=== PATIENT | male | born 1950 | race Caucasian/White ===

== ENCOUNTER 2016-03-06 18:42 | Emergency (ER) | payer MEDICARE ==
[2016-03-06 19:08] VITALS: TEMP 96.7
[2016-03-06] MEDS ORDERED: LIDOCAINE/EPINEPHR/TETRACAINE 5 ML BOTTLE TOPICAL ONE (19:53)
[2016-03-06] MEDS ORDERED: DIPH,PERTUS(ACELL)TETVAC-LF 0.5 ML VIAL IM ONE (19:55)
--- NOTE | 2016-03-06 20:11 | ED ---
Fall HPI - General Chief Complaint: Fall Stated Complaint: fall hit head Time Seen by Provider: 03/06/16 19:42 Source: patient, family, RN notes reviewed Mode of arrival: wheelchair - History of Present Illness Initial Comments: Patient is a 65-year-old male presents to the emergency room for evaluation of fall injury. Patient states earlier this evening he lost his balance and fell backwards hitting the back of his head. Patient denies loss of consciousness. Patient states he is having a headache and has noticed bleeding in the back of his head. Patient's states that patient has been a little more confused than usual. Patient's states that patient is on Plavix for A. fib. Patient denies any other injuries during incident. Patient denies neck pain. Patient denies weakness. Patient denies arm pain, leg pain or back pain. Patient denies changes in vision. Patient denies nausea or vomiting. Patient' s states that patient's back of his head continues to bleed. - Related Data Home Medications Medication Instructions Recorded Confirmed Furosemide [Lasix] 20 mg PO DAILY 01/07/14 03/06/16 Isosorbide Mononitrate ER [Imdur] 30 mg PO DAILY 01/07/14 03/06/16 Simvastatin [Zocor] 20 mg PO HS 01/07/14 03/06/16 glipiZIDE [Glucotrol] 5 mg PO AC-BRKFST 01/07/14 03/06/16 Ferrous Sulfate [Feosol] 325 mg PO DAILY 04/06/14 03/06/16 Clopidogrel [Plavix] 75 mg PO DAILY 09/29/14 03/06/16 Aspirin 81 mg PO DAILY 03/28/15 03/06/16 Tamsulosin HCl [Flomax] 0.4 mg PO DAILY 03/28/15 03/06/16 Digoxin [Lanoxin] 125 mcg PO DAILY 08/18/15 03/06/16 Memantine HCl [Namenda Xr] 28 mg PO DAILY 09/29/15 03/06/16 Citalopram Hydrobromide [CeleXA] 20 mg PO DAILY 03/06/16 03/06/16 Divalproex Sodium [Depakote] 500 mg PO BID 03/06/16 03/06/16 Metoprolol Succinate [Toprol XL] 25 mg PO DAILY 03/06/16 03/06/16 Multivitamin/Iron/Folic Acid 1 tab PO DAILY 03/06/16 03/06/16 [Centrum Complete Multivit Tab] Allergies Allergy/AdvReac Type Severity Reaction Status Date / Time No Known Allergies Allergy Verified 03/06/16 19:49 Review of Systems ROS Statement: Those systems with pertinent positive or pertinent negative responses have been documented in the HPI. ROS Other: All systems not noted in ROS Statement are negative. Past Medical History Past Medical History: Atrial Fibrillation, Atrial Flutter, Coronary Artery Disease (CAD), COPD, CVA/TIA, Diabetes Mellitus, Hyperlipidemia, Hypertension, Myocardial Infarction ([place]), Osteoarthritis (OA) Additional Past Medical History / Comment(s): Numbness in fingertips, restenosis of meka carotid stents Last Myocardial Infarction Date:: 2011 History of Any Multi-Drug Resistant Organisms: None Reported Past Surgical History: Heart Catheterization With Stent Additional Past Surgical History / Comment(s): Neck surgery, bilateral carotid surgery Past Anesthesia/Blood Transfusion Reactions: No Reported Reaction Date of Last Stent Placement:: 2011 Past Psychological History: Anxiety Smoking Status: Current every day smoker Past Alcohol Use History: None Reported Past Drug Use History: None Reported - Past Family History Father Family Medical History: Coronary Artery Disease (CAD) Mother Family Medical History: Coronary Artery Disease (CAD), Diabetes Mellitus General Exam - General Exam Comments Initial Comments: Sitting in exam room in no acute distress. Limitations: physical limitation General appearance: alert, in no apparent distress Expanded Head exam: Present: laceration (1 cm actively bleeding laceration on the right posterior parietal portion of the scalp), abrasion (1 cm abrasion on the posterior parietal scalp ) Eye exam: Present: normal appearance, PERRL, EOMI Pupils: Present: normal accommodation ENT exam: Present: normal exam Neck exam: Present: normal inspection, full ROM. Absent: tenderness, lymphadenopathy Respiratory exam: Absent: respiratory distress Extremities exam: Present: normal inspection, full ROM, normal capillary refill Back exam: Present: normal inspection Neurological exam: Present: alert Expanded Patient oriented to: Present: person, place Speech: Present: fluid speech Sensory exam: Upper Extremity Light Touch: Normal, Lower Extremity Light Touch: Normal Motor strength exam: RUE: 5, LUE: 5, RLE: 5, LLE: 5 Eye Response: (4) open spontaneously Motor Response: (6) obeys commands Verbal Response: (5) oriented Psychiatric exam: Present: normal affect, normal mood Skin exam: Present: warm, dry, normal color. Absent: rash Course Vital Signs 03/06/16 19:05 Temperature 96.7 F L Pulse Rate 83 Respiratory 20 Rate Blood Pressure 94/54 O2 Sat by Pulse 94 L Oximetry Procedures - Laceration Laceration #1 Consent Obtained: verbal consent Indication: laceration Site: scalp Size (cm): 1 Description: linear Depth: simple, single layer Pre-repair: wound explored Type of Sutures: other (staple) Number of Sutures: 1 Patient Tolerated Procedure: well, no complications Medical Decision Making - Medical Decision Making Patient is a 65-year-old male presents to the emergency room for fall injury. Brain CT shows no acute findings. Laceration repaired with staple. Advised for patient to follow-up with his primary care provider in 1-2 days for reevaluation. Patient states he understands everything that was discussed with him. Return parameters discussed. Case discussed with Dr. Cardenas. - Radiology Data Radiology results: report reviewed, image reviewed Disposition Clinical Impression: Fall, Scalp laceration Disposition: HOME SELF-CARE Condition: Good Instructions: Fall Prevention for Older Adults (ED), Laceration (ED), Staple Care (ED) Additional Instructions: Take Tylenol as needed for discomfort. Keep wound area clean and dry. Please return in 10-12 days for staple removal. Please follow up with primary care provider in 24-48 hours for reevaluation. If any new symptom arises or symptoms worsen, return to ER as soon as possible. Referrals: Ronal Torres MD [Primary Care Provider] - 1-2 days Time of Disposition: 20:44
--- NOTE | 2016-03-06 20:36 | CT ---
EXAMINATION TYPE: CT brain wo con DATE OF EXAM: 03/06/2016 8:13 PM COMPARISON: 08/19/2015 HISTORY: Fall today with laceration to posterior left side of head. CT DLP: 1061.0 mGycm Automated exposure control for dose reduction was used. FINDINGS: There is a 3 x 4 cm area of hypodensity in the right occipital lobe consistent with old infarct. Ther e is cerebral cortical atrophy. There is no mass effect nor midline shift. There is no sign of intrac ranial hemorrhage. The calvarium is intact. There is mild mucosal thickening in the left maxillary si nus. IMPRESSION: Old right occipital lobe infarct. Cerebral atrophy. No acute intracranial abnormality. No change comp ared to old exam.
[2016-03-06 20:52] VITALS: BP 132/69; PULSE 88; RESP 18
== END 2016-03-06 20:53 | disposition home or self-care (01) ==
LOC: EC 18:42
DX: S01.01XA Laceration without foreign body of scalp, initial encounter (principal); R41.0 Disorientation, unspecified; G31.9 Degenerative disease of nervous system, unspecified; I48.91 Unspecified atrial fibrillation; I48.92 Unspecified atrial flutter; I25.10 Atherosclerotic heart disease of native coronary artery without angina pectoris; J44.9 Chronic obstructive pulmonary disease, unspecified; E11.9 Type 2 diabetes mellitus without complications; E78.5 Hyperlipidemia, unspecified; I10 Essential (primary) hypertension; I25.2 Old myocardial infarction; M19.90 Unspecified osteoarthritis, unspecified site; F41.9 Anxiety disorder, unspecified; F17.200 Nicotine dependence, unspecified, uncomplicated; Z86.73 Personal history of transient ischemic attack (TIA), and cerebral infarction without residual deficits; Z23 Encounter for immunization; Z79.84 Long term (current) use of oral hypoglycemic drugs; Z79.01 Long term (current) use of anticoagulants; Z79.82 Long term (current) use of aspirin; Z79.899 Other long term (current) drug therapy; W18.00XA Striking against unspecified object with subsequent fall, initial encounter; Y92.009 Unspecified place in unspecified non-institutional (private) residence as the place of occurrence of the external cause
CPT/HCPCS: 12001; 70450; 90471; 90715; 99284

== ENCOUNTER 2017-11-25 20:03 | Emergency (ER) | payer MEDICARE ==
[2017-11-25] MEDS ORDERED: SODIUM CHLORIDE 0.9% 500 ML 500 ML IV STA (20:40)
--- NOTE | 2017-11-25 20:44 | ED ---
Seizure HPI - General Chief Complaint: Seizure Stated Complaint: seizures Time Seen by Provider: 11/25/17 20:18 Source: patient Mode of arrival: EMS Limitations: no limitations - History of Present Illness Initial Comments: Vision is a 67-year-old male with a known seizure disorder that takes Depakote. says that for the last few weeks the last months, he has been having daily seizures but that today, he had 4-5 seizures in a row. Family states that shortly prior to arrival, he stood up and went to the bathroom. Whenever he returned, he started having rightward eye deviation as well as minor tonic- clonic activity that lasted several minutes in duration and happened 4-5 times. The patient did not fall or hit his head and family states that he is relatively back to his baseline although he seems a little bit more sluggish than normal. Patient denies any changes in vision as well as headache at this time. - Related Data Home Medications Medication Instructions Recorded Confirmed Furosemide [Lasix] 20 mg PO DAILY 01/07/14 03/06/16 Isosorbide Mononitrate ER [Imdur] 30 mg PO DAILY 01/07/14 03/06/16 Simvastatin [Zocor] 20 mg PO HS 01/07/14 03/06/16 glipiZIDE [Glucotrol] 5 mg PO AC-BRKFST 01/07/14 03/06/16 Ferrous Sulfate [Feosol] 325 mg PO DAILY 04/06/14 03/06/16 Clopidogrel [Plavix] 75 mg PO DAILY 09/29/14 03/06/16 Aspirin 81 mg PO DAILY 03/28/15 03/06/16 Tamsulosin HCl [Flomax] 0.4 mg PO DAILY 03/28/15 03/06/16 Digoxin [Lanoxin] 125 mcg PO DAILY 08/18/15 03/06/16 Memantine HCl [Namenda Xr] 28 mg PO DAILY 09/29/15 03/06/16 Citalopram Hydrobromide [CeleXA] 20 mg PO DAILY 03/06/16 03/06/16 Divalproex Sodium [Depakote] 500 mg PO BID 03/06/16 03/06/16 Metoprolol Succinate [Toprol XL] 25 mg PO DAILY 03/06/16 03/06/16 Multivitamin/Iron/Folic Acid 1 tab PO DAILY 03/06/16 03/06/16 [Centrum Complete Multivit Tab] Allergies Allergy/AdvReac Type Severity Reaction Status Date / Time No Known Allergies Allergy Verified 03/06/16 19:49 Review of Systems ROS Statement: Those systems with pertinent positive or pertinent negative responses have been documented in the HPI. Constitutional: Negative for chills, fatigue and fever. HENT: Negative for congestion. Respiratory: Negative for chest tightness, shortness of breath and wheezing. Negative for cough Cardiovascular: Negative for chest pain and palpitations. Gastrointestinal: Negative for abdominal pain. Negative for abdominal distention , diarrhea, nausea and vomiting. Genitourinary: Negative for dysuria. Musculoskeletal: Negative for back pain, neck pain and neck stiffness. Skin: Negative for color change. Neurological: Negative for dizziness, speech difficulty, weakness and light- headedness. Positive for confusion and seizures Psychiatric/Behavioral: Negative for agitation and confusion. Negative for anxiety ROS Other: All systems not noted in ROS Statement are negative. Past Medical History Past Medical History: Atrial Fibrillation, Atrial Flutter, Coronary Artery Disease (CAD), COPD, CVA/TIA, Diabetes Mellitus, Hyperlipidemia, Hypertension, Myocardial Infarction ([place]), Osteoarthritis (OA) Additional Past Medical History / Comment(s): Numbness in fingertips, restenosis of meka carotid stents Last Myocardial Infarction Date:: 2011 History of Any Multi-Drug Resistant Organisms: None Reported Past Surgical History: Heart Catheterization With Stent Additional Past Surgical History / Comment(s): Neck surgery, bilateral carotid surgery Past Anesthesia/Blood Transfusion Reactions: No Reported Reaction Date of Last Stent Placement:: 2011 Past Psychological History: Anxiety Smoking Status: Current every day smoker Past Alcohol Use History: None Reported Past Drug Use History: None Reported - Past Family History Father Family Medical History: Coronary Artery Disease (CAD) Mother Family Medical History: Coronary Artery Disease (CAD), Diabetes Mellitus General Exam - General Exam Comments Initial Comments: Constitutional: Pt is oriented to person, place. Pt appears well-developed and well-nourished. No distress. HENT: Head: Normocephalic and atraumatic. Eyes: EOM are normal. Neck: Normal range of motion. Neck supple. Cardiovascular: Normal rate, regular rhythm, S1 normal, S2 normal and normal heart sounds. Exam reveals no gallop and no friction rub. No murmur heard. Pulmonary/Chest: Effort normal and breath sounds normal. No tachypnea and no bradypnea. No respiratory distress. No wheezes or rales noted. Abdominal: Soft. Bowel sounds are normal. Pt exhibits no shifting dullness, no distension, no pulsatile liver, no fluid wave, no abdominal bruit and no ascites. There is no tenderness. There is no rigidity, no rebound, no guarding, no tenderness at McBurney's point and negative Hatfield's sign. Musculoskeletal: Normal range of motion. Neurological: Pt is alert and oriented to person, place. No cranial nerve deficit. Skin: Skin is warm and dry. No rash noted. Pt is not diaphoretic. No erythema. No pallor. Psychiatric: Pt has a normal mood and affect. Pt behavior is normal. Thought content normal. Limitations: no limitations Course Vital Signs 11/25/17 11/25/17 11/25/17 20:12 22:00 23:08 Temperature 97.8 F Pulse Rate 71 52 L 50 L Respiratory 18 16 15 Rate Blood Pressure 154/84 147/93 O2 Sat by Pulse 100 100 100 Oximetry 11/25/17 23:26 Temperature Pulse Rate 67 Respiratory 16 Rate Blood Pressure 136/57 O2 Sat by Pulse 99 Oximetry Medical Decision Making - Medical Decision Making Laboratory studies showed that there was no significant leukocytosis and electrolytes were relatively within normal limits with exception of potassium which is slightly elevated at 5.2. In review of old labs, this appears to be patient's baseline his old labs had an potassium 4.8. EKG also showed no explained cause for the patient's seizure-like activity. Head CT showed old right occipital lobe infarct with no acute intracranial abnormality. There is also cerebral atrophy but no changes compared to old exam.It was explained that while there does not appear to be an emergent process, the etiology of the symptoms are still unclear and may need further workup as an outpatient if symptoms continue. Extensive conversation was had with the son and and after a prolonged observation time in the emergency department, it was mutually decided that the patient would be most benefited from discharge and outpatient follow-up with neurology. Depakote level was also noted to be within normal limits and there is no evidence of digoxin toxicity. Patient was advised to follow-up with neurology in the next 1-2 days in all parties were agreeable to plan. - Lab Data Result diagrams: 11/25/17 22:30 11/25/17 22:30 Lab Results 11/25/17 11/25/17 11/25/17 Range/Units 22:30 22:30 22:30 WBC 7.0 (3.8-10.6) k/uL RBC 3.78 L (4.30-5.90) m/uL Hgb 11.3 L (13.0-17.5) gm/dL Hct 34.5 L (39.0-53.0) % MCV 91.4 (80.0-100.0) fL MCH 29.7 (25.0-35.0) pg MCHC 32.6 (31.0-37.0) g/dL RDW 13.8 (11.5-15.5) % Plt Count 216 (150-450) k/uL Neutrophils % 74 % Lymphocytes % 11 % Monocytes % 8 % Eosinophils % 4 % Basophils % 1 % Neutrophils # 5.2 (1.3-7.7) k/uL Lymphocytes # 0.8 L (1.0-4.8) k/uL Monocytes # 0.6 (0-1.0) k/uL Eosinophils # 0.3 (0-0.7) k/uL Basophils # 0.0 (0-0.2) k/uL Sodium 139 (137-145) mmol/L Potassium 5.2 H (3.5-5.1) mmol/L Chloride 102 (98-107) mmol/L Carbon Dioxide 28 (22-30) mmol/L Anion Gap 9 mmol/L BUN 38 H (9-20) mg/dL Creatinine 1.51 H (0.66-1.25) mg/dL Est GFR (CKD-EPI)AfAm 54 (>60 ml/min/1.73 sqM) Est GFR (CKD-EPI)NonAf 47 (>60 ml/min/1.73 sqM) Glucose 89 (74-99) mg/dL Calcium 8.4 (8.4-10.2) mg/dL Total Bilirubin 0.5 (0.2-1.3) mg/dL AST 28 (17-59) U/L ALT 15 L (21-72) U/L Alkaline Phosphatase 44 (38-126) U/L Total Protein 7.0 (6.3-8.2) g/dL Albumin 3.7 (3.5-5.0) g/dL Digoxin 0.8 ng/mL Valproic Acid 52.3 ug/mL Serum Alcohol <10 mg/dL - EKG Data EKG Comments: EKG showed normal sinus rhythm with a rate of 72 bpm, PA interval 162, QRS duration 88, QTC 433 there are no significant ST depressions or elevations noted. Disposition Clinical Impression: Seizure-like activity, Hyperkalemia Disposition: HOME SELF-CARE Condition: Good Instructions: Recurrent Seizures in Adults (ED) Is patient prescribed a controlled substance at d/c from ED?: No Referrals: Ronal Torres MD [Primary Care Provider] - 1-2 days Time of Disposition: 23:48
--- NOTE | 2017-11-25 21:17 | CT ---
EXAMINATION TYPE: CT brain wo con DATE OF EXAM: 11/25/2017 COMPARISON: 03/06/2016 HISTORY: Seizures CT DLP: 1041.4 mGycm Automated exposure control for dose reduction was used. FINDINGS: There is a 3 x 2 cm area of hypodensity in the inferior right occipital lobe consistent with old jennifer ical infarct. There is cerebral cortical atrophy. There is some hypodensity in the anterior internal capsule bilaterally. There is no midline shift. There is no sign of intracranial hemorrhage. Calvariu m is intact. IMPRESSION: OLD RIGHT OCCIPITAL LOBE INFARCT. NO ACUTE INTRACRANIAL ABNORMALITY. CEREBRAL ATROPHY. NO CHANGE COMP ARED TO OLD EXAM.
--- NOTE | 2017-11-25 21:19 | XR ---
EXAMINATION TYPE: XR chest 2V DATE OF EXAM: 11/25/2017 COMPARISON: 09/29/2015 HISTORY: Seizure TECHNIQUE: Frontal and lateral views of the chest are obtained. FINDINGS: There is no heart failure nor confluent pneumonic infiltrate. Costophrenic angles are fernando r. Thoracic aorta is atheromatous. There are chest leads. IMPRESSION: Atheromatous aorta. No active cardiopulmonary disease. No change.
[2017-11-25 22:44] LABS: Basophils % (A) 1 %; Eosinophils # (A) 0.3 k/uL (0-0.7); Eosinophils % (A) 4 %; HCT 34.5 % (39.0-53.0); HGB 11.3 gm/dL (13.0-17.5); Lymphocytes # (A) 0.8 k/uL (1.0-4.8); Lymphocytes % (A) 11 %; MCH 29.7 pg (25.0-35.0); MCHC 32.6 g/dL (31.0-37.0); MCV 91.4 fL (80.0-100.0); Mean Platelet Volume 6.6; Monocytes # (A) 0.6 k/uL (0-1.0); Monocytes % (A) 8 %; Neutrophils # (A) 5.2 k/uL (1.3-7.7); Neutrophils % (A) 74 %; Platelet Count 216 k/uL (150-450); RBC 3.78 m/uL (4.30-5.90); RDW 13.8 % (11.5-15.5)
[2017-11-25 22:58] LABS: Alcohol <10 mg/dL; Anion Gap 9 mmol/L; Calcium 8.4 mg/dL (8.4-10.2); Carbon Dioxide 28 mmol/L (22-30); Chloride 102 mmol/L (98-107); Glucose 89 mg/dL (74-99); Sodium 139 mmol/L (137-145); Total Bilirubin 0.5 mg/dL (0.2-1.3)
[2017-11-25 23:03] LABS: Valproic Acid (Depakene) 52.3 ug/mL
[2017-11-25 23:04] LABS: Potassium 5.2 mmol/L (3.5-5.1)
[2017-11-25 23:05] LABS: ALT 15 U/L (21-72); AST 28 U/L (17-59); Albumin 3.7 g/dL (3.5-5.0); Alkaline Phosphatase 44 U/L (38-126); Blood Urea Nitrogen 38 mg/dL (9-20)
[2017-11-25 23:27] VITALS: BP 136/57; RESP 16
[2017-11-26 00:04] VITALS: PULSE 70; TEMP 98.1
== END 2017-11-26 00:02 | disposition home or self-care (01) ==
LOC: EC 20:03
DX: G40.909 Epilepsy, unspecified, not intractable, without status epilepticus (principal); E87.5 Hyperkalemia; I48.91 Unspecified atrial fibrillation; I48.92 Unspecified atrial flutter; I25.10 Atherosclerotic heart disease of native coronary artery without angina pectoris; J44.9 Chronic obstructive pulmonary disease, unspecified; E11.9 Type 2 diabetes mellitus without complications; E78.5 Hyperlipidemia, unspecified; I10 Essential (primary) hypertension; I25.2 Old myocardial infarction; F41.9 Anxiety disorder, unspecified; F17.200 Nicotine dependence, unspecified, uncomplicated; Z86.73 Personal history of transient ischemic attack (TIA), and cerebral infarction without residual deficits; Z79.82 Long term (current) use of aspirin; Z79.01 Long term (current) use of anticoagulants; Z79.84 Long term (current) use of oral hypoglycemic drugs; Z79.899 Other long term (current) drug therapy; Z95.5 Presence of coronary angioplasty implant and graft; Z82.49 Family history of ischemic heart disease and other diseases of the circulatory system
CPT/HCPCS: 36415; 80164; 80053; 80162; 85025; 71046; 70450; 99285; G0480; 80320

== ENCOUNTER 2018-11-04 11:33 | Inpatient (IN) | payer MEDICARE ==
[2018-11-04] MEDS ORDERED: ALBUTEROL NEBULIZED 7.5 MG, IPRATROPIUM NEBULIZED 0.5 MG, SODIUM CHLORIDE 0.9% NEBULIZ ... INHALATION ONE ×3 (13:14)
[2018-11-04] MEDS ORDERED: methylPREDNISolone SOD SUCCI 125 MG/2 ML VIAL IV STA (13:15)
--- NOTE | 2018-11-04 13:22 | ED ---
General Adult HPI - General Chief complaint: Weakness Stated complaint: SARAH/weak Time Seen by Provider: 11/04/18 11:45 Source: patient, family, RN notes reviewed Mode of arrival: ambulatory Limitations: altered mental status, physical limitation - History of Present Illness Initial comments: This is a 68-year-old male who presents to the emergency department complaining of generalized weakness and difficulty breathing according to the patient has been on going for last couple of days but got much worse last night to the point where he couldn't even hold up his own weight. Patient states shortness of breath is also getting worse he is coughing quite a bit but not coughing up any sputum. Patient denies any fever chills per patient denies any chest pain or palpitations. Patient denies any abdominal pain patient denies nausea vomiting. Patient denies any headache patient denies lightheadedness. - Related Data Home Medications Medication Instructions Recorded Confirmed Simvastatin [Zocor] 20 mg PO HS 01/07/14 11/04/18 glipiZIDE [Glucotrol] 5 mg PO AC-BRKFST 01/07/14 11/04/18 Ferrous Sulfate [Feosol] 325 mg PO DAILY 04/06/14 11/04/18 Clopidogrel [Plavix] 75 mg PO DAILY 09/29/14 11/04/18 Aspirin 81 mg PO DAILY 03/28/15 11/04/18 Tamsulosin HCl [Flomax] 0.4 mg PO DAILY 03/28/15 11/04/18 Digoxin [Lanoxin] 125 mcg PO DAILY 08/18/15 11/04/18 Citalopram Hydrobromide [CeleXA] 20 mg PO DAILY 03/06/16 11/04/18 Divalproex Sodium [Depakote] 500 mg PO BID 03/06/16 11/04/18 Multivitamin/Iron/Folic Acid 1 tab PO DAILY 03/06/16 11/04/18 [Centrum Complete Multivit Tab] Donepezil [Aricept] 10 mg PO DAILY 11/04/18 11/04/18 Ipratropium-Albuterol Nebulize 3 ml INHALATION RT-QID 11/04/18 11/04/18 [Duoneb 0.5 mg-3 mg/3 ml Soln] Lactose-Reduced Food [Ensure Plus] 1 can PO BID 11/04/18 11/04/18 Memantine [Namenda] 10 mg PO BID 11/04/18 11/04/18 Allergies Allergy/AdvReac Type Severity Reaction Status Date / Time No Known Allergies Allergy Verified 11/04/18 12:32 Review of Systems ROS Statement: Those systems with pertinent positive or pertinent negative responses have been documented in the HPI. ROS Other: All systems not noted in ROS Statement are negative. Past Medical History Past Medical History: Atrial Fibrillation, Atrial Flutter, Coronary Artery Disease (CAD), COPD, CVA/TIA, Diabetes Mellitus, Hyperlipidemia, Hypertension, Myocardial Infarction ([place]), Osteoarthritis (OA) Additional Past Medical History / Comment(s): Numbness in fingertips, restenosis of meka carotid stents Last Myocardial Infarction Date:: 2011 History of Any Multi-Drug Resistant Organisms: None Reported Past Surgical History: Heart Catheterization With Stent Additional Past Surgical History / Comment(s): Neck surgery, bilateral carotid surgery Past Anesthesia/Blood Transfusion Reactions: No Reported Reaction Date of Last Stent Placement:: 2011 Past Psychological History: Anxiety Smoking Status: Current every day smoker Past Alcohol Use History: None Reported Past Drug Use History: None Reported - Past Family History Father Family Medical History: Coronary Artery Disease (CAD) Mother Family Medical History: Coronary Artery Disease (CAD), Diabetes Mellitus General Exam - General Exam Comments Initial Comments: GENERAL: Patient is well-developed and well-nourished. Patient is nontoxic and well- hydrated and is in mild distress. ENT: Neck is soft and supple. No significant lymphadenopathy is noted. Oropharynx is clear. Moist mucous membranes. Neck has full range of motion without eliciting any pain. EYES: The sclera were anicteric and conjunctiva were pink and moist. Extraocular movements were intact and pupils were equal round and reactive to light. Eyelids were unremarkable. PULMONARY: Diffuse wheezing with crackles at the right base CARDIOVASCULAR: There is a regular rate and rhythm without any murmurs gallops or rubs. ABDOMEN: Soft and nontender with normal bowel sounds. No palpable organomegaly was noted. There is no palpable pulsatile mass. SKIN: Skin is clear with no lesions or rashes and otherwise unremarkable. NEUROLOGIC: Patient is alert and oriented x3. Cranial nerves II through XII are grossly intact. Motor and sensory are also intact. Normal speech, volume and content. Symmetrical smile. MUSCULOSKELETAL: Normal extremities with adequate strength and full range of motion. No lower extremity swelling or edema. No calf tenderness. LYMPHATICS: No significant lymphadenopathy is noted PSYCHIATRIC: Normal psychiatric evaluation. Limitations: altered mental status, physical limitation Course Vital Signs 11/04/18 11/04/18 11/04/18 11:41 14:00 14:15 Temperature 97.5 F L Pulse Rate 109 H 86 86 Respiratory 16 Rate Blood Pressure 99/48 O2 Sat by Pulse 92 L Oximetry 11/04/18 11/04/18 14:59 15:15 Temperature Pulse Rate 84 88 Respiratory Rate Blood Pressure O2 Sat by Pulse Oximetry Medical Decision Making - Medical Decision Making EKG shows sinus tachycardia at 103 bpm MD interval is 142 QRS is 88 QT interval 3:30 QTC is 432. Patient's EKG shows some ST segment depression in II, III, and F aVF as well as some precordial leads V3 45 and 6 Patient's chest x-ray shows no acute abnormality. Patient is feeling better with the breathing treatments but still has excellent or wheezing in his short of breath. Spoke with Dr. Hanks she agreed to admit the patient admitted the patient and wrote admitting orders. Patient received a total of 3 breathing treatments and steroids in the emergency department - Lab Data Result diagrams: 11/04/18 12:50 11/04/18 12:50 Lab Results 11/04/18 11/04/18 11/04/18 Range/Units 12:50 12:50 12:50 WBC 8.4 (3.8-10.6) k/uL RBC 3.39 L (4.30-5.90) m/uL Hgb 10.5 L (13.0-17.5) gm/dL Hct 32.7 L (39.0-53.0) % MCV 96.5 (80.0-100.0) fL MCH 31.1 (25.0-35.0) pg MCHC 32.2 (31.0-37.0) g/dL RDW 15.4 (11.5-15.5) % Plt Count 232 (150-450) k/uL Neutrophils % 84 % Lymphocytes % 4 % Monocytes % 10 % Eosinophils % 1 % Basophils % 0 % Neutrophils # 7.0 (1.3-7.7) k/uL Lymphocytes # 0.3 L (1.0-4.8) k/uL Monocytes # 0.8 (0-1.0) k/uL Eosinophils # 0.1 (0-0.7) k/uL Basophils # 0.0 (0-0.2) k/uL PT (9.0-12.0) sec INR (<1.2) APTT (22.0-30.0) sec Sodium 143 (137-145) mmol/L Potassium 4.3 (3.5-5.1) mmol/L Chloride 101 (98-107) mmol/L Carbon Dioxide 30 (22-30) mmol/L Anion Gap 12 mmol/L BUN 52 H (9-20) mg/dL Creatinine 1.79 H (0.66-1.25) mg/dL Est GFR (CKD-EPI)AfAm 44 (>60 ml/min/1.73 sqM) Est GFR (CKD-EPI)NonAf 38 (>60 ml/min/1.73 sqM) Glucose 269 H (74-99) mg/dL Plasma Lactic Acid Hieu 1.4 (0.7-2.0) mmol/L Calcium 9.2 (8.4-10.2) mg/dL Magnesium 2.4 H (1.6-2.3) mg/dL Total Bilirubin 0.5 (0.2-1.3) mg/dL AST 50 (17-59) U/L ALT 48 (21-72) U/L Alkaline Phosphatase 68 (38-126) U/L Troponin I (0.000-0.034) ng/mL Total Protein 6.9 (6.3-8.2) g/dL Albumin 3.6 (3.5-5.0) g/dL Urine Color Urine Appearance (Clear) Urine pH (5.0-8.0) Ur Specific Hancock (1.001-1.035) Urine Protein (Negative) Urine Glucose (UA) (Negative) Urine Ketones (Negative) Urine Blood (Negative) Urine Nitrite (Negative) Urine Bilirubin (Negative) Urine Urobilinogen (<2.0) mg/dL Ur Leukocyte Esterase (Negative) Urine RBC (0-5) /hpf Urine WBC (0-5) /hpf Ur Squamous Epith Cells (0-4) /hpf Hyaline Casts (0-2) /lpf Urine Mucus (None) /hpf Digoxin ng/mL 11/04/18 11/04/18 11/04/18 Range/Units 12:50 12:50 12:50 WBC (3.8-10.6) k/uL RBC (4.30-5.90) m/uL Hgb (13.0-17.5) gm/dL Hct (39.0-53.0) % MCV (80.0-100.0) fL MCH (25.0-35.0) pg MCHC (31.0-37.0) g/dL RDW (11.5-15.5) % Plt Count (150-450) k/uL Neutrophils % % Lymphocytes % % Monocytes % % Eosinophils % % Basophils % % Neutrophils # (1.3-7.7) k/uL Lymphocytes # (1.0-4.8) k/uL Monocytes # (0-1.0) k/uL Eosinophils # (0-0.7) k/uL Basophils # (0-0.2) k/uL PT 10.1 (9.0-12.0) sec INR 0.9 (<1.2) APTT 24.7 (22.0-30.0) sec Sodium (137-145) mmol/L Potassium (3.5-5.1) mmol/L Chloride (98-107) mmol/L Carbon Dioxide (22-30) mmol/L Anion Gap mmol/L BUN (9-20) mg/dL Creatinine (0.66-1.25) mg/dL Est GFR (CKD-EPI)AfAm (>60 ml/min/1.73 sqM) Est GFR (CKD-EPI)NonAf (>60 ml/min/1.73 sqM) Glucose (74-99) mg/dL Plasma Lactic Acid Hieu (0.7-2.0) mmol/L Calcium (8.4-10.2) mg/dL Magnesium (1.6-2.3) mg/dL Total Bilirubin (0.2-1.3) mg/dL AST (17-59) U/L ALT (21-72) U/L Alkaline Phosphatase (38-126) U/L Troponin I <0.012 (0.000-0.034) ng/mL Total Protein (6.3-8.2) g/dL Albumin (3.5-5.0) g/dL Urine Color Urine Appearance (Clear) Urine pH (5.0-8.0) Ur Specific Hancock (1.001-1.035) Urine Protein (Negative) Urine Glucose (UA) (Negative) Urine Ketones (Negative) Urine Blood (Negative) Urine Nitrite (Negative) Urine Bilirubin (Negative) Urine Urobilinogen (<2.0) mg/dL Ur Leukocyte Esterase (Negative) Urine RBC (0-5) /hpf Urine WBC (0-5) /hpf Ur Squamous Epith Cells (0-4) /hpf Hyaline Casts (0-2) /lpf Urine Mucus (None) /hpf Digoxin 1.4 ng/mL 11/04/18 Range/Units 16:02 WBC (3.8-10.6) k/uL RBC (4.30-5.90) m/uL Hgb (13.0-17.5) gm/dL Hct (39.0-53.0) % MCV (80.0-100.0) fL MCH (25.0-35.0) pg MCHC (31.0-37.0) g/dL RDW (11.5-15.5) % Plt Count (150-450) k/uL Neutrophils % % Lymphocytes % % Monocytes % % Eosinophils % % Basophils % % Neutrophils # (1.3-7.7) k/uL Lymphocytes # (1.0-4.8) k/uL Monocytes # (0-1.0) k/uL Eosinophils # (0-0.7) k/uL Basophils # (0-0.2) k/uL PT (9.0-12.0) sec INR (<1.2) APTT (22.0-30.0) sec Sodium (137-145) mmol/L Potassium (3.5-5.1) mmol/L Chloride (98-107) mmol/L Carbon Dioxide (22-30) mmol/L Anion Gap mmol/L BUN (9-20) mg/dL Creatinine (0.66-1.25) mg/dL Est GFR (CKD-EPI)AfAm (>60 ml/min/1.73 sqM) Est GFR (CKD-EPI)NonAf (>60 ml/min/1.73 sqM) Glucose (74-99) mg/dL Plasma Lactic Acid Hieu (0.7-2.0) mmol/L Calcium (8.4-10.2) mg/dL Magnesium (1.6-2.3) mg/dL Total Bilirubin (0.2-1.3) mg/dL AST (17-59) U/L ALT (21-72) U/L Alkaline Phosphatase (38-126) U/L Troponin I (0.000-0.034) ng/mL Total Protein (6.3-8.2) g/dL Albumin (3.5-5.0) g/dL Urine Color Yellow Urine Appearance Clear (Clear) Urine pH 5.5 (5.0-8.0) Ur Specific Hancock 1.027 (1.001-1.035) Urine Protein 1+ H (Negative) Urine Glucose (UA) Negative (Negative) Urine Ketones Trace H (Negative) Urine Blood Negative (Negative) Urine Nitrite Negative (Negative) Urine Bilirubin Negative (Negative) Urine Urobilinogen <2.0 (<2.0) mg/dL Ur Leukocyte Esterase Negative (Negative) Urine RBC 1 (0-5) /hpf Urine WBC 2 (0-5) /hpf Ur Squamous Epith Cells <1 (0-4) /hpf Hyaline Casts 7 H (0-2) /lpf Urine Mucus Few H (None) /hpf Digoxin ng/mL Critical Care Time Critical Care Time: Yes Total Critical Care Time: 35 Disposition Clinical Impression: COPD with acute exacerbation Disposition: ADMITTED IP TO THIS HOSP Referrals: Elena Lux MD [Primary Care Provider] - 1-2 days Time of Disposition: 16:39
[2018-11-04 13:29] LABS: Basophils % (A) 0 %; Eosinophils # (A) 0.1 k/uL (0-0.7); Eosinophils % (A) 1 %; HCT 32.7 % (39.0-53.0); HGB 10.5 gm/dL (13.0-17.5); Lymphocytes # (A) 0.3 k/uL (1.0-4.8); Lymphocytes % (A) 4 %; MCH 31.1 pg (25.0-35.0); MCHC 32.2 g/dL (31.0-37.0); MCV 96.5 fL (80.0-100.0); Mean Platelet Volume 7.2; Monocytes # (A) 0.8 k/uL (0-1.0); Monocytes % (A) 10 %; Neutrophils % (A) 84 %; Platelet Count 232 k/uL (150-450); RBC 3.39 m/uL (4.30-5.90); RDW 15.4 % (11.5-15.5); WBC 8.4 k/uL (3.8-10.6)
[2018-11-04 13:35] LABS: INR 0.9 (<1.2); Partial Thromboplastin Time 24.7 sec (22.0-30.0); Prothrombin Time 10.1 sec (9.0-12.0)
[2018-11-04 13:37] LABS: Albumin 3.6 g/dL (3.5-5.0); Calcium 9.2 mg/dL (8.4-10.2); Magnesium 2.4 mg/dL (1.6-2.3); Potassium 4.3 mmol/L (3.5-5.1); Total Bilirubin 0.5 mg/dL (0.2-1.3); Total Protein 6.9 g/dL (6.3-8.2)
--- NOTE | 2018-11-04 14:34 | XR ---
EXAMINATION TYPE: XR chest 2V DATE OF EXAM: 11/04/2018 COMPARISON: Prior chest x-ray 11/25/2017 HISTORY: Weakness and shortness of breath TECHNIQUE: Frontal and lateral views of the chest are obtained. FINDINGS: There is no focal air space opacity, pleural effusion, or pneumothorax seen. The cardiac silhouette size is within normal limits. There are dense calcifications within the aorta and coronary arteries. Suspect coronary artery stent is in place. The osseous structures are intact. There are ov erlying cardiac leads. Postop changes are noted to the cervical spine. Apical pleural thickening is a gain noted. IMPRESSION: No acute cardiopulmonary process.
[2018-11-04 16:19] LABS: Appearance,Urine Clear (Clear); Bilirubin,Urine Negative (Negative); Blood,Urine Negative (Negative); Color,Urine Yellow; Glucose,Urine (UA) Negative (Negative); Hyaline Casts,Urine 7 /lpf (0-2); Ketones,Urine Trace (Negative); Leukocyte Esterase,Urine Negative (Negative); Mucus,Urine Few /hpf; Nitrite,Urine Negative (Negative); PH, Urine 5.5 (5.0-8.0); Protein,Urine 1+ (Negative); RBC,Urine 1 /hpf (0-5); Specific Gravity,Urine 1.027 (1.001-1.035); Squamous Epithelial Cell,Urine <1 /hpf (0-4); Urobilinogen,Urine <2.0 mg/dL (<2.0); WBC,Urine 2 /hpf (0-5)
[2018-11-04] MEDS ORDERED: IPRATROPIUM-ALBUTEROL 3 ML NEB INHALATION PRN (16:39)
[2018-11-04] MEDS: methylPREDNISolone SOD SUCCI 125 MG/2 ML VIAL IV SCH (19:27)
[2018-11-04 21:16] LABS: Glucose,Whole Blood 360 mg/dL (75-99)
[2018-11-04] MEDS: SODIUM CHLORIDE 0.9% 1,000 ML IV SCH (21:42)
[2018-11-04] MEDS: ATORVASTATIN 10 MG TAB PO SCH (21:44)
[2018-11-04] MEDS: MEMANTINE 10 MG TAB PO SCH (21:44)
[2018-11-04] MEDS: DIVALPROEX 500 MG TABLET.DR PO SCH (21:44)
[2018-11-04] MEDS: INSULIN ASPART (NovoLOG) 100 UNIT/ML VIAL SQ SCH (22:13)
--- NOTE | 2018-11-05 00:11 | P.HPIM ---
History of Present Illness H&P Date: 11/04/18 Chief Complaint: Generalized weakness and shortness of breath Mr. Smith is a 68-year-old male with a past medical history of coronary artery disease, diabetes mellitus, hypertension, hyperlipidemia, COPD, atrial fibrillation/atrial flutter coming in with a chief complaint of generalized weakness and difficulty in breathing. Patient states that for the past 2 days he had increased difficulty in breathing along with a cough. The cough is mostly nonproductive but at times he brings up white sputum. Patient denies having any fevers chills or rigors. He denies having any chest pain or palpitations. He denies having any orthopnea PND or lower extremity swelling. No abdominal pain nausea vomiting or diarrhea. Patient walks with a walker at home and he was noticed to be very weak that he has been unable to use his walker at home. Patient is not on oxygen at home. He has history of COPD and has been using his breathing treatments more often than usual. Patient denies having any headaches or syncopal episodes. He denies having any focal weakness of his extremities. In the emergency department patient was tachypneic and tachycardic with a low b lood pressure and hypoxia. He had blood work done showing white count of 8.4, hemoglobin of 10.5 sodium 143, BUN of 52 and creatinine of 1.79. Patient also had a UA that is negative for nitrites or leukocyte esterase. He had a chest x- ray showing no acute cardiopulmonary process. Review of Systems REVIEW OF SYSTEMS: PSYCH: no anxiety or depression NEURO:Generalized weakness , No facial droop, No speech abnormalities. VASCULAR: No edema HEMATOLOGIC: No history of easy bleeding and bruising . No recent infections . RESPIRATORY: As per HPI. IMMUNE: No infections INTEGUMENT: no rashes OPHTHALMOLOGIC: No blurry vision and no eye discharge : No dysuria or hematuria CARDIAC: No chest pain , shortness of breath , paroxysmal nocturnal dyspnea MUSCULOSKELETAL : No Aches or pains in the joints or muscles. GI: No abdominal pain, Nausea or vomiting. No constipation or diarrhea. All 13 review of systems other than the negative except for the ones mentioned above. Past Medical History Past Medical History: Atrial Fibrillation, Atrial Flutter, Coronary Artery Disease (CAD), COPD, CVA/TIA, Diabetes Mellitus, Hyperlipidemia, Hypertension, Myocardial Infarction ([place]), Osteoarthritis (OA) Additional Past Medical History / Comment(s): Numbness in fingertips, restenosis of meka carotid stents Last Myocardial Infarction Date:: 2011 History of Any Multi-Drug Resistant Organisms: None Reported Past Surgical History: Heart Catheterization With Stent Additional Past Surgical History / Comment(s): Neck surgery, bilateral carotid surgery Past Anesthesia/Blood Transfusion Reactions: No Reported Reaction Date of Last Stent Placement:: 2011 Past Psychological History: Anxiety Smoking Status: Former smoker Past Alcohol Use History: None Reported Past Drug Use History: None Reported Additional Drug Use History / Comment(s): Patient states he hasn't smoked in several years and doesn't need any education. - Past Family History Father Family Medical History: Coronary Artery Disease (CAD) Mother Family Medical History: Coronary Artery Disease (CAD), Diabetes Mellitus Medications and Allergies Home Medications Medication Instructions Recorded Confirmed Type Simvastatin [Zocor] 20 mg PO HS 01/07/14 11/04/18 History glipiZIDE [Glucotrol] 5 mg PO AC-BRKFST 01/07/14 11/04/18 History Ferrous Sulfate [Feosol] 325 mg PO DAILY 04/06/14 11/04/18 History Clopidogrel [Plavix] 75 mg PO DAILY 09/29/14 11/04/18 History Aspirin 81 mg PO DAILY 03/28/15 11/04/18 History Tamsulosin HCl [Flomax] 0.4 mg PO DAILY 03/28/15 11/04/18 History Digoxin [Lanoxin] 125 mcg PO DAILY 08/18/15 11/04/18 History Citalopram Hydrobromide [CeleXA] 20 mg PO DAILY 03/06/16 11/04/18 History Divalproex Sodium [Depakote] 500 mg PO BID 03/06/16 11/04/18 History Multivitamin/Iron/Folic Acid 1 tab PO DAILY 03/06/16 11/04/18 History [Centrum Complete Multivit Tab] Donepezil [Aricept] 10 mg PO DAILY 11/04/18 11/04/18 History Ipratropium-Albuterol Nebulize 3 ml INHALATION RT-QID 11/04/18 11/04/18 History [Duoneb 0.5 mg-3 mg/3 ml Soln] Lactose-Reduced Food [Ensure Plus] 1 can PO BID 11/04/18 11/04/18 History Memantine [Namenda] 10 mg PO BID 11/04/18 11/04/18 History Allergies Allergy/AdvReac Type Severity Reaction Status Date / Time No Known Allergies Allergy Verified 11/04/18 12:32 Physical Exam Vitals: Vital Signs Temp Pulse Pulse Resp BP BP Pulse Ox 11/04/18 20:38 59 L 20 11/04/18 19:07 95 11/04/18 18:30 81 30 H 123/47 97 11/04/18 18:20 79 29 H 123/47 95 11/04/18 18:10 81 27 H 123/47 94 L 11/04/18 18:02 97.4 F L 56 L 20 129/59 97 11/04/18 18:00 82 22 138/53 3 L 11/04/18 17:50 82 21 138/53 95 11/04/18 17:40 79 24 138/53 96 11/04/18 17:30 81 27 H 115/50 97 11/04/18 17:20 83 26 H 115/50 95 11/04/18 17:10 81 24 115/50 95 11/04/18 17:00 80 23 127/54 11/04/18 16:50 84 34 H 127/54 96 11/04/18 16:40 85 34 H 127/54 94 L 11/04/18 16:30 81 24 153/53 97 11/04/18 16:20 87 20 153/53 97 11/04/18 16:10 87 17 153/53 98 11/04/18 16:00 90 29 H 165/56 97 11/04/18 15:50 84 23 165/56 95 11/04/18 15:40 82 25 H 165/56 95 11/04/18 15:30 93 25 H 107/46 96 11/04/18 15:20 84 24 107/46 99 11/04/18 15:15 88 11/04/18 15:10 86 28 H 107/46 100 11/04/18 15:00 85 31 H 132/59 100 11/04/18 14:59 84 11/04/18 14:50 85 26 H 132/59 100 11/04/18 14:40 84 15 132/59 100 11/04/18 14:30 85 19 151/64 98 11/04/18 14:20 80 30 H 151/64 100 11/04/18 14:15 86 11/04/18 14:10 82 34 H 151/64 100 11/04/18 14:00 84 27 H 145/62 98 11/04/18 13:50 145/62 11/04/18 13:40 87 35 H 145/62 98 11/04/18 13:30 85 40 H 137/66 98 11/04/18 13:20 86 37 H 137/66 99 11/04/18 13:10 87 41 H 137/66 99 11/04/18 13:00 91 20 152/56 97 11/04/18 12:50 96 36 H 93 L 11/04/18 12:40 94 37 H 152/56 98 11/04/18 12:35 98 29 H 99 11/04/18 11:41 97.5 F L 109 H 16 99/48 92 L Intake and Output 11/04/18 11/04/18 11/04/18 06:59 14:59 22:59 Other: Voiding Method Urinal Weight 58.967 kg GEN. APPEARANCE: alert, no apparent distress, Thin and emaciated. HEAD EXAM: atraumatic, normocephalic, normal inspection EYE EXAM: PERRLA, No pallor or icterus ENT EXAM: mucous membranes moist NECK EXAM: no lymphadenopathy RESPIRATORY EXAM: Decreased bilateral air entry. Coarse breath sounds in all lung zavala. CARDIOVASCULAR EXAM: S 1 and S 2 heard GI/ABDOMINAL EXAM: soft, normal bowel sounds. Not distended, no tenderness, guarding, rebound or rigidity EXTREMITIES EXAM: no pedal edema. NEUROLOGICAL EXAM: alert, oriented X2 ,oriented to name and place but not to the year , no focal deficits PSYCHIATRIC EXAM: normal affect, normal mood SKIN EXAM: frail Results CBC & Chem 7: 11/04/18 12:50 11/04/18 12:50 Labs: Abnormal Lab Results - Last 24 Hours (Table) 11/04/18 11/04/18 11/04/18 Range/Units 12:50 12:50 16:02 RBC 3.39 L (4.30-5.90) m/uL Hgb 10.5 L (13.0-17.5) gm/dL Hct 32.7 L (39.0-53.0) % Lymphocytes # 0.3 L (1.0-4.8) k/uL BUN 52 H (9-20) mg/dL Creatinine 1.79 H (0.66-1.25) mg/dL Glucose 269 H (74-99) mg/dL POC Glucose (mg/dL) (75-99) mg/dL Magnesium 2.4 H (1.6-2.3) mg/dL Urine Protein 1+ H (Negative) Urine Ketones Trace H (Negative) Hyaline Casts 7 H (0-2) /lpf Urine Mucus Few H (None) /hpf 11/04/18 Range/Units 21:15 RBC (4.30-5.90) m/uL Hgb (13.0-17.5) gm/dL Hct (39.0-53.0) % Lymphocytes # (1.0-4.8) k/uL BUN (9-20) mg/dL Creatinine (0.66-1.25) mg/dL Glucose (74-99) mg/dL POC Glucose (mg/dL) 360 H (75-99) mg/dL Magnesium (1.6-2.3) mg/dL Urine Protein (Negative) Urine Ketones (Negative) Hyaline Casts (0-2) /lpf Urine Mucus (None) /hpf Thrombosis Risk Factor Assmnt - Choose All That Apply Any of the Below Risk Factors Present?: Yes Each Factor Represents 1 point: Abnormal pulmonary function (COPD) Other Risk Factors: Yes Each Risk Factor Represents 2 Points: Age 61-74 years Other congenital or acquired thrombophilia - If yes, enter type in comment: No Thrombosis Risk Factor Assessment Total Risk Factor Score: 3 Thrombosis Risk Factor Assessment Level: Moderate Risk Assessment and Plan Assessment: ASSESSMENT Acute COPD exacerbation Acute tracheobronchitis CKD stage III Thin built, BMI of 17.6 Coronary artery disease status post stenting Type 2 diabetes mellitus Hypertension Hyperlipidemia Chronic debility Multiple joint osteoarthritis Bilateral carotid artery stenting Former smoker PLAN: Patient received a dose of Solu-Medrol in the ED and breathing treatments and admitted for further management. As the patient has cough and shortness of breath, we will start him on levofloxacin for acute tracheobronchitis. Continue with Solu-Medrol and breathing treatments. Restarted him back on his home medication regimen. The treatment plan was discussed with the patient's family members at bedside in detail. Overall prognosis is guarded. Further recommend ations to follow depending on the progress of the patient.
[2018-11-05] MEDS ORDERED: LEVOFLOXACIN 750MG-D5W PMX 750 MG in DEXTROSE/WATER 1 150ML.BAG IVPB SCH (00:15)
[2018-11-05] MEDS: methylPREDNISolone SOD SUCCI 125 MG/2 ML VIAL IV SCH ×3 (01:05→12:51)
[2018-11-05 07:05] LABS: Glucose,Whole Blood 239 mg/dL (75-99)
[2018-11-05] MEDS ORDERED: INSULIN ASPART (NovoLOG) 100 UNIT/ML VIAL SQ SCH (07:30)
[2018-11-05 07:47] LABS: Basophils % (A) 0 %; Eosinophils % (A) 0 %; HCT 28.6 % (39.0-53.0); Hypochromasia Slight; Lymphocytes # (A) 0.3 k/uL (1.0-4.8); Lymphocytes % (A) 4 %; MCH 30.2 pg (25.0-35.0); MCHC 31.4 g/dL (31.0-37.0); MCV 96.2 fL (80.0-100.0); Mean Platelet Volume 6.9; Monocytes # (A) 0.5 k/uL (0-1.0); Monocytes % (A) 8 %; Neutrophils # (A) 5.5 k/uL (1.3-7.7); Neutrophils % (A) 87 %; Platelet Count 193 k/uL (150-450); RBC 2.98 m/uL (4.30-5.90); RDW 14.1 % (11.5-15.5); WBC 6.4 k/uL (3.8-10.6)
[2018-11-05 07:56] LABS: Calcium 8.7 mg/dL (8.4-10.2); Potassium 4.5 mmol/L (3.5-5.1)
[2018-11-05] MEDS: INSULIN ASPART (NovoLOG) 100 UNIT/ML VIAL SQ SCH ×4 (08:23→21:44)
[2018-11-05] MEDS: ASPIRIN 81 MG PO SCH (08:24)
[2018-11-05] MEDS: CLOPIDOGREL 75 MG TAB PO SCH (08:24)
[2018-11-05] MEDS: TAMSULOSIN 0.4 MG CAP.ER.24H PO SCH (08:24)
[2018-11-05] MEDS: DIGOXIN 125 MCG TAB PO SCH (08:25)
[2018-11-05] MEDS: DIVALPROEX 500 MG TABLET.DR PO SCH ×2 (08:25→21:43)
[2018-11-05] MEDS: MEMANTINE 10 MG TAB PO SCH ×2 (08:26→21:42)
[2018-11-05] MEDS ORDERED: DONEPEZIL 10 MG TAB PO SCH (09:00)
[2018-11-05] MEDS ORDERED: ENOXAPARIN 40 MG/0.4 ML SYRINGE SQ SCH (09:00)
[2018-11-05] MEDS ORDERED: CITALOPRAM HYDROBROMIDE 20 MG TAB PO SCH (09:00)
[2018-11-05 11:33] LABS: Glucose,Whole Blood 145 mg/dL (75-99)
[2018-11-05 11:39] VITALS: BMI 17.6
--- NOTE | 2018-11-05 15:25 | P.PN ---
Subjective 68-year-old pleasant gentleman came in with the demise weakness not eating well which led to dehydration patient improved with IV fluids patient is also being treated for COPD examination is wheezing significantly improved patient was switched to oral steroids. Antibiotics will be discontinued at this time there is no evidence of pneumonia at this time. Urine is not impressive for urinary tract infection. I'll obtain a digoxin level. Patient looks much better as per the family although may require subacute rehabilitation patient is quite weak does have dementia. We'll obtain PT and OT consultation Constitutional: Denied any fatigue denied any fever. Cardio vascular: denied any chest pain, palpitations Gastrointestinal denied any nausea vomiting Pulmonary: Denied any shortness of breath cough Neurologic denied any new focal deficits All inpatient medications were reviewed and appropriate changes in these medications as dictated in the interval history and assessment and plan. Objective - Vital Signs Vital signs: Vital Signs Temp 98.2 F 11/05/18 04:59 Pulse 65 11/05/18 04:59 Resp 20 11/05/18 04:59 BP 112/57 11/05/18 04:59 Pulse Ox 97 11/05/18 04:59 Intake & Output 11/04/18 11/05/18 11/05/18 18:59 06:59 18:59 Intake Total 650 800 Output Total 400 Balance 250 800 Weight 58.967 kg 58.967 kg Intake: Intake, IV Titration 650 800 Amount Levofloxacin 750Mg-D5w 150 Pmx 750 mg In Dextrose/ Water 1 150ml.bag @ 100 mls/hr IVPB Q48H [facility] Rx#: [id number] Sodium Chloride 0.9% 1, 500 800 000 ml @ 100 mls/hr IV . Q10H [facility] Rx#:[id number] Output: Urine 400 Other: Voiding Method Urinal # Voids 1 - Exam PHYSICAL EXAMINATION: GENERAL: The patient is alert and oriented x2-3, not in any acute distress. Thin built HEENT: Pupils are round and equally reacting to light. EOMI. No scleral icterus. No conjunctival pallor. Normocephalic, atraumatic. No pharyngeal erythema. No thyromegaly. CARDIOVASCULAR: S1 and S2 present. No murmurs, rubs, or gallops. PULMONARY: Chest is clear to auscultation, no wheezing or crackles. ABDOMEN: Soft, nontender, nondistended, normoactive bowel sounds. No palpable organomegaly. MUSCULOSKELETAL: No joint swelling or deformity. EXTREMITIES: No cyanosis, clubbing, or pedal edema. NEUROLOGICAL: Gross neurological examination did not reveal any focal deficits. SKIN: No rashes. - Labs CBC & Chem 7: 11/05/18 06:57 11/05/18 06:57 Labs: Abnormal Lab Results - Last 24 Hours (Table) 11/04/18 11/04/18 11/05/18 Range/Units 16:02 21:15 06:57 RBC 2.98 L (4.30-5.90) m/uL Hgb 9.0 L D (13.0-17.5) gm/dL Hct 28.6 L (39.0-53.0) % Lymphocytes # 0.3 L (1.0-4.8) k/uL BUN (9-20) mg/dL Creatinine (0.66-1.25) mg/dL Glucose (74-99) mg/dL POC Glucose (mg/dL) 360 H (75-99) mg/dL Urine Protein 1+ H (Negative) Urine Ketones Trace H (Negative) Hyaline Casts 7 H (0-2) /lpf Urine Mucus Few H (None) /hpf 11/05/18 11/05/18 11/05/18 Range/Units 06:57 07:03 11:33 RBC (4.30-5.90) m/uL Hgb (13.0-17.5) gm/dL Hct (39.0-53.0) % Lymphocytes # (1.0-4.8) k/uL BUN 61 H (9-20) mg/dL Creatinine 1.67 H (0.66-1.25) mg/dL Glucose 218 H (74-99) mg/dL POC Glucose (mg/dL) 239 H 145 H (75-99) mg/dL Urine Protein (Negative) Urine Ketones (Negative) Hyaline Casts (0-2) /lpf Urine Mucus (None) /hpf Microbiology - Last 24 Hours (Table) 11/04/18 16:20 Urine Culture - Preliminary Urine,Voided Assessment and Plan Plan: Acute COPD exacerbation: Patient will be switched to oral steroids significant improvement, levofloxacin will be discontinued patient will be started on doxycycline and started Acute tracheobronchitis CKD stage III , Patient appears to be dehydrated may have some acute renal dysfunction as well. We'll repeat basic metabolic profile continue with IV fluids. Thin built, BMI of 17.6 Coronary artery disease status post stenting Type 2 diabetes mellitus Hypertension Hyperlipidemia Chronic debility Multiple joint osteoarthritis Bilateral carotid artery stenting Former smoker -Generalized deconditioning with the possibility of mild to moderate dementia PT and OT will be consulted.
[2018-11-05 16:09] LABS: Hemoglobin A1C 5.4 % (4.0-6.0)
[2018-11-05 17:08] LABS: Glucose,Whole Blood 299 mg/dL (75-99)
[2018-11-05 20:01] LABS: Glucose,Whole Blood 233 mg/dL (75-99)
[2018-11-05] MEDS: ATORVASTATIN 10 MG TAB PO SCH (21:41)
[2018-11-05] MEDS: DOXYCYCLINE 100 MG CAP PO SCH (21:42)
[2018-11-05] MEDS: HEPARIN SODIUM,PORCINE 5,000 UNIT/ML 1 ML VIAL SQ SCH (21:45)
[2018-11-06] MEDS: SODIUM CHLORIDE 0.9% 1,000 ML IV SCH ×3 (03:00→13:33)
[2018-11-06 05:54] LABS: Calcium 8.1 mg/dL (8.4-10.2); Potassium 4.4 mmol/L (3.5-5.1)
[2018-11-06 06:45] LABS: Glucose,Whole Blood 219 mg/dL (75-99)
[2018-11-06] MEDS: INSULIN ASPART (NovoLOG) 100 UNIT/ML VIAL SQ SCH ×4 (07:54→21:35)
[2018-11-06] MEDS: TAMSULOSIN 0.4 MG CAP.ER.24H PO SCH (07:58)
[2018-11-06] MEDS: MEMANTINE 10 MG TAB PO SCH ×2 (07:58→21:35)
[2018-11-06] MEDS: CLOPIDOGREL 75 MG TAB PO SCH (07:58)
[2018-11-06] MEDS: DIVALPROEX 500 MG TABLET.DR PO SCH ×2 (07:58→21:35)
[2018-11-06] MEDS: DOXYCYCLINE 100 MG CAP PO SCH ×2 (07:58→21:35)
[2018-11-06] MEDS: DIGOXIN 125 MCG TAB PO SCH (07:59)
[2018-11-06] MEDS: ASPIRIN 81 MG PO SCH (07:59)
[2018-11-06] MEDS: HEPARIN SODIUM,PORCINE 5,000 UNIT/ML 1 ML VIAL SQ SCH ×2 (07:59→21:35)
[2018-11-06] MEDS: predniSONE 20 MG TAB PO SCH (07:59)
[2018-11-06 11:51] LABS: Glucose,Whole Blood 252 mg/dL (75-99)
--- NOTE | 2018-11-06 14:51 | P.PN ---
Subjective Progress Note Date: 11/06/18 Principal diagnosis: 68-year-old pleasant gentleman came in with the demise weakness not eating well which led to dehydration patient improved with IV fluids patient is also being t reated for COPD examination is wheezing significantly improved patient was switched to oral steroids. Antibiotics will be discontinued at this time there is no evidence of pneumonia at this time. Urine is not impressive for urinary tract infection. I'll obtain a digoxin level. Patient looks much better as per the family although may require subacute rehabilitation patient is quite weak does have dementia. We'll obtain PT and OT consultation. 11/06/2018 Patient is sitting up in bed in no acute distress. Discussed with case management and social work today as well as PT/OT and is being recommended that patient goes to rehab for continued physical therapy for strength and mobility. He was able to stand with assistance with a walker but unable to walk around. Patient states that he lives at home with his and has been having more frequent falls lately. Authorization through his Medicare for subacute rehab is currently in the process. Patient denies any chest pain or palpitations at this time. Patient is afebrile. Patient states that shortness of breath has improved. Patient is currently on 2 L of oxygen and states that he doesn't normally wear oxygen at home. Will continue to monitor closely. Objective - Vital Signs Vital signs: Vital Signs Temp 97.4 F L 11/06/18 11:41 Pulse 61 11/06/18 11:41 Resp 18 11/06/18 11:41 BP 147/63 11/06/18 11:41 Pulse Ox 96 11/06/18 11:41 Intake & Output 11/05/18 11/06/18 11/06/18 18:59 06:59 18:59 Intake Total 800 240 Balance 800 240 Weight 58.967 kg Intake: Intake, IV Titration 800 Amount Sodium Chloride 0.9% 1, 800 000 ml @ 100 mls/hr IV . Q10H [facility] Rx#:[id number] Oral 240 Other: Voiding Method Urinal Urinal # Voids 2 - Exam GENERAL: The patient is alert and oriented x2-3, not in any acute distress. Thin built. Vital signs are stable. Temp is 97.4F, pulse is 61, respirations are 18, blood pressure is 134/54, oxygen saturation is 96% on 3 L via nasal cannula. HEENT: Pupils are round and equally reacting to light. EOMI. No scleral icterus. No conjunctival pallor. Normocephalic, atraumatic. No pharyngeal erythema. No thyromegaly. CARDIOVASCULAR: S1 and S2 present. No murmurs, rubs, or gallops. PULMONARY: Diminished breath sounds at the bases otherwise clear to auscultation, no wheezing or crackles. ABDOMEN: Soft, nontender, nondistended, normoactive bowel sounds. No palpable organomegaly. MUSCULOSKELETAL: No joint swelling or deformity. EXTREMITIES: No cyanosis, clubbing, or pedal edema. NEUROLOGICAL: Gross neurological examination did not reveal any focal deficits. Moderate diffuse weakness. SKIN: No rashes. - Labs CBC & Chem 7: 11/05/18 06:57 11/06/18 05:28 Labs: Abnormal Lab Results - Last 24 Hours (Table) 11/05/18 11/05/18 11/06/18 Range/Units 17:06 20:00 05:28 BUN 59 H (9-20) mg/dL Creatinine 1.47 H (0.66-1.25) mg/dL Glucose 197 H (74-99) mg/dL POC Glucose (mg/dL) 299 H 233 H (75-99) mg/dL Calcium 8.1 L (8.4-10.2) mg/dL 11/06/18 11/06/18 Range/Units 06:44 11:49 BUN (9-20) mg/dL Creatinine (0.66-1.25) mg/dL Glucose (74-99) mg/dL POC Glucose (mg/dL) 219 H 252 H (75-99) mg/dL Calcium (8.4-10.2) mg/dL Assessment and Plan Assessment: Acute COPD exacerbation: Patient was switched to oral steroids significant improvement, antibiotics are oral doxycycline at this time. Acute tracheobronchitis CKD stage III Patient appears to be dehydrated may have some acute renal dysfunction as well. Continue with IV fluids at 100 mL per hour. Current creatinine trending down and is 1.47 Thin built, BMI of 17.6 Coronary artery disease status post stenting Type 2 diabetes mellitus Hypertension Hyperlipidemia Chronic debility Multiple joint osteoarthritis Bilateral carotid artery stenting Former smoker Generalized deconditioning with the possibility of mild to moderate dementia DVT prophylaxis: Subq heparin Recommendations and discussion: Recommend continue current medications, management and symptomatic treatment. Patient has been currently transitioned over to oral antibiotics as well as oral steroids and tolerating well. Discussed with the nursing staff about continuing to wean patient off oxygen as needed as he does not normally use oxygen at home. Currently awaiting authorization for subacute rehab for continued PT/OT therapy. Will continue to monitor closely. Guarded prognosis. Further recommendations to follow.
[2018-11-06 17:11] LABS: Glucose,Whole Blood 213 mg/dL (75-99)
[2018-11-06 20:23] LABS: Glucose,Whole Blood 236 mg/dL (75-99)
[2018-11-06] MEDS: ATORVASTATIN 10 MG TAB PO SCH (21:35)
[2018-11-07] MEDS: SODIUM CHLORIDE 0.9% 1,000 ML IV SCH ×3 (01:00→17:35)
[2018-11-07 07:02] LABS: Glucose,Whole Blood 127 mg/dL (75-99)
[2018-11-07] MEDS: INSULIN ASPART (NovoLOG) 100 UNIT/ML VIAL SQ SCH ×4 (07:58→20:43)
[2018-11-07] MEDS: DIGOXIN 125 MCG TAB PO SCH (08:03)
[2018-11-07] MEDS: DOXYCYCLINE 100 MG CAP PO SCH ×2 (08:03→20:21)
[2018-11-07] MEDS: TAMSULOSIN 0.4 MG CAP.ER.24H PO SCH (08:03)
[2018-11-07] MEDS: predniSONE 20 MG TAB PO SCH (08:03)
[2018-11-07] MEDS: HEPARIN SODIUM,PORCINE 5,000 UNIT/ML 1 ML VIAL SQ SCH ×2 (08:03→20:21)
[2018-11-07] MEDS: ASPIRIN 81 MG PO SCH (08:03)
[2018-11-07] MEDS: DIVALPROEX 500 MG TABLET.DR PO SCH ×2 (08:03→20:21)
[2018-11-07] MEDS: CLOPIDOGREL 75 MG TAB PO SCH (08:03)
[2018-11-07] MEDS: MEMANTINE 10 MG TAB PO SCH ×2 (08:03→20:21)
--- NOTE | 2018-11-07 08:14 | XR ---
EXAMINATION TYPE: XR chest 1V DATE OF EXAM: 11/07/2018 COMPARISON: 11/04/2018 HISTORY: Shortness of breath and congestion TECHNIQUE: Single frontal view of the chest is obtained. FINDINGS: Increasing left infrahilar airspace disease is seen. There is slight left hemidiaphragm el evation is unchanged from the prior. Biapical lucency suggests mild underlying COPD. Cardia mediastin al silhouette is within normal limits. Cervical fusion device is noted. IMPRESSION: Increasing left infrahilar opacity suspicious for developing pneumonia.
[2018-11-07 08:20] LABS: Calcium 8.2 mg/dL (8.4-10.2); Potassium 4.3 mmol/L (3.5-5.1)
[2018-11-07] MEDS: BUDESONIDE 0.5 MG/2 ML NEBU INHALATION SCH ×2 (08:26→18:56)
[2018-11-07] MEDS: IPRATROPIUM-ALBUTEROL 3 ML NEB INHALATION SCH ×4 (08:26→18:56)
[2018-11-07 11:49] LABS: Glucose,Whole Blood 261 mg/dL (75-99)
--- NOTE | 2018-11-07 11:53 | CDI ---
Documentation Clarification Form Date: 11/07/2018 11:17:30 AM From: Snow Méndez RN CCDS Admit Date: 11/06/2018 2:05:00 PM Patient Name: Dallas Smith Visit Number: [id number] Discharge Date: ATTENTION: The Clinical Documentation Specialists (CDI) and [facility] Coding Staff appreciate your assistance in clarifying documentation. Please respond to the clarification below the line at the bottom and electronically sign. The CDI & [facility] Coding staff will review the response and follow-up if needed. Please note: Queries are made part of the Legal Health Record. If you have any questions, please contact the author of this message via ITS. Dr. Marjan green, BMI of 17 .6 is documented in the H & P History/Risk Factors: 68 year old male presents to the ED with Difficulty in Breathing. Medical history of COPD; CKD 3; DM 2; HTN; CAD; Former Smoker. Clinical Indicators: Labs Albumin 3.6; Cr 1.79; Bun 52; Hgb 10.5, Glucose 269 Current BMI: 17.6kg Per the Dietary consult - Nutrition Diagnosis Nutrient Malnutrition Specific Nutrient Chronic Severe Dietary Consult: Good nutrition intake 75-100% consumed, for 1 meal on a consistent carb diet , fair appetite . Physical Findings Emaciated Temporal , orbital, cheek fat loss, protruding clavicle BMI classification underweight. Per family pt does not eat much Duration 1 year Supplements: Glucerna TID with meals 220 Kcal and 10gm of protein / serving Consult - Dietary In your professional opinion, can you please clarify if these findings signify one of the following conditions? * Severe Protein-Calorie Malnutrition * Severe Malnutrition, unspecified * Other condition, please specify * Unable to determine (Last Revision: August 2018) MTDD
--- NOTE | 2018-11-07 14:26 | P.PN ---
Subjective Progress Note Date: 11/07/18 Principal diagnosis: 68-year-old pleasant gentleman came in with the demise weakness not eating well which led to dehydration patient improved with IV fluids patient is also being t reated for COPD examination is wheezing significantly improved patient was switched to oral steroids. Antibiotics will be discontinued at this time there is no evidence of pneumonia at this time. Urine is not impressive for urinary tract infection. I'll obtain a digoxin level. Patient looks much better as per the family although may require subacute rehabilitation patient is quite weak does have dementia. We'll obtain PT and OT consultation. 11/06/2018 Patient is sitting up in bed in no acute distress. Discussed with case management and social work today as well as PT/OT and is being recommended that patient goes to rehab for continued physical therapy for strength and mobility. He was able to stand with assistance with a walker but unable to walk around. Patient states that he lives at home with his and has been having more frequent falls lately. Authorization through his Medicare for subacute rehab is currently in the process. Patient denies any chest pain or palpitations at this time. Patient is afebrile. Patient states that shortness of breath has improved. Patient is currently on 2 L of oxygen and states that he doesn't normally wear oxygen at home. Will continue to monitor closely. 11/07/2018 Patient sitting up in mild acute distress this morning. Patient is having wheezing with an increase in cough and some mild shortness of breath. Patient denies any chest pain or palpitations at this time. Patient is eating and tolerating diet with no complaints of nausea or vomiting. Patient is afebrile. Chest x-ray was done showing an increase in left infrahilar opacity suspicious for developing pneumonia. Pulmonary was consulted. Patient is currently on doxycycline and oral form and will add Rocephin IV antibiotics. Patient was placed back on oxygen as he was having oxygen saturations of 90% maximum. Guarded prognosis. Will continue to monitor closely. Objective - Vital Signs Vital signs: Vital Signs Temp 98 F 11/07/18 12:16 Pulse 71 11/07/18 12:16 Resp 18 11/07/18 12:16 BP 121/59 11/07/18 12:16 Pulse Ox 97 11/07/18 12:16 Intake & Output 11/06/18 11/07/18 11/07/18 18:59 06:59 18:59 Intake Total 2360 1100 720 Output Total 800 350 Balance 1560 750 720 Weight 58.967 kg Intake: Intake, IV Titration 1100 Amount Sodium Chloride 0.9% 1, 1100 000 ml @ 100 mls/hr IV . Q10H [facility] Rx#:[id number] Oral 2360 720 Output: Urine 800 350 Other: Voiding Method Urinal Urinal Urinal # Voids 4 - Exam GENERAL: The patient is alert and oriented x2-3, in a mild acute distress. Thin built. Vital signs are stable. Temp is 98F, pulse is 71, respirations are 18, blood pressure is 121/59, oxygen saturation is 98% on 2 L via nasal cannula. HEENT: Pupils are round and equally reacting to light. EOMI. No scleral icterus. No conjunctival pallor. Normocephalic, atraumatic. No pharyngeal erythema. No thyromegaly. CARDIOVASCULAR: S1 and S2 present. No murmurs, rubs, or gallops. PULMONARY: Diminished breath sounds at the bases otherwise with prolonged expiratory wheezing noted ABDOMEN: Soft, nontender, nondistended, normoactive bowel sounds. No palpable organomegaly. MUSCULOSKELETAL: No joint swelling or deformity. EXTREMITIES: No cyanosis, clubbing, or pedal edema. NEUROLOGICAL: Gross neurological examination did not reveal any focal deficits. Moderate diffuse weakness. SKIN: No rashes. - Labs CBC & Chem 7: 11/05/18 06:57 11/07/18 07:50 Labs: Abnormal Lab Results - Last 24 Hours (Table) 11/06/18 11/06/18 11/07/18 Range/Units 17:10 20:22 06:53 Chloride (98-107) mmol/L BUN (9-20) mg/dL Glucose (74-99) mg/dL POC Glucose (mg/dL) 213 H 236 H 127 H (75-99) mg/dL Calcium (8.4-10.2) mg/dL 11/07/18 11/07/18 Range/Units 07:50 11:44 Chloride 110 H (98-107) mmol/L BUN 42 H (9-20) mg/dL Glucose 109 H (74-99) mg/dL POC Glucose (mg/dL) 261 H (75-99) mg/dL Calcium 8.2 L (8.4-10.2) mg/dL Microbiology - Last 24 Hours (Table) 11/04/18 16:20 Urine Culture - Final Urine,Voided Assessment and Plan Assessment: Acute COPD exacerbation: Patient was switched to oral steroids significant improvement, antibiotics are oral doxycycline at this time. IV Rocephin was added as this morning's chest x-ray shows left infrahilar opacity suggestive of the start of pneumonia. [facility] was consult did Acute tracheobronchitis CKD stage III Patient appears to be dehydrated may have some acute renal dysfunction as well. IV fluids discontinued at this time. Current creatinine trending down and is 1.13 Thin built, BMI of 17.6, severe protein caloric malnutrition, dietary is following. Coronary artery disease status post stenting Type 2 diabetes mellitus Hypertension Hyperlipidemia Chronic debility Multiple joint osteoarthritis Bilateral carotid artery stenting Former smoker Generalized deconditioning with the possibility of mild to moderate dementia DVT prophylaxis: Subq heparin Recommendations and discussion: Recommend continue current medications, management and symptomatic treatment. Patient was in mild acute distress this morning with wheezing and shortness of breath with a repeat chest x-ray this morning showing left infrahilar opacity suggestive of the start of pneumonia. Patient will continue on oral doxycycline and IV Rocephin was added. Consultation for pulmonary was put in and currently pending. Currently awaiting authorization for subacute rehab for continued PT/OT therapy. Will continue to monitor closely. Guarded prognosis. Further recommendations to follow.
--- NOTE | 2018-11-07 16:57 | P.CNPUL ---
History of Present Illness Consult date: 11/07/18 Reason for consult: pneumonia History of present illness: This 68-year-old male patient with known history of Alzheimer's dementia in addition history of COPD was hospitalized for left lower lobe pneumonia. The patient was initially placed on doxycycline. His chest x-ray at time of admission showed a left lower lobe pneumonia. This morning the patient was found to be more short of breath and he was bronchospastic and wheezy and he was having a congested cough. For that reason a pulmonary consultation was requested. IV Rocephin was added. I reviewed the chest x-ray and there is a left lower lobe consolidation/infiltrate. The patient has a weak cough. Unable to generate enough sputum. Nevertheless, his oxidation is improved and currently is on room air oxygen with a pulse oximeter is at 97%. Note that he was only on 2 and then 3 L by nasal cannula.. In general, he is a poor historian. Denies having any aspiration according to nursing's of the patient is able to swallow well without any major difficulties. He states his blood work showed a white cell count of 6.4. Blood cultures and sputum cultures have not been collected. He is on a combination of DuoNeb nebulized treatments around the clock, Pulmicort Respules and he is also on a prednisone burst taper that was started as of yesterday. Review of Systems Constitutional: Reports fatigue, Reports weakness, Reports weight loss Ears: bilateral: decreased hearing, deny: ear discharge, earache, tinnitus Ears, nose, mouth and throat: Denies headache, Denies sore throat Breasts: absent: as per HPI, gynecomastia Cardiovascular: Reports decreased exercise tolerance, Reports dyspnea on exertion Respiratory: Reports congestion, Reports dyspnea, Reports wheezing Gastrointestinal: Reports as per HPI Genitourinary: Reports as per HPI Musculoskeletal: Reports as per HPI Musculoskeletal: absent: ankle pain, ankle stiffness, ankle swelling Neurological: Reports gait dysfunction, Reports memory loss, Reports weakness Psychiatric: Reports as per HPI, Reports confusion Endocrine: Reports as per HPI Hematologic/Lymphatic: Reports as per HPI Allergic/Immunologic: Reports as per HPI Past Medical History Past Medical History: Atrial Fibrillation, Atrial Flutter, Coronary Artery Disease (CAD), COPD, CVA/TIA, Diabetes Mellitus, Hyperlipidemia, Hypertension, Myocardial Infarction (ME), Osteoarthritis (OA) Additional Past Medical History / Comment(s): Bilateral carotid artery disease, BPH, dementia Last Myocardial Infarction Date:: 2011 History of Any Multi-Drug Resistant Organisms: None Reported Past Surgical History: Heart Catheterization With Stent Additional Past Surgical History / Comment(s): Neck surgery, bilateral carotid surgery Past Anesthesia/Blood Transfusion Reactions: No Reported Reaction Date of Last Stent Placement:: 2011 Past Psychological History: Anxiety Smoking Status: Former smoker Past Alcohol Use History: None Reported Past Drug Use History: None Reported Additional Drug Use History / Comment(s): Patient states he hasn't smoked in several years and doesn't need any education. - Past Family History Father Family Medical History: Coronary Artery Disease (CAD) Mother Family Medical History: Coronary Artery Disease (CAD), Diabetes Mellitus Medications and Allergies Home Medications Medication Instructions Recorded Confirmed Type Simvastatin [Zocor] 20 mg PO HS 01/07/14 11/04/18 History glipiZIDE [Glucotrol] 5 mg PO AC-BRKFST 01/07/14 11/04/18 History Ferrous Sulfate [Feosol] 325 mg PO DAILY 04/06/14 11/04/18 History Clopidogrel [Plavix] 75 mg PO DAILY 09/29/14 11/04/18 History Aspirin 81 mg PO DAILY 03/28/15 11/04/18 History Tamsulosin HCl [Flomax] 0.4 mg PO DAILY 03/28/15 11/04/18 History Digoxin [Lanoxin] 125 mcg PO DAILY 08/18/15 11/04/18 History Citalopram Hydrobromide [CeleXA] 20 mg PO DAILY 03/06/16 11/04/18 History Divalproex Sodium [Depakote] 500 mg PO BID 03/06/16 11/04/18 History Multivitamin/Iron/Folic Acid 1 tab PO DAILY 03/06/16 11/04/18 History [Centrum Complete Multivit Tab] Donepezil [Aricept] 10 mg PO DAILY 11/04/18 11/04/18 History Ipratropium-Albuterol Nebulize 3 ml INHALATION RT-QID 11/04/18 11/04/18 History [Duoneb 0.5 mg-3 mg/3 ml Soln] Lactose-Reduced Food [Ensure Plus] 1 can PO BID 11/04/18 11/04/18 History Memantine [Namenda] 10 mg PO BID 11/04/18 11/04/18 History Allergies Allergy/AdvReac Type Severity Reaction Status Date / Time No Known Allergies Allergy Verified 11/04/18 12:32 Physical Exam Vitals: Vital Signs Temp Pulse Pulse Resp BP Pulse Ox 11/07/18 15:22 76 11/07/18 15:13 71 11/07/18 15:11 71 18 11/07/18 12:16 98 F 71 18 121/59 97 11/07/18 11:38 100 11/07/18 11:27 104 H 11/07/18 08:44 96 11/07/18 08:27 100 11/07/18 08:00 70 16 11/07/18 05:00 54 L 16 132/63 98 11/06/18 19:35 97.2 F L 61 16 134/56 97 Intake and Output 11/07/18 11/07/18 11/07/18 06:59 14:59 22:59 Intake Total 800 2370 Output Total 350 350 Balance 450 2370 -350 Intake: Intake, IV Titration 800 210 Amount Sodium Chloride 0.9% 1, 800 160 000 ml @ 100 mls/hr IV . Q10H [facility] Rx#:[id number] cefTRIAXone 1 gm In 50 Sodium Chloride 0.9% 50 ml @ 100 mls/hr IVPB Q24HR [facility] Rx#:[id number] Oral 2160 Output: Urine 350 350 Other: Voiding Method Urinal Urinal Urinal # Voids 2 2 Weight 58.967 kg Gen. appearance, comfortable and the patient is not in acute respiratory distress on room air oxygen pulse ox of 97% Head exam was generally normal. There was no scleral icterus or corneal arcus. Mucous membranes were moist. Neck was supple and without jugular venous distension, thyromegaly, or carotid bruits. Carotids were easily palpable bilaterally. There was no adenopathy. Lungs sounds are diminished and there is scattered rhonchi heard throughout the lung his bilaterally. The patient has a weak cough unable to bring sputum and unable to generate enough force to expectorate the sputum. Cardiac exam revealed the PMI to be normally situated and sized. The rhythm was regular and no extrasystoles were noted during several minutes of auscultation. The first and second heart sounds were normal and physiologic splitting of the second heart sound was noted. There were no murmurs, rubs, clicks, or gallops. Abdominal exam revealed normal bowel sounds. The abdomen was soft, non-tender, and without masses, organomegaly, or appreciable enlargement of the abdominal aorta. Examination of the extremities revealed easily palpable radial, femoral and pedal pulses. There was no cyanosis, clubbing or edema. Examination of the skin revealed no evidence of significant rashes, suspicious appearing nevi or other concerning lesions. Neurologically the patient is on of confusion. He has impaired hearing. He is diffuse muscle weakness. Neurologic exam is nonfocal. Memory is impaired. He has dementia. Results - Laboratory Findings CBC and BMP: 11/05/18 06:57 11/07/18 07:50 PT/INR, D-dimer PT 10.1 sec (9.0-12.0) 11/04/18 12:50 INR 0.9 (<1.2) 11/04/18 12:50 Abnormal lab findings: Abnormal Labs 11/04/18 11/04/18 11/04/18 12:50 12:50 16:02 RBC 3.39 L Hgb 10.5 L Hct 32.7 L Lymphocytes # 0.3 L Chloride BUN 52 H Creatinine 1.79 H Glucose 269 H POC Glucose (mg/dL) Calcium Magnesium 2.4 H Urine Protein 1+ H Urine Ketones Trace H Hyaline Casts 7 H Urine Mucus Few H 11/04/18 11/05/18 11/05/18 21:15 06:57 06:57 RBC 2.98 L Hgb 9.0 L D Hct 28.6 L Lymphocytes # 0.3 L Chloride BUN 61 H Creatinine 1.67 H Glucose 218 H POC Glucose (mg/dL) 360 H Calcium Magnesium Urine Protein Urine Ketones Hyaline Casts Urine Mucus 11/05/18 11/05/18 11/05/18 07:03 11:33 17:06 RBC Hgb Hct Lymphocytes # Chloride BUN Creatinine Glucose POC Glucose (mg/dL) 239 H 145 H 299 H Calcium Magnesium Urine Protein Urine Ketones Hyaline Casts Urine Mucus 11/05/18 11/06/18 11/06/18 20:00 05:28 06:44 RBC Hgb Hct Lymphocytes # Chloride BUN 59 H Creatinine 1.47 H Glucose 197 H POC Glucose (mg/dL) 233 H 219 H Calcium 8.1 L Magnesium Urine Protein Urine Ketones Hyaline Casts Urine Mucus 11/06/18 11/06/18 11/06/18 11:49 17:10 20:22 RBC Hgb Hct Lymphocytes # Chloride BUN Creatinine Glucose POC Glucose (mg/dL) 252 H 213 H 236 H Calcium Magnesium Urine Protein Urine Ketones Hyaline Casts Urine Mucus 11/07/18 11/07/18 11/07/18 06:53 07:50 11:44 RBC Hgb Hct Lymphocytes # Chloride 110 H BUN 42 H Creatinine Glucose 109 H POC Glucose (mg/dL) 127 H 261 H Calcium 8.2 L Magnesium Urine Protein Urine Ketones Hyaline Casts Urine Mucus - Diagnostic Findings Chest x-ray: image reviewed Assessment and Plan Plan: 1 left lower lobe pneumonia, currently quiet versus aspiration. Currently on a combination of Rocephin and doxycycline. Rocephin was added today. Despite some clinically worsening, the patient is doing better this afternoon and is currently on room air oxygen with a pulse oximetry 97%. No significant leukocytosis. No hemodynamic instability. No witnessed aspiration 2 COPD 3 dementia 4 chronic stage III kidney disease 5 acute kidney injury, admission which has recovered and the kidney function is improving 6 coronary artery disease with previous coronary stenting 7 diabetes mellitus type 2 8 hypertension 9 hyperlipidemia 10 multiple joint osteoarthritis 11 bilateral carotid artery disease Plan Clinically improving. The current treatment and the recent antibiotic adjustments made were noted. The patient is currently on a combination of Rocephin and doxycycline. Aspiration precautions. Continue bronchodilators. Continue prednisone burst taper. We'll make further recommendations if there is any further interval worsening of the left lower lobe based on the chest x-ray reordered for tomorrow. If the x-rays worse, further adjustments were done. Encourage deep breathing. Provide the patient incentive spirometer. Pulmonary toileting. Continue bronchodilators. We'll continue to follow. He does have a weak cough. He could've developed some atelectatic changes and mucous plugging in the lung bases also contributing for shortness of breath.
[2018-11-07 17:02] LABS: Glucose,Whole Blood 377 mg/dL (75-99)
[2018-11-07 17:03] LABS: Glucose,Whole Blood 415 mg/dL (75-99)
[2018-11-07] MEDS ORDERED: INSULIN ASPART (NovoLOG) 100 UNIT/ML VIAL SQ ONE (17:52)
[2018-11-07] MEDS: INSULIN DETEMIR (LEVEMIR) 100 UNIT/ML SYR SQ SCH (19:02)
[2018-11-07] MEDS: ATORVASTATIN 10 MG TAB PO SCH (20:21)
[2018-11-07 20:34] LABS: Glucose,Whole Blood 389 mg/dL (75-99)
[2018-11-08 02:13] LABS: Glucose,Whole Blood 227 mg/dL (75-99)
[2018-11-08] MEDS: SODIUM CHLORIDE 0.9% 1,000 ML IV SCH ×3 (05:47→23:34)
[2018-11-08 07:02] LABS: Glucose,Whole Blood 84 mg/dL (75-99)
[2018-11-08] MEDS: INSULIN ASPART (NovoLOG) 100 UNIT/ML VIAL SQ SCH ×4 (07:09→20:59)
[2018-11-08] MEDS: HEPARIN SODIUM,PORCINE 5,000 UNIT/ML 1 ML VIAL SQ SCH ×2 (08:01→20:59)
[2018-11-08] MEDS: CLOPIDOGREL 75 MG TAB PO SCH (08:04)
[2018-11-08] MEDS: DOXYCYCLINE 100 MG CAP PO SCH ×2 (08:04→20:59)
[2018-11-08] MEDS: DIVALPROEX 500 MG TABLET.DR PO SCH ×2 (08:04→20:59)
[2018-11-08] MEDS: MEMANTINE 10 MG TAB PO SCH ×2 (08:04→20:59)
[2018-11-08] MEDS: DIGOXIN 125 MCG TAB PO SCH (08:04)
[2018-11-08] MEDS: ASPIRIN 81 MG PO SCH (08:04)
[2018-11-08] MEDS: predniSONE 20 MG TAB PO SCH (08:05)
[2018-11-08] MEDS: TAMSULOSIN 0.4 MG CAP.ER.24H PO SCH (08:05)
[2018-11-08] MEDS: BUDESONIDE 0.5 MG/2 ML NEBU INHALATION SCH ×2 (08:21→20:05)
[2018-11-08] MEDS: IPRATROPIUM-ALBUTEROL 3 ML NEB INHALATION SCH ×4 (08:21→20:05)
[2018-11-08 10:00] LABS: Calcium 8.5 mg/dL (8.4-10.2); Potassium 3.8 mmol/L (3.5-5.1)
[2018-11-08 11:29] LABS: Glucose,Whole Blood 117 mg/dL (75-99)
--- NOTE | 2018-11-08 12:07 | XR ---
EXAMINATION TYPE: XR chest 1V DATE OF EXAM: 11/08/2018 COMPARISON: 11/07/2018 INDICATION: Left lower lobe pneumonia TECHNIQUE: Single frontal view of the chest is obtained. FINDINGS: The heart size is normal. The pulmonary vasculature is normal. There is worsening of a left lower lobe infiltrate can be compatible with pneumonia in the proper set ting. IMPRESSION: 1. Worsening left lower lobe infiltrate. Correlate for pneumonia. Continued follow-up is recommended.
--- NOTE | 2018-11-08 12:50 | P.PN ---
Subjective Progress Note Date: 11/08/18 Principal diagnosis: Left lower lobe pneumonia. This 68-year-old male patient with known history of Alzheimer's dementia in addition history of COPD was hospitalized for left lower lobe pneumonia. The patient was initially placed on doxycycline. His chest x-ray at time of admi ssion showed a left lower lobe pneumonia. This morning the patient was found to be more short of breath and he was bronchospastic and wheezy and he was having a congested cough. For that reason a pulmonary consultation was requested. IV Rocephin was added. I reviewed the chest x-ray and there is a left lower lobe consolidation/infiltrate. The patient has a weak cough. Unable to generate enough sputum. Nevertheless, his oxidation is improved and currently is on room air oxygen with a pulse oximeter is at 97%. Note that he was only on 2 and then 3 L by nasal cannula.. In general, he is a poor historian. Denies having any aspiration according to nursing's of the patient is able to swallow well without any major difficulties. He states his blood work showed a white cell count of 6.4. Blood cultures and sputum cultures have not been collected. He is on a combination of DuoNeb nebulized treatments around the clock, Pulmicort Respules and he is also on a prednisone burst taper that was started as of yesterday. The patient is seen today November 08 2018 in follow-up on the regular medical floor. He is currently resting comfortably in bed. No acute distress. He is maintaining O2 saturations in the 90s on room air. He's afebrile. Hemodynamically stable. Urine culture shows no growth. Sodium 141. Potassium 3.8. Creatinine 1.18. He is continued on DuoNeb inhalations, Pulmicort and Perforomist inhalations, prednisone, antibiotics in the form of ceftriaxone and doxycycline. He has a loose nonproductive cough. Chest x-ray shows worsening left lower lobe infiltrate. Objective - Vital Signs Vital signs: Vital Signs Temp 97.2 F L 11/08/18 11:38 Pulse 78 11/08/18 12:05 Resp 17 11/08/18 11:38 BP 123/58 11/08/18 11:38 Pulse Ox 94 L 11/08/18 11:38 Intake & Output 11/07/18 11/08/18 11/08/18 18:59 06:59 18:59 Intake Total 2880 230 Output Total 350 350 Balance 2530 -120 Weight 58.967 kg Intake: Intake, IV Titration 210 230 Amount Sodium Chloride 0.9% 1, 160 230 000 ml @ 100 mls/hr IV . Q10H [facility] Rx#:[id number] cefTRIAXone 1 gm In 50 Sodium Chloride 0.9% 50 ml @ 100 mls/hr IVPB Q24HR [facility] Rx#:[id number] Oral 2670 Output: Urine 350 350 Other: Voiding Method Urinal Urinal Urinal # Voids 2 3 - Exam Gen. appearance, pleasant 68-year-old gentleman, comfortable and not in acute respiratory distress on room air oxygen pulse ox of 94% Head exam was generally normal. There was no scleral icterus or corneal arcus. Mucous membranes were moist. Neck was supple and without jugular venous distension, thyromegaly, or carotid bruits. Carotids were easily palpable bilaterally. There was no adenopathy. Lungs sounds are diminished and there is crackles in the left base. The patient has a weak cough unable to bring sputum and unable to generate enough force to expectorate the sputum. Cardiac exam revealed the PMI to be normally situated and sized. The rhythm was regular and no extrasystoles were noted during several minutes of auscultation. The first and second heart sounds were normal and physiologic splitting of the second heart sound was noted. There were no murmurs, rubs, clicks, or gallops. Abdominal exam revealed normal bowel sounds. The abdomen was soft, non-tender, and without masses, organomegaly, or appreciable enlargement of the abdominal aorta. Examination of the extremities revealed easily palpable radial, femoral and pedal pulses. There was no cyanosis, clubbing or edema. Examination of the skin revealed no evidence of significant rashes, suspicious appearing nevi or other concerning lesions. Neurologically the patient is on of confusion. He has impaired hearing. He is diffuse muscle weakness. Neurologic exam is nonfocal. Memory is impaired. He has dementia. - Labs CBC & Chem 7: 11/05/18 06:57 11/08/18 09:21 Labs: Abnormal Lab Results - Last 24 Hours (Table) 11/07/18 11/07/18 11/07/18 Range/Units 17:00 17:01 20:33 Chloride (98-107) mmol/L BUN (9-20) mg/dL Glucose (74-99) mg/dL POC Glucose (mg/dL) 377 H 415 H 389 H (75-99) mg/dL 11/08/18 11/08/18 11/08/18 Range/Units 02:12 09:21 11:27 Chloride 108 H (98-107) mmol/L BUN 42 H (9-20) mg/dL Glucose 70 L (74-99) mg/dL POC Glucose (mg/dL) 227 H 117 H (75-99) mg/dL Assessment and Plan Assessment: Impression: 1 left lower lobe pneumonia, currently quiet versus aspiration. Currently on a combination of Rocephin and doxycycline. Despite some radiographic worsening, the patient is doing better and is currently on room air oxygen with a pulse oximetry 94%. No hemodynamic instability. 2 COPD 3 dementia 4 chronic stage III kidney disease 5 acute kidney injury, admission which has recovered and the kidney function is improving 6 coronary artery disease with previous coronary stenting 7 diabetes mellitus type 2 8 hypertension 9 hyperlipidemia 10 multiple joint osteoarthritis 11 bilateral carotid artery disease Plan: The patient was seen and evaluated by Dr. Saenz. Chest x-ray and labs reviewed. We'll continue with the current treatment plan. Increase his activity as tolerated. We'll continue to follow. I, the cosigning physician, performed a history & physical examination of the patient. Lungs sounds with crackles in the left posterior base Maintaining good O2 saturations in the 90s on room air. I discussed the assessment and plan of care with my nurse practitioner, Hollie Calle. I attest to the above note as dictated by her.
--- NOTE | 2018-11-08 13:42 | P.PN ---
Subjective Progress Note Date: 11/08/18 Principal diagnosis: 68-year-old pleasant gentleman came in with the demise weakness not eating well which led to dehydration patient improved with IV fluids patient is also being t reated for COPD examination is wheezing significantly improved patient was switched to oral steroids. Antibiotics will be discontinued at this time there is no evidence of pneumonia at this time. Urine is not impressive for urinary tract infection. I'll obtain a digoxin level. Patient looks much better as per the family although may require subacute rehabilitation patient is quite weak does have dementia. We'll obtain PT and OT consultation. 11/06/2018 Patient is sitting up in bed in no acute distress. Discussed with case management and social work today as well as PT/OT and is being recommended that patient goes to rehab for continued physical therapy for strength and mobility. He was able to stand with assistance with a walker but unable to walk around. Patient states that he lives at home with his and has been having more frequent falls lately. Authorization through his Medicare for subacute rehab is currently in the process. Patient denies any chest pain or palpitations at this time. Patient is afebrile. Patient states that shortness of breath has improved. Patient is currently on 2 L of oxygen and states that he doesn't normally wear oxygen at home. Will continue to monitor closely. 11/07/2018 Patient sitting up in mild acute distress this morning. Patient is having wheezing with an increase in cough and some mild shortness of breath. Patient denies any chest pain or palpitations at this time. Patient is eating and tolerating diet with no complaints of nausea or vomiting. Patient is afebrile. Chest x-ray was done showing an increase in left infrahilar opacity suspicious for developing pneumonia. Pulmonary was consulted. Patient is currently on doxycycline and oral form and will add Rocephin IV antibiotics. Patient was placed back on oxygen as he was having oxygen saturations of 90% maximum. Guarded prognosis. Will continue to monitor closely. 11/08/2018 Patient is sitting up in bed in no acute distress. Patient is currently resting comfortably on room air. Patient continues to have a weak cough and is prolonged with some rales and wheezing noted on expiration. Patient is awaiting acceptance an authorization to [facility] for continued rehab. Pulmonary is following. Patient is currently on IV antibiotics in the form of Rocephin as well as oral doxycycline and will continue at this time. Patient is currently on oral prednisone as well. Today's repeat chest x-ray shows a worsening of the left lower lobe infiltrate. Will continue to monitor closely. Discussed with the staff as well as the patient about continuing with coughing and deep breathing and patient may benefit from an incentive spirometer. PT/OT are following as patient continues to be weak and in need of rehab. Objective - Vital Signs Vital signs: Vital Signs Temp 97.2 F L 11/08/18 11:38 Pulse 78 11/08/18 12:05 Resp 17 11/08/18 11:38 BP 123/58 11/08/18 11:38 Pulse Ox 94 L 11/08/18 11:38 Intake & Output 11/07/18 11/08/18 11/08/18 18:59 06:59 18:59 Intake Total 2880 230 Output Total 350 350 Balance 2530 -120 Weight 58.967 kg Intake: Intake, IV Titration 210 230 Amount Sodium Chloride 0.9% 1, 160 230 000 ml @ 100 mls/hr IV . Q10H [facility] Rx#:[id number] cefTRIAXone 1 gm In 50 Sodium Chloride 0.9% 50 ml @ 100 mls/hr IVPB Q24HR [facility] Rx#:[id number] Oral 2670 Output: Urine 350 350 Other: Voiding Method Urinal Urinal Urinal # Voids 2 3 - Exam GENERAL: The patient is alert and oriented x2-3, in a mild acute distress. Thin built. Vital signs are stable. Temp is 9 he 7.2 F, pulse is 79, respirations are 18, blood pressure is 123/58, oxygen saturation is 94% on room air HEENT: Pupils are round and equally reacting to light. EOMI. No scleral icterus. No conjunctival pallor. Normocephalic, atraumatic. No pharyngeal erythema. No thyromegaly. CARDIOVASCULAR: S1 and S2 present. No murmurs, rubs, or gallops. PULMONARY: Diminished breath sounds at the bases otherwise with prolonged expiratory wheezing noted ABDOMEN: Soft, nontender, nondistended, normoactive bowel sounds. No palpable organomegaly. MUSCULOSKELETAL: No joint swelling or deformity. EXTREMITIES: No cyanosis, clubbing, or pedal edema. NEUROLOGICAL: Gross neurological examination did not reveal any focal deficits. Moderate diffuse weakness. SKIN: No rashes. - Labs CBC & Chem 7: 11/05/18 06:57 11/08/18 09:21 Labs: Abnormal Lab Results - Last 24 Hours (Table) 11/07/18 11/07/18 11/07/18 Range/Units 17:00 17:01 20:33 Chloride (98-107) mmol/L BUN (9-20) mg/dL Glucose (74-99) mg/dL POC Glucose (mg/dL) 377 H 415 H 389 H (75-99) mg/dL 11/08/18 11/08/18 11/08/18 Range/Units 02:12 09:21 11:27 Chloride 108 H (98-107) mmol/L BUN 42 H (9-20) mg/dL Glucose 70 L (74-99) mg/dL POC Glucose (mg/dL) 227 H 117 H (75-99) mg/dL Assessment and Plan Assessment: Acute COPD exacerbation: Patient was switched to oral steroids significant improvement, antibiotics are oral doxycycline at this time. IV Rocephin was added. Repeat chest x-ray this morning shows worsening the left lower lobe infiltrate Left lower lobe pneumonia: On oral doxycycline and IV Rocephin at this time. Pulmonary is following Acute tracheobronchitis CKD stage III Patient appears to be dehydrated may have some acute renal dysfunction as well. IV fluids discontinued at this time. Current creatinine trending down and is 1.18 Thin built, BMI of 17.6, severe protein caloric malnutrition, dietary is following. Coronary artery disease status post stenting Type 2 diabetes mellitus Hypertension Hyperlipidemia Chronic debility Multiple joint osteoarthritis Bilateral carotid artery stenting Former smoker Generalized deconditioning with the possibility of mild to moderate dementia DVT prophylaxis: Subq heparin Recommendations and discussion: Recommend continue current medications, management and symptomatic treatment. Repeat chest x-ray should this morning shows a worsening of the left lower lobe infiltrate the patient is improving and is currently on room air. Patient will continue on oral doxycycline and IV Rocephin at this time. Pulmonary is following. Currently awaiting authorization for subacute rehab to [facility] for continued PT/OT therapy. Will continue to monitor closely. Guarded prognosis. Further recommendations to follow. Possible discharge in 24-48 hours.
[2018-11-08 17:21] LABS: Glucose,Whole Blood 224 mg/dL (75-99)
[2018-11-08] MEDS ORDERED: ACETAMINOPHEN TAB 325 MG TAB PO PRN (18:52)
[2018-11-08 19:59] LABS: Glucose,Whole Blood 280 mg/dL (75-99)
[2018-11-08] MEDS: ATORVASTATIN 10 MG TAB PO SCH (20:58)
[2018-11-08] MEDS: INSULIN DETEMIR (LEVEMIR) 100 UNIT/ML SYR SQ SCH (20:59)
[2018-11-09 02:17] LABS: Glucose,Whole Blood 325 mg/dL (75-99)
[2018-11-09 07:00] LABS: Glucose,Whole Blood 182 mg/dL (75-99)
[2018-11-09] MEDS: TAMSULOSIN 0.4 MG CAP.ER.24H PO SCH (07:45)
[2018-11-09] MEDS: MEMANTINE 10 MG TAB PO SCH (07:46)
[2018-11-09] MEDS: CLOPIDOGREL 75 MG TAB PO SCH (07:46)
[2018-11-09] MEDS: DIGOXIN 125 MCG TAB PO SCH (07:46)
[2018-11-09] MEDS: DOXYCYCLINE 100 MG CAP PO SCH (07:46)
[2018-11-09] MEDS: predniSONE 20 MG TAB PO SCH (07:46)
[2018-11-09] MEDS: DIVALPROEX 500 MG TABLET.DR PO SCH (07:46)
[2018-11-09] MEDS: ASPIRIN 81 MG PO SCH (07:46)
[2018-11-09] MEDS: INSULIN ASPART (NovoLOG) 100 UNIT/ML VIAL SQ SCH ×2 (07:49→12:04)
[2018-11-09] MEDS: HEPARIN SODIUM,PORCINE 5,000 UNIT/ML 1 ML VIAL SQ SCH (07:53)
[2018-11-09] MEDS: IPRATROPIUM-ALBUTEROL 3 ML NEB INHALATION SCH ×2 (08:27→11:32)
[2018-11-09] MEDS: BUDESONIDE 0.5 MG/2 ML NEBU INHALATION SCH (08:27)
--- NOTE | 2018-11-09 11:34 | P.DS ---
Providers Date of admission: 11/06/18 14:05 Attending physician: Marjan Hanks Consults: 11/07/18 08:28 Consult Physician Routine Consulting Provider: Marco Saenz Consult Reason/Comments: CONGESTION/COPD Do you want consulting provider notified?: Yes Primary care physician: Elena Lux [facility] Course: 68-year-old pleasant gentleman came in with the demise weakness not eating well which led to dehydration patient improved with IV fluids patient is also being treated for COPD examination is wheezing significantly improved patient was switched to oral steroids. Antibiotics will be discontinued at this time there is no evidence of pneumonia at this time. Urine is not impressive for urinary tract infection. I'll obtain a digoxin level. Patient looks much better as per the family although may require subacute rehabilitation patient is quite weak does have dementia. We'll obtain PT and OT consultation. 11/06/2018 Patient is sitting up in bed in no acute distress. Discussed with case management and social work today as well as PT/OT and is being recommended that patient goes to rehab for continued physical therapy for strength and mobility. He was able to stand with assistance with a walker but unable to walk around. Patient states that he lives at home with his and has been having more frequent falls lately. Authorization through his Medicare for subacute rehab is currently in the process. Patient denies any chest pain or palpitations at this time. Patient is afebrile. Patient states that shortness of breath has improved. Patient is currently on 2 L of oxygen and states that he doesn't normally wear oxygen at home. Will continue to monitor closely. 11/07/2018 Patient sitting up in mild acute distress this morning. Patient is having wheezing with an increase in cough and some mild shortness of breath. Patient denies any chest pain or palpitations at this time. Patient is eating and tolerating diet with no complaints of nausea or vomiting. Patient is afebrile. Chest x-ray was done showing an increase in left infrahilar opacity suspicious for developing pneumonia. Pulmonary was consulted. Patient is currently on doxycycline and oral form and will add Rocephin IV antibiotics. Patient was placed back on oxygen as he was having oxygen saturations of 90% maximum. Guarded prognosis. Will continue to monitor closely. 11/08/2018 Patient is sitting up in bed in no acute distress. Patient is currently resting comfortably on room air. Patient continues to have a weak cough and is prolonged with some rales and wheezing noted on expiration. Patient is awaiting acceptance an authorization to [facility] for continued rehab. Pulmonary is following. Patient is currently on IV antibiotics in the form of Rocephin as well as oral doxycycline and will continue at this time. Patient is currently on oral prednisone as well. Today's repeat chest x-ray shows a worsening of the left lower lobe infiltrate. Will continue to monitor closely. Discussed with the staff as well as the patient about continuing with coughing and deep breathing and patient may benefit from an incentive spirometer. PT/OT are following as patient continues to be weak and in need of rehab. 11/09/2018 Patient is clinically doing well and will be discharged to subacute rehabilitation. GENERAL: The patient is alert and oriented x2-3, in a mild acute distress. Thin built. Vital signs are stable. HEENT: Pupils are round and equally reacting to light. EOMI. No scleral icterus. No conjunctival pallor. Normocephalic, atraumatic. No pharyngeal erythema. No thyromegaly. CARDIOVASCULAR: S1 and S2 present. No murmurs, rubs, or gallops. PULMONARY: Diminished breath sounds at the bases otherwise no significant wheezing today ABDOMEN: Soft, nontender, nondistended, normoactive bowel sounds. No palpable organomegaly. MUSCULOSKELETAL: No joint swelling or deformity. EXTREMITIES: No cyanosis, clubbing, or pedal edema. NEUROLOGICAL: Gross neurological examination did not reveal any focal deficits. Moderate diffuse weakness. SKIN: No rashes. Assessment and Plan Assessment: Acute COPD exacerbation:on oral steroids significant improvement, Left lower lobe pneumonia: Patient will be discharged on for more days of ceftin. Pulmonary is following Acute tracheobronchitis CKD stage III, possible diabetic nephropathy Patient appears to be dehydrated may have some acute renal dysfunction as well. Thin built, BMI of 17.6, severe protein caloric malnutrition, dietary is following. Coronary artery disease status post stenting Type 2 diabetes mellitus Hypertension Hyperlipidemia Chronic debility Multiple joint osteoarthritis Bilateral carotid artery stenting Former smoker Generalized deconditioning with the possibility of mild to moderate dementia Plan - Discharge Summary Discharge Rx Participant: No New Discharge Prescriptions: New Ipratropium-Albuterol Nebulize [Duoneb 0.5 mg-3 mg/3 ml Soln] 3 ml INHALATION RT-Q4H PRN ampul.neb PRN Reason: Shortness Of Breath Or Wheezing Insulin Detemir (Levemir) [Levemir] 10 unit SQ HS syr INSULIN ASPART (NovoLOG) [NovoLOG (formulary)] 0 unit SQ ACHS vial predniSONE 10 mg PO DIRECTED #30 tab Budesonide [Pulmicort] 0.5 mg INHALATION RT-BID nebu Continue glipiZIDE [Glucotrol] 5 mg PO AC-BRKFST Simvastatin [Zocor] 20 mg PO HS Ferrous Sulfate [Iron (65 MG Elemental)] 325 mg PO DAILY Clopidogrel [Plavix] 75 mg PO DAILY Tamsulosin HCl [Flomax] 0.4 mg PO DAILY Aspirin 81 mg PO DAILY Digoxin [Lanoxin] 125 mcg PO DAILY Multivitamin/Iron/Folic Acid [Centrum Complete Multivit Tab] 1 tab PO DAILY Divalproex Sodium [Depakote] 500 mg PO BID Citalopram Hydrobromide [CeleXA] 20 mg PO DAILY Memantine [Namenda] 10 mg PO BID Lactose-Reduced Food [Ensure Plus] 1 can PO BID Donepezil [Aricept] 10 mg PO DAILY Ipratropium-Albuterol Nebulize [Duoneb 0.5 mg-3 mg/3 ml Soln] 3 ml INHALATION RT-QID Discharge Medication List Simvastatin [Zocor] 20 mg PO HS 01/07/14 [History] glipiZIDE [Glucotrol] 5 mg PO AC-BRKFST 01/07/14 [History] Ferrous Sulfate [Iron (65 MG Elemental)] 325 mg PO DAILY 04/06/14 [History] Clopidogrel [Plavix] 75 mg PO DAILY 09/29/14 [History] Aspirin 81 mg PO DAILY 03/28/15 [History] Tamsulosin HCl [Flomax] 0.4 mg PO DAILY 03/28/15 [History] Digoxin [Lanoxin] 125 mcg PO DAILY 08/18/15 [History] Citalopram Hydrobromide [CeleXA] 20 mg PO DAILY 03/06/16 [History] Divalproex Sodium [Depakote] 500 mg PO BID 03/06/16 [History] Multivitamin/Iron/Folic Acid [Centrum Complete Multivit Tab] 1 tab PO DAILY 03/06/16 [History] Donepezil [Aricept] 10 mg PO DAILY 11/04/18 [History] Ipratropium-Albuterol Nebulize [Duoneb 0.5 mg-3 mg/3 ml Soln] 3 ml INHALATION RT-QID 11/04/18 [History] Lactose-Reduced Food [Ensure Plus] 1 can PO BID 11/04/18 [History] Memantine [Namenda] 10 mg PO BID 11/04/18 [History] Budesonide [Pulmicort] 0.5 mg INHALATION RT-BID nebu 11/08/18 [Rx] INSULIN ASPART (NovoLOG) [NovoLOG (formulary)] 0 unit SQ ACHS vial 11/08/18 [Rx] Insulin Detemir (Levemir) [Levemir] 10 unit SQ HS syr 11/08/18 [Rx] Ipratropium-Albuterol Nebulize [Duoneb 0.5 mg-3 mg/3 ml Soln] 3 ml INHALATION RT-Q4H PRN ampul.neb 11/08/18 [Rx] predniSONE 10 mg PO DIRECTED #30 tab 11/08/18 [Rx] Follow up Appointment(s)/Referral(s): Elena Lux MD [Primary Care Provider] - 1-2 days Ambulatory/Diagnostic Orders: Basic Metabolic Panel [LAB.AMB] Time Frame: 3 Days, Location: None Selected Activity/Diet/Wound Care/Special Instructions: Patient will go to [facility] on the [place] Activity as tolerated Continue current diet and Glucerna 3 times daily Continue to monitor blood sugars before meals at bedtime and treat with sliding scale as well as 10 units of Levemir at bed Continue working with PT/OT Continue to encourage increase in activity as well as coughing and deep breathing Follow-up with primary care provider upon discharge Discharge Disposition: TRANSFER TO SNF/ECF
[2018-11-09 11:37] LABS: Glucose,Whole Blood 166 mg/dL (75-99)
--- NOTE | 2018-11-09 11:38 | XR ---
EXAMINATION TYPE: XR chest 1V DATE OF EXAM: 11/09/2018 HISTORY: lll pneumonia. REFERENCE: Previous study dated 11/08/2018. FINDINGS: Lung volumes are prominent. There is bibasilar infiltrate, worse on the left than the right . This has improved slightly from previous. The heart is not enlarged. I suspect small, bilateral eff usions. IMPRESSION: 1. CONTINUING BIBASILAR AIRSPACE DISEASE. 2. IMPROVED AERATION LEFT LUNG BASE. 3. SMALL, BILATERAL EFFUSIONS.
[2018-11-09 12:03] VITALS: BP 145/63; PULSE 73; RESP 18; TEMP 97.8
[2018-11-09] MEDS: SODIUM CHLORIDE 0.9% 1,000 ML IV SCH (12:04)
--- NOTE | 2018-11-09 13:45 | P.PN ---
Subjective Progress Note Date: 11/09/18 Principal diagnosis: Left lower lobe pneumonia. This 68-year-old male patient with known history of Alzheimer's dementia in addition history of COPD was hospitalized for left lower lobe pneumonia. The patient was initially placed on doxycycline. His chest x-ray at time of admi ssion showed a left lower lobe pneumonia. This morning the patient was found to be more short of breath and he was bronchospastic and wheezy and he was having a congested cough. For that reason a pulmonary consultation was requested. IV Rocephin was added. I reviewed the chest x-ray and there is a left lower lobe consolidation/infiltrate. The patient has a weak cough. Unable to generate enough sputum. Nevertheless, his oxidation is improved and currently is on room air oxygen with a pulse oximeter is at 97%. Note that he was only on 2 and then 3 L by nasal cannula.. In general, he is a poor historian. Denies having any aspiration according to nursing's of the patient is able to swallow well without any major difficulties. He states his blood work showed a white cell count of 6.4. Blood cultures and sputum cultures have not been collected. He is on a combination of DuoNeb nebulized treatments around the clock, Pulmicort Respules and he is also on a prednisone burst taper that was started as of yesterday. The patient is seen today November 08 2018 in follow-up on the regular medical floor. He is currently resting comfortably in bed. No acute distress. He is maintaining O2 saturations in the 90s on room air. He's afebrile. Hemodynamically stable. Urine culture shows no growth. Sodium 141. Potassium 3.8. Creatinine 1.18. He is continued on DuoNeb inhalations, Pulmicort and Perforomist inhalations, prednisone, antibiotics in the form of ceftriaxone and doxycycline. He has a loose nonproductive cough. Chest x-ray shows worsening left lower lobe infiltrate. The patient is seen today 11/09/2018 in follow-up on the regular medical floor. He is awake and alert in no acute distress. Improved today as compared to yesterday. Remains on room air. He is continued on DuoNeb inhalations, Pulmicort and Perforomist inhalations, prednisone, antibiotics in the form of ceftriaxone and doxycycline. Objective - Vital Signs Vital signs: Vital Signs Temp 97.8 F 11/09/18 11:18 Pulse 75 11/09/18 11:44 Resp 18 11/09/18 11:18 BP 145/63 11/09/18 11:18 Pulse Ox 98 11/09/18 11:18 Intake & Output 11/08/18 11/09/18 11/09/18 18:59 06:59 18:59 Intake Total 560 960 Output Total 400 Balance 160 960 Weight 58.967 kg Intake: Intake, IV Titration 160 240 Amount Sodium Chloride 0.9% 1, 160 240 000 ml @ 100 mls/hr IV . Q10H OREN Rx#:[id number] Oral 400 720 Output: Urine 400 Other: Voiding Method Urinal Urinal Urinal # Voids 1 - Exam Gen. appearance, pleasant 68-year-old gentleman, comfortable and not in acute respiratory distress on room air Head exam was generally normal. There was no scleral icterus or corneal arcus. Mucous membranes were moist. Neck was supple and without jugular venous distension, thyromegaly, or carotid bruits. Carotids were easily palpable bilaterally. There was no adenopathy. Lungs sounds are diminished and there is crackles in the left base. The patient has a weak cough unable to bring sputum and unable to generate enough force to expectorate the sputum. Cardiac exam revealed the PMI to be normally situated and sized. The rhythm was regular and no extrasystoles were noted during several minutes of auscultation. The first and second heart sounds were normal and physiologic splitting of the second heart sound was noted. There were no murmurs, rubs, clicks, or gallops. Abdominal exam revealed normal bowel sounds. The abdomen was soft, non-tender, and without masses, organomegaly, or appreciable enlargement of the abdominal aorta. Examination of the extremities revealed easily palpable radial, femoral and p edal pulses. There was no cyanosis, clubbing or edema. Examination of the skin revealed no evidence of significant rashes, suspicious appearing nevi or other concerning lesions. Neurologically the patient is on of confusion. He has impaired hearing. He is diffuse muscle weakness. Neurologic exam is nonfocal. Memory is impaired. He has dementia. - Labs CBC & Chem 7: 11/05/18 06:57 11/08/18 09:21 Labs: Abnormal Lab Results - Last 24 Hours (Table) 09/11/08/18 11/09/18 Range/Units 17:20 19:58 02:16 POC Glucose (mg/dL) 224 H 280 H 325 H (75-99) mg/dL 11/09/18 11/09/18 Range/Units 06:58 11:35 POC Glucose (mg/dL) 182 H 166 H (75-99) mg/dL Assessment and Plan Assessment: Impression: 1 left lower lobe pneumonia. Currently on a combination of Rocephin and doxycycline. The patient is doing better and is currently on room air oxygen. 2 COPD 3 dementia 4 chronic stage III kidney disease 5 acute kidney injury, admission which has recovered and the kidney function is improving 6 coronary artery disease with previous coronary stenting 7 diabetes mellitus type 2 8 hypertension 9 hyperlipidemia 10 multiple joint osteoarthritis 11 bilateral carotid artery disease Plan: The patient was seen and evaluated by Dr. Saenz. He is cleared for discharge from the pulmonary standpoint. Complete a course of antibiotics. I, the cosigning physician, performed a history & physical examination of the patient. Lungs sounds with crackles in the left posterior base Maintaining good O2 saturations in the 90s on room air. I discussed the assessment and plan of care with my nurse practitioner, Hollie Calle. I attest to the above note as dictated by her.
== END 2018-11-09 13:10 | DRG 190 ==
LOC: EC 11:33 → INTOOBSV 16:39 → 3NMEDONC 16:39 → OBSVTOIN 11-06 14:05 → 3NMEDONC 11-08 09:07
PROVIDERS: ADMIT Internal Medicine; ATTEND Internal Medicine
DX: J44.0 Chronic obstructive pulmonary disease with (acute) lower respiratory infection (principal); J18.1 Lobar pneumonia, unspecified organism; E43 Unspecified severe protein-calorie malnutrition; N17.9 Acute kidney failure, unspecified; Z68.1 Body mass index [BMI] 19.9 or less, adult; J44.1 Chronic obstructive pulmonary disease with (acute) exacerbation; M19.90 Unspecified osteoarthritis, unspecified site; E11.22 Type 2 diabetes mellitus with diabetic chronic kidney disease; E78.5 Hyperlipidemia, unspecified; E86.0 Dehydration; F02.80 Dementia in other diseases classified elsewhere, unspecified severity, without behavioral disturbance, psychotic disturbance, mood disturbance, and anxiety; F17.200 Nicotine dependence, unspecified, uncomplicated; F41.9 Anxiety disorder, unspecified; G30.9 Alzheimer's disease, unspecified; I12.9 Hypertensive chronic kidney disease with stage 1 through stage 4 chronic kidney disease, or unspecified chronic kidney disease; I25.10 Atherosclerotic heart disease of native coronary artery without angina pectoris; I25.2 Old myocardial infarction; I48.91 Unspecified atrial fibrillation; J20.9 Acute bronchitis, unspecified; N18.3 Chronic kidney disease, stage 3 (moderate); N40.0 Benign prostatic hyperplasia without lower urinary tract symptoms; R09.02 Hypoxemia; R29.6 Repeated falls; Z79.02 Long term (current) use of antithrombotics/antiplatelets; Z79.82 Long term (current) use of aspirin; Z79.84 Long term (current) use of oral hypoglycemic drugs; Z79.899 Other long term (current) drug therapy; Z82.49 Family history of ischemic heart disease and other diseases of the circulatory system; Z83.3 Family history of diabetes mellitus; Z86.73 Personal history of transient ischemic attack (TIA), and cerebral infarction without residual deficits; Z95.5 Presence of coronary angioplasty implant and graft
CPT/HCPCS: 36415; 71045; 71046; 80048; 80053; 80162; 81001; 83036; 83605; 83735; 84484; 85025; 85610; 85730; 87086; 93005; 94640; 94644; 94760; 96374; 99291

== ENCOUNTER 2018-11-19 10:42 | Inpatient (IN) | payer MEDICARE ==
[2018-11-19] MEDS ORDERED: IPRATROPIUM-ALBUTEROL 3 ML NEB INHALATION STA (11:05)
--- NOTE | 2018-11-19 11:25 | ED ---
General Adult HPI - General Chief complaint: Recheck/Abnormal Lab/Rx Stated complaint: low hemoglobin Time Seen by Provider: 11/19/18 10:45 Source: EMS, RN notes reviewed Mode of arrival: EMS Limitations: no limitations - History of Present Illness Initial comments: This is a 68-year-old male who presents emergency Department by Dr. Hastings for low hemoglobin. Dr. Hastings said the patient was guaiac positive and hemoglobin dropped from 97.3. Patient states he feels fine but he understands he is here because hemoglobin is low. Patient denies any worsening shortness of breath. Patient states he was short of breath. Patient denies any chest pain or palpitations. Patient denies lightheadedness or dizziness per patient denies abdominal pain. Patient denies vomiting or diarrhea. Patient denies any recent injury or fall. - Related Data Home Medications Medication Instructions Recorded Confirmed glipiZIDE [Glucotrol] 5 mg PO DAILY@0900 01/07/14 11/19/18 Ferrous Sulfate [Iron (65 MG 325 mg PO DAILY@89904/06/14 11/19/18 Elemental)] Clopidogrel [Plavix] 75 mg PO DAILY@89909/29/14 11/19/18 Aspirin 81 mg PO DAILY@89903/28/15 11/19/18 Tamsulosin HCl [Flomax] 0.4 mg PO DAILY@89903/28/15 11/19/18 Citalopram Hydrobromide [CeleXA] 20 mg PO DAILY@89903/06/16 11/19/18 Divalproex Sodium [Depakote] 500 mg PO BID@899,209903/06/16 11/19/18 Multivitamin/Iron/Folic Acid 1 tab PO DAILY@89903/06/16 11/19/18 [Centrum Complete Multivit Tab] Donepezil [Aricept] 10 mg PO HS@209911/04/18 11/19/18 Ipratropium-Albuterol Nebulize 3 ml INHALATION RT-Q4H PRN 11/04/18 11/19/18 [Duoneb 0.5 mg-3 mg/3 ml Soln] Lactose-Reduced Food [Ensure Plus] 1 can PO BID@0900,209911/04/18 11/19/18 Memantine [Namenda] 10 mg PO BID@00,2100 11/04/18 11/19/18 Atorvastatin [Lipitor] 10 mg PO HS@2100 11/19/18 11/19/18 Digoxin [Lanoxin] 125 mcg PO DAILY@0900 11/19/18 11/19/18 INSULIN LISPRO (humaLOG) [humaLOG] See Protocol SQ ACHS 11/19/18 11/19/18 Insulin Glargine,Hum.rec.anlog 10 unit SQ HS@2100 11/19/18 11/19/18 [Basaglar Kwikpen U-100] Povidone-Iodine [Betadine] 1 applic TOPICAL Q12H 11/19/18 11/19/18 predniSONE See Taper PO DAILY@0900 11/19/18 11/19/18 Previous Rx's Medication Instructions Recorded Budesonide [Pulmicort] 0.5 mg INHALATION RT-BID nebu 11/08/18 Allergies Allergy/AdvReac Type Severity Reaction Status Date / Time No Known Allergies Allergy Verified 11/19/18 11:03 Review of Systems ROS Statement: Those systems with pertinent positive or pertinent negative responses have been documented in the HPI. ROS Other: All systems not noted in ROS Statement are negative. Past Medical History Past Medical History: Atrial Fibrillation, Atrial Flutter, Coronary Artery Disea se (CAD), COPD, CVA/TIA, Diabetes Mellitus, Hyperlipidemia, Hypertension, Myocardial Infarction ([place]), Osteoarthritis (OA) Additional Past Medical History / Comment(s): Bilateral carotid artery disease, BPH, dementia Last Myocardial Infarction Date:: 2011 History of Any Multi-Drug Resistant Organisms: None Reported Past Surgical History: Heart Catheterization With Stent Additional Past Surgical History / Comment(s): Neck surgery, bilateral carotid surgery Past Anesthesia/Blood Transfusion Reactions: No Reported Reaction Date of Last Stent Placement:: 2011 Past Psychological History: Anxiety Smoking Status: Former smoker Past Alcohol Use History: None Reported Past Drug Use History: None Reported - Past Family History Father Family Medical History: Coronary Artery Disease (CAD) Mother Family Medical History: Coronary Artery Disease (CAD), Diabetes Mellitus General Exam - General Exam Comments Initial Comments: GENERAL: Patient is well-developed and well-nourished. Patient is nontoxic and well- hydrated and is in mild distress. ENT: Neck is soft and supple. No significant lymphadenopathy is noted. Oropharynx is clear. Moist mucous membranes. Neck has full range of motion without eliciting any pain. EYES: The sclera were anicteric and conjunctiva were pink and moist. Extraocular movements were intact and pupils were equal round and reactive to light. Eyelids were unremarkable. PULMONARY: CARDIOVASCULAR: There is a regular rate and rhythm without any murmurs gallops or rubs. ABDOMEN: Soft and nontender with normal bowel sounds. No palpable organomegaly was noted. There is no palpable pulsatile mass. SKIN: Skin is clear with no lesions or rashes and otherwise unremarkable. NEUROLOGIC: Patient is alert and oriented x3. Cranial nerves II through XII are grossly intact. Motor and sensory are also intact. Normal speech, volume and content. Symmetrical smile. MUSCULOSKELETAL: Normal extremities with adequate strength and full range of motion. No lower extremity swelling or edema. No calf tenderness. LYMPHATICS: No significant lymphadenopathy is noted PSYCHIATRIC: Normal psychiatric evaluation. Limitations: no limitations Course Vital Signs 11/19/18 11/19/18 11/19/18 10:47 11:42 11:48 Temperature 97.6 F Pulse Rate 66 68 68 Respiratory 16 Rate Blood Pressure 126/52 O2 Sat by Pulse 96 Oximetry 11/19/18 13:06 Temperature Pulse Rate 66 Respiratory 18 Rate Blood Pressure 122/49 O2 Sat by Pulse 100 Oximetry Medical Decision Making - Medical Decision Making Chest x-ray shows possible infiltrate in the right lung. Patient will be given antibiotics. I spoke with Dr. Weaver he agreed to admit the patient admitted the patient I repeated CBCs and continued antibiotics on the floor. - Lab Data Result diagrams: 11/19/18 11:21 11/19/18 11:21 Lab Results 11/19/18 11/19/18 11/19/18 Range/Units 11:21 11:21 11:21 WBC 13.3 H (3.8-10.6) k/uL RBC 2.67 L (4.30-5.90) m/uL Hgb 8.4 L (13.0-17.5) gm/dL Hct 26.2 L (39.0-53.0) % MCV 98.2 (80.0-100.0) fL MCH 31.4 (25.0-35.0) pg MCHC 32.0 (31.0-37.0) g/dL RDW 16.2 H (11.5-15.5) % Plt Count 352 (150-450) k/uL Neutrophils % 87 % Lymphocytes % 4 % Monocytes % 6 % Eosinophils % 2 % Basophils % 0 % Neutrophils # 11.5 H (1.3-7.7) k/uL Lymphocytes # 0.5 L (1.0-4.8) k/uL Monocytes # 0.8 (0-1.0) k/uL Eosinophils # 0.3 (0-0.7) k/uL Basophils # 0.0 (0-0.2) k/uL Anisocytosis Slight Macrocytosis Slight PT 10.0 (9.0-12.0) sec INR 0.9 (<1.2) APTT 21.0 L (22.0-30.0) sec Sodium 140 (137-145) mmol/L Potassium 5.0 (3.5-5.1) mmol/L Chloride 104 (98-107) mmol/L Carbon Dioxide 33 H (22-30) mmol/L Anion Gap 3 mmol/L BUN 59 H (9-20) mg/dL Creatinine 1.27 H (0.66-1.25) mg/dL Est GFR (CKD-EPI)AfAm 66 (>60 ml/min/1.73 sqM) Est GFR (CKD-EPI)NonAf 57 (>60 ml/min/1.73 sqM) Glucose 65 L (74-99) mg/dL Calcium 9.2 (8.4-10.2) mg/dL Total Bilirubin 0.3 (0.2-1.3) mg/dL AST 20 (17-59) U/L ALT 23 (21-72) U/L Alkaline Phosphatase 78 (38-126) U/L Troponin I (0.000-0.034) ng/mL NT-Pro-B Natriuret Pep pg/mL Total Protein 5.3 L (6.3-8.2) g/dL Albumin 2.8 L (3.5-5.0) g/dL Blood Type Blood Type Recheck Bld Type Recheck Status Antibody Screen Spec Expiration Date 11/19/18 11/19/18 11/19/18 Range/Units 11:21 11:21 11:21 WBC (3.8-10.6) k/uL RBC (4.30-5.90) m/uL Hgb (13.0-17.5) gm/dL Hct (39.0-53.0) % MCV (80.0-100.0) fL MCH (25.0-35.0) pg MCHC (31.0-37.0) g/dL RDW (11.5-15.5) % Plt Count (150-450) k/uL Neutrophils % % Lymphocytes % % Monocytes % % Eosinophils % % Basophils % % Neutrophils # (1.3-7.7) k/uL Lymphocytes # (1.0-4.8) k/uL Monocytes # (0-1.0) k/uL Eosinophils # (0-0.7) k/uL Basophils # (0-0.2) k/uL Anisocytosis Macrocytosis PT (9.0-12.0) sec INR (<1.2) APTT (22.0-30.0) sec Sodium (137-145) mmol/L Potassium (3.5-5.1) mmol/L Chloride (98-107) mmol/L Carbon Dioxide (22-30) mmol/L Anion Gap mmol/L BUN (9-20) mg/dL Creatinine (0.66-1.25) mg/dL Est GFR (CKD-EPI)AfAm (>60 ml/min/1.73 sqM) Est GFR (CKD-EPI)NonAf (>60 ml/min/1.73 sqM) Glucose (74-99) mg/dL Calcium (8.4-10.2) mg/dL Total Bilirubin (0.2-1.3) mg/dL AST (17-59) U/L ALT (21-72) U/L Alkaline Phosphatase (38-126) U/L Troponin I 0.014 (0.000-0.034) ng/mL NT-Pro-B Natriuret Pep 1780 pg/mL Total Protein (6.3-8.2) g/dL Albumin (3.5-5.0) g/dL Blood Type O Positive Blood Type Recheck O Pos Bld Type Recheck Status No Antibody Screen NEGATIVE Spec Expiration Date 11/22/2018 - 232 Disposition Clinical Impression: Anemia, GI bleed, Pneumonia Disposition: ADMITTED IP TO THIS [facility] Referrals: Elena Lux MD [Primary Care Provider] - 1-2 days Time of Disposition: 14:07
[2018-11-19 11:35] LABS: Anisocytosis Slight; Basophils % (A) 0 %; Eosinophils # (A) 0.3 k/uL (0-0.7); Eosinophils % (A) 2 %; HCT 26.2 % (39.0-53.0); HGB 8.4 gm/dL (13.0-17.5); Lymphocytes # (A) 0.5 k/uL (1.0-4.8); Lymphocytes % (A) 4 %; MCH 31.4 pg (25.0-35.0); MCV 98.2 fL (80.0-100.0); Macrocytosis Slight; Mean Platelet Volume 5.9; Monocytes # (A) 0.8 k/uL (0-1.0); Monocytes % (A) 6 %; Neutrophils # (A) 11.5 k/uL (1.3-7.7); Neutrophils % (A) 87 %; Platelet Count 352 k/uL (150-450); RBC 2.67 m/uL (4.30-5.90); RDW 16.2 % (11.5-15.5); WBC 13.3 k/uL (3.8-10.6)
[2018-11-19 11:44] LABS: Albumin 2.8 g/dL (3.5-5.0); Calcium 9.2 mg/dL (8.4-10.2); Total Bilirubin 0.3 mg/dL (0.2-1.3); Total Protein 5.3 g/dL (6.3-8.2)
--- NOTE | 2018-11-19 11:53 | XR ---
EXAMINATION TYPE: XR chest 2V DATE OF EXAM: 11/19/2018 COMPARISON: 11/09/2018 HISTORY: 68-year-old male with pain TECHNIQUE: AP and lateral views FINDINGS: Partially visualized ACDF hardware. Heart normal size. Atherosclerotic calcifications throughout the thoracic aorta. Possible aneurysm of the ascending aorta measuring 4.9 cm on the lateral view. There is some focal patchy density peripherally in the right midlung and also small bilateral pleural effusions. IMPRESSION: 1. Possible underlying ascending aortic aneurysm measuring up to 4.9 cm. 2. Some mild patchy peripheral right midlung density representing atelectasis or early infiltrate. 3. Small bilateral pleural effusions.
[2018-11-19 11:59] LABS: INR 0.9 (<1.2)
[2018-11-19] MEDS ORDERED: SODIUM CHLORIDE 0.9% 1,000 ML IV ONE (14:04)
[2018-11-19] MEDS ORDERED: PIPERACILLIN-TAZOBACTAM 3.375 GM in SODIUM CHLORIDE 0.9% 100 ML IVPB STA (14:08)
--- NOTE | 2018-11-19 15:45 | P.HPIM ---
History of Present Illness H&P Date: 11/19/18 Patient is a 68-year-old male who presents to the emergency room from [facility] for a low hemoglobin of 8.4 and positive guaiac. is at bedside with patient. She has a history of dementia, A. fib, hypertension, [place], CAD, COPD, CVA, BPH. Patient was recently admitted in October and discharged on 11/09/2018 for COPD exacerbation and left lower lobe pneumonia. Patient was receiving antibiotics and prednisone at [facility]. Patient with deny blood in stool or urine, patient has not had a colonoscopy in several years. Patient has not been taking eliquis for several years, unknown reason. Patient has had good appetite at group home. Patient and deny fever or chills, nausea vomiting, chest pain, shortness of breath. Review of Systems Please see HPI otherwise unremarkable Past Medical History Past Medical History: Atrial Fibrillation, Atrial Flutter, Coronary Artery Disease (CAD), COPD, CVA/TIA, Diabetes Mellitus, Hyperlipidemia, Hypertension, Myocardial Infarction ([place]), Osteoarthritis (OA) Additional Past Medical History / Comment(s): Bilateral carotid artery disease, BPH, dementia Last Myocardial Infarction Date:: 2011 History of Any Multi-Drug Resistant Organisms: None Reported Past Surgical History: Heart Catheterization With Stent Additional Past Surgical History / Comment(s): Neck surgery, bilateral carotid surgery Past Anesthesia/Blood Transfusion Reactions: No Reported Reaction Date of Last Stent Placement:: 2011 Past Psychological History: Anxiety Smoking Status: Former smoker Past Alcohol Use History: None Reported Past Drug Use History: None Reported - Past Family History Father Family Medical History: Coronary Artery Disease (CAD) Mother Family Medical History: Coronary Artery Disease (CAD), Diabetes Mellitus Medications and Allergies Home Medications Medication Instructions Recorded Confirmed Type glipiZIDE [Glucotrol] 5 mg PO DAILY@89901/07/14 11/19/18 History Ferrous Sulfate [Iron (65 MG 325 mg PO DAILY@89904/06/14 11/19/18 History Elemental)] Clopidogrel [Plavix] 75 mg PO DAILY@89909/29/14 11/19/18 History Aspirin 81 mg PO DAILY@89903/28/15 11/19/18 History Tamsulosin HCl [Flomax] 0.4 mg PO DAILY@89903/28/15 11/19/18 History Citalopram Hydrobromide [CeleXA] 20 mg PO DAILY@0900 03/06/16 11/19/18 History Divalproex Sodium [Depakote] 500 mg PO BID@0900,209903/06/16 11/19/18 History Multivitamin/Iron/Folic Acid 1 tab PO DAILY@0900 03/06/16 11/19/18 History [Centrum Complete Multivit Tab] Donepezil [Aricept] 10 mg PO HS@209911/04/18 11/19/18 History Ipratropium-Albuterol Nebulize 3 ml INHALATION RT-Q4H PRN 11/04/18 11/19/18 History [Duoneb 0.5 mg-3 mg/3 ml Soln] Lactose-Reduced Food [Ensure Plus] 1 can PO BID@0900,209911/04/18 11/19/18 History Memantine [Namenda] 10 mg PO BID@0900,209911/04/18 11/19/18 History Budesonide [Pulmicort] 0.5 mg INHALATION RT-BID nebu 11/08/18 11/19/18 Rx Atorvastatin [Lipitor] 10 mg PO HS@209911/19/18 11/19/18 History Digoxin [Lanoxin] 125 mcg PO DAILY@00 11/19/18 11/19/18 History INSULIN LISPRO (humaLOG) [humaLOG] See Protocol SQ ACHS 11/19/18 11/19/18 History Insulin Glargine,Hum.rec.anlog 10 unit SQ HS@209911/19/18 11/19/18 History [Basaglar Kwikpen U-100] Povidone-Iodine [Betadine] 1 applic TOPICAL Q12H 11/19/18 11/19/18 History predniSONE See Taper PO DAILY@0900 11/19/18 11/19/18 History Allergies Allergy/AdvReac Type Severity Reaction Status Date / Time No Known Allergies Allergy Verified 11/19/18 11:03 Physical Exam Vitals: Vital Signs Temp Pulse Resp BP Pulse Ox 11/19/18 15:10 67 18 120/50 98 11/19/18 13:06 66 18 122/49 100 11/19/18 11:48 68 11/19/18 11:42 68 11/19/18 10:47 97.6 F 66 16 126/52 96 Intake and Output 11/19/18 11/19/18 11/19/18 06:59 14:59 22:59 Other: Weight 72.575 kg Head normocephalic Neck supple Lungs clear to auscultation bilaterally no wheezing or crackles. Cough present Heart regular rate and rhythm S1-S2, no rub or gallop Abdomen is soft nontender nondistended positive bowel sounds no hepatosplenomegaly Extremities no edema Neuro alert and orientated to 2 Results CBC & Chem 7: 11/19/18 11:21 11/19/18 11:21 Labs: Abnormal Lab Results - Last 24 Hours (Table) 11/19/18 11/19/18 11/19/18 Range/Units 11:21 11:21 11:21 WBC 13.3 H (3.8-10.6) k/uL RBC 2.67 L (4.30-5.90) m/uL Hgb 8.4 L (13.0-17.5) gm/dL Hct 26.2 L (39.0-53.0) % RDW 16.2 H (11.5-15.5) % Neutrophils # 11.5 H (1.3-7.7) k/uL Lymphocytes # 0.5 L (1.0-4.8) k/uL APTT 21.0 L (22.0-30.0) sec Carbon Dioxide 33 H (22-30) mmol/L BUN 59 H (9-20) mg/dL Creatinine 1.27 H (0.66-1.25) mg/dL Glucose 65 L (74-99) mg/dL Total Protein 5.3 L (6.3-8.2) g/dL Albumin 2.8 L (3.5-5.0) g/dL Assessment and Plan Assessment: 1. Low hemoglobin and positive guaiac. Will consult GI services. Will recheck CBC 2. Left lower lobe pneumonia. Will continue on Zosyn IV inpatient. X-ray in emergency room showing possible underlying ascending aortic aneurysm measuring up to 4.9 cm. Some mild patchy peripheral right midlung density representing atelectasis or early infiltrate. Small bilateral pleural effusions noted. 3. History of dementia. Maintain on Aricept and Namenda 4. History of CAD with previous coronary stenting. Per patient's this is greater than 5 years ago. 5. History of hypertension 6. History of hyperlipidemia. Maintain on statin 7. History of insulin-dependent diabetes. 8. Acute on chronic stage III kidney disease. Creatinine 1.27. Maintain normal saline at 75cc/hr. 9. History of A. fib. Patient not currently taking eliquis for unknown reason. Patient's states that he has not been taking for the past 4 years. Will order EKG. 10. History of CVA. IV Protonix for GI prophylaxis. SCDs for DVT prophylaxis due to low hemoglobin and positive guaiac.
[2018-11-19] MEDS ORDERED: IPRATROPIUM-ALBUTEROL 3 ML NEB INHALATION PRN (15:51)
[2018-11-19] MEDS ORDERED: IPRATROPIUM-ALBUTEROL 3 ML NEB INHALATION SCH (16:00)
[2018-11-19] MEDS: IPRATROPIUM-ALBUTEROL 3 ML NEB INHALATION SCH ×2 (16:05→19:27)
[2018-11-19] MEDS: PANTOPRAZOLE 40 MG/10 ML VIAL IVP SCH (17:04)
--- NOTE | 2018-11-19 18:40 | XR ---
EXAMINATION TYPE: XR chest 2V DATE OF EXAM: 11/19/2018 COMPARISON: Today HISTORY: Follow-up infiltrate TECHNIQUE: Frontal and lateral views of the chest are obtained. FINDINGS: Heart is normal. Lungs are clear of consolidation. There is blunting of the posterior cost ophrenic angles. There are no hilar masses. I see no definite infiltrate in the right lung. Bony thor ax is intact. There is osteopenia. IMPRESSION: Small bilateral pleural effusions and pleural reaction unchanged. Normal heart. Atheroma tous aorta. No definite pulmonary consolidation.
[2018-11-19] MEDS: BUDESONIDE 0.5 MG/2 ML NEBU INHALATION SCH (19:27)
[2018-11-19 20:28] LABS: Glucose,Whole Blood 225 mg/dL (75-99)
[2018-11-19] MEDS: DIVALPROEX 500 MG TABLET.DR PO SCH (22:04)
[2018-11-19] MEDS: DONEPEZIL 10 MG TAB PO SCH (22:04)
[2018-11-19] MEDS: MEMANTINE 10 MG TAB PO SCH (22:04)
[2018-11-19] MEDS: INSULIN ASPART (NovoLOG) 100 UNIT/ML VIAL SQ SCH (22:04)
[2018-11-19] MEDS: ATORVASTATIN 10 MG TAB PO SCH (22:06)
--- NOTE | 2018-11-19 22:27 | P.CONS ---
History of Present Illness - Reason for Consult Consult date: 11/19/18 Anemia Requesting physician: Bethanie Weaver - Chief Complaint Anemia - History of Present Illness 68-year-old male with a medical history significant for dementia, atrial fibr illation, hypertension, coronary artery disease, COPD, prior CVA and BPH presented to the hospital due to stool testing which was positive for blood and anemia in the outpatient setting. The patient was recently discharged from the hospital during which time he was treated for pneumonia and exacerbation of his COPD. He had been at a rehab facility on antibiotic therapy-related found to be anemic and sent in for further evaluation. Extensive conversation with the patient, his and his son. They report that previously the patient was hospitalized for 5 years ago for suspected GI bleed. He was on aspirin 325 mg daily at that time. They're unsure what evaluation was performed at that time but to report previously the patient had endoscopic evaluation with EGD and colonoscopy and believes that this was within the past 5 years. The patient is also on iron supplementation at home as well as Plavix therapy. No further NSAID use since his admission for GI bleed previously. They deny any nausea or vomiting or change in appetite. They do report that his bowel movements have appeared dark black for months now and that the iron supplementation as stated has been given to the patient's for years. Currently he is denying any abdominal pain. Chest x-ray on admission was significant for possible abdominal aortic aneurysm. Hemoglobin on presentation 8.4 with WBC 13.3 and INR 0.9. Total bilirubin 0.3, alkaline phosphatase 78, AST 20 and ALTs 23. Review of Systems REVIEW OF SYSTEMS: CONSTITUTIONAL: Denies any fevers, chills, weight change or fatigue. CARDIOVASCULAR: Denies any chest pain, palpitations high or low blood pressures RESPIRATORY: History of COPD with recent admission for pneumonia and exacerbation of his COPD, currently denying any shortness of breath GENITOURINARY: No dysuria or hematuria. MUSCULOSKELETAL: No weakness reported. SKIN: Denies any new rashes or lesions, jaundice or pallor. PSYCHIATRIC: Denies any depression or anxiety, but history of dementia. NEUROLOGY: Denies headache, denies any new focal deficits. EARS/NOSE/THROAT: No recent hearing change, congestion, nasal discharge or sore throat. EYES: No pain in eyes, discharge or change in vision. GASTROINTESTINAL: As per HPI. Past Medical History Past Medical History: Atrial Fibrillation, Atrial Flutter, Coronary Artery Disease (CAD), COPD, CVA/TIA, Diabetes Mellitus, Hyperlipidemia, Hypertension, Myocardial Infarction ([place]), Osteoarthritis (OA) Additional Past Medical History / Comment(s): Bilateral carotid artery disease, BPH, dementia Last Myocardial Infarction Date:: 2011 History of Any Multi-Drug Resistant Organisms: None Reported Past Surgical History: Heart Catheterization With Stent Additional Past Surgical History / Comment(s): Neck surgery, bilateral carotid surgery Past Anesthesia/Blood Transfusion Reactions: No Reported Reaction Additional Past Anesthesia/Blood Transfusion Reaction / Comm: Pt has received blood in past without reaction. Date of Last Stent Placement:: 2011 Past Psychological History: Anxiety Smoking Status: Former smoker Past Alcohol Use History: None Reported Past Drug Use History: None Reported - Past Family History Brother(s) Family Medical History: Cancer, Diabetes Mellitus Additional Family Medical History / Comment(s): One brother from cancer in his spine. Another brother recently from diabetic complications. Father Family Medical History: Coronary Artery Disease (CAD) Mother Family Medical History: Coronary Artery Disease (CAD), Diabetes Mellitus Medications and Allergies Home Medications Medication Instructions Recorded Confirmed Type glipiZIDE [Glucotrol] 5 mg PO DAILY@89901/07/14 11/19/18 History Ferrous Sulfate [Iron (65 MG 325 mg PO DAILY@89904/06/14 11/19/18 History Elemental)] Clopidogrel [Plavix] 75 mg PO DAILY@89909/29/14 11/19/18 History Aspirin 81 mg PO DAILY@89903/28/15 11/19/18 History Tamsulosin HCl [Flomax] 0.4 mg PO DAILY@89903/28/15 11/19/18 History Citalopram Hydrobromide [CeleXA] 20 mg PO DAILY@89903/06/16 11/19/18 History Divalproex Sodium [Depakote] 500 mg PO BID@899,209903/06/16 11/19/18 History Multivitamin/Iron/Folic Acid 1 tab PO DAILY@89903/06/16 11/19/18 History [Centrum Complete Multivit Tab] Donepezil [Aricept] 10 mg PO HS@209911/04/18 11/19/18 History Ipratropium-Albuterol Nebulize 3 ml INHALATION RT-Q4H PRN 11/04/18 11/19/18 History [Duoneb 0.5 mg-3 mg/3 ml Soln] Lactose-Reduced Food [Ensure Plus] 1 can PO BID@0900,209911/04/18 11/19/18 History Memantine [Namenda] 10 mg PO BID@0900,209911/04/18 11/19/18 History Budesonide [Pulmicort] 0.5 mg INHALATION RT-BID nebu 11/08/18 11/19/18 Rx Atorvastatin [Lipitor] 10 mg PO HS@209911/19/18 11/19/18 History Digoxin [Lanoxin] 125 mcg PO DAILY@0900 11/19/18 11/19/18 History INSULIN LISPRO (humaLOG) [humaLOG] See Protocol SQ ACHS 11/19/18 11/19/18 History Insulin Glargine,Hum.rec.anlog 10 unit SQ HS@209911/19/18 11/19/18 History [Basaglar Kwikpen U-100] Povidone-Iodine [Betadine] 1 applic TOPICAL Q12H 11/19/18 11/19/18 History predniSONE See Taper PO DAILY@0900 11/19/18 11/19/18 History Allergies Allergy/AdvReac Type Severity Reaction Status Date / Time No Known Allergies Allergy Verified 11/19/18 11:03 Physical Exam Vitals: Vital Signs Temp Pulse Pulse Resp BP BP Pulse Ox 11/19/18 20:03 97.6 F 61 16 131/62 100 11/19/18 17:02 72 11/19/18 16:27 97.5 F L 68 17 128/60 100 11/19/18 16:14 68 11/19/18 16:08 67 11/19/18 15:10 67 18 120/50 98 11/19/18 13:06 66 18 122/49 100 11/19/18 11:48 68 11/19/18 11:42 68 11/19/18 10:47 97.6 F 66 16 126/52 96 Intake and Output 11/19/18 11/19/18 11/19/18 06:59 14:59 22:59 Other: Weight 72.575 kg On physical examination, patient appears comfortable in no apparent distress. HEAD: Normocephalic, atraumatic. EYES: No scleral icterus. No conjunctival injection. MOUTH: No lesions, tongue midline. NECK: Trachea midline, no gross abnormalities. CHEST: Decreased air entry in all lung zavala. HEART: S1-S2 appreciated. ABDOMEN: Soft, nontender. Bowel sounds are positive. No organomegaly. No guarding or rigidity. EXTREMITIES: No pedal edema. SKIN: No rashes, no jaundice. NEUROLOGIC: Alert and oriented x2. No focal deficits. Results CBC & Chem 7: 11/19/18 11:21 11/19/18 11:21 Labs: Abnormal Lab Results - Last 24 Hours (Table) 11/19/18 11/19/18 11/19/18 Range/Units 11:21 11:21 11:21 WBC 13.3 H (3.8-10.6) k/uL RBC 2.67 L (4.30-5.90) m/uL Hgb 8.4 L (13.0-17.5) gm/dL Hct 26.2 L (39.0-53.0) % RDW 16.2 H (11.5-15.5) % Neutrophils # 11.5 H (1.3-7.7) k/uL Lymphocytes # 0.5 L (1.0-4.8) k/uL APTT 21.0 L (22.0-30.0) sec Carbon Dioxide 33 H (22-30) mmol/L BUN 59 H (9-20) mg/dL Creatinine 1.27 H (0.66-1.25) mg/dL Glucose 65 L (74-99) mg/dL POC Glucose (mg/dL) (75-99) mg/dL Total Protein 5.3 L (6.3-8.2) g/dL Albumin 2.8 L (3.5-5.0) g/dL 11/19/18 Range/Units 20:27 WBC (3.8-10.6) k/uL RBC (4.30-5.90) m/uL Hgb (13.0-17.5) gm/dL Hct (39.0-53.0) % RDW (11.5-15.5) % Neutrophils # (1.3-7.7) k/uL Lymphocytes # (1.0-4.8) k/uL APTT (22.0-30.0) sec Carbon Dioxide (22-30) mmol/L BUN (9-20) mg/dL Creatinine (0.66-1.25) mg/dL Glucose (74-99) mg/dL POC Glucose (mg/dL) 225 H (75-99) mg/dL Total Protein (6.3-8.2) g/dL Albumin (3.5-5.0) g/dL Chest x-ray: report reviewed Assessment and Plan (1) Normocytic normochromic anemia Narrative/Plan: 68-year-old male with multiple medical comorbidities recently discharged for treatment in rehabilitation facility after recent admission for pneumonia and exacerbation of COPD. Hemoglobin on discharge at that time was 9 and patient presents back with hemoglobin of 8.4 with normocytic normochromic indices and stool testing positive for blood. The patient is on iron supplementation and his reports he has been on this iron supplementation for years. There've been no signs or symptoms of GI bleeding with the patient having chronic dark bowel movements. He denies any abdominal pain. He was hospitalized for GI bleed approximate 4 years ago per history from the that she is unsure of what evaluation occurred at that time. They do believe he has undergone EGD and colonoscopy in the past 5 years. Unclear etiology to the patient's anemia with the possibility of a component of GI bleed given the positive stool testing, however anemia is likely multifactorial with anemia of chronic disease given multiple comorbidities. Laboratory evaluation has been ordered. Current Visit: Yes Status: Acute Code(s): D64.9 - ANEMIA, UNSPECIFIED SNOMED Code(s): 99156704 (2) Positive fecal occult blood test Current Visit: Yes Status: Acute Code(s): R19.5 - OTHER FECAL ABNORMALITIES SNOMED Code(s): 52416626 Plan: Supportive care Okay for consistent carbohydrate diet today, and clear liquid diet tomorrow Monitor hemoglobin and hematocrit and transfuse as needed Continue to hold Plavix therapy and anticoagulation Continue Protonix daily Long conversation with the patient, his and son and at this time endoscopic evaluation with EGD and colonoscopy have been offered, however if they occur intervention would be limited due to the patient's recent Plavix use which needs to be held for 5 days if polypectomy is planned, the patient and his family have also been offered the option of having the patient follow up after discharge for endoscopic evaluation if hemoglobin remains stable At this time will monitor hemoglobin and symptoms and decision about timing of endoscopy will be dependent on these factors in discussion with the patient and his Continue iron supplementation Iron studies, vitamin B12 and folate level, and reticulocyte count ordered Thank you for allowing us to participate in the care of the patient we will continue to follow
[2018-11-19] MEDS: PIPERACILLIN-TAZOBACTAM 3.375 GM in SODIUM CHLORIDE 0.9% 100 ML IVPB SCH (23:25)
[2018-11-20 00:13] LABS: Anisocytosis Slight; Basophils % (A) 0 %; Eosinophils % (A) 0 %; HCT 25.1 % (39.0-53.0); HGB 7.8 gm/dL (13.0-17.5); Hypochromasia Slight; Lymphocytes # (A) 0.4 k/uL (1.0-4.8); Lymphocytes % (A) 5 %; MCHC 31.1 g/dL (31.0-37.0); MCV 99.5 fL (80.0-100.0); Macrocytosis Slight; Monocytes # (A) 0.6 k/uL (0-1.0); Monocytes % (A) 7 %; Neutrophils % (A) 87 %; Platelet Count 321 k/uL (150-450); RBC 2.53 m/uL (4.30-5.90); WBC 8.1 k/uL (3.8-10.6)
[2018-11-20 07:03] LABS: Glucose,Whole Blood 124 mg/dL (75-99)
[2018-11-20] MEDS: INSULIN ASPART (NovoLOG) 100 UNIT/ML VIAL SQ SCH ×4 (07:24→21:42)
[2018-11-20 08:05] LABS: Anisocytosis Slight; Basophils % (A) 0 %; Eosinophils # (A) 0.2 k/uL (0-0.7); Eosinophils % (A) 3 %; HCT 25.3 % (39.0-53.0); HGB 7.7 gm/dL (13.0-17.5); Hypochromasia Slight; Lymphocytes # (A) 0.7 k/uL (1.0-4.8); Lymphocytes % (A) 10 %; MCH 31.1 pg (25.0-35.0); MCHC 30.4 g/dL (31.0-37.0); MCV 102.4 fL (80.0-100.0); Macrocytosis Moderate; Mean Platelet Volume 7.2; Monocytes # (A) 0.6 k/uL (0-1.0); Monocytes % (A) 9 %; Neutrophils # (A) 5.1 k/uL (1.3-7.7); Neutrophils % (A) 76 %; Platelet Count 311 k/uL (150-450); RBC 2.48 m/uL (4.30-5.90); RDW 16.3 % (11.5-15.5); Reticulocyte % 3.4 % (0.5-2.0); WBC 6.7 k/uL (3.8-10.6)
[2018-11-20 08:09] LABS: Albumin 2.5 g/dL (3.5-5.0); Calcium 8.8 mg/dL (8.4-10.2); Potassium 4.9 mmol/L (3.5-5.1); Total Bilirubin 0.2 mg/dL (0.2-1.3); Total Protein 4.8 g/dL (6.3-8.2)
[2018-11-20] MEDS: PIPERACILLIN-TAZOBACTAM 3.375 GM in SODIUM CHLORIDE 0.9% 100 ML IVPB SCH (08:30)
[2018-11-20] MEDS: FERROUS SULFATE 325 MG TAB PO SCH (08:31)
[2018-11-20] MEDS: DIGOXIN 125 MCG TAB PO SCH (08:31)
[2018-11-20] MEDS: TAMSULOSIN 0.4 MG CAP.ER.24H PO SCH (08:31)
[2018-11-20] MEDS: PANTOPRAZOLE 40 MG/10 ML VIAL IVP SCH (08:31)
[2018-11-20] MEDS: MEMANTINE 10 MG TAB PO SCH ×2 (08:31→21:45)
[2018-11-20] MEDS: glipiZIDE 5 MG TAB PO SCH (08:31)
[2018-11-20] MEDS: MULTIVITAMINS, THERA 1 EACH TAB PO SCH (08:31)
[2018-11-20] MEDS: predniSONE 20 MG TAB PO SCH (08:31)
[2018-11-20] MEDS: CITALOPRAM HYDROBROMIDE 20 MG TAB PO SCH (08:31)
[2018-11-20] MEDS: DIVALPROEX 500 MG TABLET.DR PO SCH ×2 (08:31→21:46)
[2018-11-20] MEDS: BUDESONIDE 0.5 MG/2 ML NEBU INHALATION SCH ×2 (08:36→19:34)
[2018-11-20] MEDS: IPRATROPIUM-ALBUTEROL 3 ML NEB INHALATION SCH ×4 (08:36→19:34)
[2018-11-20 08:53] LABS: Glucose,Whole Blood 105 mg/dL (75-99)
--- NOTE | 2018-11-20 10:05 | P.PN ---
Subjective Progress Note Date: 11/20/18 Patient is a 68-year-old male who presents to the emergency room from [facility] for a low hemoglobin of 8.4 and positive guaiac. is at bedside with patient. She has a history of dementia, A. fib, hypertension, [place], CAD, COPD, CVA, BPH. Patient was recently admitted in October and discharged on 11/09/2018 for COPD exacerbation and left lower lobe pneumonia. Patient was receiving antibiotics and prednisone at [facility]. Patient with deny blood in stool or urine, patient has not had a colonoscopy in several years. Patient has not been taking eliquis for several years, unknown reason. Patient has had good appetite at retirement. Patient and deny fever or chills, nausea v omiting, chest pain, shortness of breath. On 11/20/2017 patient is resting comfortably in bed. Hemoglobin 7.7. GI services have been consulted. Discussion held with family patient about colonoscopy and EGD. This time patient denies chest pain or shortness of breath. Denies nausea vomiting or diarrhea. Patient denies urinary burning or frequency Objective - Vital Signs Vital signs: Vital Signs Temp 98.2 F 11/20/18 05:00 Pulse 59 L 11/20/18 05:00 Resp 16 11/20/18 05:00 BP 124/53 11/20/18 08:15 Pulse Ox 100 11/20/18 05:00 Intake & Output 11/19/18 11/20/18 11/20/18 18:59 06:59 18:59 Intake Total 700 Output Total 400 Balance 300 Weight 72.575 kg Intake: Intake, IV Titration 700 Amount Piperacillin-Tazobactam 3 100 .375 gm In Sodium Chloride 0.9% 100 ml @ 25 mls/hr IVPB Q8HR OREN Rx# :[id number] Sodium Chloride 0.9% 1, 600 000 ml @ 75 mls/hr IV . [id number] Rx#:[id number] Output: Urine 400 Other: Voiding Method Urinal Bedside Commode Diaper Diaper Incontinent Incontinent # Voids 1 # Bowel Movements 1 - Exam Head normocephalic Neck supple Lungs clear to auscultation bilaterally no wheezing or crackles. Cough present Heart regular rate and rhythm S1-S2, no rub or gallop Abdomen is soft nontender nondistended positive bowel sounds no hepatosplenomegaly Extremities no edema Neuro alert and orientated to 2 - Labs CBC & Chem 7: 11/20/18 07:05 11/20/18 07:05 Labs: Abnormal Lab Results - Last 24 Hours (Table) 11/19/18 11/19/18 11/19/18 Range/Units 11:21 11:21 11:21 WBC 13.3 H (3.8-10.6) k/uL RBC 2.67 L (4.30-5.90) m/uL Hgb 8.4 L (13.0-17.5) gm/dL Hct 26.2 L (39.0-53.0) % MCV (80.0-100.0) fL MCHC (31.0-37.0) g/dL RDW 16.2 H (11.5-15.5) % Neutrophils # 11.5 H (1.3-7.7) k/uL Lymphocytes # 0.5 L (1.0-4.8) k/uL Retic Count (0.5-2.0) % APTT 21.0 L (22.0-30.0) sec Carbon Dioxide 33 H (22-30) mmol/L BUN 59 H (9-20) mg/dL Creatinine 1.27 H (0.66-1.25) mg/dL Glucose 65 L (74-99) mg/dL POC Glucose (mg/dL) (75-99) mg/dL Total Protein 5.3 L (6.3-8.2) g/dL Albumin 2.8 L (3.5-5.0) g/dL 11/19/18 11/19/18 11/20/18 Range/Units 20:27 23:32 07:02 WBC (3.8-10.6) k/uL RBC 2.53 L (4.30-5.90) m/uL Hgb 7.8 L (13.0-17.5) gm/dL Hct 25.1 L (39.0-53.0) % MCV (80.0-100.0) fL MCHC (31.0-37.0) g/dL RDW 16.0 H (11.5-15.5) % Neutrophils # (1.3-7.7) k/uL Lymphocytes # 0.4 L (1.0-4.8) k/uL Retic Count (0.5-2.0) % APTT (22.0-30.0) sec Carbon Dioxide (22-30) mmol/L BUN (9-20) mg/dL Creatinine (0.66-1.25) mg/dL Glucose (74-99) mg/dL POC Glucose (mg/dL) 225 H 124 H (75-99) mg/dL Total Protein (6.3-8.2) g/dL Albumin (3.5-5.0) g/dL 11/20/18 11/20/18 11/20/18 Range/Units 07:05 07:05 08:18 WBC (3.8-10.6) k/uL RBC 2.48 L (4.30-5.90) m/uL Hgb 7.7 L (13.0-17.5) gm/dL Hct 25.3 L (39.0-53.0) % MCV 102.4 H (80.0-100.0) fL MCHC 30.4 L (31.0-37.0) g/dL RDW 16.3 H (11.5-15.5) % Neutrophils # (1.3-7.7) k/uL Lymphocytes # 0.7 L (1.0-4.8) k/uL Retic Count 3.4 H (0.5-2.0) % APTT (22.0-30.0) sec Carbon Dioxide 34 H (22-30) mmol/L BUN 51 H (9-20) mg/dL Creatinine (0.66-1.25) mg/dL Glucose 109 H (74-99) mg/dL POC Glucose (mg/dL) 105 H (75-99) mg/dL Total Protein 4.8 L (6.3-8.2) g/dL Albumin 2.5 L (3.5-5.0) g/dL Assessment and Plan Assessment: 1. Anemia and positive guaiac. Hemoglobin 7.7. Per GI services long con versation was held with patient and family regards endoscopic with colonoscopy. Patient has been on Plavix be held 5 days prior to possible polypectomy. 2. Left lower lobe pneumonia. Will continue on Zosyn IV inpatient. X-ray in emergency room showing possible underlying ascending aortic aneurysm measuring up to 4.9 cm. Some mild patchy peripheral right midlung density representing atelectasis or early infiltrate. Small bilateral pleural effusions noted. Pulmonary service is consulted 3. History of dementia. Maintain on Aricept and Namenda 4. History of CAD with previous coronary stenting. Per patient's this is greater than 5 years ago. 5. History of hypertension 6. History of hyperlipidemia. Maintain on statin 7. History of insulin-dependent diabetes. 8. Acute on chronic stage III kidney disease. Creatinine 1.27. Maintain normal saline at 75cc/hr. creatinine improving to 1.21 9. History of A. fib. Patient not currently taking eliquis for unknown reason. Patient's states that he has not been taking for the past 4 years. Will order EKG. 10. History of CVA. IV Protonix for GI prophylaxis. SCDs for DVT prophylaxis due to low hemoglobin and positive guaiac. I performed an examination of the patient and discussed their management with [facility] Practitioner. I have reviewed the Nurse Practitioner's notes and agree with the documented findings and plan of care
[2018-11-20 10:19] LABS: Digoxin 0.8 ng/mL
[2018-11-20 11:13] LABS: Glucose,Whole Blood 81 mg/dL (75-99)
--- NOTE | 2018-11-20 11:15 | CONS ---
CONSULTATION PULMONARY/CRITICAL CARE CONSULTATION: DATE OF CONSULTATION: November 20, 2018 REASON FOR CONSULTATION: Pneumonia. This is a 68-year-old male who was seen in the emergency department on the 8th. Brought in by EMS. Apparently, he was brought in because of a low hemoglobin. Apparently, his hemoglobin had dropped. He was guaiac positive. Apparently, the patient felt fine. Did not realize his hemoglobin was low. He denied any chest pain or shortness of breath. No fever or chills. No palpitations. No headache. No nausea, vomiting, diarrhea. No blood in his stools or blood in his urine. He denied any recent trauma or anything like that. A chest x-ray was initially done which showed a possible area of atelectasis in the right mid lung. A follow-up chest x-ray was normal. The patient never had any pulmonary complaints, so I do not believe this represents anything but some atelectasis. He denies shortness of breath difficulty breathing, coughing, wheezing and phlegm production. Anyway, he was admitted for the GI bleed according to the nurse. When I was in the room, he had an episode of orthostasis. They were moving him or sitting him up from the bed and he apparently became a little lightheaded and dizzy and his blood pressure dropped a bit. He recovered though quickly. HOME MEDICATIONS: His home medications include Glucotrol, iron, Plavix, aspirin, Flomax, Celexa, Depakote, multivitamins, Aricept, updrafts, Ensure Plus, Namenda, Lipitor, Lanoxin, insulin, Betadine, and prednisone. He apparently also was on Pulmicort twice a day. ALLERGIES: Allergies are denied. MEDICAL HISTORY: His medical history includes atrial fibrillation/flutter, CAD, COPD, CVA, diabetes mellitus, hyperlipidemia, hypertension, myocardial infarction, DJD, carotid artery stenosis, BPH and dementia. SURGICAL HISTORY: Surgical history includes heart catheterization with stent, bilateral carotid surgery and neck surgery. SOCIAL HISTORY: Social history is positive for previous tobacco use. Denies any alcohol use or illicit drug use. FAMILY HISTORY: Family history is positive for CAD in his father, CAD and diabetes in his mother. REVIEW OF SYSTEMS: CONSTITUTIONAL: Negative. NEUROLOGIC: Negative. HEENT: Negative. CARDIOVASCULAR: Negative. PULMONARY: Negative. GI: Negative. : Negative. RHEUMATOLOGIC: Negative. IMMUNOLOGIC: Negative. ENDOCRINOLOGIC: Negative. DERMATOLOGIC: Negative. PHYSICAL EXAMINATION: VITAL SIGNS: Vital signs are reviewed. Temperature 98.2, heart rate 61, respiratory rate 16, blood pressure 109/59, mean 75 and a 2 L saturation of 100%. GENERAL: Appears in no acute distress. HEENT: Examination is grossly unremarkable. Mucous membranes are moist. No oral lesions. NECK: Supple. Full range of motion. No adenopathy or thyromegaly. Neck veins are flat. CARDIOVASCULAR: Examination reveals regular rhythm and rate. S1, S2 normal. No murmur. Heart rate about 65 beats per minute. LUNGS: Are clear. Breath sounds equal. No wheezes, rhonchi, or crackles. ABDOMEN: Soft. Bowel sounds are heard. EXTREMITIES: Are intact. No cyanosis, clubbing, or edema. SKIN: Without rash. NEUROLOGIC: Examination is brief but nonfocal. His hemoglobin is 7.7, white count 6.7, hematocrit 25.3, and platelet count is normal at 311,000. Sodium, potassium, chloride normal. CO2 is 34. Anion gap 1. BUN and creatinine were 51 and 1.21. Albumin 2.5. Digoxin 0.8. Rest of his labs look pretty good. Chest x-rays both on the 8th are reviewed. As I mentioned, the second x-ray does not show an area of atelectasis in the right lung. MEDICATIONS: Medications are reviewed. His medications look appropriate. I do not believe he needs antibiotics, I will discontinue those. ASSESSMENT: 1. No evidence of pneumonia in this patient who is asymptomatic from the pulmonary standpoint and has a normal chest x-ray. 2. History of multiple medical problems as listed including admission for gastrointestinal bleed, as well as atrial fibrillation/flutter, coronary artery disease, chronic obstructive pulmonary disease, cerebrovascular accident, diabetes mellitus, hyperlipidemia, hypertension, myocardial infarction, degenerative joint disease, dementia, benign prostatic hypertrophy, and bilateral carotid artery disease. PLAN: Updrafts are appropriate, those are what he uses at home. In addition, the antibiotics could be discontinued. No evidence of current infection. We will continue to follow as needed. No additional recommendations are made. Prognosis is guarded. MMODL / IJN: [id number] /
[2018-11-20 11:41] LABS: Iron Saturation 13.14 (15.00-50.00)
[2018-11-20 12:05] LABS: Folate, Serum 14.8 ng/mL
[2018-11-20] MEDS ORDERED: BISACODYL 5 MG TABLET.DR PO STA (16:38)
[2018-11-20 16:58] LABS: Glucose,Whole Blood 180 mg/dL (75-99)
[2018-11-20] MEDS ORDERED: PEG 3350-NA SULF,BICARB,CL/KCL 4,000 ML BOTTLE PO ONE (17:00)
--- NOTE | 2018-11-20 20:08 | P.PN ---
Subjective Progress Note Date: 11/20/18 Principal diagnosis: Anemia, stool positive for occult blood Patient seen lying in bed denying any abdominal pain. Reporting that he is hungry. No signs or symptoms of GI bleeding. Objective - Vital Signs Vital signs: Vital Signs Temp 97.6 F 11/20/18 11:57 Pulse 62 11/20/18 11:57 Resp 18 11/20/18 11:57 BP 113/47 11/20/18 11:57 Pulse Ox 96 11/20/18 15:37 Intake & Output 11/20/18 11/20/18 11/21/18 06:59 18:59 06:59 Intake Total 700 325 Output Total 400 Balance 300 325 Intake: Intake, IV Titration 700 325 Amount Piperacillin-Tazobactam 3 100 100 .375 gm In Sodium Chloride 0.9% 100 ml @ 25 mls/hr IVPB Q8HR OREN Rx# :[id number] Sodium Chloride 0.9% 1, 600 225 000 ml @ 75 mls/hr IV . [id number] ONE Rx#:[id number] Output: Urine 400 Other: Voiding Method Urinal Bedside Commode Diaper Urinal Incontinent Diaper Incontinent # Voids 1 # Bowel Movements 1 - Exam On physical examination, patient appears comfortable in no apparent distress. HEAD: Normocephalic, atraumatic. EYES: No scleral icterus. No conjunctival injection. MOUTH: No lesions, tongue midline. NECK: Trachea midline, no gross abnormalities. ABDOMEN: Soft, obese. Bowel sounds are positive. No organomegaly. No guarding or rigidity. EXTREMITIES: No pedal edema. SKIN: No rashes, no jaundice. NEUROLOGIC: Alert and oriented to person. - Labs CBC & Chem 7: 11/20/18 07:05 11/20/18 07:05 Labs: Abnormal Lab Results - Last 24 Hours (Table) 11/19/18 11/19/18 11/20/18 Range/Units 20:27 23:32 07:02 RBC 2.53 L (4.30-5.90) m/uL Hgb 7.8 L (13.0-17.5) gm/dL Hct 25.1 L (39.0-53.0) % MCV (80.0-100.0) fL MCHC (31.0-37.0) g/dL RDW 16.0 H (11.5-15.5) % Lymphocytes # 0.4 L (1.0-4.8) k/uL Retic Count (0.5-2.0) % Carbon Dioxide (22-30) mmol/L BUN (9-20) mg/dL Glucose (74-99) mg/dL POC Glucose (mg/dL) 225 H 124 H (75-99) mg/dL Iron (65-175) ug/dL Iron Saturation (15.00-50.00) Total Protein (6.3-8.2) g/dL Albumin (3.5-5.0) g/dL Vitamin B12 (200.0-944.0) pg/mL 11/20/18 11/20/18 11/20/18 Range/Units 07:05 07:05 07:05 RBC 2.48 L (4.30-5.90) m/uL Hgb 7.7 L (13.0-17.5) gm/dL Hct 25.3 L (39.0-53.0) % MCV 102.4 H (80.0-100.0) fL MCHC 30.4 L (31.0-37.0) g/dL RDW 16.3 H (11.5-15.5) % Lymphocytes # 0.7 L (1.0-4.8) k/uL Retic Count 3.4 H (0.5-2.0) % Carbon Dioxide 34 H (22-30) mmol/L BUN 51 H (9-20) mg/dL Glucose 109 H (74-99) mg/dL POC Glucose (mg/dL) (75-99) mg/dL Iron 36 L (65-175) ug/dL Iron Saturation 13.14 L (15.00-50.00) Total Protein 4.8 L (6.3-8.2) g/dL Albumin 2.5 L (3.5-5.0) g/dL Vitamin B12 1005.0 H (200.0-944.0) pg/mL 11/20/18 11/20/18 Range/Units 08:18 16:56 RBC (4.30-5.90) m/uL Hgb (13.0-17.5) gm/dL Hct (39.0-53.0) % MCV (80.0-100.0) fL MCHC (31.0-37.0) g/dL RDW (11.5-15.5) % Lymphocytes # (1.0-4.8) k/uL Retic Count (0.5-2.0) % Carbon Dioxide (22-30) mmol/L BUN (9-20) mg/dL Glucose (74-99) mg/dL POC Glucose (mg/dL) 105 H 180 H (75-99) mg/dL Iron (65-175) ug/dL Iron Saturation (15.00-50.00) Total Protein (6.3-8.2) g/dL Albumin (3.5-5.0) g/dL Vitamin B12 (200.0-944.0) pg/mL Microbiology - Last 24 Hours (Table) 11/19/18 15:06 Blood Culture - Preliminary Blood No Growth after 24 hours Assessment and Plan (1) Normocytic normochromic anemia Narrative/Plan: 68-year-old male with multiple medical comorbidities recently discharged for treatment in rehabilitation facility after recent admission for pneumonia and exacerbation of COPD. Hemoglobin on discharge at that time was 9 and patient presents back with hemoglobin of 8.4 with normocytic normochromic indices and stool testing positive for blood. The patient is on iron supplementation and his reports he has been on this iron supplementation for years. There've been no signs or symptoms of GI bleeding with the patient having chronic dark bowel movements. He denies any abdominal pain. He was hospitalized for GI bleed approximate 4 years ago per history from the that she is unsure of what evaluation occurred at that time. They do believe he has undergone EGD and colonoscopy in the past 5 years. Unclear etiology to the patient's anemia with the possibility of a component of GI bleed given the positive stool testing, however anemia is likely multifactorial with anemia of chronic disease given multiple comorbidities. Laboratory evaluation has been ordered, with appropriately elevated reticulocyte count, depressed iron studies and normal vitamin B12 and folate. Current Visit: Yes Status: Acute Code(s): D64.9 - ANEMIA, UNSPECIFIED SNOMED Code(s): 40540062 (2) Positive fecal occult blood test Current Visit: Yes Status: Acute Code(s): R19.5 - OTHER FECAL ABNORMALITIES SNOMED Code(s): 39955951 Plan: Supportive care Okay for consistent carbohydrate clear liquid diet and nothing by mouth after midnight Monitor hemoglobin and hematocrit and transfuse as needed Continue to hold Plavix therapy and anticoagulation Continue Protonix daily Discussion with the patient's family decision is for EGD and colonoscopy tomorrow, if patient fails to prep properly for colonoscopy this can be pursued in the outpatient setting after discharge Iron studies, vitamin B12 and folate level, and reticulocyte count ordered, with depressed iron levels, appropriately elevated reticulocyte count and normal vitamin B12 and folate Iron supplementation initiated Thank you for allowing us to participate in the care of the patient we will continue to follow
[2018-11-20 20:31] LABS: Glucose,Whole Blood 95 mg/dL (75-99)
[2018-11-20] MEDS: ATORVASTATIN 10 MG TAB PO SCH (21:45)
[2018-11-20] MEDS: DONEPEZIL 10 MG TAB PO SCH (21:45)
[2018-11-21 06:54] LABS: Glucose,Whole Blood 88 mg/dL (75-99)
[2018-11-21] MEDS: IPRATROPIUM-ALBUTEROL 3 ML NEB INHALATION SCH ×3 (07:29→15:51)
[2018-11-21] MEDS: BUDESONIDE 0.5 MG/2 ML NEBU INHALATION SCH (07:29)
[2018-11-21] MEDS: INSULIN ASPART (NovoLOG) 100 UNIT/ML VIAL SQ SCH ×2 (08:03→11:35)
[2018-11-21 09:00] LABS: Albumin 2.6 g/dL (3.5-5.0); Calcium 8.5 mg/dL (8.4-10.2); Potassium 4.3 mmol/L (3.5-5.1); Total Bilirubin 0.3 mg/dL (0.2-1.3); Total Protein 4.9 g/dL (6.3-8.2)
[2018-11-21] MEDS: TAMSULOSIN 0.4 MG CAP.ER.24H PO SCH (09:12)
[2018-11-21] MEDS: CITALOPRAM HYDROBROMIDE 20 MG TAB PO SCH (09:12)
[2018-11-21] MEDS: PANTOPRAZOLE 40 MG/10 ML VIAL IVP SCH (09:12)
[2018-11-21] MEDS: FERROUS SULFATE 325 MG TAB PO SCH (09:12)
[2018-11-21] MEDS: MULTIVITAMINS, THERA 1 EACH TAB PO SCH (09:12)
[2018-11-21] MEDS: DIGOXIN 125 MCG TAB PO SCH (09:13)
[2018-11-21] MEDS: DIVALPROEX 500 MG TABLET.DR PO SCH (09:13)
[2018-11-21] MEDS: MEMANTINE 10 MG TAB PO SCH (09:14)
[2018-11-21] MEDS: glipiZIDE 5 MG TAB PO SCH (09:14)
[2018-11-21] MEDS: predniSONE 20 MG TAB PO SCH (09:24)
[2018-11-21 11:26] LABS: Glucose,Whole Blood 56 mg/dL (75-99)
[2018-11-21] MEDS ORDERED: DEXTROSE 10 % IN WATER 250 ML IV STA (11:31)
[2018-11-21 11:55] LABS: Glucose,Whole Blood 203 mg/dL (75-99)
[2018-11-21 12:03] LABS: Basophils % (A) 0 %; Eosinophils # (A) 0.2 k/uL (0-0.7); Eosinophils % (A) 3 %; HGB 8.4 gm/dL (13.0-17.5); Hypochromasia Slight; Lymphocytes # (A) 0.8 k/uL (1.0-4.8); Lymphocytes % (A) 13 %; MCH 30.9 pg (25.0-35.0); MCHC 31.1 g/dL (31.0-37.0); MCV 99.5 fL (80.0-100.0); Macrocytosis Slight; Mean Platelet Volume 6.5; Monocytes # (A) 0.5 k/uL (0-1.0); Monocytes % (A) 8 %; Neutrophils # (A) 4.5 k/uL (1.3-7.7); Neutrophils % (A) 74 %; Platelet Count 314 k/uL (150-450); RBC 2.71 m/uL (4.30-5.90); RDW 15.9 % (11.5-15.5); WBC 6.2 k/uL (3.8-10.6)
[2018-11-21] MEDS ORDERED: PROPOFOL 10 MG/ML 20 ML VIAL IV ONE (12:19)
[2018-11-21] MEDS ORDERED: LIDOCAINE 1% INJ 10MG/ML (20 ML MDV) ONE (12:19)
[2018-11-21] MEDS ORDERED: IV FLUID CONTINUATION 500 ML IV ONE (12:19)
--- NOTE | 2018-11-21 12:57 | P.PCN ---
Date of Procedure: 11/21/18 Description of Procedure: BRIEF HISTORY: 68-year-old male with a medical history significant for dementia, atrial fibrillation, hypertension, coronary artery disease, COPD, prior CVA and BPH presented to the hospital due to stool testing which was positive for blood and anemia in the outpatient setting. The patient was recently discharged from the hospital during which time he was treated for pneumonia and exacerbation of his COPD. He had been at a rehab facility on antibiotic therapy-related found to be anemic and sent in for further evaluation. Extensive conversation with the patient, his and his son. They report that previously the patient was hospitalized for 5 years ago for suspected GI bleed. He was on aspirin 325 mg daily at that time. They're unsure what evaluation was performed at that time but to report previously the patient had endoscopic evaluation with EGD and colonoscopy and believes that this was within the past 5 years. The patient is also on iron supplementation at home as well as Plavix therapy. No further NSAID use since his admission for GI bleed previously. They deny any nausea or vomiting or change in appetite. They do report that his bowel movements have appeared dark black for months now and that the iron supplementation as stated has been given to the patient's for years. Currently he is denying any abdominal pain. Hemoglobin on presentation 8.4 with WBC 13.3 and INR 0.9. PROCEDURE PERFORMED: Esophagogastroduodenoscopy with biopsy. PREOPERATIVE DIAGNOSIS: Iron deficiency anemia. ESTIMATED BLOOD LOSS: Minimal. IV sedation per anesthesia. PROCEDURE: After informed consent was obtained, the patient was brought into the endoscopy unit. IV sedation was administered by Anesthesia under continuous monitoring. Initially the Olympus GIF-190 video endoscope was inserted into the mouth. Esophagus intubated without any difficulty. It was gradually advanced into the stomach and duodenum and carefully examined. The bulb and the second part of the duodenum appeared normal, except for some mild erythema suggestive of mild duodenitis with biopsies taken. The scope at this time was withdrawn to the stomach, adequately insufflated with air, and upon careful examination, mucosa of the antrum, body, cardia and the fundus were significant for some mild scattered erythema in the antrum and body suggestive of mild gastritis with biopsies of the antrum and body taken. Also, 2 superficial nonbleeding ulcers in the antrum were noted and biopsied. The scope was then withdrawn into the esophagus. The GE junction was located at 39 cm from the incisors. Small 1 cm hiatal hernia was noted. The esophagus appeared normal. There were no erosions or ulcerations seen and the patient tolerated the procedure well. IMPRESSION: 1. Mild duodenitis, biopsied. 2. Multiple gastritis antrum body, biopsied. 3. 2 superficial nonbleeding antral ulcers without high-risk stigmata for bleeding, biopsied. 4. Small hiatal hernia. RECOMMENDATIONS: The findings of this examination were discussed with the patient and his and son. Okay to resume diet. Continue Protonix 40 mg twice daily. Await pathology from biopsies. Patient refused prep for colonoscopy yesterday, given findings of today's exam okay to continue on diet and PPI therapy and for discharge, and he can follow-up as outpatient for colonoscopy.
--- NOTE | 2018-11-21 14:49 | P.DS ---
Providers Date of admission: 11/21/18 08:54 Expected date of discharge: 11/21/18 Attending physician: Bethanie Weaver Consults: 11/19/18 15:54 Consult Physician Routine Consulting Provider: Christopher Muñoz Consult Reason/Comments: Recent pneumonia x-ray showing early infiltrate Do you want consulting provider notified?: Yes Primary care physician: Elena Lux Hospital Course: Discharge diagnosis 1. Anemia and positive guaiac. Hemoglobin 7.7. Per GI services long conversation was held with patient and family regards endoscopic with colonoscopy. Patient has been on Plavix be held 5 days prior to possible polypectomy. Patient underwent EGD today showing mild duodenitis, multiple gastritis antrum and body biopsy 2 superficial nonbleeding antral ulcers without high risk stigmata for bleeding, biopsied small hiatal hernia. Patient has been placed on regular diet today hemoglobin 8.4and no signs of active bleeding. Discussed with GI Dr. Ramsay. Patient has been cleared for discharge will be discharged on Protonix 40 mg twice a day and Carafate. Recommend close monitoring of CBC per PCP 2. History of Left lower lobe pneumonia. Will continue on Zosyn IV inpatient. X-ray in emergency room showing possible underlying ascending aortic aneurysm measuring up to 4.9 cm. Some mild patchy peripheral right midlung density representing atelectasis or early infiltrate. Small bilateral pleural effusions noted. Patient was evaluated for pulmonary services, no evidence of pneumonia, antibiotic status continued no signs of current infection 3. History of dementia. Maintain on Aricept and Namenda 4. History of CAD with previous coronary stenting. Per patient's this is greater than 5 years ago. 5. History of hypertension 6. History of hyperlipidemia. Maintain on statin 7. History of insulin-dependent diabetes. 8. Acute on chronic stage III kidney disease. Creatinine 1.27. Maintain normal saline at 75cc/hr. creatinine improving to 1.21 9. History of A. fib. Patient not currently taking eliquis for unknown reason. Patient's states that he has not been taking for the past 4 years. EKG completed showing normal sinus rhythm 10. History of CVA. 11. Possible underlining ascending aortic aneurysm measuring up to 4.9 cm seen on chest x-ray. Recommend follow-up outpatient and further workup with CT per PCP Hospital course Patient is a 68-year-old male who presents to the emergency room from [facility] for a low hemoglobin of 8.4 and positive guaiac. is at bedside with patient. She has a history of dementia, A. fib, hypertension, [place], CAD, COPD, CVA, BPH. Patient was recently admitted in October and discharged on 11/09/2018 for COPD exacerbation and left lower lobe pneumonia. Patient was receiving antibiotics and prednisone at [facility]. Patient with deny blood in stool or urine, patient has not had a colonoscopy in several years. Patient has not been taking eliquis for several years, unknown reason. Patient has had good appetite at snf. Patient and deny fever or chills, nausea vomiting, chest pain, shortness of breath. On 11/20/2017 patient is resting comfortably in bed. Hemoglobin 7.7. GI services have been consulted. Discussion held with family patient about colonoscopy and EGD. This time patient denies chest pain or shortness of breath. Denies nausea vomiting or diarrhea. Patient denies urinary burning or frequency 12/01/2017 patient still alert and resting comfortably in bed. Hemoglobin improving 2.4. Patient underwent EGD with GI services today showing mild duodenitis, multiple gastritis antrum body biopsy, 2 superficial nonbleeding antral ulcers without high risk for bleeding, biopsied small hiatal hernia. Discussed case with GI doctor patient has been cleared for discharge. Patient will be discharged on Protonix 40 mg twice daily and Carafate. Unable to do colonoscopy because patient refused Prep. Patient has been cleared for discharge from GI standpoint. Patient was also evaluated by pulmonary services during hospital stay no signs of active infection. No need for antibiotics at this time for pulmonary. Also recommend follow-up for possible underlining ascending aortic aneurysm measuring up to 4.9 cm seen incidentally on chest x- ray recommend follow-up CT per PCP. Discussed case with GI services patient may resume Plavix and aspirin tomorrow 11/22/2018 per GI. At this time patient denies chest pain or shortness breath. Patient denies nausea vomiting or diarrhea. Patient denies any urinary burning or frequency. I performed an examination of the patient and discussed their management with the Nurse Practitioner. I have reviewed the Nurse Practitioner's notes and agree with the documented findings and plan of care Patient Condition at Discharge: Stable Plan - Discharge Summary Discharge Rx Participant: No New Discharge Prescriptions: No Action glipiZIDE [Glucotrol] 5 mg PO DAILY@0900 Ferrous Sulfate [Iron (65 MG Elemental)] 325 mg PO DAILY@0900 Clopidogrel [Plavix] 75 mg PO DAILY@0900 Tamsulosin HCl [Flomax] 0.4 mg PO DAILY@0900 Aspirin 81 mg PO DAILY@0900 Multivitamin/Iron/Folic Acid [Centrum Complete Multivit Tab] 1 tab PO DAILY@0900 Divalproex Sodium [Depakote] 500 mg PO BID@0900,2099 Citalopram Hydrobromide [CeleXA] 20 mg PO DAILY@0900 Memantine [Namenda] 10 mg PO BID@0900,2100 Lactose-Reduced Food [Ensure Plus] 1 can PO BID@09,2099 Donepezil [Aricept] 10 mg PO HS@2099 Ipratropium-Albuterol Nebulize [Duoneb 0.5 mg-3 mg/3 ml Soln] 3 ml INHALATION RT-Q4H PRN PRN Reason: Shortness Of Breath Budesonide [Pulmicort] 0.5 mg INHALATION RT-BID nebu INSULIN LISPRO (humaLOG) [humaLOG] See Protocol SQ ACHS Digoxin [Lanoxin] 125 mcg PO DAILY@0900 Insulin Glargine,Hum.rec.anlog [Basaglar Kwikpen U-100] 10 unit SQ HS@2100 Atorvastatin [Lipitor] 10 mg PO HS@2100 predniSONE See Taper PO DAILY@0900 Povidone-Iodine [Betadine] 1 applic TOPICAL Q12H Discharge Medication List glipiZIDE [Glucotrol] 5 mg PO DAILY@0900 01/07/14 [History] Ferrous Sulfate [Iron (65 MG Elemental)] 325 mg PO DAILY@0904/06/14 [History] Clopidogrel [Plavix] 75 mg PO DAILY@0900 09/29/14 [History] Aspirin 81 mg PO DAILY@0903/28/15 [History] Tamsulosin HCl [Flomax] 0.4 mg PO DAILY@0900 03/28/15 [History] Citalopram Hydrobromide [CeleXA] 20 mg PO DAILY@0900 03/06/16 [History] Divalproex Sodium [Depakote] 500 mg PO BID@0900,2100 03/06/16 [History] Multivitamin/Iron/Folic Acid [Centrum Complete Multivit Tab] 1 tab PO DAILY@89903/06/16 [History] Donepezil [Aricept] 10 mg PO HS@209911/04/18 [History] Ipratropium-Albuterol Nebulize [Duoneb 0.5 mg-3 mg/3 ml Soln] 3 ml INHALATION RT-Q4H PRN 11/04/18 [History] Lactose-Reduced Food [Ensure Plus] 1 can PO BID@899,209911/04/18 [History] Memantine [Namenda] 10 mg PO BID@899,209911/04/18 [History] Budesonide [Pulmicort] 0.5 mg INHALATION RT-BID nebu 11/08/18 [Rx] Atorvastatin [Lipitor] 10 mg PO HS@209911/19/18 [History] Digoxin [Lanoxin] 125 mcg PO DAILY@89911/19/18 [History] INSULIN LISPRO (humaLOG) [humaLOG] See Protocol SQ ACHS 11/19/18 [History] Insulin Glargine,Hum.rec.anlog [Basaglar Kwikpen U-100] 10 unit SQ HS@209911/19/18 [History] Povidone-Iodine [Betadine] 1 applic TOPICAL Q12H 11/19/18 [History] predniSONE See Taper PO DAILY@89911/19/18 [History] Follow up Appointment(s)/Referral(s): Elena Lux MD [Primary Care Provider] - 1-2 days
[2018-11-21 15:32] VITALS: RESP 18
[2018-11-21 15:33] VITALS: PULSE 66
[2018-11-21 15:34] VITALS: BP 96/49; TEMP 97.9
[2018-11-21] MEDS ORDERED: PANTOPRAZOLE 40 MG TABLET PO SCH (17:30)
[2018-11-21] MEDS ORDERED: SUCRALFATE 1 GM TAB PO SCH (18:00)
--- NOTE | 2018-11-28 15:23 | CDI ---
Documentation Clarification Form Date: 11/28/18 From: Alma Guido Phone: If questions call Rachael Petersno @ [phone], Hours-8:30 am & 5 pm M- F Admit Date: 11/21/2018 8:54:00 AM Patient Name: Dallas Smith Visit Number: [id number] Discharge Date: 11/21/2018 4:25:00 PM ATTENTION: The Clinical Documentation Specialists (CDI) and [facility] Coding Staff appreciate your assistance in clarifying documentation. Please respond to the clarification below the line at the bottom and electronically sign. The CDI & [facility] Coding staff will review the response and follow-up if needed. Please note: Queries are made part of the Legal Health Record. If you have any questions, please contact the author of this message via ITS. Dr. Bethanie Weaver Documentation states: Patient presents to ER from half-way for low hemoglobin of 8.4 and positive guaiac. History/Risk Factors: iron deficiency anemia, Clinical indicators: EGD revealed duodnitis, gastritis adn superficial nonbleeding antral ulcers, small hiatial hernia Abnormal: guaiac positive Treatment: EGD, Protonix, Carafate, monitoring of CBC Clinical significance of diagnostic testing and treatment CANNOT be assumed or coded without physician documentation of significance if any. Please clarify what abnormal laboratory signifies: GI bleed ruled in GI bleed ruled out Unable to determine Other, please specify unable to determine MTDD
== END 2018-11-21 16:25 | DRG 811 ==
LOC: EC 10:42 → 3NMEDONC 14:23 → OBSVTOIN 11-21 08:54
PROVIDERS: ADMIT Internal Medicine; ATTEND Internal Medicine
PROC: 0DB78ZX Excision of Stomach, Pylorus, Via Natural or Artificial Opening Endoscopic, Diagnostic (ICD-10-PCS; 2018-11-21)
PROC: 0DB98ZX Excision of Duodenum, Via Natural or Artificial Opening Endoscopic, Diagnostic (ICD-10-PCS; principal; 2018-11-21 07:55)
DX: D50.9 Iron deficiency anemia, unspecified (principal); K25.4 Chronic or unspecified gastric ulcer with hemorrhage; J18.1 Lobar pneumonia, unspecified organism; N17.9 Acute kidney failure, unspecified; J44.0 Chronic obstructive pulmonary disease with (acute) lower respiratory infection; J98.11 Atelectasis; D63.8 Anemia in other chronic diseases classified elsewhere; E11.22 Type 2 diabetes mellitus with diabetic chronic kidney disease; I71.2 Thoracic aortic aneurysm, without rupture; N18.3 Chronic kidney disease, stage 3 (moderate); F03.90 Unspecified dementia, unspecified severity, without behavioral disturbance, psychotic disturbance, mood disturbance, and anxiety; K29.80 Duodenitis without bleeding; K29.70 Gastritis, unspecified, without bleeding; I12.9 Hypertensive chronic kidney disease with stage 1 through stage 4 chronic kidney disease, or unspecified chronic kidney disease; K44.9 Diaphragmatic hernia without obstruction or gangrene; R19.5 Other fecal abnormalities; N40.1 Benign prostatic hyperplasia with lower urinary tract symptoms; N39.498 Other specified urinary incontinence; E78.5 Hyperlipidemia, unspecified; I25.10 Atherosclerotic heart disease of native coronary artery without angina pectoris; I25.2 Old myocardial infarction; M19.90 Unspecified osteoarthritis, unspecified site; Z79.82 Long term (current) use of aspirin; Z79.02 Long term (current) use of antithrombotics/antiplatelets; Z79.4 Long term (current) use of insulin; Z79.51 Long term (current) use of inhaled steroids; Z79.899 Other long term (current) drug therapy; Z86.79 Personal history of other diseases of the circulatory system; Z86.73 Personal history of transient ischemic attack (TIA), and cerebral infarction without residual deficits; Z87.891 Personal history of nicotine dependence; Z87.01 Personal history of pneumonia (recurrent); Z95.5 Presence of coronary angioplasty implant and graft; Z86.59 Personal history of other mental and behavioral disorders; Z98.890 Other specified postprocedural states; Z82.49 Family history of ischemic heart disease and other diseases of the circulatory system; Z83.3 Family history of diabetes mellitus; Z80.8 Family history of malignant neoplasm of other organs or systems
CPT/HCPCS: 36415; 43239; 71046; 80053; 80162; 82607; 82728; 82746; 83540; 83550; 83605; 83880; 84484; 85025; 85045; 85610; 85730; 86850; 86900; 86901; 87040; 88305; 93005; 94640; 99285

== ENCOUNTER 2018-11-28 02:58 | Inpatient (IN) | payer MEDICARE ==
--- NOTE | 2018-11-28 03:21 | ED ---
Recheck HPI - General Chief Complaint: Recheck/Abnormal Lab/Rx Stated Complaint: Low Hemoglobin Time Seen by Provider: 11/28/18 03:17 Source: EMS Mode of arrival: EMS Limitations: altered mental status - History of Present Illness Initial Comments: Patient is 68-year-old man sent from skilled nursing. When I interview the patient, he denies complaints. Review of the skilled nursing paperwork reveals that he had labs at his extended care facility that showed a hemoglobin of 7. MD Complaint: abnormal lab -: days(s) Returns Today for: Called Because of Abnormal Lab/Test Symptoms Since Prior Visit: no new symptoms Context: called for abnormal lab result Associated Symptoms: none - Related Data Home Medications Medication Instructions Recorded Confirmed glipiZIDE [Glucotrol] 5 mg PO DAILY@89901/07/14 11/19/18 Ferrous Sulfate [Iron (65 MG 325 mg PO DAILY@89904/06/14 11/19/18 Elemental)] Clopidogrel [Plavix] 75 mg PO DAILY@89909/29/14 11/19/18 Aspirin 81 mg PO DAILY@89903/28/15 11/19/18 Tamsulosin HCl [Flomax] 0.4 mg PO DAILY@89903/28/15 11/19/18 Citalopram Hydrobromide [CeleXA] 20 mg PO DAILY@89903/06/16 11/19/18 Divalproex Sodium [Depakote] 500 mg PO BID@0900,209903/06/16 11/19/18 Multivitamin/Iron/Folic Acid 1 tab PO DAILY@89903/06/16 11/19/18 [Centrum Complete Multivit Tab] Donepezil [Aricept] 10 mg PO HS@209911/04/18 11/19/18 Ipratropium-Albuterol Nebulize 3 ml INHALATION RT-Q4H PRN 11/04/18 11/19/18 [Duoneb 0.5 mg-3 mg/3 ml Soln] Lactose-Reduced Food [Ensure Plus] 1 can PO BID@0900,209911/04/18 11/19/18 Memantine [Namenda] 10 mg PO BID@0900,209911/04/18 11/19/18 Atorvastatin [Lipitor] 10 mg PO HS@209911/19/18 11/19/18 Digoxin [Lanoxin] 125 mcg PO DAILY@0900 11/19/18 11/19/18 INSULIN LISPRO (humaLOG) [humaLOG] See Protocol SQ ACHS 11/19/18 11/19/18 Insulin Glargine,Hum.rec.anlog 10 unit SQ HS@2100 11/19/18 11/19/18 [Basaglar Kwikpen U-100] Povidone-Iodine [Betadine] 1 applic TOPICAL Q12H 11/19/18 11/19/18 predniSONE See Taper PO DAILY@0900 11/19/18 11/19/18 Previous Rx's Medication Instructions Recorded Budesonide [Pulmicort] 0.5 mg INHALATION RT-BID nebu 11/08/18 Pantoprazole [Protonix] 40 mg PO AC-BID #0 tablet. 11/21/18 Sucralfate [Carafate] 1 gm PO QID tab 11/21/18 Allergies Allergy/AdvReac Type Severity Reaction Status Date / Time No Known Allergies Allergy Verified 11/19/18 11:03 Review of Systems ROS Statement: Those systems with pertinent positive or pertinent negative responses have been documented in the HPI. ROS Other: All systems not noted in ROS Statement are negative. Constitutional: Denies: fever Respiratory: Reports: cough (Chronic). Denies: dyspnea Cardiovascular: Denies: chest pain, edema, syncope Gastrointestinal: Denies: abdominal pain, vomiting, melena, hematochezia Genitourinary: Denies: dysuria Musculoskeletal: Denies: back pain Skin: Denies: rash Neurological: Denies: headache, weakness Past Medical History Past Medical History: Atrial Fibrillation, Atrial Flutter, Coronary Artery Disease (CAD), COPD, CVA/TIA, Diabetes Mellitus, Hyperlipidemia, Hypertension, Myocardial Infarction (VT), Osteoarthritis (OA) Additional Past Medical History / Comment(s): Bilateral carotid artery disease, BPH, dementia Last Myocardial Infarction Date:: 2011 History of Any Multi-Drug Resistant Organisms: None Reported Past Surgical History: Heart Catheterization With Stent Additional Past Surgical History / Comment(s): Neck surgery, bilateral carotid surgery Past Anesthesia/Blood Transfusion Reactions: No Reported Reaction Additional Past Anesthesia/Blood Transfusion Reaction / Comment(s): Pt has received blood in past without reaction. Date of Last Stent Placement:: 2011 Past Psychological History: Anxiety Smoking Status: Former smoker Past Alcohol Use History: None Reported Past Drug Use History: None Reported - Past Family History Brother(s) Family Medical History: Cancer, Diabetes Mellitus Additional Family Medical History / Comment(s): One brother from cancer in his spine. Another brother recently from diabetic complications. Father Family Medical History: Coronary Artery Disease (CAD) Mother Family Medical History: Coronary Artery Disease (CAD), Diabetes Mellitus General Exam Limitations: altered mental status General appearance: alert, in no apparent distress Head exam: Present: atraumatic, normocephalic Eye exam: Present: normal appearance. Absent: scleral icterus, conjunctival injection Respiratory exam: Present: rhonchi. Absent: respiratory distress, wheezes, rales, stridor, accessory muscle use Cardiovascular Exam: Present: regular rate, normal rhythm, normal heart sounds. Absent: systolic murmur, diastolic murmur, rubs, gallop GI/Abdominal exam: Present: soft. Absent: distended, tenderness, guarding, rebound, rigid, mass Extremities exam: Present: normal inspection, normal capillary refill. Absent: pedal edema, calf tenderness Neurological exam: Present: alert Skin exam: Present: warm, dry, intact, normal color. Absent: rash Course Vital Signs 11/28/18 11/28/18 02:59 04:23 Temperature 98.2 F Pulse Rate 72 64 Respiratory 18 18 Rate Blood Pressure 124/47 123/50 O2 Sat by Pulse 100 100 Oximetry Medical Decision Making - Lab Data Result diagrams: 11/28/18 03:05 11/28/18 03:05 Lab Results 11/28/18 11/28/18 Range/Units 03:05 03:05 WBC 4.1 (3.8-10.6) k/uL RBC 2.49 L (4.30-5.90) m/uL Hgb 7.1 L (13.0-17.5) gm/dL Hct 24.2 L (39.0-53.0) % MCV 97.1 (80.0-100.0) fL MCH 28.3 (25.0-35.0) pg MCHC 29.1 L (31.0-37.0) g/dL RDW 15.8 H (11.5-15.5) % Plt Count 130 L (150-450) k/uL Neutrophils % 77 % Lymphocytes % 8 % Monocytes % 7 % Eosinophils % 4 % Basophils % 0 % Neutrophils # 3.2 (1.3-7.7) k/uL Lymphocytes # 0.3 L (1.0-4.8) k/uL Monocytes # 0.3 (0-1.0) k/uL Eosinophils # 0.2 (0-0.7) k/uL Basophils # 0.0 (0-0.2) k/uL Hypochromasia Slight Sodium 138 (137-145) mmol/L Potassium 4.5 (3.5-5.1) mmol/L Chloride 103 (98-107) mmol/L Carbon Dioxide 32 H (22-30) mmol/L Anion Gap 3 mmol/L BUN 45 H (9-20) mg/dL Creatinine 1.70 H (0.66-1.25) mg/dL Est GFR (CKD-EPI)AfAm 46 (>60 ml/min/1.73 sqM) Est GFR (CKD-EPI)NonAf 40 (>60 ml/min/1.73 sqM) Glucose 125 H (74-99) mg/dL Calcium 8.6 (8.4-10.2) mg/dL - EKG Data -: EKG Interpreted by Ma EKG shows normal: sinus rhythm (With PVC), axis (Normal), intervals (Normal), QRS complexes (Normal), ST-T waves (Normal) Rate: normal (Rate 72 bpm) Disposition Referrals: Elena Lux MD [Primary Care Provider] - 1-2 days
[2018-11-28 03:52] LABS: Basophils % (A) 0 %; Eosinophils # (A) 0.2 k/uL (0-0.7); Eosinophils % (A) 4 %; HCT 24.2 % (39.0-53.0); HGB 7.1 gm/dL (13.0-17.5); Hypochromasia Slight; Lymphocytes # (A) 0.3 k/uL (1.0-4.8); Lymphocytes % (A) 8 %; MCH 28.3 pg (25.0-35.0); MCHC 29.1 g/dL (31.0-37.0); MCV 97.1 fL (80.0-100.0); Mean Platelet Volume 7.1; Monocytes # (A) 0.3 k/uL (0-1.0); Monocytes % (A) 7 %; Neutrophils # (A) 3.2 k/uL (1.3-7.7); Neutrophils % (A) 77 %; Platelet Count 130 k/uL (150-450); RBC 2.49 m/uL (4.30-5.90); RDW 15.8 % (11.5-15.5); WBC 4.1 k/uL (3.8-10.6)
[2018-11-28 04:12] LABS: Calcium 8.6 mg/dL (8.4-10.2); Potassium 4.5 mmol/L (3.5-5.1)
[2018-11-28] MEDS ORDERED: ACETAMINOPHEN TAB 325 MG TAB PO PRN (05:38)
[2018-11-28] MEDS ORDERED: NALOXONE 0.4 MG/ML 1 ML VIAL IV PRN (05:38)
[2018-11-28] MEDS: BUDESONIDE 0.5 MG/2 ML NEBU INHALATION SCH ×2 (07:40→20:57)
[2018-11-28] MEDS: IPRATROPIUM-ALBUTEROL 3 ML NEB INHALATION PRN ×2 (07:40→20:57)
[2018-11-28] MEDS ORDERED: NON FORMULARY DRUG (Lactose-Reduced Food [Ensure Plus] 1 CAN) PO SCH (09:00)
[2018-11-28] MEDS ORDERED: CLOPIDOGREL 75 MG TAB PO SCH (09:00)
[2018-11-28] MEDS: SODIUM CHLORIDE 0.9% 1,000 ML IV SCH (09:09)
[2018-11-28] MEDS: PANTOPRAZOLE 40 MG TABLET PO SCH ×2 (10:30→17:37)
[2018-11-28] MEDS: MEMANTINE 10 MG TAB PO SCH ×2 (10:30→21:27)
[2018-11-28] MEDS: SUCRALFATE 1 GM TAB PO SCH ×4 (10:30→21:27)
[2018-11-28] MEDS: DIVALPROEX 500 MG TABLET.DR PO SCH ×2 (10:31→21:27)
[2018-11-28] MEDS: TAMSULOSIN 0.4 MG CAP.ER.24H PO SCH (10:31)
[2018-11-28] MEDS: DIGOXIN 125 MCG TAB PO SCH (10:31)
[2018-11-28] MEDS: CITALOPRAM HYDROBROMIDE 20 MG TAB PO SCH (10:31)
[2018-11-28] MEDS: FERROUS SULFATE 325 MG TAB PO SCH (10:31)
[2018-11-28] MEDS: glipiZIDE 5 MG TAB PO SCH (10:31)
--- NOTE | 2018-11-28 11:13 | P.HPIM ---
History of Present Illness H&P Date: 11/28/18 Chief Complaint: Anemia, increased weakness This is a 68-year-old male patient of Dr. Morel. Patient presented with complaints of increased weakness. Patient is currently residing at [facility]. Patient was recently admitted for anemia and which she underwent EGD revealing mild duodenitis, multiple gastritis antrum and body biopsy in 2 superficial nonbleeding antral ulcers without high risk stigmata for bleeding. At that time patient was discharged with hemoglobin 8.4 and DC'd on Carafate and Protonix along with ferrous sulfate. Colonoscopy was unable to be completed during previous day due to poor prep. Per patient's at bedside no signs of blood in stool or emesis. Additional medical history includes dementia in which she is maintained on Aricept and Namenda, coronary artery disease with previous coronary stenting greater than 5 years ago, hypertension, hyperlipidemia, diabetes mellitus, chronic kidney disease, history of atrial fibrillation, CVA, seizures and ascending aortic aneurysm. Hemoglobin this admission 7.1. Patient received 1 unit of PRBCs. GI services have been reconsulted. Creatinine also elevated at 1.70 and bun 45. Normal saline at 50. Per patient's , patient has been having increased tremors possible seizures. Patient is maintained on Depakote follows regularly with Dr. Abarca for neurology. At this time neurology services have been consulted. Patient is resting comfortably in bed. Patient denies chest pain or shortness of breath. Patient denies nausea vomiting or diarrhea. Patient denies any urinary frequency. Review of Systems Please refer to HPI otherwise unremarkable Past Medical History Past Medical History: Atrial Fibrillation, Atrial Flutter, Coronary Artery Disease (CAD), COPD, CVA/TIA, Diabetes Mellitus, Hyperlipidemia, Hypertension, Myocardial Infarction (CT), Osteoarthritis (OA) Additional Past Medical History / Comment(s): Bilateral carotid artery disease, BPH, dementia Last Myocardial Infarction Date:: 2011 History of Any Multi-Drug Resistant Organisms: None Reported Past Surgical History: Heart Catheterization With Stent Additional Past Surgical History / Comment(s): Neck surgery, bilateral carotid surgery Past Anesthesia/Blood Transfusion Reactions: No Reported Reaction Additional Past Anesthesia/Blood Transfusion Reaction / Comment(s): Pt has received blood in past without reaction. Date of Last Stent Placement:: 2011 Past Psychological History: Anxiety Additional Psychological History / Comment(s): Pt currently at [facility] for rehab. Spouse states he has not gotten up yet. Smoking Status: Former smoker Past Alcohol Use History: None Reported Additional Past Alcohol Use History / Comment(s): Pt started smoking in 1961 and quit in 2017. Past Drug Use History: None Reported Additional Drug Use History / Comment(s): Patient states he hasn't smoked in several years and doesn't need any education. - Past Family History Brother(s) Family Medical History: Cancer, Diabetes Mellitus Additional Family Medical History / Comment(s): One brother from cancer in his spine. Another brother recently from diabetic complications. Father Family Medical History: Coronary Artery Disease (CAD) Mother Family Medical History: Coronary Artery Disease (CAD), Diabetes Mellitus Medications and Allergies Home Medications Medication Instructions Recorded Confirmed Type glipiZIDE [Glucotrol] 5 mg PO DAILY@0900 01/07/14 11/28/18 History Ferrous Sulfate [Iron (65 MG 325 mg PO DAILY@89904/06/14 11/28/18 History Elemental)] Clopidogrel [Plavix] 75 mg PO DAILY@0909/29/14 11/28/18 History Aspirin 81 mg PO DAILY@0903/28/15 11/28/18 History Tamsulosin HCl [Flomax] 0.4 mg PO DAILY@89903/28/15 11/28/18 History Citalopram Hydrobromide [CeleXA] 20 mg PO DAILY@0900 03/06/16 11/28/18 History Divalproex Sodium [Depakote] 500 mg PO BID@09,209903/06/16 11/28/18 History Multivitamin/Iron/Folic Acid 1 tab PO DAILY@00 03/06/16 11/28/18 History [Centrum Complete Multivit Tab] Donepezil [Aricept] 10 mg PO HS@209911/04/18 11/28/18 History Ipratropium-Albuterol Nebulize 3 ml INHALATION RT-Q4H PRN 11/04/18 11/28/18 History [Duoneb 0.5 mg-3 mg/3 ml Soln] Lactose-Reduced Food [Ensure Plus] 1 can PO BID@0900,209911/04/18 11/28/18 History Memantine [Namenda] 10 mg PO BID@0900,2100 11/04/18 11/28/18 History Budesonide [Pulmicort] 0.5 mg INHALATION RT-BID nebu 11/08/18 11/28/18 Rx Atorvastatin [Lipitor] 10 mg PO HS@209911/19/18 11/28/18 History Digoxin [Lanoxin] 125 mcg PO DAILY@0900 11/19/18 11/28/18 History Insulin Glargine,Hum.rec.anlog 10 unit SQ HS@209911/19/18 11/28/18 History [Basaglar Kwikpen U-100] Pantoprazole [Protonix] 40 mg PO AC-BID #0 tablet.dr 11/21/18 11/28/18 Rx Sucralfate [Carafate] 1 gm PO QID tab 11/21/18 11/28/18 Rx Oxymetazoline 0.05% Nasl [place] 1 spray EA NOSTRIL Q15M PRN MDD 3 11/28/18 11/28/18 History [Afrin 0.05% Nasal [place]] DOSES Allergies Allergy/AdvReac Type Severity Reaction Status Date / Time No Known Allergies Allergy Verified 11/28/18 08:25 Physical Exam Vitals: Vital Signs Temp Pulse Pulse Resp BP BP Pulse Ox 11/28/18 10:00 97.9 F 75 16 135/57 96 11/28/18 09:58 97.9 F 75 16 135/57 96 11/28/18 09:30 98.6 F 73 16 129/56 98 11/28/18 09:20 98.0 F 76 16 124/57 97 11/28/18 08:00 72 67 16 11/28/18 07:50 68 11/28/18 07:00 97.7 F 67 16 135/65 100 11/28/18 06:25 74 18 135/49 100 11/28/18 04:23 64 18 123/50 100 11/28/18 02:59 98.2 F 72 18 124/47 100 Intake and Output 11/27/18 11/28/18 11/28/18 22:59 06:59 14:59 Intake Total 350 Balance 350 Intake: Oral 350 Blood Product 0 Rc As-1 Unit 0 [id number] Other: Weight 70.307 kg Head normocephalic Neck supple Lungs clear to auscultation bilaterally no wheezing or crackles Heart regular rate and rhythm S1-S2, no rub or gallop Abdomen is soft nontender nondistended positive bowel sounds no hepatosplenomegaly Extremities no edema Neuro alert and orientated to 1 dementia Results CBC & Chem 7: 11/28/18 03:05 11/28/18 03:05 Labs: Abnormal Lab Results - Last 24 Hours (Table) 11/28/18 11/28/18 11/28/18 Range/Units 03:00 03:05 03:05 RBC 2.49 L (4.30-5.90) m/uL Hgb 7.1 L (13.0-17.5) gm/dL Hct 24.2 L (39.0-53.0) % MCHC 29.1 L (31.0-37.0) g/dL RDW 15.8 H (11.5-15.5) % Plt Count 130 L (150-450) k/uL Lymphocytes # 0.3 L (1.0-4.8) k/uL Carbon Dioxide 32 H (22-30) mmol/L BUN 45 H (9-20) mg/dL Creatinine 1.70 H (0.66-1.25) mg/dL Glucose 125 H (74-99) mg/dL Crossmatch See Detail Thrombosis Risk Factor Assmnt - Choose All That Apply Other Risk Factors: Yes Each Risk Factor Represents 2 Points: Age 61-74 years Thrombosis Risk Factor Assessment Total Risk Factor Score: 2 Thrombosis Risk Factor Assessment Level: Low Risk Assessment and Plan Assessment: 1. Increased weakness and anemia. Hemoglobin 7.1. Patient received 1 unit PRBCs. Recent EGD completed per GI services showing mild duodenitis in 2 superficial nonbleeding antral ulcers. Patient maintained on Carafate and Protonix. GI services have been reconsulted. Patient changed to clear liquid diet 2. History of dementia. Patient maintained on Aricept and Namenda 3. Acute on chronic kidney disease stage III. Creatinine 1.70 and bun 45. Continue normal saline at 50 we'll continue to monitor 4. History of seizures. Patient maintained on Depakote. Questionable increase in seizure activity per . Neurology services have been consulted 5. History of hypertension 6. History of hyperlipidemia maintained on statin 7. History of insulin-dependent diabetes mellitus 8. History of left lower lobe pneumonia patient was recently treated during previous admission 9. History of ascending aortic aneurysm seen on previous x-ray measuring up to 4.9 cm. Patient to follow-up outpatient with her PCP DVT prophylaxis SCDs. GI prophylaxis Protonix GI and neurology services have been consulted PT OT consult placed Time with Patient: Greater than 30 (Greater than 60% of the total time spent in counseling and coordination of care. I performed an examination of the patient and discussed their management with the Nurse Practitioner. I have reviewed the Nurse Practitioner's notes and agree with the documented findings and plan of care)
[2018-11-28 12:18] LABS: Glucose,Whole Blood 178 mg/dL (75-99)
--- NOTE | 2018-11-28 15:30 | P.CNNES ---
History of Present Illness Consult date: 11/28/18 Requesting physician: Ana Luisa Blake Reason for Consult: Tremors and history of seizures History of Present Illness: Patient is a 68-year-old male who has history of dementia, currently on Aricept 10 mg and Namenda 10 mg twice a day, also has history of seizure disorder for the last 2 years. Patient either gets blank stares, or sometimes shakes. Patient's states that he had 1 seizure at the doctor's office, and since then he has been treated for it. He was at first placed on Keppra, but developed side effects therefore was switched to Depakote. Patient follows up with Dr. Sepulveda, who has placed him on Depakote 500 mg twice a day. Patient was admitted to the hospital on 11/06/2018 for pneumonia. He was hospitalized for a week. He became generalized weak, therefore was sent to a rehab facility. Then he started losing blood, and was admitted to the hospital from 11/19/2018 to 11/21/2018. Patient was readmitted last night, as he was noticed to have again hemoglobin of 7.1. Patient's states that sometimes he goes into a blank stare. Sometimes he would be shaking, and his has to get in front and hold him around. Recently patient was talking to his son in a close conversation, and suddenly he had a similar shaking spell and after it was over, patient said "when did you get here". Patient's EKG showed sinus rhythm with occasional PVCs. Patient's last CT of the head from 11/25/2017 showed old right occipital lobe infarct. No acute intracranial abnormality. Cerebral atrophy. Patient had a carotid Doppler on 01/09/2014, which showed severe bilateral plaque within greater than 70% stenosis right ICA. Left-sided stent with suspected greater than 70% stenosis. Review of Systems Positive for memory loss, pain in the toes, foot ulcer, left leg weakness, tremors, Denies chest pain, shortness of breath, diplopia. Past Medical History Past Medical History: Atrial Fibrillation, Atrial Flutter, Coronary Artery Disease (CAD), COPD, CVA/TIA, Diabetes Mellitus, Hyperlipidemia, Hypertension, Myocardial Infarction (CO), Osteoarthritis (OA) Additional Past Medical History / Comment(s): Bilateral carotid artery disease, BPH, dementia Last Myocardial Infarction Date:: 2011 History of Any Multi-Drug Resistant Organisms: None Reported Past Surgical History: Heart Catheterization With Stent Additional Past Surgical History / Comment(s): Neck surgery, bilateral carotid surgery Past Anesthesia/Blood Transfusion Reactions: No Reported Reaction Additional Past Anesthesia/Blood Transfusion Reaction / Comment(s): Pt has received blood in past without reaction. Date of Last Stent Placement:: 2011 Past Psychological History: Anxiety Additional Psychological History / Comment(s): Pt currently at [facility] for rehab. Spouse states he has not gotten up yet. Smoking Status: Former smoker Past Alcohol Use History: None Reported Additional Past Alcohol Use History / Comment(s): Pt started smoking in 1961 and quit in 2016. Past Drug Use History: None Reported Additional Drug Use History / Comment(s): Patient states he hasn't smoked in several years and doesn't need any education. - Past Family History Brother(s) Family Medical History: Cancer, Diabetes Mellitus Additional Family Medical History / Comment(s): One brother from cancer in his spine. Another brother recently from diabetic complications. Father Family Medical History: Coronary Artery Disease (CAD) Mother Family Medical History: Coronary Artery Disease (CAD), Diabetes Mellitus Medications and Allergies Home Medications Medication Instructions Recorded Confirmed Type glipiZIDE [Glucotrol] 5 mg PO DAILY@0900 01/07/14 11/28/18 History Ferrous Sulfate [Iron (65 MG 325 mg PO DAILY@89904/06/14 11/28/18 History Elemental)] Clopidogrel [Plavix] 75 mg PO DAILY@0909/29/14 11/28/18 History Aspirin 81 mg PO DAILY@89903/28/15 11/28/18 History Tamsulosin HCl [Flomax] 0.4 mg PO DAILY@89903/28/15 11/28/18 History Citalopram Hydrobromide [CeleXA] 20 mg PO DAILY@89903/06/16 11/28/18 History Divalproex Sodium [Depakote] 500 mg PO BID@899,209903/06/16 11/28/18 History Multivitamin/Iron/Folic Acid 1 tab PO DAILY@89903/06/16 11/28/18 History [Centrum Complete Multivit Tab] Donepezil [Aricept] 10 mg PO HS@209911/04/18 11/28/18 History Ipratropium-Albuterol Nebulize 3 ml INHALATION RT-Q4H PRN 11/04/18 11/28/18 History [Duoneb 0.5 mg-3 mg/3 ml Soln] Lactose-Reduced Food [Ensure Plus] 1 can PO BID@0900,209911/04/18 11/28/18 History Memantine [Namenda] 10 mg PO BID@0900,209911/04/18 11/28/18 History Budesonide [Pulmicort] 0.5 mg INHALATION RT-BID nebu 11/08/18 11/28/18 Rx Atorvastatin [Lipitor] 10 mg PO HS@209911/19/18 11/28/18 History Digoxin [Lanoxin] 125 mcg PO DAILY@0911/19/18 11/28/18 History Insulin Glargine,Hum.rec.anlog 10 unit SQ HS@209911/19/18 11/28/18 History [Basaglar Kwikpen U-100] Pantoprazole [Protonix] 40 mg PO AC-BID #0 tablet.dr 11/21/18 11/28/18 Rx Sucralfate [Carafate] 1 gm PO QID tab 11/21/18 11/28/18 Rx Oxymetazoline 0.05% Nasl [place] 1 spray EA NOSTRIL Q15M PRN MDD 3 11/28/18 11/28/18 History [Afrin 0.05% Nasal [place]] DOSES Allergies Allergy/AdvReac Type Severity Reaction Status Date / Time No Known Allergies Allergy Verified 11/28/18 08:25 Physical Examination - Vital Signs Vital Signs: Vital Signs Temp Pulse Pulse Resp BP BP Pulse Ox 11/28/18 14:01 97.4 F L 74 16 148/60 98 11/28/18 12:00 98.8 F 72 18 137/61 11/28/18 10:00 97.9 F 75 16 135/57 96 11/28/18 09:58 97.9 F 75 16 135/57 96 11/28/18 09:30 98.6 F 73 16 129/56 98 11/28/18 09:20 98.0 F 76 16 124/57 97 11/28/18 08:00 72 67 16 11/28/18 07:50 68 11/28/18 07:00 97.7 F 67 16 135/65 100 11/28/18 06:25 74 18 135/49 100 11/28/18 04:23 64 18 123/50 100 11/28/18 02:59 98.2 F 72 18 124/47 100 Intake and Output 11/28/18 11/28/18 11/28/18 06:59 14:59 22:59 Intake Total 1010 Output Total 320 Balance 690 Intake: Oral 700 Blood Product 310 Rc As-1 Unit 310 [id number] Output: Urine 320 Other: # Voids 1 Weight 70.307 kg On examination patient is an elderly male, who appears slightly older than his stated age. He is somewhat cachectic. He is otherwise awake and alert. He has slow mentation. Sometimes prolonged latency time to answer questions. Speech is clear with no aphasia or dysarthria. On cranial nerve examination his pupils are round and reacting, visual zavala are full, face is symmetric and tongue protrudes the midline. Muscle strength is normal in the arms. In the lower extremities is a flexion appears weak bilaterally, right is 4+, left is 4-. His ankles are also slightly weak, with ulcers in the toes. He walks with a walker. Reflexes are symmetric and plantars are downgoing. Tone is normal, bulk of muscles decreased. He does have mild tremors of outstretched hands. Results Patient's last Depakote level is 58.4 on 04/30/2018. B12 was 1005 on 11/30/2018, folate 14.8, normal thyroid functions on 04/30/2018. Hemoglobin A1c 5.4. - Laboratory Findings CBC and BMP: 11/28/18 03:05 11/28/18 03:05 Abnormal Lab Findings: Abnormal Labs 11/28/18 11/28/18 11/28/18 03:00 03:05 03:05 RBC 2.49 L Hgb 7.1 L Hct 24.2 L MCHC 29.1 L RDW 15.8 H Plt Count 130 L Lymphocytes # 0.3 L Carbon Dioxide 32 H BUN 45 H Creatinine 1.70 H Glucose 125 H POC Glucose (mg/dL) Crossmatch See Detail 11/28/18 12:17 RBC Hgb Hct MCHC RDW Plt Count Lymphocytes # Carbon Dioxide BUN Creatinine Glucose POC Glucose (mg/dL) 178 H Crossmatch Assessment and Plan Assessment: * Seizure disorder, currently on Depakote 500 mg twice a day. Patient has intermittent breakthrough staring spells, uncertain if represent seizures or impaired attention due to metabolic encephalopathy. * Tremors, likely metabolic in nature. Depakote can also enhance underlying tremors. * Cognitive impairment, on Aricept and Namenda. * Thrombocytopenia, possibly could be due to side effect of Depakote. * Anemia. Plan: * Patient has possible seizure disorder, probably not well controlled on Depakote. We will check Depakote level. Typically, I would increase the dose of Depakote to achieve better seizure control, but his tremors can get worse while being on Depakote. I discussed with patient and his about switching to another medication like Lamictal, which is broad-spectrum, and also does not have side effects of tremors. Patient and his would like to think about it and discuss with his primary neurologist Dr Sepulveda about considering switching medication. * We will check EEG in the interim and a Depakote level. * Thank you very much for allowing me to participate in care for patient
[2018-11-28 17:06] LABS: Glucose,Whole Blood 146 mg/dL (75-99)
[2018-11-28 20:30] LABS: Glucose,Whole Blood 87 mg/dL (75-99)
[2018-11-28 20:47] LABS: Iron Saturation 6.97 (15.00-50.00)
[2018-11-28 20:52] LABS: Ferritin 141.5 ng/mL (22.0-322.0)
[2018-11-28] MEDS: DONEPEZIL 10 MG TAB PO SCH (21:27)
[2018-11-28] MEDS: ATORVASTATIN 10 MG TAB PO SCH (21:27)
--- NOTE | 2018-11-28 23:16 | CONS ---
CONSULTATION DATE OF DICTATION: 11/28/2018 REASON FOR CONSULTATION: Anemia. HISTORY OF PRESENT ILLNESS: The patient is a 68-year-old white male who was admitted to the hospital because of increasing weakness and was noted to have severe anemia. The patient presently resides at the [facility]. He was seen by Dr. Ramsay on an outpatient basis, and in fact he just underwent an upper endoscopy by him on November 21 that revealed two superficial nonbleeding antral ulcers and antral erosive gastritis. Biopsies showed chronic active gastritis. The patient has been on Protonix as well as Carafate and was doing well. He was advised to have a colonoscopy done as a part of evaluation of anemia, but patient refused to have this procedure. The plan was to do it as an outpatient if he is agreeable. In the meantime, he was admitted to the hospital with ongoing weakness and anemia with a hemoglobin of 7.1 g/dL requiring one unit of blood transfusion. The patient denies any abdominal pain. He reports no nausea or vomiting. He denies any rectal bleeding or melena. No family available at the bedside. The patient appears to be a somewhat poor historian. PAST MEDICAL HISTORY: Past medical history is significant for: 1. Atrial fibrillation. 2. Atrial flutter. 3. Coronary artery disease. 4. COPD. 5. Diabetes mellitus. 6. Hypertension. 7. Hyperlipidemia. 8. Degenerative joint disease. PAST SURGICAL HISTORY: 1. Neck surgery. 2. Bilateral carotid endarterectomy. 3. EGD one week ago. MEDICATIONS: Medications at home include: 1. Iron sulfate. 2. Glucotrol. 3. Plavix. 4. Flomax. 5. Celexa. 6. Depakote. 7. Multivitamin. 8. Aricept. Namenda. 9. Pulmicort. 10.Lipitor. 11.Lanoxin. 12.Insulin. 13.Protonix. 14.Carafate. 15.Nasal spray. ALLERGIES: NONE. SOCIAL HISTORY: No smoking. No alcohol use. FAMILY HISTORY: Brother has diabetes mellitus and father coronary artery disease. Mother diabetes mellitus. REVIEW OF SYSTEMS: CARDIOPULMONARY: He denies any chest pain. No shortness of breath. GENITOURINARY: He denies any dysuria or hematuria. MUSCULOSKELETAL: Complains or chronic back pain. NEUROLOGY: Unremarkable. Has mild dementia. ENT/VISION: Unremarkable. CONSTITUTIONAL: No recent weight loss. No fever, chills, night sweats. ENDOCRINOLOGY: Unremarkable. HEMATOLOGY: As mentioned above. PHYSICAL EXAMINATION: He appears comfortable. No apparent distress. VITAL SIGNS: Stable. Blood pressure is 148/60, pulse rate 74, temperature 97.4. HEENT examination unremarkable. Conjunctivae pink. Sclerae anicteric. Oral cavity no lesions. NECK: No JVD or lymph node enlargement. CHEST: Clear to auscultation. HEART: Regular rate and rhythm. ABDOMEN: Soft. It was scaphoid. Bowel sounds are positive. No organomegaly. EXTREMITIES: No pedal edema. SKIN: No rashes. NEUROLOGIC: Alert and oriented x3. No focal deficits. LABS: Labs done today show WBC 4.1, hemoglobin 7.1, platelets 130,000. BUN 45, creatinine 1.70. ALT, AST were not done. IMPRESSION: 1. Normocytic anemia with a hemoglobin of 7.1, status post one unit of blood transfusion. Clinically no active bleeding. Upper endoscopy done a week ago by Dr. Ramsay showed two small nonbleeding antral ulcers and gastritis as well as duodenitis. Presently on Protonix and Carafate. 2. Chronic kidney disease, stage III. 3. History of dementia. 4. History of hypertension and hyperlipidemia/diabetes mellitus. RECOMMENDATIONS: I had a lengthy discussion with the patient regarding further workup of anemia. I discussed with him if he would like to have a colonoscopy during this hospitalization and he refuses at this time. Hence I ordered iron studies for now as well as serum ferritin. I agree with blood transfusion. Repeat CBC in the morning. Will follow him closely during his hospital stay. Plans will be discussed with his tomorrow. Thank you for this consultation. MMODL / IJN: [id number] /
[2018-11-29] MEDS: SODIUM CHLORIDE 0.9% 1,000 ML IV SCH ×2 (01:39→21:50)
[2018-11-29 07:05] LABS: Glucose,Whole Blood 90 mg/dL (75-99)
[2018-11-29] MEDS: BUDESONIDE 0.5 MG/2 ML NEBU INHALATION SCH ×3 (07:37→20:20)
[2018-11-29] MEDS: IPRATROPIUM-ALBUTEROL 3 ML NEB INHALATION PRN ×2 (07:37→20:20)
[2018-11-29] MEDS: CITALOPRAM HYDROBROMIDE 20 MG TAB PO SCH (09:10)
[2018-11-29] MEDS: glipiZIDE 5 MG TAB PO SCH (09:10)
[2018-11-29] MEDS: DIGOXIN 125 MCG TAB PO SCH (09:11)
[2018-11-29] MEDS: DIVALPROEX 500 MG TABLET.DR PO SCH ×2 (09:11→21:47)
[2018-11-29] MEDS: TAMSULOSIN 0.4 MG CAP.ER.24H PO SCH (09:11)
[2018-11-29] MEDS: MEMANTINE 10 MG TAB PO SCH ×2 (09:11→21:47)
[2018-11-29] MEDS: SUCRALFATE 1 GM TAB PO SCH ×4 (09:11→21:47)
[2018-11-29] MEDS: FERROUS SULFATE 325 MG TAB PO SCH (09:11)
[2018-11-29] MEDS: PANTOPRAZOLE 40 MG TABLET PO SCH ×2 (09:11→17:15)
[2018-11-29 09:20] LABS: Calcium 8.1 mg/dL (8.4-10.2); Potassium 4.1 mmol/L (3.5-5.1)
[2018-11-29 09:34] LABS: Basophils % (A) 1 %; Eosinophils # (A) 0.2 k/uL (0-0.7); Eosinophils % (A) 4 %; HCT 25.8 % (39.0-53.0); HGB 8.5 gm/dL (13.0-17.5); Hypochromasia Slight; Lymphocytes # (A) 0.3 k/uL (1.0-4.8); Lymphocytes % (A) 9 %; MCH 31.5 pg (25.0-35.0); MCHC 32.8 g/dL (31.0-37.0); MCV 96.1 fL (80.0-100.0); Mean Platelet Volume 6.2; Monocytes # (A) 0.3 k/uL (0-1.0); Monocytes % (A) 8 %; Neutrophils # (A) 2.7 k/uL (1.3-7.7); Neutrophils % (A) 74 %; Platelet Count 114 k/uL (150-450); RBC 2.69 m/uL (4.30-5.90); RDW 15.1 % (11.5-15.5); WBC 3.6 k/uL (3.8-10.6)
--- NOTE | 2018-11-29 11:37 | P.PN ---
Subjective Progress Note Date: 11/29/18 This is a 68-year-old male patient of Dr. Morel. Patient presented with complaints of increased weakness. Patient is currently residing at [facility]. Patient was recently admitted for anemia and which she underwent EGD revealing mild duodenitis, multiple gastritis antrum and body biopsy in 2 superficial nonbleeding antral ulcers without high risk stigmata for bleeding. At that time patient was discharged with hemoglobin 8.4 and DC'd on Carafate and Protonix along with ferrous sulfate. Colonoscopy was unable to be completed during previous day due to poor prep. Per patient's at bedside no signs of blood in stool or emesis. Additional medical history includes dementia in which she is maintained on Aricept and Namenda, coronary artery disease with previous coronary stenting greater than 5 years ago, hypertension, hyperlipidemia, diabetes mellitus, chronic kidney disease, history of atrial fibrillation, CVA, seizures and ascending aortic aneurysm. Hemoglobin this admission 7.1. Patient received 1 unit of PRBCs. GI services have been reconsulted. Creatinine also elevated at 1.70 and bun 45. Normal saline at 50. Per patient's , patient has been having increased tremors possible seizures. Patient is maintained on Depakote follows regularly with Dr. Abarca for neurology. At this time neurology services have been consulted. Patient is resting comfortably in bed. Patient denies chest pain or shortness of breath. Patient denies nausea vomiting or diarrhea. Patient denies any urinary frequency. On 11/29/2018 patient is resting comfortably in bed. Patient received 1 unit PRBCs insulin improving to 8.5. Folate and B12 will also ordered. Patient refu sed colonoscopy. GI services are following. Patient also evaluated by neurology services EEG ordered. Patient denies chest pain or shortness breath. Patient denies nausea vomiting or diarrhea. Patient denies any urinary burning or frequency Objective - Vital Signs Vital signs: Vital Signs Temp 97.7 F 11/29/18 07:00 Pulse 61 11/29/18 08:00 Resp 16 11/29/18 08:00 BP 114/51 11/29/18 07:00 Pulse Ox 99 11/29/18 07:00 Intake & Output 11/28/18 11/29/18 11/29/18 18:59 06:59 18:59 Intake Total 1010 Output Total 320 600 Balance 690 -600 Intake: Oral 700 Blood Product 310 Rc As-1 Unit 310 [id number] Output: Urine 320 600 Other: Voiding Method Urinal Urinal Diaper Diaper Incontinent Incontinent # Voids 1 1 - Exam Head normocephalic Neck supple Lungs clear to auscultation bilaterally no wheezing or crackles Heart regular rate and rhythm S1-S2, no rub or gallop Abdomen is soft nontender nondistended positive bowel sounds no hepatosplenomegaly Extremities no edema Neuro alert and orientated to 1 dementia - Labs CBC & Chem 7: 11/29/18 08:36 11/29/18 08:36 Labs: Abnormal Lab Results - Last 24 Hours (Table) 11/28/18 11/28/18 11/28/18 Range/Units 03:00 03:05 12:17 WBC (3.8-10.6) k/uL RBC (4.30-5.90) m/uL Hgb (13.0-17.5) gm/dL Hct (39.0-53.0) % Plt Count (150-450) k/uL Lymphocytes # (1.0-4.8) k/uL BUN (9-20) mg/dL Creatinine (0.66-1.25) mg/dL POC Glucose (mg/dL) 178 H (75-99) mg/dL Calcium (8.4-10.2) mg/dL Iron 17 L (65-175) ug/dL Iron Saturation 6.97 L (15.00-50.00) Crossmatch See Detail 11/28/18 11/29/18 11/29/18 Range/Units 17:04 08:36 08:36 WBC 3.6 L (3.8-10.6) k/uL RBC 2.69 L (4.30-5.90) m/uL Hgb 8.5 L (13.0-17.5) gm/dL Hct 25.8 L (39.0-53.0) % Plt Count 114 L (150-450) k/uL Lymphocytes # 0.3 L (1.0-4.8) k/uL BUN 35 H (9-20) mg/dL Creatinine 1.37 H (0.66-1.25) mg/dL POC Glucose (mg/dL) 146 H (75-99) mg/dL Calcium 8.1 L (8.4-10.2) mg/dL Iron (65-175) ug/dL Iron Saturation (15.00-50.00) Crossmatch Assessment and Plan Assessment: 1. Increased weakness and anemia. Hemoglobin 7.1. Patient received 1 unit PRBCs. Recent EGD completed per GI services showing mild duodenitis in 2 superficial nonbleeding antral ulcers. Patient maintained on Carafate and Protonix. GI services have been reconsulted. Patient changed to clear liquid diet. Patient received 1 unit of PRBCs. hemoGlobin improving to 8.5. Patient was evaluated by GI services discussion was held about colonoscopy during hospitalization patient refused. Iron studies, B12 and folate levels ordered. 2. History of dementia. Patient maintained on Aricept and Namenda 3. Acute on chronic kidney disease stage III. Creatinine 1.70 and bun 45. Continue normal saline at 50 we'll continue to monitor. 4. History of seizures. Patient maintained on Depakote. Questionable increase in seizure activity per . Neurology services following. EEG has been ordered. Discussion was held with patient and family about his medication to Lamictal for better seizure control. Patient would like to think about and discuss with her primary neurologist Dr. Sepulveda. Depakote level in EEG has been ordered 5. History of hypertension 6. History of hyperlipidemia maintained on statin 7. History of insulin-dependent diabetes mellitus 8. History of left lower lobe pneumonia patient was recently treated during previous admission 9. History of ascending aortic aneurysm seen on previous x-ray measuring up to 4.9 cm. Patient to follow-up outpatient with her PCP DVT prophylaxis SCDs. GI prophylaxis Protonix GI and neurology services have been consulted PT OT consult placed I performed an examination of the patient and discussed their management with the Nurse Practitioner. I have reviewed the Nurse Practitioner's notes and agree with the documented findings and plan of care
[2018-11-29 11:41] LABS: Glucose,Whole Blood 95 mg/dL (75-99)
[2018-11-29 17:17] LABS: Glucose,Whole Blood 42 mg/dL (75-99)
[2018-11-29 17:39] LABS: Glucose,Whole Blood 62 mg/dL (75-99)
[2018-11-29 17:50] LABS: Glucose,Whole Blood 70 mg/dL (75-99)
--- NOTE | 2018-11-29 18:29 | EEG ---
ELECTROENCEPHALOGRAM REPORT DATE OF SERVICE: 11/29/2018. PREAMBLE: The patient is a 68-year-old male with history of seizure disorder. The patient is currently on Depakote. EEG FINDINGS: A routine 21-channel awake digital EEG recording was accomplished utilizing the 10/20 international system with bipolar and referential montages. The background consists of well-developed poorly regulated, predominantly diffuse theta and delta activity in all head regions. Occasional more well-developed 7-8 Hz activity seen in the posterior head region, but not reactive to eye opening and closing. Stage II sleep was seen with some spindles. No definitive focal or generalized epileptiform activity was seen. Photic driving response was not seen. IMPRESSION: This is an abnormal EEG due to background slowing of moderate degree. This is suggestive of generalized cerebral dysfunction, as can be seen with toxic metabolic encephalopathies or due to diffuse structural brain abnormality. No definitive epileptiform activity was seen. MMODL / IJN: [id number] / MTDD
[2018-11-29 20:39] LABS: Glucose,Whole Blood 169 mg/dL (75-99)
--- NOTE | 2018-11-29 21:19 | P.PN ---
Subjective Progress Note Date: 11/29/18 Patient was laying in bed comfortable, offers no complaints. Still appears somewhat shaky. Patient had an EEG performed today, which revealed background slowing of moderate degree. This is suggestive of generalized cerebral dysfunction, as can be seen with toxic metabolic encephalopathies or due to diffuse structural brain abnormality. No definitive epileptiform activity was seen. Patient's B12 is 899, folate > 24, A1c 5.4. Depakote level is 42.3. Objective - Vital Signs Vital signs: Vital Signs Temp 98.1 F 11/29/18 14:58 Pulse 64 11/29/18 20:33 Resp 16 11/29/18 14:58 BP 113/53 11/29/18 14:58 Pulse Ox 99 11/29/18 20:20 Intake & Output 11/29/18 11/29/18 11/30/18 06:59 18:59 06:59 Intake Total 350 Output Total 600 200 Balance -600 150 Intake: Intake, IV Titration 350 Amount Sodium Chloride 0.9% 1, 350 000 ml @ 50 mls/hr IV . Q20H [facility] Rx#:[id number] Output: Urine 600 200 Other: Voiding Method Urinal Urinal Diaper Diaper Incontinent Incontinent # Voids 1 - Exam Deferred - Labs CBC & Chem 7: 11/29/18 08:36 11/29/18 08:36 Labs: Abnormal Lab Results - Last 24 Hours (Table) 11/29/18 11/29/18 11/29/18 Range/Units 08:36 08:36 17:15 WBC 3.6 L (3.8-10.6) k/uL RBC 2.69 L (4.30-5.90) m/uL Hgb 8.5 L (13.0-17.5) gm/dL Hct 25.8 L (39.0-53.0) % Plt Count 114 L (150-450) k/uL Lymphocytes # 0.3 L (1.0-4.8) k/uL BUN 35 H (9-20) mg/dL Creatinine 1.37 H (0.66-1.25) mg/dL POC Glucose (mg/dL) 42 L (75-99) mg/dL Calcium 8.1 L (8.4-10.2) mg/dL 11/29/18 11/29/18 11/29/18 Range/Units 17:37 17:49 20:38 WBC (3.8-10.6) k/uL RBC (4.30-5.90) m/uL Hgb (13.0-17.5) gm/dL Hct (39.0-53.0) % Plt Count (150-450) k/uL Lymphocytes # (1.0-4.8) k/uL BUN (9-20) mg/dL Creatinine (0.66-1.25) mg/dL POC Glucose (mg/dL) 62 L 70 L 169 H (75-99) mg/dL Calcium (8.4-10.2) mg/dL Assessment and Plan Assessment: * Seizure disorder, currently on Depakote 500 mg twice a day. Patient has intermittent breakthrough staring spells, uncertain if represent seizures or impaired attention due to metabolic encephalopathy. * Tremors, likely metabolic in nature. Depakote can also enhance underlying tremors. * Cognitive impairment, on Aricept and Namenda. * Thrombocytopenia, possibly could be due to side effect of Depakote. * Anemia. Plan: * Patient's Depakote level is 42.3. It is almost therapeutic. Further increase in the dose of Depakote can make tremors worse. Patient wants to continue same dose of Depakote for now. He will follow-up with his neurologist to consider switching to another seizure medication, which has less side effects. * Neurologically clear. We will sign off. * Neurology service not available on the weekend.
[2018-11-29] MEDS: ATORVASTATIN 10 MG TAB PO SCH (21:47)
[2018-11-29] MEDS: DONEPEZIL 10 MG TAB PO SCH (21:47)
[2018-11-30 07:20] LABS: Basophils % (A) 0 %; Eosinophils # (A) 0.2 k/uL (0-0.7); Eosinophils % (A) 6 %; HCT 23.8 % (39.0-53.0); HGB 7.9 gm/dL (13.0-17.5); Hypochromasia Slight; Lymphocytes # (A) 0.2 k/uL (1.0-4.8); Lymphocytes % (A) 6 %; MCH 31.8 pg (25.0-35.0); MCV 96.2 fL (80.0-100.0); Monocytes # (A) 0.3 k/uL (0-1.0); Monocytes % (A) 10 %; Neutrophils # (A) 2.5 k/uL (1.3-7.7); Neutrophils % (A) 75 %; Platelet Count 116 k/uL (150-450); RBC 2.47 m/uL (4.30-5.90); WBC 3.4 k/uL (3.8-10.6)
[2018-11-30] MEDS: IPRATROPIUM-ALBUTEROL 3 ML NEB INHALATION PRN (07:27)
[2018-11-30] MEDS: BUDESONIDE 0.5 MG/2 ML NEBU INHALATION SCH ×2 (07:27→19:26)
[2018-11-30 07:42] LABS: Glucose,Whole Blood 135 mg/dL (75-99)
[2018-11-30 07:43] LABS: Albumin 2.3 g/dL (3.5-5.0); Calcium 7.9 mg/dL (8.4-10.2); Potassium 4.6 mmol/L (3.5-5.1); Total Bilirubin 0.2 mg/dL (0.2-1.3); Total Protein 4.9 g/dL (6.3-8.2)
[2018-11-30] MEDS: PANTOPRAZOLE 40 MG TABLET PO SCH ×2 (08:12→17:27)
[2018-11-30] MEDS: TAMSULOSIN 0.4 MG CAP.ER.24H PO SCH (08:12)
[2018-11-30] MEDS: FERROUS SULFATE 325 MG TAB PO SCH (08:12)
[2018-11-30] MEDS: DIVALPROEX 500 MG TABLET.DR PO SCH ×2 (08:12→21:39)
[2018-11-30] MEDS: MEMANTINE 10 MG TAB PO SCH ×2 (08:12→21:38)
[2018-11-30] MEDS: CITALOPRAM HYDROBROMIDE 20 MG TAB PO SCH (08:12)
[2018-11-30] MEDS: SUCRALFATE 1 GM TAB PO SCH ×4 (08:12→21:39)
[2018-11-30] MEDS: glipiZIDE 5 MG TAB PO SCH (08:12)
[2018-11-30] MEDS: DIGOXIN 125 MCG TAB PO SCH (08:13)
--- NOTE | 2018-11-30 09:20 | P.PN ---
Subjective Progress Note Date: 11/29/18 Principal diagnosis: Weakness, anemia Patient seen lying in bed. No acute events per nursing staff. No signs or symptoms of GI bleeding per nursing staff. Patient is eating, however oral intake is poor. Objective - Vital Signs Vital signs: Vital Signs Temp 98.1 F 11/29/18 14:58 Pulse 65 11/29/18 14:58 Resp 16 11/29/18 14:58 BP 113/53 11/29/18 14:58 Pulse Ox 98 11/29/18 14:58 Intake & Output 11/28/18 11/29/18 11/29/18 18:59 06:59 18:59 Intake Total 1010 350 Output Total 320 600 200 Balance 690 -600 150 Intake: Intake, IV Titration 350 Amount Sodium Chloride 0.9% 1, 350 000 ml @ 50 mls/hr IV . Q20H [facility] Rx#:[id number] Oral 700 Blood Product 310 Rc As-1 Unit 310 [id number] Output: Urine 320 600 200 Other: Voiding Method Urinal Urinal Diaper Diaper Incontinent Incontinent # Voids 1 1 - Exam On physical examination, patient appears comfortable in no apparent distress. HEAD: Normocephalic, atraumatic. EYES: No scleral icterus. No conjunctival injection. MOUTH: No lesions, tongue midline. NECK: Trachea midline, no gross abnormalities. CHEST: Decreased air entry bilaterally. HEART: S1-S2 appreciated. ABDOMEN: Soft, thin. Bowel sounds are positive. No organomegaly. No guarding or rigidity. EXTREMITIES: No pedal edema. SKIN: No rashes, no jaundice. NEUROLOGIC: Alert and oriented x1. No focal deficits. - Labs CBC & Chem 7: 11/30/18 06:46 11/30/18 06:46 Labs: Abnormal Lab Results - Last 24 Hours (Table) 11/28/18 11/28/18 11/29/18 Range/Units 03:05 17:04 08:36 WBC 3.6 L (3.8-10.6) k/uL RBC 2.69 L (4.30-5.90) m/uL Hgb 8.5 L (13.0-17.5) gm/dL Hct 25.8 L (39.0-53.0) % Plt Count 114 L (150-450) k/uL Lymphocytes # 0.3 L (1.0-4.8) k/uL BUN (9-20) mg/dL Creatinine (0.66-1.25) mg/dL POC Glucose (mg/dL) 146 H (75-99) mg/dL Calcium (8.4-10.2) mg/dL Iron 17 L (65-175) ug/dL Iron Saturation 6.97 L (15.00-50.00) 11/29/18 Range/Units 08:36 WBC (3.8-10.6) k/uL RBC (4.30-5.90) m/uL Hgb (13.0-17.5) gm/dL Hct (39.0-53.0) % Plt Count (150-450) k/uL Lymphocytes # (1.0-4.8) k/uL BUN 35 H (9-20) mg/dL Creatinine 1.37 H (0.66-1.25) mg/dL POC Glucose (mg/dL) (75-99) mg/dL Calcium 8.1 L (8.4-10.2) mg/dL Iron (65-175) ug/dL Iron Saturation (15.00-50.00) Assessment and Plan (1) Anemia Narrative/Plan: 68-year-old female with multiple medical comorbidities including normocytic anemia who was sent to the hospital due to his anemia and weakness. He was recently seen in the Hospital at which time EGD was with findings of antral g astritis and ulcers at that time. Colonoscopy was offered however the patient refused to perform the prep. Hemoglobin stable today at 8.5. No signs or symptoms of GI bleeding per nursing staff. Current Visit: No Status: Acute Code(s): D64.9 - ANEMIA, UNSPECIFIED SNOMED Code(s): 285742353 Plan: Supportive care Okay for diet as tolerated Continue to monitor hemoglobin and transfuse as needed Continue Protonix 40 mg twice daily Prior EGD reviewed Patient has refused colonoscopic evaluation in the past, with findings on EGD to explain anemia, would recommend continued PPI therapy and monitoring at this time Thank you for allowing us to participate in the care of the patient we will continue to follow
[2018-11-30 13:00] LABS: Glucose,Whole Blood 99 mg/dL (75-99)
--- NOTE | 2018-11-30 13:06 | P.PN ---
Subjective Progress Note Date: 11/30/18 This is a 68-year-old male patient of Dr. Morel. Patient presented with complaints of increased weakness. Patient is currently residing at [facility]. Patient was recently admitted for anemia and which she underwent EGD revealing mild duodenitis, multiple gastritis antrum and body biopsy in 2 superficial nonbleeding antral ulcers without high risk stigmata for bleeding. At that time patient was discharged with hemoglobin 8.4 and DC'd on Carafate and Protonix along with ferrous sulfate. Colonoscopy was unable to be completed during previous day due to poor prep. Per patient's at bedside no signs of blood in stool or emesis. Additional medical history includes dementia in which she is maintained on Aricept and Namenda, coronary artery disease with previous coronary stenting greater than 5 years ago, hypertension, hyperlipidemia, diabetes mellitus, chronic kidney disease, history of atrial fibrillation, CVA, seizures and ascending aortic aneurysm. Hemoglobin this admission 7.1. Patient received 1 unit of PRBCs. GI services have been reconsulted. Creatinine also elevated at 1.70 and bun 45. Normal saline at 50. Per patient's , patient has been having increased tremors possible seizures. Patient is maintained on Depakote follows regularly with Dr. Abarca for neurology. At this time neurology services have been consulted. Patient is resting comfortably in bed. Patient denies chest pain or shortness of breath. Patient denies nausea vomiting or diarrhea. Patient denies any urinary frequency. On 11/29/2018 patient is resting comfortably in bed. Patient received 1 unit PRBCs insulin improving to 8.5. Folate and B12 will also ordered. Patient refu sed colonoscopy. GI services are following. Patient also evaluated by neurology services EEG ordered. Patient denies chest pain or shortness breath. Patient denies nausea vomiting or diarrhea. Patient denies any urinary burning or frequency On 11/30/2018 patient is alert and responsive in no apparent distress he is denying any pain or discomfort at this time he is refusing liquid diet and re questing normal food, hemoglobin down to 7.9 today otherwise patient is stable there is no fever or chills no headache or dizziness no chest pain no shortness of breath no cough no nausea or vomiting no abdominal pain no diarrhea and no urinary symptoms Objective - Vital Signs Vital signs: Vital Signs Temp 97.9 F 11/30/18 07:00 Pulse 60 11/30/18 07:38 Resp 22 11/30/18 07:00 BP 127/58 11/30/18 07:00 Pulse Ox 95 11/30/18 07:00 Intake & Output 11/29/18 11/30/18 11/30/18 18:59 06:59 18:59 Intake Total 350 250 Output Total 200 300 Balance 150 -50 Intake: Intake, IV Titration 350 250 Amount Sodium Chloride 0.9% 1, 350 250 000 ml @ 50 mls/hr IV . Q20H [facility] Rx#:[id number] Output: Urine 200 300 Other: Voiding Method Urinal Urinal Diaper Diaper Incontinent Incontinent - Exam In general patient is alert and responsive in no apparent distress Head normocephalic and atraumatic Neck supple no JVD no goiter Lungs clear to auscultation bilaterally no wheezing or crackles Heart regular rate and rhythm S1-S2, no rub or gallop Abdomen is soft nontender nondistended positive bowel sounds no hepat osplenomegaly Extremities no edema no cyanosis or clubbing Neuro no gross focal neurological deficit - Labs CBC & Chem 7: 11/30/18 06:46 11/30/18 06:46 Labs: Abnormal Lab Results - Last 24 Hours (Table) 11/29/18 11/29/18 11/29/18 Range/Units 17:15 17:37 17:49 WBC (3.8-10.6) k/uL RBC (4.30-5.90) m/uL Hgb (13.0-17.5) gm/dL Hct (39.0-53.0) % Plt Count (150-450) k/uL Lymphocytes # (1.0-4.8) k/uL BUN (9-20) mg/dL Creatinine (0.66-1.25) mg/dL Glucose (74-99) mg/dL POC Glucose (mg/dL) 42 L 62 L 70 L (75-99) mg/dL Calcium (8.4-10.2) mg/dL ALT (21-72) U/L Total Protein (6.3-8.2) g/dL Albumin (3.5-5.0) g/dL 11/29/18 11/30/18 11/30/18 Range/Units 20:38 06:46 06:46 WBC 3.4 L (3.8-10.6) k/uL RBC 2.47 L (4.30-5.90) m/uL Hgb 7.9 L (13.0-17.5) gm/dL Hct 23.8 L (39.0-53.0) % Plt Count 116 L (150-450) k/uL Lymphocytes # 0.2 L (1.0-4.8) k/uL BUN 29 H (9-20) mg/dL Creatinine 1.32 H (0.66-1.25) mg/dL Glucose 137 H (74-99) mg/dL POC Glucose (mg/dL) 169 H (75-99) mg/dL Calcium 7.9 L (8.4-10.2) mg/dL ALT 17 L (21-72) U/L Total Protein 4.9 L (6.3-8.2) g/dL Albumin 2.3 L (3.5-5.0) g/dL 11/30/ Range/Units 07:30 WBC (3.8-10.6) k/uL RBC (4.30-5.90) m/uL Hgb (13.0-17.5) gm/dL Hct (39.0-53.0) % Plt Count (150-450) k/uL Lymphocytes # (1.0-4.8) k/uL BUN (9-20) mg/dL Creatinine (0.66-1.25) mg/dL Glucose (74-99) mg/dL POC Glucose (mg/dL) 135 H (75-99) mg/dL Calcium (8.4-10.2) mg/dL ALT (21-72) U/L Total Protein (6.3-8.2) g/dL Albumin (3.5-5.0) g/dL Assessment and Plan Plan: 1. Increased weakness and anemia. Hemoglobin 7.1. Patient received 1 unit PRBCs. Recent EGD completed per GI services showing mild duodenitis in 2 superficial nonbleeding antral ulcers. Patient maintained on Carafate and Protonix. GI services have been reconsulted. Patient changed to clear liquid diet. Patient received 1 unit of PRBCs. hemoGlobin improving to 8.5. Hemoglobin today down to 7.9 Patient was evaluated by GI services discussion was held about colonoscopy during hospitalization patient refused. Iron studies, B12 and folate levels ordered. 2. History of dementia. Patient maintained on Aricept and Namenda 3. Acute on chronic kidney disease stage III. Creatinine 1.70 and bun 45. Continue normal saline at 50 we'll continue to monitor. 4. History of seizures. Patient maintained on Depakote. Questionable increase in seizure activity per . Neurology services following. EEG has been ordered. Discussion was held with patient and family about his medication to Lamictal for better seizure control. Patient would like to think about and discuss with her primary neurologist Dr. Sepulveda. Depakote level in EEG has been ordered 5. History of hypertension 6. History of hyperlipidemia maintained on statin 7. History of insulin-dependent diabetes mellitus 8. History of left lower lobe pneumonia patient was recently treated during previous admission 9. History of ascending aortic aneurysm seen on previous x-ray measuring up to 4.9 cm. Patient to follow-up outpatient with her PCP DVT prophylaxis SCDs. GI prophylaxis Protonix GI and neurology services have been consulted PT OT consult placed
[2018-11-30] MEDS: SODIUM CHLORIDE 0.9% 1,000 ML IV SCH (17:27)
[2018-11-30 17:41] LABS: Glucose,Whole Blood 51 mg/dL (75-99)
[2018-11-30 18:11] LABS: Glucose,Whole Blood 53 mg/dL (75-99)
[2018-11-30 18:13] LABS: Glucose,Whole Blood 68 mg/dL (75-99)
[2018-11-30 19:28] LABS: Glucose,Whole Blood 82 mg/dL (75-99)
[2018-11-30 21:00] LABS: Glucose,Whole Blood 80 mg/dL (75-99)
[2018-11-30] MEDS: DONEPEZIL 10 MG TAB PO SCH (21:38)
[2018-11-30] MEDS: ATORVASTATIN 10 MG TAB PO SCH (21:38)
[2018-12-01 01:58] LABS: Glucose,Whole Blood 94 mg/dL (75-99)
[2018-12-01] MEDS: BUDESONIDE 0.5 MG/2 ML NEBU INHALATION SCH ×2 (07:05→19:53)
[2018-12-01 07:15] LABS: Glucose,Whole Blood 89 mg/dL (75-99)
[2018-12-01] MEDS: MEMANTINE 10 MG TAB PO SCH ×2 (08:12→21:20)
[2018-12-01] MEDS: PANTOPRAZOLE 40 MG TABLET PO SCH ×2 (08:12→16:22)
[2018-12-01] MEDS: SUCRALFATE 1 GM TAB PO SCH ×4 (08:12→21:21)
[2018-12-01] MEDS: TAMSULOSIN 0.4 MG CAP.ER.24H PO SCH (08:12)
[2018-12-01] MEDS: glipiZIDE 5 MG TAB PO SCH ×2 (08:12→08:14)
[2018-12-01] MEDS: CITALOPRAM HYDROBROMIDE 20 MG TAB PO SCH (08:12)
[2018-12-01] MEDS: DIVALPROEX 500 MG TABLET.DR PO SCH ×2 (08:12→21:21)
[2018-12-01] MEDS: DIGOXIN 125 MCG TAB PO SCH (08:12)
[2018-12-01] MEDS: FERROUS SULFATE 325 MG TAB PO SCH (08:12)
[2018-12-01 09:40] LABS: Albumin 2.5 g/dL (3.5-5.0); Calcium 8.3 mg/dL (8.4-10.2); Potassium 4.5 mmol/L (3.5-5.1); Total Bilirubin 0.3 mg/dL (0.2-1.3); Total Protein 5.2 g/dL (6.3-8.2)
[2018-12-01 10:11] LABS: Basophils % (A) 1 %; Eosinophils # (A) 0.3 k/uL (0-0.7); Eosinophils % (A) 8 %; HCT 25.6 % (39.0-53.0); HGB 8.3 gm/dL (13.0-17.5); Hypochromasia Slight; Lymphocytes # (A) 0.2 k/uL (1.0-4.8); Lymphocytes % (A) 8 %; MCH 31.3 pg (25.0-35.0); MCHC 32.4 g/dL (31.0-37.0); MCV 96.4 fL (80.0-100.0); Monocytes # (A) 0.2 k/uL (0-1.0); Monocytes % (A) 8 %; Neutrophils # (A) 2.3 k/uL (1.3-7.7); Neutrophils % (A) 72 %; Platelet Count 136 k/uL (150-450); RBC 2.65 m/uL (4.30-5.90); RDW 15.3 % (11.5-15.5); WBC 3.1 k/uL (3.8-10.6)
[2018-12-01 11:41] LABS: Glucose,Whole Blood 102 mg/dL (75-99)
--- NOTE | 2018-12-01 11:55 | P.PN ---
Subjective Progress Note Date: 12/01/18 This is a 68-year-old male patient of Dr. Morel. Patient presented with complaints of increased weakness. Patient is currently residing at [facility]. Patient was recently admitted for anemia and which she underwent EGD revealing mild duodenitis, multiple gastritis antrum and body biopsy in 2 superficial nonbleeding antral ulcers without high risk stigmata for bleeding. At that time patient was discharged with hemoglobin 8.4 and DC'd on Carafate and Protonix along with ferrous sulfate. Colonoscopy was unable to be completed during previous day due to poor prep. Per patient's at bedside no signs of blood in stool or emesis. Additional medical history includes dementia in which she is maintained on Aricept and Namenda, coronary artery disease with previous coronary stenting greater than 5 years ago, hypertension, hyperlipidemia, diabetes mellitus, chronic kidney disease, history of atrial fibrillation, CVA, seizures and ascending aortic aneurysm. Hemoglobin this admission 7.1. Patient received 1 unit of PRBCs. GI services have been reconsulted. Creatinine also elevated at 1.70 and bun 45. Normal saline at 50. Per patient's , patient has been having increased tremors possible seizures. Patient is maintained on Depakote follows regularly with Dr. Abarca for neurology. At this time neurology services have been consulted. Patient is resting comfortably in bed. Patient denies chest pain or shortness of breath. Patient denies nausea vomiting or diarrhea. Patient denies any urinary frequency. On 11/29/2018 patient is resting comfortably in bed. Patient received 1 unit PRBCs insulin improving to 8.5. Folate and B12 will also ordered. Patient refu sed colonoscopy. GI services are following. Patient also evaluated by neurology services EEG ordered. Patient denies chest pain or shortness breath. Patient denies nausea vomiting or diarrhea. Patient denies any urinary burning or frequency On 11/30/2018 patient is alert and responsive in no apparent distress he is denying any pain or discomfort at this time he is refusing liquid diet and re questing normal food, hemoglobin down to 7.9 today otherwise patient is stable there is no fever or chills no headache or dizziness no chest pain no shortness of breath no cough no nausea or vomiting no abdominal pain no diarrhea and no urinary symptoms On 12/01/2018 patient is resting comfortably in bed with at bedside. Hemoglobin improving to 8.3. Patient denies chest pain or shortness breath. Patient denies nausea vomiting or diarrhea. Patient denies any urinary burning or frequency Objective - Vital Signs Vital signs: Vital Signs Temp 98.0 F 12/01/18 05:00 Pulse 72 12/01/18 05:00 Resp 18 12/01/18 05:00 BP 122/56 12/01/18 05:00 Pulse Ox 97 12/01/18 05:00 Intake & Output 11/30/18 12/01/18 12/01/18 18:59 06:59 18:59 Intake Total 400 300 200 Output Total 575 Balance -175 300 200 Intake: Oral 400 300 200 Output: Urine 575 Other: Voiding Method Urinal Urinal Diaper Diaper Incontinent Incontinent # Voids 2 # Bowel Movements 0 - Exam Head normocephalic Neck supple Lungs clear to auscultation bilaterally no wheezing or crackles Heart regular rate and rhythm S1-S2, no rub or gallop Abdomen is soft nontender nondistended positive bowel sounds no hepatosplenomegaly Extremities no edema Neuro alert and orientated to 1 dementia - Labs CBC & Chem 7: 12/01/18 08:27 12/01/18 08:27 Labs: Abnormal Lab Results - Last 24 Hours (Table) 11/30/18 11/30/18 11/30/18 Range/Units 17:21 17:51 18:12 WBC (3.8-10.6) k/uL RBC (4.30-5.90) m/uL Hgb (13.0-17.5) gm/dL Hct (39.0-53.0) % Plt Count (150-450) k/uL Lymphocytes # (1.0-4.8) k/uL BUN (9-20) mg/dL Creatinine (0.66-1.25) mg/dL POC Glucose (mg/dL) 51 L 53 L 68 L (75-99) mg/dL Calcium (8.4-10.2) mg/dL ALT (21-72) U/L Total Protein (6.3-8.2) g/dL Albumin (3.5-5.0) g/dL 12/01/18 12/01/18 12/01/18 Range/Units 08:27 08:27 11:38 WBC 3.1 L (3.8-10.6) k/uL RBC 2.65 L (4.30-5.90) m/uL Hgb 8.3 L (13.0-17.5) gm/dL Hct 25.6 L (39.0-53.0) % Plt Count 136 L (150-450) k/uL Lymphocytes # 0.2 L (1.0-4.8) k/uL BUN 25 H (9-20) mg/dL Creatinine 1.43 H (0.66-1.25) mg/dL POC Glucose (mg/dL) 102 H (75-99) mg/dL Calcium 8.3 L (8.4-10.2) mg/dL ALT 18 L (21-72) U/L Total Protein 5.2 L (6.3-8.2) g/dL Albumin 2.5 L (3.5-5.0) g/dL Assessment and Plan Assessment: 1. Increased weakness and anemia. Hemoglobin 7.1. Patient received 1 unit PRBCs. Recent EGD completed per GI services showing mild duodenitis in 2 superficial nonbleeding antral ulcers. Patient maintained on Carafate and Protonix. GI services have been reconsulted. Patient changed to clear liquid diet. Patient received 1 unit of PRBCs. hemoGlobin improving to 8.5. Patient was evaluated by GI services discussion was held about colonoscopy during hospitalization patient refused. Iron studies, B12 and folate levels ordered. 2. History of dementia. Patient maintained on Aricept and Namenda 3. Acute on chronic kidney disease stage III. Creatinine 1.70 and bun 45. Continue normal saline at 50 we'll continue to monitor. 4. History of seizures. Patient maintained on Depakote. Questionable increase in seizure activity per . Neurology services following. EEG has been ordered. Discussion was held with patient and family about his medication to Lamictal for better seizure control. Patient would like to think about and discuss with her primary neurologist Dr. Sepulveda. Neurology has cleared patient for discharge 5. History of hypertension 6. History of hyperlipidemia maintained on statin 7. History of insulin-dependent diabetes mellitus 8. History of left lower lobe pneumonia patient was recently treated during previous admission 9. History of ascending aortic aneurysm seen on previous x-ray measuring up to 4.9 cm. Patient to follow-up outpatient with her PCP DVT prophylaxis SCDs. GI prophylaxis Protonix GI and neurology services have been consulted PT OT consult placed I performed an examination of the patient and discussed their management with the Nurse Practitioner. I have reviewed the Nurse Practitioner's notes and agree with the documented findings and plan of care
[2018-12-01] MEDS: SODIUM CHLORIDE 0.9% 1,000 ML IV SCH (12:10)
[2018-12-01 16:38] LABS: Glucose,Whole Blood 110 mg/dL (75-99)
[2018-12-01 20:42] LABS: Glucose,Whole Blood 118 mg/dL (75-99)
[2018-12-01] MEDS: DONEPEZIL 10 MG TAB PO SCH (21:21)
[2018-12-01] MEDS: ATORVASTATIN 10 MG TAB PO SCH (21:21)
[2018-12-02 07:12] LABS: Glucose,Whole Blood 102 mg/dL (75-99)
[2018-12-02] MEDS: BUDESONIDE 0.5 MG/2 ML NEBU INHALATION SCH (07:56)
[2018-12-02] MEDS: FERROUS SULFATE 325 MG TAB PO SCH (08:57)
[2018-12-02] MEDS: DIVALPROEX 500 MG TABLET.DR PO SCH (08:58)
[2018-12-02] MEDS: PANTOPRAZOLE 40 MG TABLET PO SCH (08:58)
[2018-12-02] MEDS: MEMANTINE 10 MG TAB PO SCH (08:58)
[2018-12-02] MEDS: DIGOXIN 125 MCG TAB PO SCH (08:58)
[2018-12-02] MEDS: TAMSULOSIN 0.4 MG CAP.ER.24H PO SCH (08:58)
[2018-12-02] MEDS: SUCRALFATE 1 GM TAB PO SCH ×2 (08:58→13:33)
[2018-12-02] MEDS: CITALOPRAM HYDROBROMIDE 20 MG TAB PO SCH (08:58)
[2018-12-02] MEDS: glipiZIDE 5 MG TAB PO SCH (08:58)
[2018-12-02] MEDS ORDERED: SODIUM FERRIC GLUCONAT-SUCROSE 125 MG in SODIUM CHLORIDE 0.9% 100 ML IVPB ONE (11:00)
[2018-12-02 11:22] LABS: Basophils % (A) 1 %; Eosinophils # (A) 0.3 k/uL (0-0.7); Eosinophils % (A) 9 %; HGB 8.6 gm/dL (13.0-17.5); Hypochromasia Slight; Lymphocytes # (A) 0.2 k/uL (1.0-4.8); Lymphocytes % (A) 5 %; MCH 30.8 pg (25.0-35.0); MCV 96.3 fL (80.0-100.0); Mean Platelet Volume 5.9; Monocytes # (A) 0.4 k/uL (0-1.0); Monocytes % (A) 12 %; Neutrophils # (A) 2.3 k/uL (1.3-7.7); Neutrophils % (A) 69 %; Platelet Count 176 k/uL (150-450); RDW 14.7 % (11.5-15.5); WBC 3.4 k/uL (3.8-10.6)
[2018-12-02 11:24] LABS: Albumin 2.7 g/dL (3.5-5.0); Calcium 8.8 mg/dL (8.4-10.2); Potassium 4.5 mmol/L (3.5-5.1); Total Bilirubin 0.4 mg/dL (0.2-1.3); Total Protein 5.6 g/dL (6.3-8.2)
[2018-12-02] MEDS: SODIUM CHLORIDE 0.9% 1,000 ML IV SCH (11:54)
[2018-12-02 11:58] LABS: Glucose,Whole Blood 122 mg/dL (75-99)
--- NOTE | 2018-12-02 12:44 | P.DS ---
Providers Date of admission: 11/29/18 09:51 Expected date of discharge: 12/02/18 Attending physician: Bethanie Weaver Consults: 11/28/18 10:56 Consult Physician Routine Consulting Provider: Dee Dee Severino Consult Reason/Comments: increased tremors history of seizures Do you want consulting provider notified?: Yes Primary care physician: Elena Lux Hospital Course: Discharge diagnosis 1. Increased weakness and anemia. Hemoglobin 7.1. Patient received 1 unit PRBCs. Recent EGD completed per GI services showing mild duodenitis in 2 superficial nonbleeding antral ulcers. Patient maintained on Carafate and Protonix. GI services have been reconsulted. Patient changed to clear liquid diet. Patient received 1 unit of PRBCs. hemoGlobin improving to 8.5. Patient was evaluated by GI services discussion was held about colonoscopy during hospitalization patient refused. Iron low. Patient received dose of IV iron prior to discharge gluconate 0.6 2. History of dementia. Patient maintained on Aricept and Namenda 3. Acute on chronic kidney disease stage III. Creatinine 1.70 and bun 45. Continue normal saline at 50 we'll continue to monitor. Creatinine improving to 1.26 bun 32. 4. History of seizures. Patient maintained on Depakote. Questionable increase in seizure activity per . Neurology services following. EEG has been ordered. Discussion was held with patient and family about his medication to Lamictal for better seizure control. Patient would like to think about and discuss with her primary neurologist Dr. Sepulveda. Neurology has cleared patient for discharge 5. History of hypertension 6. History of hyperlipidemia maintained on statin 7. History of insulin-dependent diabetes mellitus 8. History of left lower lobe pneumonia patient was recently treated during previous admission 9. History of ascending aortic aneurysm seen on previous x-ray measuring up to 4.9 cm. Patient to follow-up outpatient with her PCP Hospital course This is a 68-year-old male patient of Dr. Morel. Patient presented with complaints of increased weakness. Patient is currently residing at [facility]. Patient was recently admitted for anemia and which she underwent EGD revealing mild duodenitis, multiple gastritis antrum and body biopsy in 2 superficial nonbleeding antral ulcers without high risk stigmata for bleeding. At that time patient was discharged with hemoglobin 8.4 and DC'd on Carafate and Protonix along with ferrous sulfate. Colonoscopy was unable to be completed during previous day due to poor prep. Per patient's at bedside no signs of blood in stool or emesis. Additional medical history includes dementia in which she is maintained on Aricept and Namenda, coronary artery disease with previous coronary stenting greater than 5 years ago, hypertension, hyperlipidemia, diabetes mellitus, chronic kidney disease, history of atrial fibrillation, CVA, seizures and ascending aortic aneurysm. Hemoglobin this admission 7.1. Patient received 1 unit of PRBCs. GI services have been reconsulted. Creatinine also elevated at 1.70 and bun 45. Normal saline at 50. Per patient's , patient has been having increased tremors possible seizures. Patient is maintained on Depakote follows regularly with Dr. Abarca for neurology. At this time neurology services have been consulted. Patient is resting comfortably in bed. Patient denies chest pain or shortness of breath. Patient denies nausea vomiting or diarrhea. Patient denies any urinary frequency. On 11/29/2018 patient is resting comfortably in bed. Patient received 1 unit PRBCs insulin improving to 8.5. Folate and B12 will also ordered. Patient refused colonoscopy. GI services are following. Patient also evaluated by neurology services EEG ordered. Patient denies chest pain or shortness breath. Patient denies nausea vomiting or diarrhea. Patient denies any urinary burning or frequency On 11/30/2018 patient is alert and responsive in no apparent distress he is denying any pain or discomfort at this time he is refusing liquid diet and requesting normal food, hemoglobin down to 7.9 today otherwise patient is stable there is no fever or chills no headache or dizziness no chest pain no shortness of breath no cough no nausea or vomiting no abdominal pain no diarrhea and no urinary symptoms On 12/01/2018 patient is resting comfortably in bed with at bedside. Hemoglobin improving to 8.3. Patient denies chest pain or shortness breath. Patient denies nausea vomiting or diarrhea. Patient denies any urinary burning or frequency On 12/02/2018 patient is resting comfortably in bed. Patient's hemoglobin 8.6. Patient will receive IV iron prior to discharge. Patient refuses colonoscopy during hospital stay. Patient will be DC'd on Carafate and Protonix. Patient's Plavix will be held. Plavix will be held at discharge. Per patient family last was greater than 5 years ago. Patient will return to [facility]. At this time patient denies chest pain or shortness of breath. Denies nausea vomiting diarrhea. Patient denies any urinary burning or frequency. Creatinine improving to 1.26 bun 32 recommend close follow-up I performed an examination of the patient and discussed their management with the Nurse Practitioner. I have reviewed the Nurse Practitioner's notes and agree with the documented findings and plan of care Patient Condition at Discharge: Stable Plan - Discharge Summary New Discharge Prescriptions: Continue glipiZIDE [Glucotrol] 5 mg PO DAILY@0900 Ferrous Sulfate [Iron (65 MG Elemental)] 325 mg PO DAILY@0900 Tamsulosin HCl [Flomax] 0.4 mg PO DAILY@0900 Aspirin 81 mg PO DAILY@0900 Multivitamin/Iron/Folic Acid [Centrum Complete Multivit Tab] 1 tab PO DAILY@0900 Divalproex Sodium [Depakote] 500 mg PO BID@0900,2100 Citalopram Hydrobromide [CeleXA] 20 mg PO DAILY@0900 Memantine [Namenda] 10 mg PO BID@0900,2100 Lactose-Reduced Food [Ensure Plus] 1 can PO BID@0900,2100 Donepezil [Aricept] 10 mg PO HS@2100 Ipratropium-Albuterol Nebulize [Duoneb 0.5 mg-3 mg/3 ml Soln] 3 ml INHALATION RT-Q4H PRN PRN Reason: Shortness Of Breath Budesonide [Pulmicort] 0.5 mg INHALATION RT-BID nebu Digoxin [Lanoxin] 125 mcg PO DAILY@0900 Insulin Glargine,Hum.rec.anlog [Yeimyaglvanda [place] U-100] 10 unit SQ HS@2100 Atorvastatin [Lipitor] 10 mg PO HS@2100 Sucralfate [Carafate] 1 gm PO QID tab Pantoprazole [Protonix] 40 mg PO AC-BID #0 tablet. Oxymetazoline 0.05% Nasl [place] [Afrin 0.05% Nasal [place]] 1 spray EA NOSTRIL Q15M PRN MDD 3 DOSES PRN Reason: NOSE BLEED Discontinued Clopidogrel [Plavix] 75 mg PO DAILY@0900 Discharge Medication List glipiZIDE [Glucotrol] 5 mg PO DAILY@0900 01/07/14 [History] Ferrous Sulfate [Iron (65 MG Elemental)] 325 mg PO DAILY@0900 02/23/15 [History] Aspirin 81 mg PO DAILY@89903/28/15 [History] Tamsulosin HCl [Flomax] 0.4 mg PO DAILY@89903/28/15 [History] Citalopram Hydrobromide [CeleXA] 20 mg PO DAILY@89903/06/16 [History] Divalproex Sodium [Depakote] 500 mg PO BID@899,209903/06/16 [History] Multivitamin/Iron/Folic Acid [Centrum Complete Multivit Tab] 1 tab PO DAILY@89903/06/16 [History] Donepezil [Aricept] 10 mg PO HS@209911/04/18 [History] Ipratropium-Albuterol Nebulize [Duoneb 0.5 mg-3 mg/3 ml Soln] 3 ml INHALATION RT-Q4H PRN 11/04/18 [History] Lactose-Reduced Food [Ensure Plus] 1 can PO BID@899,209911/04/18 [History] Memantine [Namenda] 10 mg PO BID@899,209911/04/18 [History] Budesonide [Pulmicort] 0.5 mg INHALATION RT-BID nebu 11/08/18 [Rx] Atorvastatin [Lipitor] 10 mg PO HS@209911/19/18 [History] Digoxin [Lanoxin] 125 mcg PO DAILY@89911/19/18 [History] Insulin Glargine,Hum.rec.anlog [Basaglar Kwikpen U-100] 10 unit SQ HS@209911/19/18 [History] Pantoprazole [Protonix] 40 mg PO AC-BID #0 tablet.dr 11/21/18 [Rx] Sucralfate [Carafate] 1 gm PO QID tab 11/21/18 [Rx] Oxymetazoline 0.05% Nasl [place] [Afrin 0.05% Nasal [place]] 1 spray EA NOSTRIL Q15M PRN MDD 3 DOSES 11/28/18 [History] Follow up Appointment(s)/Referral(s): Kendy jeong [facility], [NON-STAFF] - As Needed Elena Lux MD [Primary Care Provider] - 1-2 days Activity/Diet/Wound Care/Special Instructions: Activity as tolerated Diet diabetic diet Discharge Disposition: TRANSFER TO SNF/ECF
[2018-12-02 15:36] VITALS: BP 129/67; PULSE 68; RESP 16; TEMP 97.5
== END 2018-12-02 15:41 | DRG 812 ==
LOC: EC 02:58 → 4SSUR 05:40 → OBSVTOIN 11-29 09:51 → 4MS4W 11-30 16:30
PROVIDERS: ADMIT Internal Medicine; ATTEND Internal Medicine
PROC: 30233N1 Transfusion of Nonautologous Red Blood Cells into Peripheral Vein, Percutaneous Approach (ICD-10-PCS; principal; 2018-11-28)
DX: D64.9 Anemia, unspecified (principal); D69.59 Other secondary thrombocytopenia; T42.6X5A Adverse effect of other antiepileptic and sedative-hypnotic drugs, initial encounter; E11.22 Type 2 diabetes mellitus with diabetic chronic kidney disease; E78.5 Hyperlipidemia, unspecified; F03.90 Unspecified dementia, unspecified severity, without behavioral disturbance, psychotic disturbance, mood disturbance, and anxiety; F41.9 Anxiety disorder, unspecified; G40.909 Epilepsy, unspecified, not intractable, without status epilepticus; I12.9 Hypertensive chronic kidney disease with stage 1 through stage 4 chronic kidney disease, or unspecified chronic kidney disease; I25.10 Atherosclerotic heart disease of native coronary artery without angina pectoris; I25.2 Old myocardial infarction; I48.91 Unspecified atrial fibrillation; I49.3 Ventricular premature depolarization; J44.9 Chronic obstructive pulmonary disease, unspecified; N18.3 Chronic kidney disease, stage 3 (moderate); N40.0 Benign prostatic hyperplasia without lower urinary tract symptoms; Z79.02 Long term (current) use of antithrombotics/antiplatelets; Z79.4 Long term (current) use of insulin; Z79.82 Long term (current) use of aspirin; Z79.899 Other long term (current) drug therapy; Z80.9 Family history of malignant neoplasm, unspecified; Z82.49 Family history of ischemic heart disease and other diseases of the circulatory system; Z83.3 Family history of diabetes mellitus; Z86.73 Personal history of transient ischemic attack (TIA), and cerebral infarction without residual deficits; Z87.11 Personal history of peptic ulcer disease; Z87.891 Personal history of nicotine dependence; Z95.5 Presence of coronary angioplasty implant and graft; I71.2 Thoracic aortic aneurysm, without rupture; Z79.51 Long term (current) use of inhaled steroids; K25.9 Gastric ulcer, unspecified as acute or chronic, without hemorrhage or perforation; K29.80 Duodenitis without bleeding; K29.50 Unspecified chronic gastritis without bleeding
CPT/HCPCS: 36415; 80048; 80053; 80164; 82607; 82728; 82746; 83540; 83550; 85025; 86850; 86900; 86901; 86920; 94640; 94760; 95816; 99285

== ENCOUNTER → 2019-04-17 | Outpatient (CLI) | payer MEDICARE | END | disposition home or self-care (01) | LOC: LABWHC1 14:02 | PROVIDERS: ATTEND Psychiatry & Neurology Neurology | DX: G40.009 Localization-related (focal) (partial) idiopathic epilepsy and epileptic syndromes with seizures of localized onset, not intractable, without status epilepticus (principal) | CPT/HCPCS: 36415; 80164 ==

== ENCOUNTER → 2019-06-26 | Outpatient (CLI) | payer MEDICARE ==
[2019-06-26 10:03] LABS: Basophils % (A) 1 %; Eosinophils # (A) 0.5 k/uL (0-0.7); Eosinophils % (A) 9 %; HCT 31.4 % (39.0-53.0); HGB 9.4 gm/dL (13.0-17.5); Hypochromasia Slight; Lymphocytes # (A) 0.9 k/uL (1.0-4.8); Lymphocytes % (A) 16 %; MCH 29.3 pg (25.0-35.0); MCHC 30.1 g/dL (31.0-37.0); MCV 97.5 fL (80.0-100.0); Mean Platelet Volume 7.4; Monocytes # (A) 0.5 k/uL (0-1.0); Monocytes % (A) 9 %; Neutrophils # (A) 3.5 k/uL (1.3-7.7); Neutrophils % (A) 63 %; Platelet Count 213 k/uL (150-450); RBC 3.22 m/uL (4.30-5.90); RDW 14.8 % (11.5-15.5); WBC 5.6 k/uL (3.8-10.6)
[2019-06-26 15:21] LABS: % Iron Saturation 19.83 (15.00-50.00); African American GFR (CKD) 58.2 (60.0-200.0); BUN/Creat Ratio 34.29 Ratio (12.00-20.00); Calcium 10.2 mg/dL (8.7-10.3); Non-African American GFR(CKD) 50.2 (60.0-200.0); Potassium 5.1 mmol/L (3.5-5.5)
[2019-06-26 15:28] LABS: Ferritin 67.5 ng/mL (22.0-322.0)
== END | disposition home or self-care (01) ==
LOC: LABWHC1 09:25
PROVIDERS: ATTEND Nurse Practitioner Family
DX: N18.3 Chronic kidney disease, stage 3 (moderate) (principal); E11.22 Type 2 diabetes mellitus with diabetic chronic kidney disease; D63.1 Anemia in chronic kidney disease; I50.9 Heart failure, unspecified
CPT/HCPCS: 36415; 80048; 82728; 83540; 83550; 85025

== ENCOUNTER 2019-10-04 22:20 | Observation (INO) | payer MEDICARE ==
--- NOTE | 2019-10-04 23:09 | ED ---
Weakness HPI - General Chief complaint: Weakness Stated complaint: Weakness Time Seen by Provider: 10/04/19 22:36 Source: patient, family, EMS Mode of arrival: EMS Limitations: altered mental status - History of Present Illness Initial comments: [place] is a 69-year-old male who presents to the emergency department today for evaluation of generalized weakness. Patient has a very extensive medical history, he is primarily bedbound requiring assistance for transfers at baseline over the past year however over the past few days he's become too weak to even assist in transfers and his has been unable to care for him. states that he was hospitalized last year for generalized anemia, he developed a bedsore he did go to a half-way but never regain the ability to walk. She states since that time she's been his primary caregiver. She states that she usually assist him in transitioning from bed to commode but he's become more weak and unable to. She's not noticed any fevers or cough. She states he is not eating or drinking well at all over the past few days. Patient states she doesn't feel well but denies any specific chest pain, p alpitations, shortness breath, abdominal pain, nausea, vomiting. Denies any dysuria. reports there is been no diarrhea or constipation he's had a normal formed stools. - Related Data Home Medications Medication Instructions Recorded Confirmed glipiZIDE [Glucotrol] 5 mg PO DAILY@0901/07/14 11/28/18 Ferrous Sulfate [Iron (65 MG 325 mg PO DAILY@89904/06/14 11/28/18 Elemental)] Aspirin 81 mg PO DAILY@89903/28/15 11/28/18 Tamsulosin HCl [Flomax] 0.4 mg PO DAILY@89903/28/15 11/28/18 Citalopram Hydrobromide [CeleXA] 20 mg PO DAILY@89903/06/16 11/28/18 Divalproex Sodium [Depakote] 500 mg PO BID@03/06/16 11/28/18 Multivitamin/Iron/Folic Acid 1 tab PO DAILY@89903/06/16 11/28/18 [Centrum Complete Multivit Tab] Donepezil [Aricept] 10 mg PO HS@209911/04/18 11/28/18 Ipratropium-Albuterol Nebulize 3 ml INHALATION RT-Q4H PRN 11/04/18 11/28/18 [Duoneb 0.5 mg-3 mg/3 ml Soln] Lactose-Reduced Food [Ensure Plus] 1 can PO BID@0900,209911/04/18 11/28/18 Memantine [Namenda] 10 mg PO BID@0900,209911/04/18 11/28/18 Atorvastatin [Lipitor] 10 mg PO HS@209911/19/18 11/28/18 Digoxin [Lanoxin] 125 mcg PO DAILY@0900 11/19/18 11/28/18 Insulin Glargine,Hum.rec.anlog 10 unit SQ HS@209911/19/18 11/28/18 [Basaglar Kwikpen U-100] Oxymetazoline 0.05% Nasl [place] 1 spray EA NOSTRIL Q15M PRN MDD 3 11/28/18 11/28/18 [Afrin 0.05% Nasal [place]] DOSES Previous Rx's Medication Instructions Recorded Budesonide [Pulmicort] 0.5 mg INHALATION RT-BID nebu 11/08/18 Pantoprazole [Protonix] 40 mg PO AC-BID #0 tablet.dr 11/21/18 Sucralfate [Carafate] 1 gm PO QID tab 11/21/18 Allergies Allergy/AdvReac Type Severity Reaction Status Date / Time No Known Allergies Allergy Verified 10/04/19 22:32 Review of Systems ROS Statement: Those systems with pertinent positive or pertinent negative responses have been documented in the HPI. ROS Other: All systems not noted in ROS Statement are negative. Past Medical History Past Medical History: Atrial Fibrillation, Atrial Flutter, Coronary Artery Disease (CAD), COPD, CVA/TIA, Diabetes Mellitus, Hyperlipidemia, Hypertension, Myocardial Infarction ([place]), Osteoarthritis (OA) Additional Past Medical History / Comment(s): Bilateral carotid artery disease, BPH, dementia Last Myocardial Infarction Date:: 2011 History of Any Multi-Drug Resistant Organisms: None Reported Past Surgical History: Heart Catheterization With Stent Additional Past Surgical History / Comment(s): Neck surgery, bilateral carotid surgery Past Anesthesia/Blood Transfusion Reactions: No Reported Reaction Additional Past Anesthesia/Blood Transfusion Reaction / Comment(s): Pt has received blood in past without reaction. Date of Last Stent Placement:: 2011 Past Psychological History: Anxiety Smoking Status: Former smoker Past Alcohol Use History: None Reported Past Drug Use History: None Reported - Past Family History Brother(s) Family Medical History: Cancer, Diabetes Mellitus Additional Family Medical History / Comment(s): One brother from cancer in his spine. Another brother recently from diabetic complications. Father Family Medical History: Coronary Artery Disease (CAD) Mother Family Medical History: Coronary Artery Disease (CAD), Diabetes Mellitus General Exam - General Exam Comments Initial Comments: Physical Exam GENERAL: Cachectic HENT: Normocephalic, Atraumatic. Temporal wasting noted EYES: PERRL, EOMI No conjunctival pallor PULMONARY: Unlabored respirations. No audible rales rhonchi or wheezing was noted. CARDIOVASCULAR: Tachycardic, regular ABDOMEN: Soft and nontender with normal bowel sounds. Scaphoid abdomen SKIN: Pale Sacral decubitus : Normal external genitalia, diapered NEUROLOGIC: Alert and oriented to self, able to identify he is in hospital Generalized weakness MUSCULOSKELETAL: Generalized atrophy with diffuse muscle loss PSYCHIATRIC: Flat Limitations: altered mental status Course Vital Signs 10/04/19 10/04/19 22:30 23:15 Temperature 98.9 F Pulse Rate 100 96 Respiratory 16 20 Rate Blood Pressure 147/64 128/60 O2 Sat by Pulse 100 99 Oximetry EKG Findings - EKG Comments: EKG Findings:: EKG was obtained due to complaint of generalized weakness, EKG was obtained 2233, rate is 101, rhythm is sinus tachycardia, there is a normal axis, there are normal intervals, ME 168, QRS 86, QTC is 425. There are ST depressions noted laterally most prominent in V3 through V6. No associated ST elevations. EKG is concerning for ischemia without acute infarction. Medical Decision Making - Medical Decision Making The patient was seen and evaluated, history is obtained from the patient's at bedside and review of medical record This is a very chronically ill bed bound 69-year-old male with worsening generalized weakness and malaise decreased oral intake appears dehydrated and cachectic on exam Septic workup was initiated resulted with evidence of a urinary tract infection in addition patient has a decubitus ulcer Patient will require admission to the hospital for IV fluid rehydration, antibiotics, evaluation by wound care, evaluation by PT OT - Lab Data Result diagrams: 10/04/19 23:07 10/04/19 23:07 Lab Results 10/04/19 10/04/19 10/04/19 Range/Units 23:07 23:07 23:07 WBC 6.5 (3.8-10.6) k/uL RBC 3.31 L (4.30-5.90) m/uL Hgb 9.9 L (13.0-17.5) gm/dL Hct 32.2 L (39.0-53.0) % MCV 97.3 (80.0-100.0) fL MCH 30.0 (25.0-35.0) pg MCHC 30.9 L (31.0-37.0) g/dL RDW 14.5 (11.5-15.5) % Plt Count 194 (150-450) k/uL Neutrophils % 71 % Lymphocytes % 10 % Monocytes % 13 % Eosinophils % 2 % Basophils % 0 % Neutrophils # 4.6 (1.3-7.7) k/uL Lymphocytes # 0.6 L (1.0-4.8) k/uL Monocytes # 0.8 (0-1.0) k/uL Eosinophils # 0.2 (0-0.7) k/uL Basophils # 0.0 (0-0.2) k/uL Hypochromasia Slight PT 9.8 (9.0-12.0) sec INR 0.9 (<1.2) APTT 22.3 (22.0-30.0) sec Sodium (137-145) mmol/L Potassium (3.5-5.1) mmol/L Chloride (98-107) mmol/L Carbon Dioxide (22-30) mmol/L Anion Gap mmol/L BUN (9-20) mg/dL Creatinine (0.66-1.25) mg/dL Est GFR (CKD-EPI)AfAm (>60 ml/min/1.73 sqM) Est GFR (CKD-EPI)NonAf (>60 ml/min/1.73 sqM) Glucose (74-99) mg/dL Plasma Lactic Acid Hieu (0.7-2.0) mmol/L Calcium (8.4-10.2) mg/dL Magnesium (1.6-2.3) mg/dL Total Bilirubin (0.2-1.3) mg/dL AST (17-59) U/L ALT (4-49) U/L Alkaline Phosphatase (38-126) U/L Troponin I (0.000-0.034) ng/mL Total Protein (6.3-8.2) g/dL Albumin (3.5-5.0) g/dL TSH (0.465-4.680) mIU/L Urine Color Yellow Urine Appearance Cloudy (Clear) Urine pH 5.5 (5.0-8.0) Ur Specific [place] 1.022 (1.001-1.035) Urine Protein Trace H (Negative) Urine Glucose (UA) 3+ H (Negative) Urine Ketones Negative (Negative) Urine Blood Moderate H (Negative) Urine Nitrite Positive (Negative) Urine Bilirubin Negative (Negative) Urine Urobilinogen <2.0 (<2.0) mg/dL Ur Leukocyte Esterase Large H (Negative) Urine RBC 8 H (0-5) /hpf Urine WBC 98 H (0-5) /hpf Urine WBC Clumps Many H (None) /hpf Ur Squamous Epith Cells 1 (0-4) /hpf Urine Bacteria Many H (None) /hpf Hyaline Casts 3 H (0-2) /lpf Urine Mucus Few H (None) /hpf 10/04/19 10/04/19 10/04/19 Range/Units 23:07 23:07 23:07 WBC (3.8-10.6) k/uL RBC (4.30-5.90) m/uL Hgb (13.0-17.5) gm/dL Hct (39.0-53.0) % MCV (80.0-100.0) fL MCH (25.0-35.0) pg MCHC (31.0-37.0) g/dL RDW (11.5-15.5) % Plt Count (150-450) k/uL Neutrophils % % Lymphocytes % % Monocytes % % Eosinophils % % Basophils % % Neutrophils # (1.3-7.7) k/uL Lymphocytes # (1.0-4.8) k/uL Monocytes # (0-1.0) k/uL Eosinophils # (0-0.7) k/uL Basophils # (0-0.2) k/uL Hypochromasia PT (9.0-12.0) sec INR (<1.2) APTT (22.0-30.0) sec Sodium 138 (137-145) mmol/L Potassium 4.7 (3.5-5.1) mmol/L Chloride 102 (98-107) mmol/L Carbon Dioxide 30 (22-30) mmol/L Anion Gap 6 mmol/L BUN 57 H (9-20) mg/dL Creatinine 1.36 H (0.66-1.25) mg/dL Est GFR (CKD-EPI)AfAm 60 (>60 ml/min/1.73 sqM) Est GFR (CKD-EPI)NonAf 52 (>60 ml/min/1.73 sqM) Glucose 279 H (74-99) mg/dL Plasma Lactic Acid Hieu 1.3 (0.7-2.0) mmol/L Calcium 9.8 (8.4-10.2) mg/dL Magnesium 1.9 (1.6-2.3) mg/dL Total Bilirubin 0.3 (0.2-1.3) mg/dL AST 85 H (17-59) U/L ALT 37 (4-49) U/L Alkaline Phosphatase 61 (38-126) U/L Troponin I 0.030 (0.000-0.034) ng/mL Total Protein 5.9 L (6.3-8.2) g/dL Albumin 3.2 L (3.5-5.0) g/dL TSH 3.710 (0.465-4.680) mIU/L Urine Color Urine Appearance (Clear) Urine pH (5.0-8.0) Ur Specific [place] (1.001-1.035) Urine Protein (Negative) Urine Glucose (UA) (Negative) Urine Ketones (Negative) Urine Blood (Negative) Urine Nitrite (Negative) Urine Bilirubin (Negative) Urine Urobilinogen (<2.0) mg/dL Ur Leukocyte Esterase (Negative) Urine RBC (0-5) /hpf Urine WBC (0-5) /hpf Urine WBC Clumps (None) /hpf Ur Squamous Epith Cells (0-4) /hpf Urine Bacteria (None) /hpf Hyaline Casts (0-2) /lpf Urine Mucus (None) /hpf Disposition Clinical Impression: Anemia, Dehydration, UTI (urinary tract infection), Sacral decubitus ulcer, SANTY (acute kidney injury), Failure to thrive in adult Disposition: ADMITTED IP TO THIS HOSP Condition: Serious
[2019-10-04 23:33] LABS: Basophils % (A) 0 %; Eosinophils # (A) 0.2 k/uL (0-0.7); Eosinophils % (A) 2 %; HCT 32.2 % (39.0-53.0); HGB 9.9 gm/dL (13.0-17.5); Hypochromasia Slight; Lymphocytes # (A) 0.6 k/uL (1.0-4.8); Lymphocytes % (A) 10 %; MCHC 30.9 g/dL (31.0-37.0); MCV 97.3 fL (80.0-100.0); Mean Platelet Volume 7.7; Monocytes # (A) 0.8 k/uL (0-1.0); Monocytes % (A) 13 %; Neutrophils # (A) 4.6 k/uL (1.3-7.7); Neutrophils % (A) 71 %; Platelet Count 194 k/uL (150-450); RBC 3.31 m/uL (4.30-5.90); RDW 14.5 % (11.5-15.5); WBC 6.5 k/uL (3.8-10.6)
[2019-10-04 23:37] LABS: Albumin 3.2 g/dL (3.5-5.0); Appearance,Urine Cloudy (Clear); Bacteria,Urine Many /hpf; Bilirubin,Urine Negative (Negative); Blood,Urine Moderate (Negative); Calcium 9.8 mg/dL (8.4-10.2); Color,Urine Yellow; Glucose,Urine (UA) 3+ (Negative); Hyaline Casts,Urine 3 /lpf (0-2); Ketones,Urine Negative (Negative); Leukocyte Esterase,Urine Large (Negative); Magnesium 1.9 mg/dL (1.6-2.3); Mucus,Urine Few /hpf; Nitrite,Urine Positive (Negative); PH, Urine 5.5 (5.0-8.0); Potassium 4.7 mmol/L (3.5-5.1); Protein,Urine Trace (Negative); RBC,Urine 8 /hpf (0-5); Specific Gravity,Urine 1.022 (1.001-1.035); Squamous Epithelial Cell,Urine 1 /hpf (0-4); Total Bilirubin 0.3 mg/dL (0.2-1.3); Total Protein 5.9 g/dL (6.3-8.2); Urobilinogen,Urine <2.0 mg/dL (<2.0); WBC,Urine 98 /hpf (0-5)
--- NOTE | 2019-10-04 23:42 | XR ---
EXAMINATION TYPE: XR chest 1V DATE OF EXAM: 10/04/2019 COMPARISON: 11/19/2018 HISTORY: Weakness TECHNIQUE: FINDINGS: Heart is normal. Lungs are clear of consolidation. There is no heart failure. Thoracic aort a is atheromatous. There is no pleural effusion. There are chest leads. IMPRESSION: No active cardiopulmonary disease. There appears to be clearing of the pleural reaction a t the lung bases compared to old exam. Normal heart.
[2019-10-04 23:43] LABS: INR 0.9 (<1.2); Partial Thromboplastin Time 22.3 sec (22.0-30.0); Prothrombin Time 9.8 sec (9.0-12.0)
[2019-10-04] MEDS ORDERED: NALOXONE 0.4 MG/ML 1 ML VIAL IV PRN (23:48)
[2019-10-04] MEDS ORDERED: cefTRIAXone IN SWFI 1,000 MG/10 ML SYRINGE IVP STA (23:48)
[2019-10-04] MEDS ORDERED: INSULIN REGULAR 100 UNIT/ML VIAL SQ ONE (23:55)
[2019-10-05 00:06] LABS: Glucose,Whole Blood 332 mg/dL (75-99)
[2019-10-05] MEDS: INSULIN ASPART (NovoLOG) 100 UNIT/ML VIAL SQ SCH ×4 (07:25→21:00)
[2019-10-05 07:27] LABS: Glucose,Whole Blood 88 mg/dL (75-99)
[2019-10-05] MEDS ORDERED: QUEtiapine 25 MG TAB PO PRN (11:06)
[2019-10-05] MEDS: SODIUM CHLORIDE 0.9% 1,000 ML IV SCH ×2 (11:42→21:01)
[2019-10-05 11:45] LABS: Glucose,Whole Blood 112 mg/dL (75-99)
--- NOTE | 2019-10-05 12:41 | P.HPIM ---
History of Present Illness 69-year-old the female was brought in because of generalized weakness and patient is requiring more assistance than usual patient does have moderate dementia and it appears like patient had some mental status changes as well as today because of which patient was brought in by who takes care of him at home. As per the patient is almost at his baseline at this time. Patient does have sacral decubitus ulcer stage I for which is applying barrier cream. Patient is found to be dehydrated with elevated serum creatinine although patient appears to some chronic kidney disease stage II in the past patient will be started on IV fluids. Patient will is also being treated for UTI although patient denied any symptoms of dysuria or increased urinary frequency patient is able to provide history. Patient denied any suprapubic pain although urine is significant abnormal good and continue the antibiotics for now. Patient is also on digoxin because of which obtained at this level which is within normal limits Review of Systems REVIEW OF SYSTEMS: CONSTITUTIONAL: Generalized weakness HEENT: No recent visual problems or hearing problems. Denied any sore throat. CARDIOVASCULAR: No chest pain, orthopnea, PND, no palpitations, no syncope. PULMONARY: No shortness of breath, no cough, no hemoptysis. GASTROINTESTINAL: No diarrhea, no nausea, no vomiting, no abdominal pain. NEUROLOGICAL: No headaches, no weakness, no numbness. HEMATOLOGICAL: Denies any bleeding or petechiae. GENITOURINARY: Denies any burning micturition, frequency, or urgency. MUSCULOSKELETAL/RHEUMATOLOGICAL: Denies any joint pain, swelling, or any muscle pain. ENDOCRINE: Denies any polyuria or polydipsia. The rest of the 14-point review of systems is negative. Past Medical History Past Medical History: Atrial Fibrillation, Atrial Flutter, Coronary Artery Disease (CAD), COPD, CVA/TIA, Diabetes Mellitus, Hyperlipidemia, Hypertension, Myocardial Infarction ([place]), Osteoarthritis (OA) Additional Past Medical History / Comment(s): Bilateral carotid artery disease, BPH, dementia Last Myocardial Infarction Date:: 2011 History of Any Multi-Drug Resistant Organisms: None Reported Past Surgical History: Heart Catheterization With Stent Additional Past Surgical History / Comment(s): Neck surgery, bilateral carotid surgery Past Anesthesia/Blood Transfusion Reactions: No Reported Reaction Additional Past Anesthesia/Blood Transfusion Reaction / Comment(s): Pt has received blood in past without reaction. Date of Last Stent Placement:: 2011 Past Psychological History: Anxiety Additional Psychological History / Comment(s): Pt currently at [facility] for rehab. Spouse states he has not gotten up yet. Smoking Status: Former smoker Past Alcohol Use History: None Reported Additional Past Alcohol Use History / Comment(s): Pt started smoking in 1961 and quit in 2017. Past Drug Use History: None Reported Additional Drug Use History / Comment(s): Patient states he hasn't smoked in several years and doesn't need any education. - Past Family History Brother(s) Family Medical History: Cancer, Diabetes Mellitus Additional Family Medical History / Comment(s): One brother from cancer in his spine. Another brother recently from diabetic complications. Father Family Medical History: Coronary Artery Disease (CAD) Mother Family Medical History: Coronary Artery Disease (CAD), Diabetes Mellitus Medications and Allergies Home Medications Medication Instructions Recorded Confirmed Type glipiZIDE [Glucotrol] 5 mg PO DAILY 01/07/14 10/05/19 History Aspirin 81 mg PO DAILY 03/28/15 10/05/19 History Tamsulosin HCl [Flomax] 0.4 mg PO DAILY 03/28/15 10/05/19 History Citalopram Hydrobromide [CeleXA] 20 mg PO DAILY 03/06/16 10/05/19 History Divalproex Sodium [Depakote] 500 mg PO BID 03/06/16 10/05/19 History Donepezil [Aricept] 10 mg PO HS 11/04/18 10/05/19 History Memantine [Namenda] 10 mg PO BID 11/04/18 10/05/19 History Digoxin [Lanoxin] 125 mcg PO DAILY 11/19/18 10/05/19 History Pantoprazole [Protonix] 40 mg PO AC-BID #0 tablet. 11/21/18 10/05/19 Rx Simvastatin [Zocor] 20 mg PO HS 10/05/19 10/05/19 History Allergies Allergy/AdvReac Type Severity Reaction Status Date / Time No Known Allergies Allergy Verified 10/05/19 10:21 Physical Exam Vitals: Vital Signs Temp Pulse Pulse Resp BP BP Pulse Ox 10/05/19 07:35 97.7 F 94 20 118/63 94 L 10/05/19 07:31 20 10/05/19 01:30 97.9 F 91 20 156/77 94 L 10/05/19 00:35 98.2 F 88 18 114/69 99 10/04/19 23:15 96 20 128/60 99 10/04/19 22:30 98.9 F 100 16 147/64 100 Intake and Output 10/04/19 10/05/19 10/05/19 22:59 06:59 14:59 Other: Voiding Method Urinal Diaper Diaper Incontinent Incontinent # Voids 1 Weight 59.375 kg 59.375 kg PHYSICAL EXAMINATION: GENERAL: The patient is alert and oriented x2-3, which is baseline not in any acute distress. Well developed, well nourished. HEENT: Pupils are round and equally reacting to light. EOMI. No scleral icterus. No conjunctival pallor. Normocephalic, atraumatic. No pharyngeal erythema. No thyromegaly. CARDIOVASCULAR: S1 and S2 present. No murmurs, rubs, or gallops. PULMONARY: Chest is clear to auscultation, no wheezing or crackles. ABDOMEN: Soft, nontender, nondistended, normoactive bowel sounds. No palpable organomegaly. MUSCULOSKELETAL: No joint swelling or deformity. EXTREMITIES: No cyanosis, clubbing, or pedal edema. NEUROLOGICAL: Gross neurological examination did not reveal any focal deficits. SKIN: Patient has significant skin disease discoloration in the sacral area, stage I sacral ulcer without any skin breakdown. Results CBC & Chem 7: 10/04/19 23:07 10/04/19 23:07 Labs: Abnormal Lab Results - Last 24 Hours (Table) 10/04/19 10/04/19 10/04/19 Range/Units 23:07 23:07 23:07 RBC 3.31 L (4.30-5.90) m/uL Hgb 9.9 L (13.0-17.5) gm/dL Hct 32.2 L (39.0-53.0) % MCHC 30.9 L (31.0-37.0) g/dL Lymphocytes # 0.6 L (1.0-4.8) k/uL BUN 57 H (9-20) mg/dL Creatinine 1.36 H (0.66-1.25) mg/dL Glucose 279 H (74-99) mg/dL POC Glucose (mg/dL) (75-99) mg/dL AST 85 H (17-59) U/L Total Protein 5.9 L (6.3-8.2) g/dL Albumin 3.2 L (3.5-5.0) g/dL Urine Protein Trace H (Negative) Urine Glucose (UA) 3+ H (Negative) Urine Blood Moderate H (Negative) Ur Leukocyte Esterase Large H (Negative) Urine RBC 8 H (0-5) /hpf Urine WBC 98 H (0-5) /hpf Urine WBC Clumps Many H (None) /hpf Urine Bacteria Many H (None) /hpf Hyaline Casts 3 H (0-2) /lpf Urine Mucus Few H (None) /hpf 10/05/19 10/05/19 Range/Units 00:03 11:41 RBC (4.30-5.90) m/uL Hgb (13.0-17.5) gm/dL Hct (39.0-53.0) % MCHC (31.0-37.0) g/dL Lymphocytes # (1.0-4.8) k/uL BUN (9-20) mg/dL Creatinine (0.66-1.25) mg/dL Glucose (74-99) mg/dL POC Glucose (mg/dL) 332 H 112 H (75-99) mg/dL AST (17-59) U/L Total Protein (6.3-8.2) g/dL Albumin (3.5-5.0) g/dL Urine Protein (Negative) Urine Glucose (UA) (Negative) Urine Blood (Negative) Ur Leukocyte Esterase (Negative) Urine RBC (0-5) /hpf Urine WBC (0-5) /hpf Urine WBC Clumps (None) /hpf Urine Bacteria (None) /hpf Hyaline Casts (0-2) /lpf Urine Mucus (None) /hpf Microbiology - Last 24 Hours (Table) 10/04/19 23:07 Urine Culture - Preliminary Urine,Catheterized Assessment and Plan Plan: -Generalized weakness, tiredness:: Most probably related to dehydration intravascular 1 admission patient will be started on IV fluids, I cannot completely rule out urinary tract infection at this time we'll continue with antibiotics for today patient may need about 3 days of antibiotics. -Stage and sacral didn't notice ulcer: Ordered barrier cream and decubitus ulcer precautions -Chronic kidney disease stage II from probably represents nephrosclerosis -Atrial fibrillation patient is presently not on any anticoagulation patient is on digoxin which will be continued and dig levels are within normal limits -Coronary artery disease -COPD without any acute exacerbation -CVA TIA in the past -Type 2 diabetes mellitus -Dementia moderate etiology of dementia is not clear can be vascular dementia -Due to prophylaxis with subcutaneous heparin
[2019-10-05 14:51] VITALS: BMI 17.2
[2019-10-05 16:39] LABS: Glucose,Whole Blood 219 mg/dL (75-99)
[2019-10-05] MEDS: PANTOPRAZOLE 40 MG TABLET PO SCH (17:11)
[2019-10-05 20:51] LABS: Glucose,Whole Blood 226 mg/dL (75-99)
[2019-10-05] MEDS: DIVALPROEX 500 MG TABLET.DR PO SCH (21:00)
[2019-10-05] MEDS: MEMANTINE 10 MG TAB PO SCH (21:00)
[2019-10-05] MEDS: DONEPEZIL 10 MG TAB PO SCH (21:00)
[2019-10-05] MEDS: ATORVASTATIN 10 MG TAB PO SCH (21:00)
[2019-10-06 07:16] LABS: Glucose,Whole Blood 133 mg/dL (75-99)
[2019-10-06 08:08] LABS: HCT 26.7 % (39.0-53.0); Hypochromasia Moderate; MCH 30.6 pg (25.0-35.0); MCHC 31.4 g/dL (31.0-37.0); MCV 97.5 fL (80.0-100.0); Mean Platelet Volume 7.7; Platelet Count 188 k/uL (150-450); RBC 2.73 m/uL (4.30-5.90); RDW 14.3 % (11.5-15.5); WBC 5.4 k/uL (3.8-10.6)
[2019-10-06 08:10] LABS: HGB 8.4 gm/dL (13.0-17.5)
[2019-10-06 08:11] LABS: Calcium 8.4 mg/dL (8.4-10.2); Potassium 4.4 mmol/L (3.5-5.1)
[2019-10-06] MEDS: SODIUM CHLORIDE 0.9% 1,000 ML IV SCH ×2 (08:41→15:20)
[2019-10-06] MEDS: INSULIN ASPART (NovoLOG) 100 UNIT/ML VIAL SQ SCH ×4 (08:41→20:41)
[2019-10-06] MEDS: PANTOPRAZOLE 40 MG TABLET PO SCH ×2 (08:42→17:18)
[2019-10-06] MEDS: MEMANTINE 10 MG TAB PO SCH ×2 (08:44→20:41)
[2019-10-06] MEDS: ASPIRIN 81 MG PO SCH (08:45)
[2019-10-06] MEDS: CITALOPRAM HYDROBROMIDE 20 MG TAB PO SCH (08:45)
[2019-10-06] MEDS: glipiZIDE 5 MG TAB PO SCH (08:46)
[2019-10-06] MEDS: ENOXAPARIN 40 MG/0.4 ML SYRINGE SQ SCH (08:47)
[2019-10-06] MEDS: DIVALPROEX 500 MG TABLET.DR PO SCH ×2 (08:47→20:41)
[2019-10-06] MEDS: TAMSULOSIN 0.4 MG CAP.ER.24H PO SCH (08:47)
[2019-10-06] MEDS: DIGOXIN 125 MCG TAB PO SCH (08:47)
[2019-10-06 11:07] LABS: Glucose,Whole Blood 216 mg/dL (75-99)
[2019-10-06] MEDS ORDERED: IPRATROPIUM-ALBUTEROL 3 ML NEB INHALATION PRN (11:24)
[2019-10-06] MEDS: IPRATROPIUM-ALBUTEROL 3 ML NEB INHALATION SCH ×3 (12:04→19:58)
--- NOTE | 2019-10-06 14:55 | P.PN ---
Subjective 69-year-old the female was brought in because of generalized weakness and patient is requiring more assistance than usual patient does have moderate dementia and it appears like patient had some mental status changes as well as today because of which patient was brought in by who takes care of him at home. As per the patient is almost at his baseline at this time. Patient does have sacral decubitus ulcer stage I for which is applying barrier cream. Patient is found to be dehydrated with elevated serum creatinine although patient appears to some chronic kidney disease stage II in the past patient will be started on IV fluids. Patient will is also being treated for UTI although patient denied any symptoms of dysuria or increased urinary frequency patient is able to provide history. Patient denied any suprapubic pain although urine is significant abnormal good and continue the antibiotics for now. Patient is also on digoxin because of which obtained at this level which is within normal limits. 10/06/2019 Patient's creatinine improved patient was evaluated physical therapy and occupational therapy recommended subacute rehab but apparently in the past patient didn't do well with physical therapy didn't follow with physical therapy recommendations and didn't participate in the therapy. Because of covid19 anshul silva, cannot visit him which cannot be very good for the patient. Because of which in spite of the physical therapy recommendations patient's wants to take him home with the understanding that his clinical condition is expected to get worse and his functionality will be low. Patient is presently DO NOT RESUSCITATE as per the patient request and the which is also clinically appropriate. Patient is having wheezing does have history of COPD patient will be started on inhalational treatments and inhalational steroids. Patient has significant improvement in serum creatinine compared to yesterday dehydration improved patient will continued on IV fluids for today possibly of discharge tomorrow Constitutional: Denied any fatigue denied any fever. Cardio vascular: denied any chest pain, palpitations Gastrointestinal denied any nausea vomiting Pulmonary: Denied any shortness of breath cough Neurologic denied any new focal deficits All inpatient medications were reviewed and appropriate changes in these medications as dictated in the interval history and assessment and plan. Objective - Vital Signs Vital signs: Vital Signs Temp 98.7 F 10/06/19 14:45 Pulse 83 10/06/19 14:45 Resp 18 10/06/19 14:45 BP 122/55 10/06/19 14:45 Pulse Ox 99 10/06/19 14:45 Intake & Output 10/05/19 10/06/19 10/06/19 18:59 06:59 18:59 Intake Total 300 0 900 Output Total 200 800 Balance 100 -800 900 Weight 59.375 kg Intake: Intake, IV Titration 300 600 Amount Sodium Chloride 0.9% 1, 300 600 000 ml @ 75 mls/hr IV . [id number] OREN Rx#:[id number] Oral 0 300 Output: Urine 800 Post Void Residual 200 Other: Voiding Method Diaper Diaper Diaper Incontinent Incontinent Incontinent # Voids 2 1 - Exam PHYSICAL EXAMINATION: GENERAL: The patient is alert and oriented x2-3, which is baseline not in any acute distress. Well developed, well nourished. He currently looks much better today HEENT: Pupils are round and equally reacting to light. EOMI. No scleral icterus. No conjunctival pallor. Normocephalic, atraumatic. No pharyngeal erythema. No thyromegaly. CARDIOVASCULAR: S1 and S2 present. No murmurs, rubs, or gallops. PULMONARY: Chest is clear to auscultation, no wheezing or crackles. ABDOMEN: Soft, nontender, nondistended, normoactive bowel sounds. No palpable organomegaly. MUSCULOSKELETAL: No joint swelling or deformity. EXTREMITIES: No cyanosis, clubbing, or pedal edema. NEUROLOGICAL: Gross neurological examination did not reveal any focal deficits. SKIN: Patient has significant skin disease discoloration in the sacral area, stage I sacral ulcer without any skin breakdown. - Labs CBC & Chem 7: 10/06/19 07:03 10/06/19 07:03 Labs: Abnormal Lab Results - Last 24 Hours (Table) 10/05/19 10/05/19 10/06/19 Range/Units 16:38 20:48 07:03 RBC 2.73 L (4.30-5.90) m/uL Hgb 8.4 L D (13.0-17.5) gm/dL Hct 26.7 L (39.0-53.0) % Sodium (137-145) mmol/L BUN (9-20) mg/dL Glucose (74-99) mg/dL POC Glucose (mg/dL) 219 H 226 H (75-99) mg/dL 10/06/19 10/06/19 10/06/19 Range/Units 07:03 07:15 11:06 RBC (4.30-5.90) m/uL Hgb (13.0-17.5) gm/dL Hct (39.0-53.0) % Sodium 136 L (137-145) mmol/L BUN 46 H (9-20) mg/dL Glucose 116 H (74-99) mg/dL POC Glucose (mg/dL) 133 H 216 H (75-99) mg/dL Microbiology - Last 24 Hours (Table) 10/04/19 23:07 Urine Culture - Preliminary Urine,Catheterized Gram Neg Bacilli Assessment and Plan Plan: -Generalized weakness, tiredness:: Most probably related to dehydration intravascular 1 admission patient will be started on IV fluids, I cannot completely rule out urinary tract infection at this time we'll continue with antibiotics for today patient may need about 3 days of antibiotics. Dehydration improved serum creatinine improved to 1.13 -Stage and sacral didn't notice ulcer: Ordered barrier cream and decubitus ulcer precautions -Chronic kidney disease stage II from probably represents nephrosclerosis -Atrial fibrillation patient is presently not on any anticoagulation patient is on digoxin which will be continued and dig levels are within normal limits -Coronary artery disease -COPD with mild acute exacerbation patient will be started on inhaled steroids and inhalational treatments -CVA TIA in the past -Type 2 diabetes mellitus -Dementia moderate etiology of dementia is not clear can be vascular dementia -Due to prophylaxis with subcutaneous heparin
[2019-10-06 16:33] LABS: Glucose,Whole Blood 207 mg/dL (75-99)
[2019-10-06] MEDS: BUDESONIDE 0.5 MG/2 ML NEBU INHALATION SCH (19:58)
[2019-10-06 20:33] LABS: Glucose,Whole Blood 258 mg/dL (75-99)
[2019-10-06] MEDS: DONEPEZIL 10 MG TAB PO SCH (20:41)
[2019-10-06] MEDS: ATORVASTATIN 10 MG TAB PO SCH (20:41)
[2019-10-07] MEDS: SODIUM CHLORIDE 0.9% 1,000 ML IV SCH (04:12)
[2019-10-07 07:27] LABS: Glucose,Whole Blood 172 mg/dL (75-99)
[2019-10-07 07:56] VITALS: RESP 16
[2019-10-07 08:04] VITALS: BP 123/61; TEMP 98.5
[2019-10-07] MEDS: INSULIN ASPART (NovoLOG) 100 UNIT/ML VIAL SQ SCH ×2 (08:06→12:15)
[2019-10-07 08:20] LABS: HCT 23.4 % (39.0-53.0); HGB 7.3 gm/dL (13.0-17.5); Hypochromasia Slight; MCH 29.7 pg (25.0-35.0); MCHC 31.1 g/dL (31.0-37.0); MCV 95.6 fL (80.0-100.0); Mean Platelet Volume 7.2; Platelet Count 186 k/uL (150-450); RBC 2.44 m/uL (4.30-5.90); WBC 5.4 k/uL (3.8-10.6)
[2019-10-07] MEDS: BUDESONIDE 0.5 MG/2 ML NEBU INHALATION SCH (08:20)
[2019-10-07] MEDS: IPRATROPIUM-ALBUTEROL 3 ML NEB INHALATION SCH ×2 (08:21→12:12)
[2019-10-07 08:29] LABS: Calcium 8.3 mg/dL (8.4-10.2); Potassium 4.2 mmol/L (3.5-5.1)
[2019-10-07] MEDS: DIGOXIN 125 MCG TAB PO SCH (09:02)
[2019-10-07] MEDS: DIVALPROEX 500 MG TABLET.DR PO SCH (09:02)
[2019-10-07] MEDS: MEMANTINE 10 MG TAB PO SCH (09:02)
[2019-10-07] MEDS: ASPIRIN 81 MG PO SCH (09:02)
[2019-10-07] MEDS: CITALOPRAM HYDROBROMIDE 20 MG TAB PO SCH (09:02)
[2019-10-07] MEDS: glipiZIDE 5 MG TAB PO SCH (09:02)
[2019-10-07] MEDS: PANTOPRAZOLE 40 MG TABLET PO SCH (09:02)
[2019-10-07] MEDS: TAMSULOSIN 0.4 MG CAP.ER.24H PO SCH (09:02)
[2019-10-07] MEDS: ENOXAPARIN 40 MG/0.4 ML SYRINGE SQ SCH (09:03)
[2019-10-07 11:51] LABS: Glucose,Whole Blood 133 mg/dL (75-99)
[2019-10-07 12:21] VITALS: PULSE 90
--- NOTE | 2019-10-07 13:33 | P.DS ---
Providers Date of admission: 10/04/19 23:48 Attending physician: Arcadio Chery Primary care physician: Marine Lubin, [facility] Hospital Course: 69-year-old the female was brought in because of generalized weakness and patient is requiring more assistance than usual patient does have moderate dementia and it appears like patient had some mental status changes as well as today because of which patient was brought in by who takes care of him at home. As per the patient is almost at his baseline at this time. Patient does have sacral decubitus ulcer stage I for which is applying barrier cream. Patient is found to be dehydrated with elevated serum creatinine although patient appears to some chronic kidney disease stage II in the past patient will be started on IV fluids. Patient will is also being treated for UTI although patient denied any symptoms of dysuria or increased urinary frequency patient is able to provide history. Patient denied any suprapubic pain although urine is significant abnormal good and continue the antibiotics for now. Patient is also on digoxin because of which obtained at this level which is within normal limits. 10/06/2019 Patient's creatinine improved patient was evaluated physical therapy and occupational therapy recommended subacute rehab but apparently in the past patient didn't do well with physical therapy didn't follow with physical therapy recommendations and didn't participate in the therapy. Because of covid19 pandemic, cannot visit him which cannot be very good for the patient. Because of which in spite of the physical therapy recommendations patient's wants to take him home with the understanding that his clinical condition is expected to get worse and his functionality will be low. Patient is presently DO NOT RESUSCITATE as per the patient request and the which is also clinically appropriate. Patient is having wheezing does have history of COPD patient will be started on inhalational treatments and inhalational steroids. Patient has significant improvement in serum creatinine compared to yesterday dehydration improved patient will continued on IV fluids for today possibly of discharge tomorrow. 10/07/2019 Patient is clinically doing well patient's serum creatinine remained stable family decided on taking the patient to home with home care. Patient will need a lot of support at home patient has a stage I decubitus ulcer, ulcer preventive measures will be explained to the patient. PHYSICAL EXAMINATION: GENERAL: The patient is alert and oriented x2-3, which is baseline not in any acute distress. Well developed, well nourished. He currently looks much better today HEENT: Pupils are round and equally reacting to light. EOMI. No scleral icterus. No conjunctival pallor. Normocephalic, atraumatic. No pharyngeal erythema. No thyromegaly. CARDIOVASCULAR: S1 and S2 present. No murmurs, rubs, or gallops. PULMONARY: Chest is clear to auscultation, no wheezing or crackles. ABDOMEN: Soft, nontender, nondistended, normoactive bowel sounds. No palpable organomegaly. MUSCULOSKELETAL: No joint swelling or deformity. EXTREMITIES: No cyanosis, clubbing, or pedal edema. NEUROLOGICAL: Gross neurological examination did not reveal any focal deficits. SKIN: Patient has significant skin disease discoloration in the sacral area, stage I sacral ulcer without any skin breakdown. Assessment and Plan Plan: -Generalized weakness, tiredness:: Most probably related to dehydration intravascular 1 admission patient will be started on IV fluids, I cannot completely rule out urinary tract infection at this time patient received 3 days of antibiotics urine cultures showed E. coli which is pansensitive I do not believe patient will require any more antibiotics . Dehydration improved serum creatinine improved to 1.13 -Stage 1 sacral decubitus ulcer: decubitus ulcer precautions -Chronic kidney disease stage II from probably represents nephrosclerosis -Atrial fibrillation patient is presently not on any anticoagulation patient is on digoxin which will be continued and dig levels are within normal limits -Coronary artery disease -COPD with mild acute exacerbation patient will be started on inhaled steroids and inhalational treatments -CVA TIA in the past -Type 2 diabetes mellitus -Dementia moderate etiology of dementia is not clear can be vascular dementia Patient Condition at Discharge: Serious Plan - Discharge Summary New Discharge Prescriptions: New Budesonide [Pulmicort] 0.5 mg INHALATION RT-BID #100 ml Doxycycline Monohydrate [Monodox] 100 mg PO BID 3 Days #6 cap Continue glipiZIDE [Glucotrol] 5 mg PO DAILY Tamsulosin HCl [Flomax] 0.4 mg PO DAILY Aspirin 81 mg PO DAILY Divalproex Sodium [Depakote] 500 mg PO BID Citalopram Hydrobromide [CeleXA] 20 mg PO DAILY Memantine [Namenda] 10 mg PO BID Donepezil [Aricept] 10 mg PO HS Digoxin [Lanoxin] 125 mcg PO DAILY Pantoprazole [Protonix] 40 mg PO AC-BID #0 tablet. Simvastatin [Zocor] 20 mg PO HS Discharge Medication List glipiZIDE [Glucotrol] 5 mg PO DAILY 01/07/14 [History] Aspirin 81 mg PO DAILY 03/28/15 [History] Tamsulosin HCl [Flomax] 0.4 mg PO DAILY 03/28/15 [History] Citalopram Hydrobromide [CeleXA] 20 mg PO DAILY 03/06/16 [History] Divalproex Sodium [Depakote] 500 mg PO BID 03/06/16 [History] Donepezil [Aricept] 10 mg PO HS 11/04/18 [History] Memantine [Namenda] 10 mg PO BID 11/04/18 [History] Digoxin [Lanoxin] 125 mcg PO DAILY 11/19/18 [History] Pantoprazole [Protonix] 40 mg PO AC-BID #0 tablet. 11/21/18 [Rx] Simvastatin [Zocor] 20 mg PO HS 10/05/19 [History] Budesonide [Pulmicort] 0.5 mg INHALATION RT-BID #100 ml 10/07/19 [Rx] Doxycycline Monohydrate [Monodox] 100 mg PO BID 3 Days #6 cap 10/07/19 [Rx] Follow up Appointment(s)/Referral(s): [facility], [NON-STAFF] - As Needed Marine Lubin NPC [Primary Care Provider] - 3 Days (office line busy at time of discharge. please call to make appointment) [facility] [NON-STAFF] - As Needed (nebulizer) Patient Instructions/Handouts: Urinary Tract Infection in Men (DC) Discharge Disposition: HOME SELF-CARE
== END 2019-10-07 14:20 | disposition home or self-care (01) ==
LOC: EC 22:20 → 4SSUR 23:48
PROVIDERS: ADMIT Hospitalist; ATTEND Hospitalist
DX: J44.1 Chronic obstructive pulmonary disease with (acute) exacerbation (principal); E86.0 Dehydration; N39.0 Urinary tract infection, site not specified; Z74.01 Bed confinement status; L89.151 Pressure ulcer of sacral region, stage 1; R53.1 Weakness; R62.7 Adult failure to thrive; I12.9 Hypertensive chronic kidney disease with stage 1 through stage 4 chronic kidney disease, or unspecified chronic kidney disease; E11.22 Type 2 diabetes mellitus with diabetic chronic kidney disease; N18.2 Chronic kidney disease, stage 2 (mild); N17.9 Acute kidney failure, unspecified; Z87.891 Personal history of nicotine dependence; I48.91 Unspecified atrial fibrillation; I48.92 Unspecified atrial flutter; I25.10 Atherosclerotic heart disease of native coronary artery without angina pectoris; Z86.73 Personal history of transient ischemic attack (TIA), and cerebral infarction without residual deficits; E78.5 Hyperlipidemia, unspecified; I25.2 Old myocardial infarction; M19.90 Unspecified osteoarthritis, unspecified site; N40.0 Benign prostatic hyperplasia without lower urinary tract symptoms; F03.90 Unspecified dementia, unspecified severity, without behavioral disturbance, psychotic disturbance, mood disturbance, and anxiety; Z95.5 Presence of coronary angioplasty implant and graft; Z98.890 Other specified postprocedural states; F41.9 Anxiety disorder, unspecified; Z80.8 Family history of malignant neoplasm of other organs or systems; Z83.3 Family history of diabetes mellitus; Z82.49 Family history of ischemic heart disease and other diseases of the circulatory system; Z79.84 Long term (current) use of oral hypoglycemic drugs; Z79.82 Long term (current) use of aspirin; Z79.899 Other long term (current) drug therapy
CPT/HCPCS: 96361 ×2; 96365; 96372 ×2; 96376; 99285; 36415 ×2; 94640 ×4; 93005; 97530 ×2; 97162; 97535; 97166; 86900; 86901; 80164; 83880; 80053; 80048 ×2; 80162; 83605; 83735; 84443; 84484; 85025; 85027 ×2; 85610; 85730; 86850; 81001; 87086; 87077; 87186; 71045; G0378 ×4; J1650 ×2; J0696 ×3

== ENCOUNTER 2020-05-13 19:55 | Inpatient (IN) | payer MEDICARE ==
[2020-05-13 20:06] LABS: Glucose,Whole Blood 513 mg/dL (75-99)
[2020-05-13] MEDS ORDERED: SODIUM CHLORIDE 0.9% 1,000 ML IV STA (20:26)
--- NOTE | 2020-05-13 20:43 | XR ---
EXAMINATION TYPE: XR chest 1V portable DATE OF EXAM: 05/13/2020 COMPARISON: 10/04/2019 HISTORY: Shortness of breath TECHNIQUE: Single frontal view of the chest is obtained. FINDINGS: There is a partially consolidative opacity in the left lung base is consistent with an acu te pneumonic process/pneumonia. The right lung is clear. There is no pneumothorax or pleural effusion. Heart size is normal and the pulmonary vasculature is n ot congested. The osseous structures are intact. IMPRESSION: Partially consolidative opacity in the left lung base consistent with acute cardiopulmon nixon disease.
[2020-05-13 20:47] LABS: Albumin 2.3 g/dL (3.5-5.0); Calcium 9.5 mg/dL (8.4-10.2); Magnesium 2.4 mg/dL (1.6-2.3); Potassium 5.5 mmol/L (3.5-5.1); Total Bilirubin 0.2 mg/dL (0.2-1.3); Total Protein 5.1 g/dL (6.3-8.2)
[2020-05-13] MEDS ORDERED: AZITHROMYCIN 500 MG in SODIUM CHLORIDE 0.9% 250 ML IVPB STA (20:50)
[2020-05-13] MEDS ORDERED: cefTRIAXone IN SWFI 1,000 MG/10 ML SYRINGE IVP STA (20:50)
[2020-05-13 20:51] LABS: HCT 28.6 % (39.0-53.0); HGB 8.3 gm/dL (13.0-17.5); Hypochromasia Marked; MCH 30.2 pg (25.0-35.0); MCHC 28.8 g/dL (31.0-37.0); MCV 104.8 fL (80.0-100.0); Macrocytosis Moderate; Mean Platelet Volume 8.9; Platelet Count 287 k/uL (150-450); RBC 2.73 m/uL (4.30-5.90); RDW 14.7 % (11.5-15.5); WBC 10.2 k/uL (3.8-10.6)
[2020-05-13 21:03] LABS: INR 1.1 (<1.2); Prothrombin Time 11.3 sec (9.0-12.0)
[2020-05-13 21:13] LABS: Band Neutrophils % 13 %; Lymphocytes # (M) 1.94 k/uL (1.0-4.8); Metamyelocytes % 1 %; Monocytes # (M) 1.33 k/uL (0-1.0); Neutrophils % (M) 52 %; Nucleated Red Blood Cells 0 /100 WBC (0-0); Total Cells Counted 100
--- NOTE | 2020-05-13 21:15 | CT ---
EXAMINATION TYPE: CT brain wo con DATE OF EXAM: 05/13/2020 COMPARISON: 11/25/2017 HISTORY: Cardiac arrest CT DLP: 1159.4 mGycm Automated exposure control for dose reduction was used. FINDINGS: The ventricles, basal cisterns and sulci over convexities are moderately enlarged consistent with mod erate generalized generative change. There is an area of subpleural malacia in the right occipital lobe which was seen previously and is c onsistent with a remote infarct. There is no mass effect or shift of midline structures. There is no acute intra or extra-axial hemorrhage. Posterior fossa including the brainstem, fourth ventricle and cerebellar pontine angles are grossly n ormal. There are inflammatory changes in maxillary sinuses. The intraorbital contents appear normal and symm etric. IMPRESSION: 1. No change in the remote ischemic infarct in the right occipital lobe. 2. No evidence of acute bleed or mass effect. 3. Inflammatory changes in the maxillary sinuses.
[2020-05-13 21:33] LABS: Allen Test Performed? Yes
[2020-05-13 21:34] LABS: ABG HCO3 21 mmol/L (21-25); ABG PCO2 52 mmHg (35-45); ABG PH 7.21 (7.35-7.45); ABG PO2 >400 mmHg (83-108)
[2020-05-13 21:35] LABS: ABG Base Excess -7.2 mmol/L; ABG Oxygen Saturation 99.6 % (94-97); ABG TCO2 22 mmol/L (19-24)
[2020-05-13] MEDS ORDERED: SODIUM CHLORIDE 0.9% 1,000 ML IV ONE (22:06)
[2020-05-13] MEDS ORDERED: ACETAMINOPHEN TAB 325 MG TAB PO PRN (22:39)
[2020-05-13] MEDS ORDERED: NALOXONE 0.4 MG/ML 1 ML VIAL IV PRN (22:39)
[2020-05-13] MEDS ORDERED: DEXAMETHASONE SOD PHOSPHATE 10 MG/ML 1 ML VIAL IV STA (22:46)
--- NOTE | 2020-05-13 22:47 | ED ---
General Adult HPI - General Chief complaint: Cardiac Arrest/CPR Stated complaint: Cardiac Arrest Time Seen by Provider: 05/13/20 20:00 Source: family, EMS Mode of arrival: EMS Limitations: altered mental status - History of Present Illness Initial comments: Patient is a 70-year-old male with multiple medical conditions including stroke, COPD on 3 L of home O2 and A. fib who presents to the emergency department with respiratory arrest. is at bedside and helps provide history. States that the patient was last acting himself around 10 AM. She left the house and came back to find the patient confused. She states she put a pulse ox on his finger and it was 70%. She checked to make sure that his oxygen was working. Because of his altered mental status she called EMS. They arrived to the house to find the patient lethargic. Patient was minimally breathing. Glucose found to be high. He was known previously to have a signed DO NOT RESUSCITATE however was insistent that she wanted everything done for the patient excluding isiah sions. EMS placed the patient into the ambulance and he ended up intermittently losing pulses. Patient was intubated by them with an ET tube, 26 cm at the teeth and they transcutaneously pace the patient. No compressions were performed. Patient arrives unresponsive, being bagged through the ET tube with a tachycardic pulse. states that the patient has had a decline in his dementia and has been very aggressive at home. The remainder of the HPI is limited as the patient is unresponsive - Related Data Home Medications Medication Instructions Recorded Confirmed glipiZIDE [Glucotrol] 5 mg PO DAILY 01/07/14 05/13/20 Aspirin 81 mg PO DAILY 03/28/15 05/13/20 Tamsulosin HCl [Flomax] 0.4 mg PO DAILY 03/28/15 05/13/20 Citalopram Hydrobromide [CeleXA] 20 mg PO DAILY 03/06/16 05/13/20 Divalproex Sodium [Depakote] 500 mg PO BID 03/06/16 05/13/20 Donepezil [Aricept] 10 mg PO DAILY 11/04/18 05/13/20 Memantine [Namenda] 10 mg PO BID 11/04/18 05/13/20 Digoxin [Lanoxin] 125 mcg PO DAILY 11/19/18 05/13/20 Simvastatin [Zocor] 20 mg PO HS 10/05/19 05/13/20 Ferrous Sulfate [Feosol] 325 mg PO BID 05/13/20 05/13/20 Multivitamins, Thera [Multivitamin 1 tab PO DAILY 05/13/20 05/13/20 (formulary)] Allergies Allergy/AdvReac Type Severity Reaction Status Date / Time No Known Allergies Allergy Verified 10/05/19 10:21 Review of Systems ROS Statement: Those systems with pertinent positive or pertinent negative responses have been documented in the HPI. ROS Other: All systems not noted in ROS Statement are negative. Past Medical History Past Medical History: Atrial Fibrillation, Atrial Flutter, Coronary Artery Disease (CAD), COPD, CVA/TIA, Diabetes Mellitus, Hyperlipidemia, Hypertension, Myocardial Infarction (MD), Osteoarthritis (OA) Additional Past Medical History / Comment(s): Bilateral carotid artery disease, BPH, dementia Last Myocardial Infarction Date:: 2011 History of Any Multi-Drug Resistant Organisms: None Reported Past Surgical History: Heart Catheterization With Stent Additional Past Surgical History / Comment(s): Neck surgery, bilateral carotid surgery Past Anesthesia/Blood Transfusion Reactions: No Reported Reaction Additional Past Anesthesia/Blood Transfusion Reaction / Comment(s): Pt has received blood in past without reaction. Date of Last Stent Placement:: 2011 Past Psychological History: Anxiety Smoking Status: Former smoker Past Alcohol Use History: None Reported Past Drug Use History: None Reported - Past Family History Brother(s) Family Medical History: Cancer, Diabetes Mellitus Additional Family Medical History / Comment(s): One brother from cancer in his spine. Another brother recently from diabetic complications. Father Family Medical History: Coronary Artery Disease (CAD) Mother Family Medical History: Coronary Artery Disease (CAD), Diabetes Mellitus General Exam Limitations: altered mental status General appearance: obtunded, cachectic Pupils: Present: mydriatic ENT exam: Present: mucous membranes dry, other (et tube 23 cm at lips) Respiratory exam: Present: other (coarse breath sounds bilaterally. Pt being bagged) Cardiovascular Exam: Present: normal rhythm, tachycardia GI/Abdominal exam: Present: soft, normal bowel sounds. Absent: distended, tenderness, guarding, rebound, rigid Extremities exam: Present: other (no spontanous movements) Neurological exam: Present: altered, other (no gag. Patient unresponsive to painful stimuli) Skin exam: Present: pallor, mottled Course Vital Signs 05/13/20 05/13/20 05/13/20 19:58 20:40 20:50 Temperature 96.1 F L Pulse Rate 121 H 112 H 114 H Pulse Rate [ Account Associate ] Respiratory 12 12 12 Rate Blood Pressure 94/64 104/65 113/100 O2 Sat by Pulse 100 99 100 Oximetry 05/13/20 05/13/20 05/13/20 21:20 21:30 21:40 Temperature Pulse Rate 103 H 102 H 101 H Pulse Rate [ Account Associate ] Respiratory 12 12 12 Rate Blood Pressure 85/45 92/42 80/27 O2 Sat by Pulse 96 100 96 Oximetry 05/13/20 05/13/20 05/13/20 21:50 22:00 22:15 Temperature Pulse Rate 106 H 105 H 101 H Pulse Rate [ Account Associate ] Respiratory 12 12 12 Rate Blood Pressure 85/45 92/42 80/27 O2 Sat by Pulse 100 99 99 Oximetry 05/13/20 05/13/20 05/13/20 22:30 22:45 23:00 Temperature Pulse Rate 105 H 105 H 98 Pulse Rate [ Account Associate ] Respiratory 12 12 Rate Blood Pressure 69/45 90/71 101/69 O2 Sat by Pulse 94 L 90 L 99 Oximetry 05/13/20 05/13/20 05/13/20 23:04 23:15 23:21 Temperature 97.3 F L Pulse Rate 98 103 H Pulse Rate [ 101 H Account Associate ] Respiratory 12 12 35 H Rate Blood Pressure 103/46 108/47 O2 Sat by Pulse 100 100 Oximetry 05/13/20 05/13/20 05/14/20 23:30 23:45 00:00 Temperature Pulse Rate 101 H 105 H 105 H Pulse Rate [ 102 H Account Associate ] Respiratory 35 H 35 H 33 H Rate Blood Pressure 123/50 87/51 O2 Sat by Pulse 100 100 100 Oximetry 05/14/20 00:15 Temperature Pulse Rate 113 H Pulse Rate [ Account Associate ] Respiratory 23 Rate Blood Pressure O2 Sat by Pulse Oximetry EKG Findings - EKG Comments: EKG Findings:: K demonstrates an accelerated junctional rhythm. Rate of 111. QRS 74. QTC of 41. ST segment depression in 2, 3, aVF as well as V3 through V6 Medical Decision Making - Medical Decision Making Upon arrival patient is probably placed in the trauma bay 1. A thorough physical exam was performed. Patient is already intubated. He maintains his own blood pressure and pulse. I did bring the to bedside. Discussed the critical nature of the patient's condition and the fact that he had previously signed DO NOT RESUSCITATE paperwork. is originally requesting all resuscitative efforts however I explained to her that the patient has nonreactive pupils and is not sedated on the vent. I did conduct laboratory studies. Patient is swabbed for Covan. Lactic acid comes back at 9.1. Troponin 0.102. Urinalysis grossly infected. Covid is detected. Patient was given 3 L bolus of normal saline followed by 130 mL/h. Patient given a dose of Rocephin and azithromycin. Portable chest x-ray demonstrates that the tube is in appropriate position. Patient maintained saturations of 100%. He does maintain his blood pressure. Heart rate does improve. is informed of the patient's test results. He continues to remain without any spontaneous movements. Pupils remained pinpoint. At this time the patient will have no escalation of care and the did agree to this. Patient is DO NOT RESUSCITATE. refuses central line and pressors. No cardioversion. I did discuss comfort care measures and extubation however does not want this performed at this time. I did discuss the case with Dr. Rangel. Case also discussed with Dr. Wise. Patient will remain on the vent at this time without any escalation of care - Lab Data Result diagrams: 05/14/20 03:34 05/14/20 03:34 Lab Results 05/13/20 05/13/20 05/13/20 Range/Units 20:00 20:28 20:28 WBC 10.2 (3.8-10.6) k/uL RBC 2.73 L (4.30-5.90) m/uL Hgb 8.3 L (13.0-17.5) gm/dL Hct 28.6 L (39.0-53.0) % MCV 104.8 H (80.0-100.0) fL MCH 30.2 (25.0-35.0) pg MCHC 28.8 L (31.0-37.0) g/dL RDW 14.7 (11.5-15.5) % Plt Count 287 (150-450) k/uL MPV 8.9 Neutrophils % (Manual) 52 % Band Neuts % (Manual) 13 % Lymphocytes % (Manual) 19 % Monocytes % (Manual) 13 % Eosinophils % (Manual) 2 % Metamyelocytes % 1 % Neutrophils # (Manual) 6.60 (1.3-7.7) k/uL Lymphocytes # (Manual) 1.94 (1.0-4.8) k/uL Monocytes # (Manual) 1.33 H (0-1.0) k/uL Eosinophils # (Manual) 0.20 (0-0.7) k/uL Metamyelocytes # (Man) 0.10 H (0) k/uL Nucleated RBCs 0 (0-0) /100 WBC Manual Slide Review Performed Hypochromasia Marked Macrocytosis Moderate PT 11.3 (9.0-12.0) sec INR 1.1 (<1.2) APTT 25.0 (22.0-30.0) sec Sample Site ABG pH (7.35-7.45) ABG pCO2 (35-45) mmHg ABG pO2 (83-108) mmHg ABG HCO3 (21-25) mmol/L ABG Total CO2 (19-24) mmol/L ABG O2 Saturation (94-97) % ABG Base Excess mmol/L Luis Test FiO2 % Sodium (137-145) mmol/L Potassium (3.5-5.1) mmol/L Chloride (98-107) mmol/L Carbon Dioxide (22-30) mmol/L Anion Gap mmol/L BUN (9-20) mg/dL Creatinine (0.66-1.25) mg/dL Est GFR (CKD-EPI)AfAm (>60 ml/min/1.73 sqM) Est GFR (CKD-EPI)NonAf (>60 ml/min/1.73 sqM) Glucose (74-99) mg/dL POC Glucose (mg/dL) 513 H (75-99) mg/dL POC Glu [employer] Superintendent ID Myra Odom Lactic Ac Sepsis Rflx Plasma Lactic Acid Hieu (0.7-2.0) mmol/L Calcium (8.4-10.2) mg/dL Magnesium (1.6-2.3) mg/dL Total Bilirubin (0.2-1.3) mg/dL AST (17-59) U/L ALT (4-49) U/L Alkaline Phosphatase (38-126) U/L Creatine Kinase (55-170) U/L Troponin I (0.000-0.034) ng/mL NT-Pro-B Natriuret Pep pg/mL Total Protein (6.3-8.2) g/dL Albumin (3.5-5.0) g/dL Urine Color Urine Appearance (Clear) Urine pH (5.0-8.0) Ur Specific [place] (1.001-1.035) Urine Protein (Negative) Urine Glucose (UA) (Negative) Urine Ketones (Negative) Urine Blood (Negative) Urine Nitrite (Negative) Urine Bilirubin (Negative) Urine Urobilinogen (<2.0) mg/dL Ur Leukocyte Esterase (Negative) Urine RBC (0-5) /hpf Urine WBC (0-5) /hpf Urine WBC Clumps (None) /hpf Ur Squamous Epith Cells (0-4) /hpf Urine Bacteria (None) /hpf Hyaline Casts (0-2) /lpf Valproic Acid ug/mL Coronavirus (PCR) (Not Detectd) 05/13/20 05/13/20 05/13/20 Range/Units 20:28 20:28 20:28 WBC (3.8-10.6) k/uL RBC (4.30-5.90) m/uL Hgb (13.0-17.5) gm/dL Hct (39.0-53.0) % MCV (80.0-100.0) fL MCH (25.0-35.0) pg MCHC (31.0-37.0) g/dL RDW (11.5-15.5) % Plt Count (150-450) k/uL MPV Neutrophils % (Manual) % Band Neuts % (Manual) % Lymphocytes % (Manual) % Monocytes % (Manual) % Eosinophils % (Manual) % Metamyelocytes % % Neutrophils # (Manual) (1.3-7.7) k/uL Lymphocytes # (Manual) (1.0-4.8) k/uL Monocytes # (Manual) (0-1.0) k/uL Eosinophils # (Manual) (0-0.7) k/uL Metamyelocytes # (Man) (0) k/uL Nucleated RBCs (0-0) /100 WBC Manual Slide Review Hypochromasia Macrocytosis PT (9.0-12.0) sec INR (<1.2) APTT (22.0-30.0) sec Sample Site ABG pH (7.35-7.45) ABG pCO2 (35-45) mmHg ABG pO2 (83-108) mmHg ABG HCO3 (21-25) mmol/L ABG Total CO2 (19-24) mmol/L ABG O2 Saturation (94-97) % ABG Base Excess mmol/L Luis Test FiO2 % Sodium 137 (137-145) mmol/L Potassium 5.5 H (3.5-5.1) mmol/L Chloride 103 (98-107) mmol/L Carbon Dioxide 23 (22-30) mmol/L Anion Gap 11 mmol/L BUN 55 H (9-20) mg/dL Creatinine 1.04 (0.66-1.25) mg/dL Est GFR (CKD-EPI)AfAm 83 (>60 ml/min/1.73 sqM) Est GFR (CKD-EPI)NonAf 72 (>60 ml/min/1.73 sqM) Glucose 479 H (74-99) mg/dL POC Glucose (mg/dL) (75-99) mg/dL POC Glu [employer] ID Lactic Ac Sepsis Rflx Plasma Lactic Acid Hieu 9.1 H* (0.7-2.0) mmol/L Calcium 9.5 (8.4-10.2) mg/dL Magnesium 2.4 H (1.6-2.3) mg/dL Total Bilirubin 0.2 (0.2-1.3) mg/dL AST 40 (17-59) U/L ALT 24 (4-49) U/L Alkaline Phosphatase 84 (38-126) U/L Creatine Kinase 302 H (55-170) U/L Troponin I 0.102 H* (0.000-0.034) ng/mL NT-Pro-B Natriuret Pep pg/mL Total Protein 5.1 L (6.3-8.2) g/dL Albumin 2.3 L (3.5-5.0) g/dL Urine Color Urine Appearance (Clear) Urine pH (5.0-8.0) Ur Specific [place] (1.001-1.035) Urine Protein (Negative) Urine Glucose (UA) (Negative) Urine Ketones (Negative) Urine Blood (Negative) Urine Nitrite (Negative) Urine Bilirubin (Negative) Urine Urobilinogen (<2.0) mg/dL Ur Leukocyte Esterase (Negative) Urine RBC (0-5) /hpf Urine WBC (0-5) /hpf Urine WBC Clumps (None) /hpf Ur Squamous Epith Cells (0-4) /hpf Urine Bacteria (None) /hpf Hyaline Casts (0-2) /lpf Valproic Acid ug/mL Coronavirus (PCR) (Not Detectd) 05/13/20 05/13/20 05/13/20 Range/Units 20:28 20:28 20:28 WBC (3.8-10.6) k/uL RBC (4.30-5.90) m/uL Hgb (13.0-17.5) gm/dL Hct (39.0-53.0) % MCV (80.0-100.0) fL MCH (25.0-35.0) pg MCHC (31.0-37.0) g/dL RDW (11.5-15.5) % Plt Count (150-450) k/uL MPV Neutrophils % (Manual) % Band Neuts % (Manual) % Lymphocytes % (Manual) % Monocytes % (Manual) % Eosinophils % (Manual) % Metamyelocytes % % Neutrophils # (Manual) (1.3-7.7) k/uL Lymphocytes # (Manual) (1.0-4.8) k/uL Monocytes # (Manual) (0-1.0) k/uL Eosinophils # (Manual) (0-0.7) k/uL Metamyelocytes # (Man) (0) k/uL Nucleated RBCs (0-0) /100 WBC Manual Slide Review Hypochromasia Macrocytosis PT (9.0-12.0) sec INR (<1.2) APTT (22.0-30.0) sec Sample Site ABG pH (7.35-7.45) ABG pCO2 (35-45) mmHg ABG pO2 (83-108) mmHg ABG HCO3 (21-25) mmol/L ABG Total CO2 (19-24) mmol/L ABG O2 Saturation (94-97) % ABG Base Excess mmol/L Luis Test FiO2 % Sodium (137-145) mmol/L Potassium (3.5-5.1) mmol/L Chloride (98-107) mmol/L Carbon Dioxide (22-30) mmol/L Anion Gap mmol/L BUN (9-20) mg/dL Creatinine (0.66-1.25) mg/dL Est GFR (CKD-EPI)AfAm (>60 ml/min/1.73 sqM) Est GFR (CKD-EPI)NonAf (>60 ml/min/1.73 sqM) Glucose (74-99) mg/dL POC Glucose (mg/dL) (75-99) mg/dL POC Glu [employer] ID Lactic Ac Sepsis Rflx Plasma Lactic Acid Hieu (0.7-2.0) mmol/L Calcium (8.4-10.2) mg/dL Magnesium (1.6-2.3) mg/dL Total Bilirubin (0.2-1.3) mg/dL AST (17-59) U/L ALT (4-49) U/L Alkaline Phosphatase (38-126) U/L Creatine Kinase (55-170) U/L Troponin I (0.000-0.034) ng/mL NT-Pro-B Natriuret Pep 4230 pg/mL Total Protein (6.3-8.2) g/dL Albumin (3.5-5.0) g/dL Urine Color Urine Appearance (Clear) Urine pH (5.0-8.0) Ur Specific [place] (1.001-1.035) Urine Protein (Negative) Urine Glucose (UA) (Negative) Urine Ketones (Negative) Urine Blood (Negative) Urine Nitrite (Negative) Urine Bilirubin (Negative) Urine Urobilinogen (<2.0) mg/dL Ur Leukocyte Esterase (Negative) Urine RBC (0-5) /hpf Urine WBC (0-5) /hpf Urine WBC Clumps (None) /hpf Ur Squamous Epith Cells (0-4) /hpf Urine Bacteria (None) /hpf Hyaline Casts (0-2) /lpf Valproic Acid 59.1 ug/mL Coronavirus (PCR) Detected A (Not Detectd) 05/13/20 05/13/20 05/13/20 Range/Units 20:51 21:25 21:55 WBC (3.8-10.6) k/uL RBC (4.30-5.90) m/uL Hgb (13.0-17.5) gm/dL Hct (39.0-53.0) % MCV (80.0-100.0) fL MCH (25.0-35.0) pg MCHC (31.0-37.0) g/dL RDW (11.5-15.5) % Plt Count (150-450) k/uL MPV Neutrophils % (Manual) % Band Neuts % (Manual) % Lymphocytes % (Manual) % Monocytes % (Manual) % Eosinophils % (Manual) % Metamyelocytes % % Neutrophils # (Manual) (1.3-7.7) k/uL Lymphocytes # (Manual) (1.0-4.8) k/uL Monocytes # (Manual) (0-1.0) k/uL Eosinophils # (Manual) (0-0.7) k/uL Metamyelocytes # (Man) (0) k/uL Nucleated RBCs (0-0) /100 WBC Manual Slide Review Hypochromasia Macrocytosis PT (9.0-12.0) sec INR (<1.2) APTT (22.0-30.0) sec Sample Site LBrach ABG pH 7.21 L (7.35-7.45) ABG pCO2 52 H (35-45) mmHg ABG pO2 >400 H (83-108) mmHg ABG HCO3 21 (21-25) mmol/L ABG Total CO2 22 (19-24) mmol/L ABG O2 Saturation 99.6 H (94-97) % ABG Base Excess -7.2 mmol/L Luis Test Yes FiO2 100 % Sodium (137-145) mmol/L Potassium (3.5-5.1) mmol/L Chloride (98-107) mmol/L Carbon Dioxide (22-30) mmol/L Anion Gap mmol/L BUN (9-20) mg/dL Creatinine (0.66-1.25) mg/dL Est GFR (CKD-EPI)AfAm (>60 ml/min/1.73 sqM) Est GFR (CKD-EPI)NonAf (>60 ml/min/1.73 sqM) Glucose (74-99) mg/dL POC Glucose (mg/dL) (75-99) mg/dL POC Glu [employer] Superintendent ID Lactic Ac Sepsis Rflx Y Plasma Lactic Acid Hieu (0.7-2.0) mmol/L Calcium (8.4-10.2) mg/dL Magnesium (1.6-2.3) mg/dL Total Bilirubin (0.2-1.3) mg/dL AST (17-59) U/L ALT (4-49) U/L Alkaline Phosphatase (38-126) U/L Creatine Kinase (55-170) U/L Troponin I (0.000-0.034) ng/mL NT-Pro-B Natriuret Pep pg/mL Total Protein (6.3-8.2) g/dL Albumin (3.5-5.0) g/dL Urine Color Yellow Urine Appearance Turbid (Clear) Urine pH 5.5 (5.0-8.0) Ur Specific [place] 1.017 (1.001-1.035) Urine Protein 2+ H (Negative) Urine Glucose (UA) 4+ H (Negative) Urine Ketones Negative (Negative) Urine Blood Moderate H (Negative) Urine Nitrite Negative (Negative) Urine Bilirubin Negative (Negative) Urine Urobilinogen <2.0 (<2.0) mg/dL Ur Leukocyte Esterase Large H (Negative) Urine RBC 29 H (0-5) /hpf Urine WBC >182 H (0-5) /hpf Urine WBC Clumps Many H (None) /hpf Ur Squamous Epith Cells 2 (0-4) /hpf Urine Bacteria Many H (None) /hpf Hyaline Casts 17 H (0-2) /lpf Valproic Acid ug/mL Coronavirus (PCR) (Not Detectd) Critical Care Time Critical Care Time: Yes Critical Care Time: 32 minutes Disposition Clinical Impression: NSTEMI (non-ST elevated myocardial infarction), Lactic acid acidosis, Ventilator dependence, COVID-19 Disposition: ADMITTED IP TO THIS HOSP Is patient prescribed a controlled substance at d/c from ED?: No Decision to Admit Reason: Admit from EC Decision Date: 05/13/20 Decision Time: 22:47
[2020-05-13 23:09] LABS: Appearance,Urine Turbid (Clear); Bacteria,Urine Many /hpf; Bilirubin,Urine Negative (Negative); Blood,Urine Moderate (Negative); Color,Urine Yellow; Glucose,Urine (UA) 4+ (Negative); Hyaline Casts,Urine 17 /lpf (0-2); Ketones,Urine Negative (Negative); Leukocyte Esterase,Urine Large (Negative); Nitrite,Urine Negative (Negative); PH, Urine 5.5 (5.0-8.0); Protein,Urine 2+ (Negative); RBC,Urine 29 /hpf (0-5); Specific Gravity,Urine 1.017 (1.001-1.035); Squamous Epithelial Cell,Urine 2 /hpf (0-4); Urobilinogen,Urine <2.0 mg/dL (<2.0); WBC,Urine >182 /hpf (0-5)
[2020-05-13] MEDS: SODIUM CHLORIDE 0.9% 1,000 ML IV SCH (23:20)
[2020-05-14 00:14] LABS: Glucose,Whole Blood 406 mg/dL (75-99)
[2020-05-14] MEDS ORDERED: INSULIN REGULAR BOLUS (FROM DRIP BAG) IV PRN (00:45)
[2020-05-14] MEDS ORDERED: propofoL 100 ML IV ONE (00:49)
[2020-05-14] MEDS ORDERED: INSULIN REGULAR 100 UNIT in SODIUM CHLORIDE 0.9% 100 ML IV SCH (01:00)
[2020-05-14] MEDS ORDERED: SODIUM CHLORIDE 0.9% 1,000 ML IV ONE (01:32)
[2020-05-14 01:51] LABS: Glucose,Whole Blood 470 mg/dL (75-99)
[2020-05-14 01:51] LABS: Glucose,Whole Blood 460 mg/dL (75-99)
[2020-05-14 02:42] LABS: Glucose,Whole Blood 392 mg/dL (75-99)
[2020-05-14 03:42] LABS: Glucose,Whole Blood 350 mg/dL (75-99)
--- NOTE | 2020-05-14 03:58 | P.HPIM ---
History of Present Illness H&P Date: 05/14/20 Chief Complaint: hypoxemia 70 year old male with dementia, bed bound, history of COPD on 3 L NC, afib patient was brought in by EMS. is providing the history , he was last seen normal around 10 in the morning Patient was the caregiver Had to leave the home to run some errands, when she came back home she found him altered she checked his oxygen level with a pu lse ox and found him to be hypoxic in the 70s, he was lethargic she notified EMS who found him in respiratory arrest and has intubated the patient and site. Patient had signed DO NOT RESUSCITATE papers in the past however the wanted everything done at this time but no chest compressions, this seems like and Route patient was losing pulse intermittently and EMS was pacing him transcutaneously when he loses pulse otherwise they were bagging him until he arrived Patient was intubated upon arrival unable to provide any history, he was not sedated but is not waking up. His pupils were not reactive but pinpoint computed tomography scan of the head showed no acute pathology. ER had discussi on with the patient and agreed on no escalation of care no chest compressions no central line no pressors. However patient did not agree on comfort measures at this time. Patient is currently seen in the ER no sedation no pressors he is currently intubated on vent support full catheter in place no urine output. Chest x-ray showed infiltrates Covid testing came back positive Patient works at the [employer] she had Covid earlier in April and had to stay quarantined up until about a week ago, she feels better now and back to work Review of Systems ROS unobtainable: due to endotracheal tube Past Medical History Past Medical History: Atrial Fibrillation, Atrial Flutter, Coronary Artery Disease (CAD), COPD, CVA/TIA, Diabetes Mellitus, Hyperlipidemia, Hypertension, Myocardial Infarction (AR), Osteoarthritis (OA) Additional Past Medical History / Comment(s): Bilateral carotid artery disease, BPH, dementia Last Myocardial Infarction Date:: 2011 History of Any Multi-Drug Resistant Organisms: None Reported Past Surgical History: Heart Catheterization With Stent Additional Past Surgical History / Comment(s): Neck surgery, bilateral carotid surgery Past Anesthesia/Blood Transfusion Reactions: No Reported Reaction Additional Past Anesthesia/Blood Transfusion Reaction / Comment(s): Pt has received blood in past without reaction. Date of Last Stent Placement:: 2011 Past Psychological History: Anxiety Smoking Status: Former smoker Past Alcohol Use History: None Reported Past Drug Use History: None Reported - Past Family History Brother(s) Family Medical History: Cancer, Diabetes Mellitus Additional Family Medical History / Comment(s): One brother from cancer in his spine. Another brother recently from diabetic complications. Father Family Medical History: Coronary Artery Disease (CAD) Mother Family Medical History: Coronary Artery Disease (CAD), Diabetes Mellitus Medications and Allergies Home Medications Medication Instructions Recorded Confirmed Type glipiZIDE [Glucotrol] 5 mg PO DAILY 01/07/14 05/13/20 History Aspirin 81 mg PO DAILY 03/28/15 05/13/20 History Tamsulosin HCl [Flomax] 0.4 mg PO DAILY 03/28/15 05/13/20 History Citalopram Hydrobromide [CeleXA] 20 mg PO DAILY 03/06/16 05/13/20 History Divalproex Sodium [Depakote] 500 mg PO BID 03/06/16 05/13/20 History Donepezil [Aricept] 10 mg PO DAILY 11/04/18 05/13/20 History Memantine [Namenda] 10 mg PO BID 11/04/18 05/13/20 History Digoxin [Lanoxin] 125 mcg PO DAILY 11/19/18 05/13/20 History Simvastatin [Zocor] 20 mg PO HS 10/05/19 05/13/20 History Ferrous Sulfate [Feosol] 325 mg PO BID 05/13/20 05/13/20 History Multivitamins, Thera [Multivitamin 1 tab PO DAILY 05/13/20 05/13/20 History (formulary)] Allergies Allergy/AdvReac Type Severity Reaction Status Date / Time No Known Allergies Allergy Verified 10/05/19 10:21 Physical Exam Vitals: Vital Signs Temp Pulse Pulse Resp BP Pulse Ox 05/14/20 02:00 98 34 H 91/46 99 05/14/20 01:45 105 H 36 H 87/30 98 05/14/20 01:30 101 H 34 H 92/49 95 05/14/20 01:15 106 H 35 H 73/50 97 05/14/20 01:00 102 H 33 H 84/66 96 05/14/20 00:45 102 H 34 H 117/63 97 05/14/20 00:30 109 H 32 H 111/93 99 05/14/20 00:15 113 H 23 05/14/20 00:00 105 H 102 H 33 H 87/51 100 05/13/20 23:45 105 H 35 H 123/50 100 05/13/20 23:30 101 H 35 H 100 05/13/20 23:21 103 H 35 H 108/47 100 05/13/20 23:15 97.3 F L 98 12 103/46 100 05/13/20 23:04 101 H 12 05/13/20 23:00 98 12 101/69 99 05/13/20 22:45 105 H 12 90/71 90 L 05/13/20 22:30 105 H 12 69/45 94 L 05/13/20 22:15 101 H 12 80/27 99 05/13/20 22:00 105 H 12 92/42 99 05/13/20 21:50 106 H 12 85/45 100 05/13/20 21:40 101 H 12 80/27 96 05/13/20 21:30 102 H 12 92/42 100 05/13/20 21:20 103 H 12 85/45 96 05/13/20 20:50 114 H 12 113/100 100 05/13/20 20:40 112 H 12 104/65 99 05/13/20 19:58 96.1 F L 121 H 12 94/64 100 Intake and Output 05/13/20 05/13/20 05/14/20 14:59 22:59 06:59 Intake Total 1260 Output Total 60 Balance 1200 Intake: IV 1260 Sodium Chloride 0.9% 1, 260 000 ml @ 130 mls/hr IV . Q7H42M [facility] Rx#:[id number] Sodium Chloride 0.9% 1, 1000 000 ml @ 999 mls/hr IV . Q1H1M ONE Rx#:[id number] Output: Urine 60 Other: Voiding Method Indwelling Catheter Weight 54.4 kg Constitutional: Unresponsive, intubated, no sedation Eyes: Anicteric sclerae, moist conjunctiva, Pupils equal pinpoint not reactive ENMT: NC/AT ET tube in place Neck: no masses, or JVD No carotid bruits No thyromegaly Lungs: Clear to auscultation Clear to percussion Normal respiratory effort, no accessory muscle use Cardiovascular: Heart regular in rate and rhythm, No murmurs, gallops, or rubs No peripheral edema Abdominal: Soft Nontender, no guarding, rebound or rigidity Abdomen moving with respiration Normoactive bowel sounds No hepatomegaly, No splenomegaly No palpable mass No abdominal wall hernia noted Skin: Patient has right decubitus ulcer present on admission with slight surrounding erythema no induration, otherwise Normal temperature, tone, texture, turgor Cold extremities to the touch Extremities: No digital cyanosis No clubbing Pedal pulses weak and symmetrical Radial pulses intact and symmetrical Psychiatric: Unresponsive, intubated on mechanical ventilation. No sedation Neuro unable to assess at this time patient intubated currently not sedated however pupils are not reactive to light pinpoint at this time Lymphatics: no palpable cervical or supraclavicular , or inguinal lymph nodes Results CBC & Chem 7: 05/13/20 20:28 05/13/20 20:28 Labs: Abnormal Lab Results - Last 24 Hours (Table) 05/13/20 05/13/20 05/13/20 Range/Units 20:00 20:28 20:28 RBC 2.73 L (4.30-5.90) m/uL Hgb 8.3 L (13.0-17.5) gm/dL Hct 28.6 L (39.0-53.0) % MCV 104.8 H (80.0-100.0) fL MCHC 28.8 L (31.0-37.0) g/dL Monocytes # (Manual) 1.33 H (0-1.0) k/uL Metamyelocytes # (Man) 0.10 H (0) k/uL ABG pH (7.35-7.45) ABG pCO2 (35-45) mmHg ABG pO2 (83-108) mmHg ABG O2 Saturation (94-97) % Potassium 5.5 H (3.5-5.1) mmol/L BUN 55 H (9-20) mg/dL Glucose 479 H (74-99) mg/dL POC Glucose (mg/dL) 513 H (75-99) mg/dL Plasma Lactic Acid Hieu (0.7-2.0) mmol/L Magnesium 2.4 H (1.6-2.3) mg/dL Creatine Kinase 302 H (55-170) U/L Troponin I (0.000-0.034) ng/mL Total Protein 5.1 L (6.3-8.2) g/dL Albumin 2.3 L (3.5-5.0) g/dL Urine Protein (Negative) Urine Glucose (UA) (Negative) Urine Blood (Negative) Ur Leukocyte Esterase (Negative) Urine RBC (0-5) /hpf Urine WBC (0-5) /hpf Urine WBC Clumps (None) /hpf Urine Bacteria (None) /hpf Hyaline Casts (0-2) /lpf Coronavirus (PCR) (Not Detectd) 05/13/20 05/13/20 05/13/20 Range/Units 20:28 20:28 20:28 RBC (4.30-5.90) m/uL Hgb (13.0-17.5) gm/dL Hct (39.0-53.0) % MCV (80.0-100.0) fL MCHC (31.0-37.0) g/dL Monocytes # (Manual) (0-1.0) k/uL Metamyelocytes # (Man) (0) k/uL ABG pH (7.35-7.45) ABG pCO2 (35-45) mmHg ABG pO2 (83-108) mmHg ABG O2 Saturation (94-97) % Potassium (3.5-5.1) mmol/L BUN (9-20) mg/dL Glucose (74-99) mg/dL POC Glucose (mg/dL) (75-99) mg/dL Plasma Lactic Acid Hieu 9.1 H* (0.7-2.0) mmol/L Magnesium (1.6-2.3) mg/dL Creatine Kinase (55-170) U/L Troponin I 0.102 H* (0.000-0.034) ng/mL Total Protein (6.3-8.2) g/dL Albumin (3.5-5.0) g/dL Urine Protein (Negative) Urine Glucose (UA) (Negative) Urine Blood (Negative) Ur Leukocyte Esterase (Negative) Urine RBC (0-5) /hpf Urine WBC (0-5) /hpf Urine WBC Clumps (None) /hpf Urine Bacteria (None) /hpf Hyaline Casts (0-2) /lpf Coronavirus (PCR) Detected A (Not Detectd) 05/13/20 05/13/20 05/13/20 Range/Units 21:25 21:55 23:51 RBC (4.30-5.90) m/uL Hgb (13.0-17.5) gm/dL Hct (39.0-53.0) % MCV (80.0-100.0) fL MCHC (31.0-37.0) g/dL Monocytes # (Manual) (0-1.0) k/uL Metamyelocytes # (Man) (0) k/uL ABG pH 7.21 L (7.35-7.45) ABG pCO2 52 H (35-45) mmHg ABG pO2 >400 H (83-108) mmHg ABG O2 Saturation 99.6 H (94-97) % Potassium (3.5-5.1) mmol/L BUN (9-20) mg/dL Glucose (74-99) mg/dL POC Glucose (mg/dL) (75-99) mg/dL Plasma Lactic Acid Hieu 8.0 H* (0.7-2.0) mmol/L Magnesium (1.6-2.3) mg/dL Creatine Kinase (55-170) U/L Troponin I (0.000-0.034) ng/mL Total Protein (6.3-8.2) g/dL Albumin (3.5-5.0) g/dL Urine Protein 2+ H (Negative) Urine Glucose (UA) 4+ H (Negative) Urine Blood Moderate H (Negative) Ur Leukocyte Esterase Large H (Negative) Urine RBC 29 H (0-5) /hpf Urine WBC >182 H (0-5) /hpf Urine WBC Clumps Many H (None) /hpf Urine Bacteria Many H (None) /hpf Hyaline Casts 17 H (0-2) /lpf Coronavirus (PCR) (Not Detectd) 05/14/20 05/14/20 05/14/20 Range/Units 00:12 01:47 01:48 RBC (4.30-5.90) m/uL Hgb (13.0-17.5) gm/dL Hct (39.0-53.0) % MCV (80.0-100.0) fL MCHC (31.0-37.0) g/dL Monocytes # (Manual) (0-1.0) k/uL Metamyelocytes # (Man) (0) k/uL ABG pH (7.35-7.45) ABG pCO2 (35-45) mmHg ABG pO2 (83-108) mmHg ABG O2 Saturation (94-97) % Potassium (3.5-5.1) mmol/L BUN (9-20) mg/dL Glucose (74-99) mg/dL POC Glucose (mg/dL) 406 H 460 H 470 H (75-99) mg/dL Plasma Lactic Acid Hieu (0.7-2.0) mmol/L Magnesium (1.6-2.3) mg/dL Creatine Kinase (55-170) U/L Troponin I (0.000-0.034) ng/mL Total Protein (6.3-8.2) g/dL Albumin (3.5-5.0) g/dL Urine Protein (Negative) Urine Glucose (UA) (Negative) Urine Blood (Negative) Ur Leukocyte Esterase (Negative) Urine RBC (0-5) /hpf Urine WBC (0-5) /hpf Urine WBC Clumps (None) /hpf Urine Bacteria (None) /hpf Hyaline Casts (0-2) /lpf Coronavirus (PCR) (Not Detectd) 05/14/20 05/14/20 Range/Units 02:41 03:40 RBC (4.30-5.90) m/uL Hgb (13.0-17.5) gm/dL Hct (39.0-53.0) % MCV (80.0-100.0) fL MCHC (31.0-37.0) g/dL Monocytes # (Manual) (0-1.0) k/uL Metamyelocytes # (Man) (0) k/uL ABG pH (7.35-7.45) ABG pCO2 (35-45) mmHg ABG pO2 (83-108) mmHg ABG O2 Saturation (94-97) % Potassium (3.5-5.1) mmol/L BUN (9-20) mg/dL Glucose (74-99) mg/dL POC Glucose (mg/dL) 392 H 350 H (75-99) mg/dL Plasma Lactic Acid Hieu (0.7-2.0) mmol/L Magnesium (1.6-2.3) mg/dL Creatine Kinase (55-170) U/L Troponin I (0.000-0.034) ng/mL Total Protein (6.3-8.2) g/dL Albumin (3.5-5.0) g/dL Urine Protein (Negative) Urine Glucose (UA) (Negative) Urine Blood (Negative) Ur Leukocyte Esterase (Negative) Urine RBC (0-5) /hpf Urine WBC (0-5) /hpf Urine WBC Clumps (None) /hpf Urine Bacteria (None) /hpf Hyaline Casts (0-2) /lpf Coronavirus (PCR) (Not Detectd) Microbiology - Last 24 Hours (Table) 05/13/20 21:55 Urine Culture - Preliminary Urine,Voided Thrombosis Risk Factor Assmnt - Choose All That Apply Each Factor Represents 1 point: Abnormal pulmonary function (COPD), Medical pt on bed rest Each Risk Factor Represents 2 Points: Age 61-74 years Thrombosis Risk Factor Assessment Total Risk Factor Score: 4 Thrombosis Risk Factor Assessment Level: Moderate Risk Assessment and Plan Assessment: Acute hypoxic and hypercapnic respiratory failure with respiratory arrest Vent dependent respiratory failure Covd pneumonitis Lactic acidosis Anemia Mild hyperkalemia Hyperglycemia Elevated troponins, history of CAD Plan Patient elected no escalation of care no chest compressions no central lines no pressors Continue with vent support Pulmonary consultation ICU admission Dexamethasone Supportive care IV fluid hydration IV fluid hydration with normal saline Monitor hemoglobin, no evidence of acute bleeding Monitor cardiac enzymes Chronic conditions Diabetes mellitus A. fib Dementia COPD on home oxygen is surrogate decision-maker CODE STATUS: No code DVT prophylaxis: Lovenox Discussed with: Patient, ER, RN Anticipated length of stay more than [address]: Poor prognosis, pending clinical course A total of 75 minutes was spent on the care of this complex patient more than 50% of the time was spent in counseling and care coordination.
[2020-05-14] MEDS ORDERED: NOREPINEPHRINE 4 MG in SODIUM CHLORIDE 0.9% 250 ML IV SCH (04:00)
[2020-05-14 04:09] LABS: Calcium 8.5 mg/dL (8.4-10.2); Potassium 4.1 mmol/L (3.5-5.1)
[2020-05-14 04:31] LABS: Basophils # (A) 0.1 k/uL (0-0.2); Basophils % (A) 1 %; Eosinophils % (A) 0 %; HCT 25.9 % (39.0-53.0); HGB 7.8 gm/dL (13.0-17.5); Hypochromasia Marked; Lymphocytes # (A) 0.1 k/uL (1.0-4.8); Lymphocytes % (A) 1 %; MCH 30.7 pg (25.0-35.0); MCHC 30.2 g/dL (31.0-37.0); MCV 101.4 fL (80.0-100.0); Macrocytosis Slight; Mean Platelet Volume 8.7; Monocytes # (A) 0.9 k/uL (0-1.0); Monocytes % (A) 8 %; Neutrophils # (A) 9.2 k/uL (1.3-7.7); Neutrophils % (A) 89 %; Platelet Count 214 k/uL (150-450); RBC 2.56 m/uL (4.30-5.90); RDW 14.9 % (11.5-15.5); WBC 10.3 k/uL (3.8-10.6)
[2020-05-14 05:16] LABS: Glucose,Whole Blood 242 mg/dL (75-99)
[2020-05-14 05:40] LABS: ABG Base Excess -0.2 mmol/L; ABG HCO3 25 mmol/L (21-25); ABG PCO2 46 mmHg (35-45); ABG PH 7.35 (7.35-7.45); ABG PO2 79 mmHg (83-108); ABG TCO2 27 mmol/L (19-24); Allen Test Performed? Yes
[2020-05-14 06:08] LABS: Glucose,Whole Blood 212 mg/dL (75-99)
[2020-05-14 07:01] LABS: Glucose,Whole Blood 175 mg/dL (75-99)
[2020-05-14 07:59] LABS: Glucose,Whole Blood 154 mg/dL (75-99)
[2020-05-14 08:48] LABS: Glucose,Whole Blood 117 mg/dL (75-99)
[2020-05-14] MEDS: CHLORHEXIDINE GLUCONATE 15 ML CUP MUCOUS MEM SCH ×2 (08:48→22:13)
[2020-05-14] MEDS: SODIUM CHLORIDE 0.9% 1,000 ML IV SCH ×2 (08:49→14:25)
[2020-05-14] MEDS ORDERED: HEPARIN SODIUM,PORCINE/PF 5,000 UNIT/0.5 ML SYRINGE SQ SCH (09:00)
[2020-05-14] MEDS ORDERED: DEXAMETHASONE SOD PHOSPHATE 10 MG/ML 1 ML VIAL IV SCH (09:00)
[2020-05-14] MEDS ORDERED: PANTOPRAZOLE 40 MG/10 ML VIAL IV SCH (09:00)
--- NOTE | 2020-05-14 09:10 | XR ---
EXAMINATION TYPE: XR chest 1V portable DATE OF EXAM: 05/14/2020 Comparison: 05/13/2020 Clinical History: 70-year-old male Tube placement Findings: ACDF hardware. ET tube satisfactory. NG tube courses below the diaphragm. Heart normal size. Atherosc lerotic arch calcifications. Some subtle patchy density right midlung and left base shows some improv ement from prior exam. No pleural effusion. Hyperinflation. Impression: COPD with mild patchy right midlung and left basilar density shows some improvement from prior.
[2020-05-14 10:13] LABS: Glucose,Whole Blood 119 mg/dL (75-99)
[2020-05-14 10:49] LABS: Glucose,Whole Blood 128 mg/dL (75-99)
[2020-05-14] MEDS ORDERED: LORazepam 2 MG/ML INJ IV PRN (11:44)
[2020-05-14] MEDS ORDERED: MORPHINE SULFATE 2 MG/ML SYRINGE IV PRN (11:44)
--- NOTE | 2020-05-14 12:08 | P.CNPUL ---
History of Present Illness Consult date: 05/14/20 Requesting physician: Don De La Cruz Reason for consult: dyspnea, other (Ventilator/critical care management) Chief complaint: Acute hypoxic respiratory failure History of present illness: This is a frail, cachectic 70-year-old gentleman with a history of dementia, atrial fibrillation, chronic obstructive pulmonary disease on home oxygen, CVA, coronary artery disease with stent placement, diabetes mellitus, hypertension, hyperlipidemia. Yesterday his found him more confused than usual. His oxygen saturations were in the 70s and EMS was called. The patient continued to develop acute hypoxemic respiratory failure requiring intubation in the field. He is seen today in consultation in the intensive care unit. He is intubated on the mechanical ventilator. Current settings assist-control mode. Rate of 14, tidal volume 400, FiO2 50% and a PEEP of 5. Morning blood gases revealed a pO2 79, pCO2 46, pH 7.35. He is currently sedated on propofol at 20 mcg/kg/m, insulin drip at 2.5 units per hour, norepinephrine at 0.15 mcg/kg/m. 0.9 normal saline at 130 ML's per hour. He has received a total of 3 L of fluid resuscitation. His initial lactic acid was 9. Currently 3.7. Asked x-ray shows evidence of COPD with mild patchy right midlung and left basilar densities. Sputum and urine cultures pending. White count 10.3. Hemoglobin 7.8. Lymphocytes 0.1. Sodium 142. Potassium 4.1. Bicarb 23. Creatinine 1.14. Troponin 0.102. Urinalysis with large the PVCs and many bacteria. Cifuentes virus detected. He's been initiated on dexamethasone, subcutaneous heparin for DVT prophylaxis. He was given ceftriaxone and azithromycin. Review of Systems ROS unobtainable: due to endotracheal tube Past Medical History Past Medical History: Atrial Fibrillation, Atrial Flutter, Coronary Artery Disease (CAD), COPD, CVA/TIA, Diabetes Mellitus, Hyperlipidemia, Hypertension, Myocardial Infarction ([place]), Osteoarthritis (OA) Additional Past Medical History / Comment(s): Bilateral carotid artery disease, BPH, dementia Last Myocardial Infarction Date:: 2011 History of Any Multi-Drug Resistant Organisms: None Reported Past Surgical History: Heart Catheterization With Stent Additional Past Surgical History / Comment(s): Neck surgery, bilateral carotid surgery Past Anesthesia/Blood Transfusion Reactions: No Reported Reaction Additional Past Anesthesia/Blood Transfusion Reaction / Comment(s): Pt has received blood in past without reaction. Date of Last Stent Placement:: 2011 Past Psychological History: Anxiety Smoking Status: Former smoker Past Alcohol Use History: None Reported Past Drug Use History: None Reported - Past Family History Brother(s) Family Medical History: Cancer, Diabetes Mellitus Additional Family Medical History / Comment(s): One brother from cancer in his spine. Another brother recently from diabetic complications. Father Family Medical History: Coronary Artery Disease (CAD) Mother Family Medical History: Coronary Artery Disease (CAD), Diabetes Mellitus Medications and Allergies Home Medications Medication Instructions Recorded Confirmed Type glipiZIDE [Glucotrol] 5 mg PO DAILY 01/07/14 05/13/20 History Aspirin 81 mg PO DAILY 03/28/15 05/13/20 History Tamsulosin HCl [Flomax] 0.4 mg PO DAILY 03/28/15 05/13/20 History Citalopram Hydrobromide [CeleXA] 20 mg PO DAILY 03/06/16 05/13/20 History Divalproex Sodium [Depakote] 500 mg PO BID 03/06/16 05/13/20 History Donepezil [Aricept] 10 mg PO DAILY 11/04/18 05/13/20 History Memantine [Namenda] 10 mg PO BID 11/04/18 05/13/20 History Digoxin [Lanoxin] 125 mcg PO DAILY 11/19/18 05/13/20 History Simvastatin [Zocor] 20 mg PO HS 10/05/19 05/13/20 History Ferrous Sulfate [Feosol] 325 mg PO BID 05/13/20 05/13/20 History Multivitamins, Thera [Multivitamin 1 tab PO DAILY 05/13/20 05/13/20 History (formulary)] Allergies Allergy/AdvReac Type Severity Reaction Status Date / Time No Known Allergies Allergy Verified 10/05/19 10:21 Physical Exam Vitals: Vital Signs Temp Pulse Pulse Resp BP Pulse Ox 05/14/20 11:30 101 H 27 H 153/67 100 05/14/20 11:15 100 25 H 129/57 100 05/14/20 11:00 97 23 131/60 100 05/14/20 10:45 96 24 124/58 100 05/14/20 10:30 94 21 120/56 100 05/14/20 10:15 97 29 H 111/55 100 05/14/20 10:00 96 29 H 112/54 100 05/14/20 09:45 96 30 H 110/53 100 05/14/20 09:30 96 30 H 131/62 100 05/14/20 09:15 95 28 H 117/52 100 05/14/20 09:00 93 31 H 129/58 100 05/14/20 08:45 96 29 H 123/60 100 05/14/20 08:30 95 29 H 100/49 100 05/14/20 08:15 92 29 H 120/57 100 05/14/20 08:00 98.4 F 93 31 H 112/51 100 05/14/20 07:45 95 30 H 119/56 100 05/14/20 07:30 96 31 H 120/54 100 05/14/20 07:15 95 30 H 102/54 100 05/14/20 07:00 95 32 H 102/55 100 05/14/20 06:45 96 31 H 97/46 100 05/14/20 06:30 96 32 H 100/47 100 02 06:15 97 33 H 97/54 100 05/14/20 06:00 98 23 113/53 100 05/14/20 05:45 96 32 H 102/53 100 05/14/20 05:30 96 32 H 96/47 100 05/14/20 05:15 97 33 H 91/46 100 05/14/20 05:00 97 33 H 89/45 100 02 04:45 98 34 H 90/49 100 02 04:30 97 33 H 89/50 100 02 04:15 97 35 H 80/45 100 05/14/20 04:00 97.6 F 101 H 32 H 87/45 100 02 03:51 103 H 34 H 0402 03:45 102 H 34 H 83/45 100 02 03:30 102 H 34 H 73/41 100 02 03:15 102 H 35 H 96/41 100 02 03:00 101 H 34 H 95/44 100 02 02:45 101 H 34 H 104/47 100 05/14/20 02:30 107 H 33 H 112/51 99 05/14/20 02:15 105 H 33 H 106/43 98 05/14/20 02:00 98 34 H 91/46 99 05/14/20 01:45 105 H 36 H 87/30 98 05/14/20 01:30 101 H 34 H 92/49 95 05/14/20 01:15 106 H 35 H 73/50 97 05/14/20 01:00 102 H 33 H 84/66 96 05/14/20 00:45 102 H 34 H 117/63 97 05/14/20 00:30 109 H 32 H 111/93 99 05/14/20 00:15 113 H 23 05/14/20 00:00 105 H 102 H 33 H 87/51 100 05/13/20 23:45 105 H 35 H 123/50 100 05/13/20 23:30 101 H 35 H 100 05/13/20 23:21 103 H 35 H 108/47 100 05/13/20 23:15 97.3 F L 98 12 103/46 100 05/13/20 23:04 101 H 12 05/13/20 23:00 98 12 101/69 99 05/13/20 22:45 105 H 12 90/71 90 L 05/13/20 22:30 105 H 12 69/45 94 L 05/13/20 22:15 101 H 12 80/27 99 05/13/20 22:00 105 H 12 92/42 99 05/13/20 21:50 106 H 12 85/45 100 05/13/20 21:40 101 H 12 80/27 96 05/13/20 21:30 102 H 12 92/42 100 05/13/20 21:20 103 H 12 85/45 96 05/13/20 20:50 114 H 12 113/100 100 05/13/20 20:40 112 H 12 104/65 99 05/13/20 19:58 96.1 F L 121 H 12 94/64 100 Intake and Output 05/13/20 05/14/20 05/14/20 22:59 06:59 14:59 Intake Total 1839.342 556.015 Output Total 150 36 Balance 1689.342 520.015 Intake: IV 1780 390 Sodium Chloride 0.9% 1, 780 390 000 ml @ 130 mls/hr IV . Q7H42M OREN Rx#:[id number] Sodium Chloride 0.9% 1, 1000 000 ml @ 999 mls/hr IV . Q1H1M ONE Rx#:[id number] Intake, IV Titration 59.342 166.015 Amount Insulin Regular 100 unit 36.124 7.803 In Sodium Chloride 0.9% 100 ml @ Per Protocol IV .Q0M OREN Rx#:[id number] Norepinephrine 4 mg In 16.581 158.212 Sodium Chloride 0.9% 250 ml @ 0.05 MCG/KG/MIN 10. 363 mls/hr IV .Q24H [facility]EN Rx#:[id number] propofoL 1,000 mg In 6.637 Empty Bag 1 bag @ Titrate IV .Q0M OREN Rx#: [id number] Output: Urine 150 36 Other: Voiding Method Indwelling Catheter Indwelling Catheter Weight 54.4 kg 54.4 kg GENERAL EXAM: Frail, cachectic, intubated, sedated 70-year-old gentleman. HEAD: Normocephalic. EYES: Sluggish reaction of pupils, equal size. NOSE: Clear with pink turbinates. THROAT: No erythema or exudates. NECK: No masses, no JVD. CHEST: No chest wall deformity. LUNGS: Equal air entry with coarse rhonchi bilaterally. CVS: S1 and S2 normal with no audible murmur, regular rhythm. ABDOMEN: No hepatosplenomegaly, normal bowel sounds, no guarding or rigidity. SPINE: No scoliosis or deformity SKIN: No rashes CENTRAL NERVOUS SYSTEM: Sedated, tone is normal in all 4 extremities. EXTREMITIES: There is no peripheral edema. No clubbing, no cyanosis. Peripheral pulses are intact. Results - Laboratory Findings CBC and BMP: 05/14/20 03:34 05/14/20 03:34 ABG ABG pH 7.35 (7.35-7.45) 05/14/20 05:28 ABG pCO2 46 mmHg (35-45) H 05/14/20 05:28 ABG pO2 79 mmHg (83-108) L 05/14/20 05:28 ABG O2 Saturation 96.0 % (94-97) 05/14/20 05:28 PT/INR, D-dimer PT 11.3 sec (9.0-12.0) 05/13/20 20:28 INR 1.1 (<1.2) 05/13/20 20:28 Abnormal lab findings: Abnormal Labs 05/13/20 05/13/20 05/13/20 20:00 20:28 20:28 RBC 2.73 L Hgb 8.3 L Hct 28.6 L MCV 104.8 H MCHC 28.8 L Neutrophils # Lymphocytes # Monocytes # (Manual) 1.33 H Metamyelocytes # (Man) 0.10 H ABG pH ABG pCO2 ABG pO2 ABG Total CO2 ABG O2 Saturation Potassium 5.5 H Chloride BUN 55 H Glucose 479 H POC Glucose (mg/dL) 513 H Plasma Lactic Acid Hieu Magnesium 2.4 H Creatine Kinase 302 H Troponin I Total Protein 5.1 L Albumin 2.3 L Urine Protein Urine Glucose (UA) Urine Blood Ur Leukocyte Esterase Urine RBC Urine WBC Urine WBC Clumps Urine Bacteria Hyaline Casts Coronavirus (PCR) 05/13/20 05/13/20 05/13/20 20:28 20:28 20:28 RBC Hgb Hct MCV MCHC Neutrophils # Lymphocytes # Monocytes # (Manual) Metamyelocytes # (Man) ABG pH ABG pCO2 ABG pO2 ABG Total CO2 ABG O2 Saturation Potassium Chloride BUN Glucose POC Glucose (mg/dL) Plasma Lactic Acid Hieu 9.1 H* Magnesium Creatine Kinase Troponin I 0.102 H* Total Protein Albumin Urine Protein Urine Glucose (UA) Urine Blood Ur Leukocyte Esterase Urine RBC Urine WBC Urine WBC Clumps Urine Bacteria Hyaline Casts Coronavirus (PCR) Detected A 05/13/20 05/13/20 05/13/20 21:25 21:55 23:51 RBC Hgb Hct MCV MCHC Neutrophils # Lymphocytes # Monocytes # (Manual) Metamyelocytes # (Man) ABG pH 7.21 L ABG pCO2 52 H ABG pO2 >400 H ABG Total CO2 ABG O2 Saturation 99.6 H Potassium Chloride BUN Glucose POC Glucose (mg/dL) Plasma Lactic Acid Hieu 8.0 H* Magnesium Creatine Kinase Troponin I Total Protein Albumin Urine Protein 2+ H Urine Glucose (UA) 4+ H Urine Blood Moderate H Ur Leukocyte Esterase Large H Urine RBC 29 H Urine WBC >182 H Urine WBC Clumps Many H Urine Bacteria Many H Hyaline Casts 17 H Coronavirus (PCR) 05/14/20 05/14/20 05/14/20 00:12 01:47 01:48 RBC Hgb Hct MCV MCHC Neutrophils # Lymphocytes # Monocytes # (Manual) Metamyelocytes # (Man) ABG pH ABG pCO2 ABG pO2 ABG Total CO2 ABG O2 Saturation Potassium Chloride BUN Glucose POC Glucose (mg/dL) 406 H 460 H 470 H Plasma Lactic Acid Hieu Magnesium Creatine Kinase Troponin I Total Protein Albumin Urine Protein Urine Glucose (UA) Urine Blood Ur Leukocyte Esterase Urine RBC Urine WBC Urine WBC Clumps Urine Bacteria Hyaline Casts Coronavirus (PCR) 05/14/20 05/14/20 05/14/20 02:41 03:34 03:34 RBC 2.56 L Hgb 7.8 L Hct 25.9 L MCV 101.4 H MCHC 30.2 L Neutrophils # 9.2 H Lymphocytes # 0.1 L Monocytes # (Manual) Metamyelocytes # (Man) ABG pH ABG pCO2 ABG pO2 ABG Total CO2 ABG O2 Saturation Potassium Chloride 111 H BUN 57 H Glucose 342 H POC Glucose (mg/dL) 392 H Plasma Lactic Acid Hieu Magnesium Creatine Kinase Troponin I Total Protein Albumin Urine Protein Urine Glucose (UA) Urine Blood Ur Leukocyte Esterase Urine RBC Urine WBC Urine WBC Clumps Urine Bacteria Hyaline Casts Coronavirus (PCR) 05/14/20 05/14/20 05/14/20 03:40 05:15 05:27 RBC Hgb Hct MCV MCHC Neutrophils # Lymphocytes # Monocytes # (Manual) Metamyelocytes # (Man) ABG pH ABG pCO2 ABG pO2 ABG Total CO2 ABG O2 Saturation Potassium Chloride BUN Glucose POC Glucose (mg/dL) 350 H 242 H Plasma Lactic Acid Hieu 3.7 H* Magnesium Creatine Kinase Troponin I Total Protein Albumin Urine Protein Urine Glucose (UA) Urine Blood Ur Leukocyte Esterase Urine RBC Urine WBC Urine WBC Clumps Urine Bacteria Hyaline Casts Coronavirus (PCR) 05/14/20 05/14/20 05/14/20 05:28 06:07 07:00 RBC Hgb Hct MCV MCHC Neutrophils # Lymphocytes # Monocytes # (Manual) Metamyelocytes # (Man) ABG pH ABG pCO2 46 H ABG pO2 79 L ABG Total CO2 27 H ABG O2 Saturation Potassium Chloride BUN Glucose POC Glucose (mg/dL) 212 H 175 H Plasma Lactic Acid Hieu Magnesium Creatine Kinase Troponin I Total Protein Albumin Urine Protein Urine Glucose (UA) Urine Blood Ur Leukocyte Esterase Urine RBC Urine WBC Urine WBC Clumps Urine Bacteria Hyaline Casts Coronavirus (PCR) 05/14/20 05/14/20 05/14/20 07:58 08:47 10:12 RBC Hgb Hct MCV MCHC Neutrophils # Lymphocytes # Monocytes # (Manual) Metamyelocytes # (Man) ABG pH ABG pCO2 ABG pO2 ABG Total CO2 ABG O2 Saturation Potassium Chloride BUN Glucose POC Glucose (mg/dL) 154 H 117 H 119 H Plasma Lactic Acid Hieu Magnesium Creatine Kinase Troponin I Total Protein Albumin Urine Protein Urine Glucose (UA) Urine Blood Ur Leukocyte Esterase Urine RBC Urine WBC Urine WBC Clumps Urine Bacteria Hyaline Casts Coronavirus (PCR) 05/14/20 10:47 RBC Hgb Hct MCV MCHC Neutrophils # Lymphocytes # Monocytes # (Manual) Metamyelocytes # (Man) ABG pH ABG pCO2 ABG pO2 ABG Total CO2 ABG O2 Saturation Potassium Chloride BUN Glucose POC Glucose (mg/dL) 128 H Plasma Lactic Acid Hieu Magnesium Creatine Kinase Troponin I Total Protein Albumin Urine Protein Urine Glucose (UA) Urine Blood Ur Leukocyte Esterase Urine RBC Urine WBC Urine WBC Clumps Urine Bacteria Hyaline Casts Coronavirus (PCR) - Diagnostic Findings Chest x-ray: image reviewed Assessment and Plan Assessment: 1 Acute hypoxemic respiratory failure secondary to acute CoVID 19 infection 2 Acute septic shock secondary to above along with urinary tract infection 3 Lactic acidosis secondary to above 4 Urinary tract infection, culture pending 5 Diabetes mellitus with hyperglycemia currently on insulin drip 6 History of dementia 7 Chronic obstructive pulmonary disease on home oxygen 8 History of CVA 9 Coronary artery disease with previous stent placement 10 Hypertension, history 11 Hyperlipidemia 12 Poor overall functional status based on the above-mentioned multiple comorbidities Plan: The patient was seen and evaluated by Dr. Dai He did speak with the patient's regarding the critical status of this patient He was to be DO NOT RESUSCITATE from previous documentation She may consider comfort care and will be in to see the patient In the interim, we'll continue with full supportive care Decrease the FiO2 to 45% We will continue to follow and make further recommendations based on his cl inical status I, the cosigning physician, performed a history & physical examination of the patient. Lungs sounds bilateral coarse rhonchi. Maintaining good O2 saturations in the 90s on 50% FiO2 and a PEEP of 5 I discussed the assessment and plan of care with my nurse practitioner, Hollie Calle. I attest to the above consult dictation as dictated by her. Time with Patient: Greater than 30
[2020-05-14] MEDS: MORPHINE SULFATE (100 MG/2 ML) 100 MG in SODIUM CHLORIDE 0.9% 100 ML IV SCH ×2 (12:23→22:01)
[2020-05-14 13:05] VITALS: BMI 18.8
--- NOTE | 2020-05-14 15:31 | P.PN ---
Progress Note - Text Progress Note Date: 05/14/20 Hospitalist Interval Note Patient seen and examined at bedside. Sedated on vent, increasing pressor requirements. Dr. Dai has already spoke with family and suggested comfort measures. Vital signs reviewed General: non toxic, no distress, appears older than stated age, cachectic, buccal and temporal fat-pad wasting Derm: warm, dry Head: atraumatic, normocephalic, symmetric Eyes: pupils pinpoint, no lid lag, anicteric sclera Mouth: no lip lesion, mucus membranes moist Cardiovascular: S1S2 reg, no murmur, positive posterior tibial pulse bilateral, Lungs: Coarse breath sounds bilaterally, no wheezing, on vent Abdominal: soft, nontender to palpation, no guarding, no appreciable organomegaly Ext: no gross muscle atrophy, no edema, no contractures Neuro: + breathing over vent, no with drawl to pain Psych: Alert, oriented, appropriate affect Assessment/Plan: Acute on chronic hypoxic hypercapnic respiratory failure requiring mechanical ventilation COVID 19 pneumonitis Septic Shock UTI COPD Toxic metabolic encephalopathy Lactic acidosis Anemia Hyperkalemia Diabetes mellitus type 2 with hyperglycemia Paroxysmal atrial fibrillation Dementia Functional Debility and bed bound at home. HLD NSTEMI, type II due to hypoxia After I examined patient he was transitioned to comfort measure.Morphine gtt and Ativan This is an update note for patient , for full note on 05/14.see H and P. There is no charge associated with this note.
[2020-05-14 22:55] VITALS: RESP 11
[2020-05-15 01:40] VITALS: BP 91/51; PULSE 54; TEMP 97.6
--- NOTE | 2020-05-15 07:38 | P.DS ---
Providers Date of admission: 05/13/20 22:39 Expected date of discharge: 05/15/20 Attending physician: Don De La Cruz MD Consults: 05/13/20 22:39 Consult Physician Stat Consulting Provider: Batool Dai Consult Reason/Comments: vent dependant respiratory failure Do you want consulting provider notified?: Already Contacted Primary care physician: Stated None Hospital Course: Discharge Diagnosis: Acute on chronic hypoxic hypercapnic respiratory failure requiring mechanical ventilation COVID 19 pneumonitis Septic Shock UTI COPD Toxic metabolic encephalopathy Lactic acidosis Anemia Hyperkalemia Diabetes mellitus type 2 with hyperglycemia Paroxysmal atrial fibrillation Dementia Functional Debility and bed bound at home. HLD NSTEMI, type II due to hypoxia Hospital Course: Mr. Vidales is a 70-year-old male with COPD on home O2 at 3 L, dementia, functional debility resulting in being bedbound at home, and A. fib who was brought into the hospital via EMS due to being found unresponsive and hypoxemic by his . At home his oxygen levels been in the 70s and she called EMS. He was found to be in respiratory arrest and was intubated in the field. In route to the hospital he was intermittently losing pulses and was subsequently transcutaneous paste and bagged until he arrived. After speaking with the the patient was made a DO NOT RESUSCITATE with no escalation of care. In the ER he was determined to have acute hypoxic hypercapnic respiratory failure, Covid 19 pneumonitis, lactic acidosis, hyperkalemia, and hyperglycemia. His CT head demonstrated a remote ischemic infarct in the right occipital lobe without any evidence of acute bleed or mass effect and inflammatory changes in the maxillary sinus. Chest x-ray demonstrated left lung infiltrates consistent with pneumonia. He was admitted to the ICU. He was started on dexamethasone, IV fluids However he did require some sedation and subsequently was placed on levo. He was also found to have a urinary tract infection was started on Rocephin. He was ultimately transitioned to comfort care after pulmonary critical care spoke with the family. He peacefully on the morning of 05/15 at 00:00. Family was notified by nursing. Plan - Discharge Summary Discharge Rx Participant: No New Discharge Prescriptions: No Action glipiZIDE [Glucotrol] 5 mg PO DAILY Tamsulosin HCl [Flomax] 0.4 mg PO DAILY Aspirin 81 mg PO DAILY Divalproex Sodium [Depakote] 500 mg PO BID Citalopram Hydrobromide [CeleXA] 20 mg PO DAILY Memantine [Namenda] 10 mg PO BID Donepezil [Aricept] 10 mg PO DAILY Digoxin [Lanoxin] 125 mcg PO DAILY Simvastatin [Zocor] 20 mg PO HS Multivitamins, Thera [Multivitamin (formulary)] 1 tab PO DAILY Ferrous Sulfate [Feosol] 325 mg PO BID Discharge Medication List glipiZIDE [Glucotrol] 5 mg PO DAILY 01/07/14 [History] Aspirin 81 mg PO DAILY 03/28/15 [History] Tamsulosin HCl [Flomax] 0.4 mg PO DAILY 03/28/15 [History] Citalopram Hydrobromide [CeleXA] 20 mg PO DAILY 03/06/16 [History] Divalproex Sodium [Depakote] 500 mg PO BID 03/06/16 [History] Donepezil [Aricept] 10 mg PO DAILY 11/04/18 [History] Memantine [Namenda] 10 mg PO BID 11/04/18 [History] Digoxin [Lanoxin] 125 mcg PO DAILY 11/19/18 [History] Simvastatin [Zocor] 20 mg PO HS 10/05/19 [History] Ferrous Sulfate [Feosol] 325 mg PO BID 05/13/20 [History] Multivitamins, Thera [Multivitamin (formulary)] 1 tab PO DAILY 05/13/20 [History] Follow up Appointment(s)/Referral(s): None,Stated [Primary Care Provider] - 1-2 days Discharge Disposition: - Preliminary Cause of Preliminary Cause of : COVID pneumonia
--- NOTE | 2020-06-08 10:56 | CDI ---
Dr. Margarita Santillan, The Registered Dietitian assessment on 05/14 indicates this patient is underweight. Based on this information and the findings below, is there an additional diagnosis that is clinically appropriate for this patient? History/Risk Factors: 70 year old male with dementia, bed bound, history of COPD on 3 L NC, afib. Admitted with acute hypoxic and hypercapnia respiratory failure with respiratory arrest, covid pneumonia and sepsis with septic shock. Clinical Indicators: 05/14 Consult: "Frail, cachectic" 05/14 progress note: "appears older than stated age, cachectic, buccal and temporal fat-pad wasting" 05/14 Consult Assessment: "physical appearance is underweight." Current BMI: 18 Insufficient energy intake: poor nutrition intake, NPO Weight Loss: 14-23 lb weight loss (time frame not mentioned). Decreased hand gizzard puller strength: sedated on the ventilator Treatment: Comfort care Dietary Consult: as above Lab monitoring: daily 05/13 and 05/14 Is there an additional diagnosis that is clinically appropriate for this patient? [ x ] Mild Protein-Calorie Malnutrition [ ] Moderate Protein-Calorie Malnutrition [ ] Severe Protein-Calorie Malnutrition [ ] Other condition, please specify [ ] Unable to Determine MTDD
== END 2020-05-15 02:10 | disposition expired | DRG 871 ==
LOC: EC 19:55 → 2SICU 22:39 → 4SSUR 05-14 23:35
PROVIDERS: ADMIT Internal Medicine; ATTEND Internal Medicine
PROC: 5A1935Z Respiratory Ventilation, Less than 24 Consecutive Hours (ICD-10-PCS; principal; 2020-05-13)
PROC: 3E033XZ Introduction of Vasopressor into Peripheral Vein, Percutaneous Approach (ICD-10-PCS; 2020-05-14)
DX: A41.89 Other specified sepsis (principal); I21.A1 Myocardial infarction type 2; U07.1 COVID-19; J96.21 Acute and chronic respiratory failure with hypoxia; J96.22 Acute and chronic respiratory failure with hypercapnia; R65.21 Severe sepsis with septic shock; G92 Toxic encephalopathy; J12.82 Pneumonia due to coronavirus disease 2019; E87.2 Acidosis; Z51.5 Encounter for palliative care; Z99.11 Dependence on respirator [ventilator] status; J44.0 Chronic obstructive pulmonary disease with (acute) lower respiratory infection; N39.0 Urinary tract infection, site not specified; R64 Cachexia; Z68.1 Body mass index [BMI] 19.9 or less, adult; I48.92 Unspecified atrial flutter; E44.1 Mild protein-calorie malnutrition; I46.9 Cardiac arrest, cause unspecified; Z99.81 Dependence on supplemental oxygen; I48.0 Paroxysmal atrial fibrillation; Z66 Do not resuscitate; F03.90 Unspecified dementia, unspecified severity, without behavioral disturbance, psychotic disturbance, mood disturbance, and anxiety; Z79.82 Long term (current) use of aspirin; Z79.84 Long term (current) use of oral hypoglycemic drugs; I25.10 Atherosclerotic heart disease of native coronary artery without angina pectoris; Z86.73 Personal history of transient ischemic attack (TIA), and cerebral infarction without residual deficits; N40.0 Benign prostatic hyperplasia without lower urinary tract symptoms; I25.2 Old myocardial infarction; Z87.891 Personal history of nicotine dependence; Z83.3 Family history of diabetes mellitus; Z82.49 Family history of ischemic heart disease and other diseases of the circulatory system; Z74.01 Bed confinement status; E78.5 Hyperlipidemia, unspecified; I10 Essential (primary) hypertension; Z80.9 Family history of malignant neoplasm, unspecified; E87.5 Hyperkalemia; E11.65 Type 2 diabetes mellitus with hyperglycemia; Z95.5 Presence of coronary angioplasty implant and graft; D64.9 Anemia, unspecified; F41.9 Anxiety disorder, unspecified; I49.3 Ventricular premature depolarization; M19.90 Unspecified osteoarthritis, unspecified site; L89.211 Pressure ulcer of right hip, stage 1
CPT/HCPCS: 36415; 36600; 70450; 71045; 80048; 80053; 80164; 81001; 82550; 82805; 83605; 83735; 83880; 84484; 85025; 85610; 85730; 87040; 87070; 87077; 87086; 87186; 87205; 87635; 93005; 96361; 96365; 96375; 99285